=== PATIENT | male | born 1945 | race Caucasian/White ===

== ENCOUNTER 2017-12-24 08:45 | Inpatient (IN) | payer MEDICARE, BC ==
[~2017-12-24 08:45] MED LIST: GLYCOPYRROLATE INJ 0.4 MG/2 ML VIAL ONE; NEOSTIGMINE METHYLSULFATE 10 MG/10 ML VIAL ONE; ROCURONIUM BROMIDE INJ 50 MG/5 ML VIAL IV ONE; SUCCINYLCHOLINE CHLORIDE INJ 200 MG/10 ML VIAL ONE
[2017-12-24] MEDS ORDERED: NORMAL SALINE 1000 ML 1,000 ML IV ONE (09:38)
--- NOTE | 2017-12-24 09:38 | ER Document Report ---
ED Medical Screen (RME) - General Chief Complaint: Abdominal Pain Stated Complaint: STOMACH PAIN Time Seen by Provider: 12/24/17 09:37 Notes: Patient states since yesterday he has had abdominal pain with nausea. He is also felt a "knot" in the center of his abdomen that was very painful. He has had a previous abdominal surgery for bowel perforation. TRAVEL OUTSIDE OF THE [place] IN LAST 30 DAYS: No - Related Data Allergies/Adverse Reactions: Penicillins Allergy (Intermediate, Verified 12/24/17 08:46) Hives Past Medical History - Social History Chew tobacco use (# tins/day): No Frequency of alcohol use: None Drug Abuse: None - Past Medical History Cardiac Medical History: Reports: Hx Coronary Artery Disease, Hx Hypercholesterolemia, Hx Hypertension Endocrine Medical History: Reports: Hx Diabetes Mellitus Type 2 Renal/ Medical History: Denies: Hx Peritoneal Dialysis Past Surgical History: Reports: Hx Cardiac Surgery - 5 vessel - Immunizations Hx Diphtheria, Pertussis, Tetanus Vaccination: Yes Physical Exam - Vital signs Vitals: Temp Pulse Resp BP Pulse Ox 98.1 F 70 20 177/94 H 94 12/24/17 09:02 12/24/17 09:02 12/24/17 09:02 12/24/17 09:02 12/24/17 09:02 Course - Vital Signs Vital signs: Temp Pulse Resp BP Pulse Ox 98.1 F 70 20 156/91 H 94 12/24/17 09:02 12/24/17 09:02 12/24/17 09:02 12/24/17 09:03 12/24/17 09:02
[2017-12-24 10:17] LABS: ABSOLUTE BASOPHILS # (AUTO) 0.1 10^3/uL (0.0-0.2); ABSOLUTE EOSINOPHILS # (AUTO) 0.1 10^3/uL (0.0-0.6); ABSOLUTE LYMPHOCYTES (AUTO) 1.7 10^3/uL (0.5-4.7); ABSOLUTE MONOCYTES (AUTO) 0.6 10^3/uL (0.1-1.4); ABSOLUTE NEUT (AUTO) 8.2 10^3/uL (1.7-8.2); BASOPHILS % (AUTO) 0.7 % (0-2); EOSINOPHILS % (AUTO) 0.7 % (0-6); HEMATOCRIT 44.2 % (37.9-51.0); LYMPHOCYTES % (AUTO) 16.3 % (13-45); MEAN CORPUSCULAR HEMOGLOBIN 29.6 pg (27.0-33.4); MEAN CORPUSCULAR VOLUME 87 fl (80-97); MONOCYTES % (AUTO) 5.9 % (3-13); PLATELET COUNT 211 10^3/uL (150-450); RED BLOOD COUNT 5.08 10^6/uL (4.35-5.55); RED CELL DISTRIBUTION WIDTH 14.8 % (11.5-14.0); SEGMENTED NEUTROPHILS % (AUTO) 76.4 % (42-78); TOTAL CELLS COUNTED % (AUTO) 100 %; WHITE BLOOD COUNT 10.7 10^3/uL (4.0-10.5)
[2017-12-24] MEDS ORDERED: FENTANYL CITRATE INJ/PF 100 MCG/2 ML AMPUL IV ONE (10:20)
--- NOTE | 2017-12-24 10:20 | ER Document Report ---
ED GI/ - General Chief Complaint: Abdominal Pain Stated Complaint: STOMACH PAIN Time Seen by Provider: 12/24/17 09:37 Notes: 72-year-old male. History of coronary artery bypass graft 5, history of major abdominal surgery for stuck chicken bone, to the emergency department today complaining of 1 day history of worsening abdominal pain. Pain seems to be worse down the midline of his abdomen where previous incision was made. Has not felt well. Denies any fever. No difficulty with urination. No vomiting. TRAVEL OUTSIDE OF THE [place] IN LAST 30 DAYS: No - HPI Patient complains to provider of: Abdominal pain Onset: Yesterday - Related Data Allergies/Adverse Reactions: Penicillins Allergy (Intermediate, Verified 12/24/17 08:46) Hives Past Medical History - General Information source: Patient, Relative - Social History Smoking Status: Former Smoker Chew tobacco use (# tins/day): No Frequency of alcohol use: None Drug Abuse: None Lives with: Family Family History: Reviewed & Not Pertinent Patient has suicidal ideation: No Patient has homicidal ideation: No - Past Medical History Cardiac Medical History: Reports: Hx Coronary Artery Disease, Hx Hypercholesterolemia, Hx Hypertension Endocrine Medical History: Reports: Hx Diabetes Mellitus Type 2 Renal/ Medical History: Denies: Hx Peritoneal Dialysis Past Surgical History: Reports: Hx Cardiac Surgery - 5 vessel - Immunizations Hx Diphtheria, Pertussis, Tetanus Vaccination: Yes Review of Systems - Review of Systems Constitutional: Chills. denies: Diaphoresis, Fever, Malaise, Weakness EENT: denies: Blurred vision, Double vision, Ear pain, Vertigo Cardiovascular: denies: Chest pain, Palpitations, Heart racing Respiratory: denies: Cough, Hurts to breathe, Hemoptysis, Short of breath, Wheezing Gastrointestinal: Abdominal pain. denies: Diarrhea, Nausea, Vomiting Genitourinary: denies: Burning, Dysuria, Discharge, Flank pain Male Genitourinary: denies: Testicular pain, Penile discharge Musculoskeletal: denies: Back pain, Joint pain, Joint swelling, Muscle pain Skin: denies: Lesions, Lumps, Rash Hematologic/Lymphatic: denies: Anemia, Blood clots, Easy bleeding, Easy bruising Neurological/Psychological: denies: Confusion, Dementia, Weakness, Speech impairment, Numbness Physical Exam - Vital signs Vitals: Temp Pulse Resp BP Pulse Ox 98.1 F 70 20 177/94 H 94 12/24/17 09:02 12/24/17 09:02 12/24/17 09:02 12/24/17 09:02 12/24/17 09:02 Interpretation: Normal - General General appearance: Appears well, Alert - HEENT Head: Normocephalic, Atraumatic Eyes: Normal Pupils: PERRL - Respiratory Respiratory status: No respiratory distress Chest status: Nontender Breath sounds: Normal Chest palpation: Normal - Cardiovascular Rhythm: Regular Heart sounds: Normal auscultation Murmur: No - Abdominal Inspection: Normal Distension: No distension Bowel sounds: Normal Tenderness: Nontender Organomegaly: No organomegaly - Back Back: Normal, Nontender - Extremities General upper extremity: Normal inspection, Nontender, Normal color, Normal ROM , Normal temperature General lower extremity: Normal inspection, Nontender, Normal color, Normal ROM , Normal temperature, Normal weight bearing. No: Peter's sign - Neurological Neuro grossly intact: Yes Cognition: Normal Orientation: AAOx4 [place] Coma Scale Eye Opening: Spontaneous Monty Coma Scale Verbal: Oriented [place] Coma Scale Motor: Obeys Commands Monty Coma Scale Total: 15 Speech: Normal Motor strength normal: LUE, RUE, LLE, RLE Sensory: Normal - Psychological Associated symptoms: Normal affect, Normal mood - Skin Skin Temperature: Warm Skin Moisture: Dry Skin Color: Normal Course - Re-evaluation Re-evalutation: 12/24/17 10:20 Relatively well-appearing male in no acute distress. Will order basic belly labs, CT and reassess. 12/24/17 12:38 12/24/17 10:03 12/24/17 10:03 MCV 87 fl (80-97) 12/24/17 10:03 MCH 29.6 pg (27.0-33.4) 12/24/17 10:03 MCHC 34.0 g/dL (32.0-36.0) 12/24/17 10:03 RDW 14.8 % (11.5-14.0) H 12/24/17 10:03 Seg Neutrophils % 76.4 % (42-78) 12/24/17 10:03 Lymphocytes % 16.3 % (13-45) 12/24/17 10:03 Monocytes % 5.9 % (3-13) 12/24/17 10:03 Eosinophils % 0.7 % (0-6) 12/24/17 10:03 Basophils % 0.7 % (0-2) 12/24/17 10:03 Absolute Neutrophils 8.2 10^3/uL (1.7-8.2) 12/24/17 10:03 Absolute Lymphocytes 1.7 10^3/uL (0.5-4.7) 12/24/17 10:03 Absolute Monocytes 0.6 10^3/uL (0.1-1.4) 12/24/17 10:03 Absolute Eosinophils 0.1 10^3/uL (0.0-0.6) 12/24/17 10:03 Absolute Basophils 0.1 10^3/uL (0.0-0.2) 12/24/17 10:03 Chloride 99 mmol/L (98-107) 12/24/17 10:03 Carbon Dioxide 29 mmol/L (22-30) 12/24/17 10:03 Anion Gap 13 (5-19) 12/24/17 10:03 Est GFR ( Amer) > 60 (>60) 12/24/17 10:03 Est GFR (Non-Af Amer) 59 (>60) L 12/24/17 10:03 Glucose 156 mg/dL (75-110) H 12/24/17 10:03 Calcium 10.4 mg/dL (8.4-10.2) H 12/24/17 10:03 Total Bilirubin 1.1 mg/dL (0.2-1.3) 12/24/17 10:03 AST 26 U/L (17-59) 12/24/17 10:03 ALT 35 U/L (21-72) 12/24/17 10:03 Alkaline Phosphatase 118 U/L (38-126) 12/24/17 10:03 Total Protein 7.3 g/dL (6.3-8.2) 12/24/17 10:03 Albumin 4.7 g/dL (3.5-5.0) 12/24/17 10:03 Lipase 57.8 U/L (23-300) 12/24/17 10:03 Urine Color YELLOW 12/24/17 09:55 Urine Appearance CLEAR 12/24/17 09:55 Urine pH 5.0 (5.0-9.0) 12/24/17 09:55 Ur Specific [place] 1.017 12/24/17 09:55 Urine Protein 30 mg/dL (NEGATIVE) H 12/24/17 09:55 Urine Glucose (UA) NEGATIVE mg/dL (NEGATIVE) 12/24/17 09:55 Urine Ketones NEGATIVE mg/dL (NEGATIVE) 12/24/17 09:55 Urine Blood NEGATIVE (NEGATIVE) 12/24/17 09:55 Urine Nitrite NEGATIVE (NEGATIVE) 12/24/17 09:55 Ur Leukocyte Esterase NEGATIVE (NEGATIVE) 12/24/17 09:55 Urine WBC (Auto) 0 /HPF 12/24/17 09:55 Abdomen/Pelvis CT 12/24/17 09:37 IMPRESSION: 1. Earlier or partial small bowel obstruction which appears to be secondary to small ventral hernia which contains a loop of small bowel. 2. Diverticulosis without evidence of diverticulitis or abscess. 3. 8 cm renal cyst on the left with small renal cysts on the right 12/24/17 12:39 Patient has partial early small bowel obstruction. Will consult with surgery. Surgery page. No answer. 12/24/17 14:49 Patient now vomiting up his contrast 12/24/17 16:[address] at the [facility]. Time is 1630. I have discussed the case with my colleague Dr. Valdivia. I did consult with the hospitalist as the surgeon states that he would not admit this patient directly to his service even if he needed surgery. Hospitalist does not want to make a decision one way or the other until there are results from the CT scan and we have reconsulted the surgeon. At this time I am leaving the final decision to Dr. Valdivia. Anticipate this patient will need to be admitted to the medicine service with a surgical consult. - Vital Signs Vital signs: Temp Pulse Resp BP Pulse Ox 97.7 F 71 18 145/70 H 94 12/24/17 11:50 12/24/17 11:50 12/24/17 11:50 12/24/17 11:50 12/24/17 11:50 - Laboratory Result Diagrams: 12/24/17 10:03 12/24/17 10:03 Laboratory results interpreted by me: 12/24/17 12/24/17 12/24/17 09:55 10:03 10:03 WBC 10.7 H RDW 14.8 H BUN 21 H Est GFR (Non-Af Amer) 59 L Glucose 156 H Calcium 10.4 H Urine Protein 30 H Urine Urobilinogen 4.0 H Discharge - Discharge Clinical Impression: Intractable vomiting Qualifiers: Vomiting type: unspecified Nausea presence: with nausea Qualified Code(s): R11.2 - Nausea with vomiting, unspecified Partial bowel obstruction Qualifiers: Intestinal obstruction type: other intestinal obstruction Qualified Code(s): K56.690 - Other partial intestinal obstruction Disposition: ADMITTED INPATIENT
[2017-12-24 10:25] LABS: APPEARANCE,URINE CLEAR; BILIRUBIN,URINE NEGATIVE (NEGATIVE); COLOR,URINE YELLOW; GLUCOSE, URINE NEGATIVE (NEGATIVE); KETONES,URINE NEGATIVE (NEGATIVE); LEUKOCYTE ESTERASE,URINE NEGATIVE (NEGATIVE); NITRITE,URINE NEGATIVE (NEGATIVE); PROTEIN,URINE 30 mg/dL (NEGATIVE); URINE SPECIFIC GRAVITY 1.017
[2017-12-24 10:31] LABS: ALANINE AMINOTRANSFERASE 35 U/L (21-72); ALBUMIN 4.7 g/dL (3.5-5.0); ALKALINE PHOSPHATASE 118 U/L (38-126); ANION GAP 13 (5-19); ASPARTATE AMINO TRANSFERASE 26 U/L (17-59); BILIRUBIN,DIRECT 0.3 mg/dL (0.0-0.4); BILIRUBIN,TOTAL 1.1 mg/dL (0.2-1.3); BLOOD UREA NITROGEN 21 mg/dL (7-20); CALCIUM 10.4 mg/dL (8.4-10.2); CARBON DIOXIDE 29 mmol/L (22-30); CHLORIDE 99 mmol/L (98-107); GLUCOSE 156 mg/dL (75-110); LIPASE 57.8 U/L (23-300); POTASSIUM 4.4 mmol/L (3.6-5.0); SODIUM 141.4 mmol/L (137-145); TOTAL PROTEIN 7.3 g/dL (6.3-8.2)
--- NOTE | 2017-12-24 11:37 | RADIOLOGY REPORT (SQ) ---
EXAM DESCRIPTION: CT ABD/PELVIS WITH IV ONLY COMPLETED DATE/TIME: 12/24/2017 11:07 am REASON FOR STUDY: abd pain COMPARISON: None. TECHNIQUE: CT scan of the abdomen and pelvis performed using helical scanning technique with dynamic intravenous contrast injection. No oral contrast. Images reviewed with lung, soft tissue, and bone windows. Reconstructed coronal and sagittal MPR images reviewed. Delayed images for evaluation of the urinary system also acquired. All images stored on PACS. All CT scanners at this facility use dose modulation, iterative reconstruction, and/or weight based d osing when appropriate to reduce radiation dose to as low as reasonably achievable (ALARA). [facility]: Dose Right [facility]: CareDose [facility]: Dose Right [facility]: Teradose 4D [facility]: [employer] CONTRAST TYPE AND DOSE: contrast/concentration: Isovue 370.00 mg/ml; Total Contrast Delivered: 100.0 ml; Total Saline Delivered: 70.0 ml RENAL FUNCTION: Creatinine 1.21 RADIATION DOSE: CT Rad equipment meets quality standard of care and radiation dose reduction techniq ues were employed. CTDIvol: 21.1 - 21.1 mGy. DLP: 2551 mGy-cm.. LIMITATIONS: None. FINDINGS: LOWER CHEST: No significant findings. No nodules or infiltrates. Coronary artery calcific ations status post CABG. LIVER: Normal size. No masses. No dilated ducts. SPLEEN: Normal size. No focal lesions. PANCREAS: No masses. No significant calcifications. No adjacent inflammation or peripancreatic fluid collections. Pancreatic duct not dilated. GALLBLADDER: No identified stones by CT criteria. No inflammatory changes to suggest cholecystitis. ADRENAL GLANDS: No significant masses or asymmetry. RIGHT KIDNEY AND URETER: 2 cysts largest in the upper pole measuring 3 cm. No solid masses. No sig nificant calcifications. No hydronephrosis or hydroureter. LEFT KIDNEY AND URETER: 9 cm upper pole cyst. No solid masses. No significant calcifications. No hydronephrosis or hydroureter. AORTA AND VESSELS: No aneurysm. No dissection. Renal arteries, SMA, celiac without stenosis. RETROPERITONEUM: No retroperitoneal adenopathy, hemorrhage or masses. BOWEL AND PERITONEAL CAVITY: Colonic diverticulosis primarily involving the left colon. No evidence of diverticulitis. Multiple mildly dilated loops of small bowel in the mid abdomen with distal small bowel being decompressed. Findings consistent with early or partial small bowel obstruction. Posto perative changes are noted involving the small bowel in this region but this does not appear to be th e cause of the obstruction. There is a small ventral hernia in the mid abdomen just to the right of the midline which contains a loop of small bowel which appears to be the cause of the obstruction. APPENDIX: Normal. PELVIS: No mass. No free fluid. Normal bladder. ABDOMINAL WALL: Small ventral hernia containing a loop small bowel. BONES: No significant or acute findings. OTHER: No other significant finding. IMPRESSION: 1. Earlier or partial small bowel obstruction which appears to be secondary to small ve ntral hernia which contains a loop of small bowel. 2. Diverticulosis without evidence of diverticulitis or abscess. 3. 8 cm renal cyst on the left with small renal cysts on the right TECHNICAL DOCUMENTATION: JOB ID: [id number] Quality ID # [id number]: Final reports with documentation of one or more dose reduction techniques (e.g., Au tomated exposure control, adjustment of the mA and/or kV according to patient size, use of iterative reconstruction technique) 2010 [employer]- All Rights Reserved
[2017-12-24] MEDS ORDERED: RINGERS SOLUTION,LACTATED 1,000 ML IV ONE ×2 (13:08→16:34)
[2017-12-24] MEDS ORDERED: HYDROMORPHONE HCL INJ/PF 2 MG/ML AMPULE IV ONE (13:55)
[2017-12-24] MEDS ORDERED: ONDANSETRON HCL INJ/PF 4 MG/2 ML SDV IV ONE ×2 (14:12→14:14)
--- NOTE | 2017-12-24 16:42 | RADIOLOGY REPORT (SQ) ---
EXAM DESCRIPTION: CT ABD/PELVIS ORAL ONLY COMPLETED DATE/TIME: 12/24/2017 4:28 pm REASON FOR STUDY: Bowel obstruction surgeon requests oral contrast C COMPARISON: Earlier the same day. TECHNIQUE: CT scan of the abdomen and pelvis performed without intravenous or oral contrast. Images reviewed with lung, soft tissue, and bone windows. Reconstructed coronal and sagittal MPR images revi ewed. All images stored on PACS. All CT scanners at this facility use dose modulation, iterative reconstruction, and/or weight based d osing when appropriate to reduce radiation dose to as low as reasonably achievable (ALARA). [facility]: Dose Right [facility]: CareDose [facility]: Dose Right [facility]: Teradose 4D [facility]: [employer] RADIATION DOSE: CT Rad equipment meets quality standard of care and radiation dose reduction techniq ues were employed. CTDIvol: 21.1 mGy. DLP: 1251 mGy-cm.mGy. LIMITATIONS: Patient vomited oral contrast. FINDINGS: Patient vomited the oral contrast. Mildly dilated loops small bowel with gas fluid levels with transition in the anterior abdominal wall hernia. The colon is decompressed. Appearance is un changed. IMPRESSION: Partial small bowel obstruction associated with anterior abdominal wall hernia. COMMENT: Quality ID # [id number]: Final reports with documentation of one or more dose reduction techniques (e.g., Automated exposure control, adjustment of the mA and/or kV according to patient size, use of iterative reconstruction technique) TECHNICAL DOCUMENTATION: JOB ID: [id number] [employer]- All Rights Reserved
--- NOTE | 2017-12-24 17:50 | PDOC CONSULTATION ---
Consultation Consult Date: 12/24/17 Consult reason:: ventral hernia History of Present Illness History of Present Illness: RASHIDA MOTA is a 72 year old male, morbidly obese, diabtetic, hx of CABG, NIDDM , who underwent a laparotomy for perforated viscus 2 yrs ago. He reports a severe midabdominal pain since yesterday, little flatus, intense nausea. A CT scan A/P with oral contrast demonstrated an incarcerated ventral hernia containing small bowel. Past Medical History Cardiac Medical History: Reports: Coronary Artery Disease, Hyperlipidema, Hypertension Endocrine Medical History: Reports: Diabetes Mellitus Type 2 Past Surgical History Past Surgical History: Reports: Other - laparotomy for perforated viscus 3 yrs ago Social History Lives with: Family Smoking Status: Former Smoker Frequency of Alcohol Use: None Hx Recreational Drug Use: No Hx Prescription Drug Abuse: No Family History Family History: Reviewed & Not Pertinent Parental Family History Reviewed: Yes Children Family History Reviewed: Yes Sibling(s) Family History Reviewed.: Yes Medication/Allergy Home Medications: Aspirin [Aspirin EC] 81 mg PO DAILY 12/24/17 Clopidogrel Bisulfate [Plavix 75 mg Tablet] 75 mg PO DAILY 12/24/17 Furosemide [Lasix 20 mg Tablet] 20 mg PO QAM 12/24/17 Magnesium Oxide [Mag-Ox 400 mg Tablet] 400 mg PO BID 12/24/17 Metoprolol Succinate [Toprol Xl 25 mg Tab.sr] 25 mg PO DAILY 12/24/17 Pantoprazole Sodium [Protonix] 40 mg PO DAILY 12/24/17 Sitagliptin Phosphate [Januvia] 100 mg PO DAILY 12/24/17 Solifenacin Succinate [Vesicare] 10 mg PO QHS 12/24/17 Allergies/Adverse Reactions: Penicillins Allergy (Intermediate, Verified 12/24/17 08:46) Hives Physical Exam Vital Signs: Temp Pulse Resp BP Pulse Ox 97.6 F 81 20 133/76 H 92 12/24/17 16:36 12/24/17 16:36 12/24/17 16:36 12/24/17 16:36 12/24/17 16:36 Intake & Output 12/23/17 12/24/17 12/25/17 06:59 06:59 06:59 Weight 138.1 kg General appearance: PRESENT: mild distress Mouth exam: PRESENT: dry mucosa Neck exam: PRESENT: full ROM Respiratory exam: PRESENT: clear to auscultation tip Cardiovascular exam: PRESENT: RRR GI/Abdominal exam: PRESENT: distended - right lateral abdominal quadrant bulge on Valsalva, soft Results Laboratory Results: 12/24/17 10:03 12/24/17 10:03 12/24/17 12/24/17 12/24/17 09:55 10:03 10:03 WBC 10.7 H RBC 5.08 Hgb 15.0 Hct 44.2 MCV 87 MCH 29.6 MCHC 34.0 RDW 14.8 H Plt Count 211 Seg Neutrophils % 76.4 Lymphocytes % 16.3 Monocytes % 5.9 Eosinophils % 0.7 Basophils % 0.7 Absolute Neutrophils 8.2 Absolute Lymphocytes 1.7 Absolute Monocytes 0.6 Absolute Eosinophils 0.1 Absolute Basophils 0.1 Sodium 141.4 Potassium 4.4 Chloride 99 Carbon Dioxide 29 Anion Gap 13 BUN 21 H Creatinine 1.21 Est GFR ( Amer) > 60 Est GFR (Non-Af Amer) 59 L Glucose 156 H Calcium 10.4 H Total Bilirubin 1.1 AST 26 ALT 35 Alkaline Phosphatase 118 Total Protein 7.3 Albumin 4.7 Lipase 57.8 Urine Color YELLOW Urine Appearance CLEAR Urine pH 5.0 Ur Specific [place] 1.017 Urine Protein 30 H Urine Glucose (UA) NEGATIVE Urine Ketones NEGATIVE Urine Blood NEGATIVE Urine Nitrite NEGATIVE Ur Leukocyte Esterase NEGATIVE Urine WBC (Auto) 0 Impressions: Abdomen/Pelvis CT 12/24/17 13:07 IMPRESSION: Partial small bowel obstruction associated with anterior abdominal wall hernia. Assessment & Plan - Diagnosis (2) Ventral hernia with bowel obstruction Is this a current diagnosis for this admission?: Yes - Plan Summary Plan Summary: A/ Incarcerated ventral hernia with partial bowel obstruction Type DM CAD HTN P/ Urgent ventral herniorraphy with absorbable mesh tonight Aggressive IV hydration EKG preop NGT insertion Cipro/Flagyl preop Procedure, risks, benefits, discussed with the patient, he understands all the above, his questions were answered and he decides to proceed.
[2017-12-24] MEDS ORDERED: METRONIDAZOLE 500 MG/NS RTU 100 ML IV ONE (17:51)
[2017-12-24] MEDS ORDERED: LEVOFLOXACIN 500 MG/D5W RTU 500 MG/100 ML RTUPB IV SCH (18:00)
[2017-12-24] MEDS ORDERED: ACETAMINOPHEN 325 MG TABLET PO PRN (18:14)
[2017-12-24] MEDS ORDERED: ONDANSETRON HCL INJ/PF 4 MG/2 ML SDV IV PRN ×2 (18:14→23:30)
[2017-12-24] MEDS ORDERED: NORMAL SALINE 1000 ML 1,000 ML IV PRN (18:14)
--- NOTE | 2017-12-24 18:24 | EKG REPORT ---
SEVERITY:- ABNORMAL ECG - SINUS RHYTHM PROBABLE LEFT ATRIAL ABNORMALITY LAD, CONSIDER LEFT ANTERIOR FASCICULAR BLOCK : Confirmed by: Mario Clark MD 24-Dec-2017 18:24:11
[2017-12-24] MEDS ORDERED: DEXTROSE 50%-WATER 25 GM/50 ML DISP.SYRIN IV PRN ×2 (18:32)
[2017-12-24] MEDS ORDERED: GLUCAGON,HUMAN RECOMB 1 MG INJ IM PRN (18:32)
[2017-12-24] MEDS ORDERED: DEXTROSE 40% GEL 15 GM TUBE PO PRN ×2 (18:32)
[2017-12-24] MEDS ORDERED: FENTANYL CITRATE INJ/PF 250 MCG/5 ML AMPULE ONE (18:37)
[2017-12-24] MEDS ORDERED: MIDAZOLAM 2 MG/2 ML INJ ONE (18:37)
[2017-12-24] MEDS ORDERED: EPHEDRINE SULFATE INJ 50 MG/1 ML AMPULE ONE (18:37)
[2017-12-24] MEDS ORDERED: PROPOFOL INJ 200 MG/20 ML VIAL IV ONE (18:37)
[2017-12-24] MEDS ORDERED: HYDROMORPHONE HCL INJ/PF 2 MG/ML AMPULE ONE ×2 (18:37→18:38)
--- NOTE | 2017-12-24 18:45 | PDOC H&P ---
History of Present Illness Admission Date/PCP: 12/24/17 17:51 Patient complains of: Add pain History of Present Illness: 72-year-old gentleman that presents to our facility with complaint of nausea. Patient states he was eating an apple that he had cut up and swallowed 1 of the apples hole. Patient states shortly after that during the night he continued to have abdominal pain. Patient also reports eating beef stew. Patient states the reason why he came to the hospital was because he was sick as a dog. No vomiting. Patient denies any chest pain, shortness of breath, or fever. Patient reports that he swallowed a chicken bone and has been seen by surgery before who recommended not doing anything. Patient states that she can bone is still in there and poking holes in his colon. Past Medical History Cardiac Medical History: Reports: Coronary Artery Disease, Hyperlipidema, Hypertension Endocrine Medical History: Reports: Diabetes Mellitus Type 2 Past Surgical History Past Surgical History: Reports: Cardiac Catheterization, Coronary Artery Bypass Graft, Coronary Stent, Other - laparotomy for perforated viscus 3 yrs ago Social History Information Source: Patient Lives with: Family Smoking Status: Former Smoker Frequency of Alcohol Use: None Hx Recreational Drug Use: No Hx Prescription Drug Abuse: No - Advance Directive Resuscitation Status: Full Code Family History Family History: Reviewed & Not Pertinent Parental Family History Reviewed: Yes Children Family History Reviewed: Yes Sibling(s) Family History Reviewed.: Yes Medication/Allergy Home Medications: Aspirin [Aspirin EC] 81 mg PO DAILY 12/24/17 Clopidogrel Bisulfate [Plavix 75 mg Tablet] 75 mg PO DAILY 12/24/17 Furosemide [Lasix 20 mg Tablet] 20 mg PO QAM 12/24/17 Magnesium Oxide [Mag-Ox 400 mg Tablet] 400 mg PO BID 12/24/17 Metoprolol Succinate [Toprol Xl 25 mg Tab.sr] 25 mg PO DAILY 12/24/17 Pantoprazole Sodium [Protonix] 40 mg PO DAILY 12/24/17 Sitagliptin Phosphate [Januvia] 100 mg PO DAILY 12/24/17 Solifenacin Succinate [Vesicare] 10 mg PO QHS 12/24/17 Allergies/Adverse Reactions: Penicillins Allergy (Intermediate, Verified 12/24/17 08:46) Hives Review of Systems Constitutional: ABSENT: chills, fever(s), headache(s), weight gain, weight loss Eyes: ABSENT: visual disturbances Ears: ABSENT: hearing changes Cardiovascular: ABSENT: chest pain, dyspnea on exertion, edema, orthropnea, palpitations Respiratory: ABSENT: cough, hemoptysis Gastrointestinal: PRESENT: abdominal pain, nausea, vomiting Genitourinary: ABSENT: dysuria, hematuria Musculoskeletal: ABSENT: joint swelling Integumentary: ABSENT: rash, wounds Neurological: ABSENT: abnormal gait, abnormal speech, confusion, dizziness, focal weakness, syncope Psychiatric: ABSENT: anxiety, depression, homidical ideation, suicidal ideation Endocrine: ABSENT: cold intolerance, heat intolerance, polydipsia, polyuria Hematologic/Lymphatic: ABSENT: easy bleeding, easy bruising Physical Exam Vital Signs: Temp Pulse Resp BP Pulse Ox 97.6 F 81 20 133/76 H 92 12/24/17 16:36 12/24/17 16:36 12/24/17 16:36 12/24/17 16:36 12/24/17 16:36 Intake & Output 12/23/17 12/24/17 12/25/17 06:59 06:59 06:59 Intake Total 1000 Balance 1000 General appearance: PRESENT: mild distress, well-developed, well-nourished, other - NG tube in place Head exam: PRESENT: atraumatic, normocephalic Eye exam: PRESENT: conjunctiva pink, EOMI. ABSENT: scleral icterus Ear exam: PRESENT: normal external ear exam Mouth exam: PRESENT: moist, tongue midline Neck exam: ABSENT: carotid bruit, JVD, lymphadenopathy, thyromegaly Respiratory exam: PRESENT: clear to auscultation tip. ABSENT: rales, rhonchi, wheezes Cardiovascular exam: PRESENT: RRR. ABSENT: diastolic murmur, rubs, systolic murmur Pulses: PRESENT: normal dorsalis pedis pul Vascular exam: PRESENT: normal capillary refill GI/Abdominal exam: PRESENT: normal bowel sounds, soft. ABSENT: distended, guarding, mass, organolmegaly, rebound, tenderness Rectal exam: PRESENT: deferred Extremities exam: PRESENT: full ROM. ABSENT: calf tenderness, clubbing, pedal edema Musculoskeletal exam: PRESENT: full ROM Neurological exam: PRESENT: alert, awake, oriented to person, oriented to place , oriented to time, oriented to situation, CN II-XII grossly intact. ABSENT: motor sensory deficit Psychiatric exam: PRESENT: appropriate affect, normal mood. ABSENT: homicidal ideation, suicidal ideation Skin exam: PRESENT: dry, intact, warm. ABSENT: cyanosis, rash Results Impressions: Abdomen/Pelvis CT 12/24/17 13:07 IMPRESSION: Partial small bowel obstruction associated with anterior abdominal wall hernia. Assessment & Plan - Diagnosis (1) Ventral hernia with bowel obstruction Is this a current diagnosis for this admission?: Yes Plan: Patient is being evaluated by surgery for possible surgical procedure this evening. Patient had a cardiac cath in 2017 at [place] per his report which resulted in 2 stents placed in his bypass grafts. Will ask cardiology to come evaluate patient. We will also try to obtain outside records. Patient is placed on Levaquin and Flagyl (2) Hx of CABG Is this a current diagnosis for this admission?: No Plan: History of 5 vessel CABG in 2002 with recent stent placement in 2017 in [place]: We will consult cardiology and check 2D echo. (3) Diabetes mellitus type 2 in obese Is this a current diagnosis for this admission?: Yes Plan: Place patient on sliding scale insulin and check hemoglobin A1c. (4) HLD (hyperlipidemia) Is this a current diagnosis for this admission?: Yes Plan: Hold statin (5) Obesity (BMI 35.0-39.9 without comorbidity) Is this a current diagnosis for this admission?: Yes Plan: Will encourage dietary changes. (6) Intractable vomiting Qualifiers: Vomiting type: unspecified Nausea presence: with nausea Qualified Code(s) : R11.2 - Nausea with vomiting, unspecified Is this a current diagnosis for this admission?: Yes Plan: Patient written for [employer]. (7) CAD (coronary artery disease) Is this a current diagnosis for this admission?: No Plan: Stable no acute process currently. (8) HTN (hypertension) Is this a current diagnosis for this admission?: Yes Plan: Patient continued on metoprolol. (9) DVT prophylaxis Is this a current diagnosis for this admission?: Yes Plan: SCDs - Time Time Spent: 30 to 50 Minutes
[2017-12-24] MEDS ORDERED: BUPIVACAINE HCL 0.25 % INJ/PF (2.5 MG/1 ML) 30 ML VIAL ONE (18:56)
[2017-12-24 19:16] LABS: INTERNATIONAL RATION (INR) 0.95; PARTIAL THROMBOPLASTIN TIME 26.2 SEC (23.5-35.8); PROTHROMBIN TIME 13.4 SEC (11.4-15.4)
[2017-12-24 19:40] LABS: CREATINE KINASE MB 3.51 ng/mL (<4.55); TROPONIN I 0.019 ng/mL
[2017-12-24] MEDS ORDERED: MEPERIDINE HCL/PF INJ 25 MG/1 ML DISP.SYRIN IV PRN (20:11)
[2017-12-24] MEDS ORDERED: FENTANYL CITRATE INJ/PF 100 MCG/2 ML AMPUL IV PRN ×3 (20:11)
[2017-12-24] MEDS ORDERED: PROMETHAZINE HCL INJ 25 MG/1 ML VIAL IV PRN (20:11)
[2017-12-24] MEDS ORDERED: DIPHENHYDRAMINE HCL 50 MG/ML VIAL IV PRN (20:11)
--- NOTE | 2017-12-24 20:56 | Operative Report ---
Operative Report DATE OF SURGERY: 12/24/17 PREOPERATIVE DIAGNOSIS: incarcerated ventral hernia with obstruction POSTOPERATIVE DIAGNOSIS: same OPERATION: open incarcerated ventral herniorraphy with Ventralex mesh SURGEON: JOSEPH SAUCEDO 1ST CHIEF STEWARD/STEWARDESS: RYLEE PHILLIPS ANESTHESIA: GA TISSUE REMOVED OR ALTERED: none COMPLICATIONS: none INTRAOPERATIVE FINDINGS: approximately 4 cm ventral hernia midline defect with hernia sac containing small bowel PROCEDURE: see dictation
[2017-12-24] MEDS: PANTOPRAZOLE SODIUM 40 MG VIAL IV SCH (23:07)
[2017-12-24] MEDS: HYDROMORPHONE HCL INJ/PF 2 MG/ML AMPULE IV PRN ×3 (23:08→23:35)
[2017-12-24] MEDS ORDERED: MORPHINE SULFATE 10 MG/ML INJ IV PRN ×2 (23:20→23:30)
[2017-12-24] MEDS ORDERED: CIPROFLOXACIN 400 MG/D5W RTU 400 MG/200 ML RTUPB IV ONE (23:30)
[2017-12-25] MEDS: HYDROMORPHONE HCL INJ/PF 2 MG/ML AMPULE IV PRN ×7 (00:33→05:37)
[2017-12-25] MEDS: HYDROCODONE/ACETAMINOPHEN 5-325 MG TABLET PO PRN ×2 (00:55→13:50)
[2017-12-25] MEDS ORDERED: METRONIDAZOLE 500 MG/NS RTU 100 ML IV SCH ×4 (02:00→06:00)
[2017-12-25] MEDS: METRONIDAZOLE 500 MG/NS RTU 100 ML IV SCH ×3 (05:07→23:11)
[2017-12-25 05:12] LABS: ABSOLUTE BASOPHILS # (AUTO) 0.1 10^3/uL (0.0-0.2); ABSOLUTE EOSINOPHILS # (AUTO) 0.2 10^3/uL (0.0-0.6); ABSOLUTE LYMPHOCYTES (AUTO) 1.6 10^3/uL (0.5-4.7); ABSOLUTE MONOCYTES (AUTO) 0.6 10^3/uL (0.1-1.4); ABSOLUTE NEUT (AUTO) 3.7 10^3/uL (1.7-8.2); BASOPHILS % (AUTO) 0.9 % (0-2); EOSINOPHILS % (AUTO) 3.3 % (0-6); HEMATOCRIT 35.2 % (37.9-51.0); LYMPHOCYTES % (AUTO) 25.9 % (13-45); MEAN CORPUSCULAR HEMOGLOBIN 29.4 pg (27.0-33.4); MEAN CORPUSCULAR HGB CONC 33.9 g/dL (32.0-36.0); MEAN CORPUSCULAR VOLUME 87 fl (80-97); MONOCYTES % (AUTO) 9.7 % (3-13); PLATELET COUNT 151 10^3/uL (150-450); RED BLOOD COUNT 4.05 10^6/uL (4.35-5.55); RED CELL DISTRIBUTION WIDTH 14.5 % (11.5-14.0); SEGMENTED NEUTROPHILS % (AUTO) 60.2 % (42-78); TOTAL CELLS COUNTED % (AUTO) 100 %; WHITE BLOOD COUNT 6.1 10^3/uL (4.0-10.5)
[2017-12-25 05:20] LABS: HEMOGLOBIN 11.9 g/dL (13.5-17.0)
[2017-12-25 05:35] LABS: ALANINE AMINOTRANSFERASE 32 U/L (21-72); ALBUMIN 3.1 g/dL (3.5-5.0); ALKALINE PHOSPHATASE 75 U/L (38-126); ANION GAP 9 (5-19); ASPARTATE AMINO TRANSFERASE 22 U/L (17-59); BILIRUBIN,DIRECT 0.3 mg/dL (0.0-0.4); BILIRUBIN,TOTAL 0.9 mg/dL (0.2-1.3); BLOOD UREA NITROGEN 20 mg/dL (7-20); CALCIUM 8.1 mg/dL (8.4-10.2); CARBON DIOXIDE 29 mmol/L (22-30); CHLORIDE 102 mmol/L (98-107); GLUCOSE 117 mg/dL (75-110); POTASSIUM 3.9 mmol/L (3.6-5.0); SODIUM 140.4 mmol/L (137-145); TOTAL PROTEIN 5.7 g/dL (6.3-8.2)
[2017-12-25] MEDS ORDERED: HYDROMORPHONE HCL INJ/PF 2 MG/ML AMPULE IV ONE (06:00)
[2017-12-25] MEDS ORDERED: ONDANSETRON HCL INJ/PF 4 MG/2 ML SDV IV PRN (07:30)
[2017-12-25] MEDS: PANTOPRAZOLE SODIUM 40 MG VIAL IV SCH ×2 (09:34→23:25)
[2017-12-25] MEDS: METOPROLOL SUCCINATE 25 MG TAB.SR.24H PO SCH (09:34)
[2017-12-25] MEDS: CIPROFLOXACIN 400 MG/D5W RTU 400 MG/200 ML RTUPB IV SCH (09:34)
[2017-12-25] MEDS ORDERED: METOPROLOL SUCCINATE 25 MG TAB.SR.24H PO SCH (10:00)
[2017-12-25] MEDS ORDERED: CIPROFLOXACIN 400 MG/D5W RTU 400 MG/200 ML RTUPB IV SCH (10:00)
--- NOTE | 2017-12-25 10:02 | OPERATIVE REPORT E ---
Operative Report NAME: RASHIDA MOTA : 1945 AGE: 72Y DATE OF SURGERY: 12/24/2017 ROOM: 316 PREOPERATIVE DIAGNOSIS: Incarcerated midline ventral hernia. POSTOPERATIVE DIAGNOSIS: Incarcerated midline ventral hernia. OPERATION: Open repair of incarcerated ventral hernia with Ventralex mesh. SURGEON: JOSEPH SAUCEDO M.D. HARBOR PILOT: RYLEE Thomas, FLOUR MIXER HELPER. COMPLICATIONS: None. ANESTHESIA: General. FLUIDS: 1000 URINE OUTPUT: 150 DRAINS: One 10 flat Michael-López drain. ESTIMATED BLOOD LOSS: Minimal. INDICATION AND FINDINGS: Patient is a morbidly obese 72-year-old male who presented to the Emergency Room with abdominal pain, intense nausea, vomiting, found to have an incarcerated small bowel ventral midline hernia with incarcerated loops of small bowel. The patient was taken to surgery emergently for repair of the hernia. DESCRIPTION OF PROCEDURE: He was taken to the operating room. Even though the palpable hernia bulge was in fact on the mid abdomen just lateral to the midline, an incision was made along the midline, because of CT scan review, down to the linea alba. The dissection was then continued initially with a knife followed by a Bovie until the sac was identified on the right of the midline. This was circumferentially dissected with Bovie until the surrounding healthy fascia was exposed. The hernia defect was found to be only 4 cm in diameter with a large sac. This was reduced within the peritoneal cavity and with Bovie, the sac was circumferentially scored and from the posterior rectus sheath both with blunt and Bovie dissection. The peritoneum with the hernia sac and anterior to sheath were circumferentially. The sac was then reduced within the peritoneal cavity. A bilateral relaxing incision along the anterior rectus sheath fascia was performed on either side of the defect; this was divided with Bovie with exposure of the rectus muscle. This relaxing incision was done for a length of about 10 cm on either side of the defect. An 8 cm Ventralex mesh was then parachuted into the defect and deployed with good repair of the defect. The edges of the defect were then approximated with interrupt [id number] inverted 0 Prolene sutures. The subcutaneous tissue was irrigated with normal saline. The tail of the Ventralex mesh was then divided and tacked to the fascia with an 0 Prolene. A 10 mm flat Michael-López drain was inserted through a separate stab wound into the defect and sutured to the skin with a 2-0 nylon suture. The deep subcutaneous fat was approximated with inverted interrupted 0 Vicryl suture. The skin was closed with a running subcuticular Monocryl suture, followed by Dermabond, sterile dressing, and binder. Patient tolerated the procedure well, extubated and transferred to a regular room in satisfactory condition. DICTATING PHYSICIAN: JOSEPH SAUCEDO M.D. [id number] PHY#: [id number] ID: [id number] JOB#: [id number] ACCT: [id number] cc:JOSEPH SAUCEDO M.D. > MTDD
--- NOTE | 2017-12-25 11:33 | PDOC PROGRESS REPORT ---
Subjective Progress Note for:: 12/25/17 Subjective:: Patient reports that he has been ambulating the hallway. Patient also states that he has tolerated clear liquids. Nursing reports that surgery states if he tolerates regular diet he could be discharged home today. Patient states that he is not having any problems with breathing. Patient does admit that he is having some abdominal discomfort. Reason For Visit: VENTRAL HERNIA WITH BOWEL OBSTRUCTION Physical Exam Vital Signs: Temp Pulse Resp BP Pulse Ox 98.2 F 72 20 132/58 H 97 12/25/17 07:58 12/25/17 07:58 12/25/17 03:25 12/25/17 07:58 12/25/17 07:58 Intake & Output 12/24/17 12/25/17 12/26/17 06:59 06:59 06:59 Intake Total 4954 Output Total 2220 Balance 2734 Weight 138.1 kg General appearance: PRESENT: no acute distress, well-developed, well-nourished Head exam: PRESENT: atraumatic, normocephalic Eye exam: PRESENT: conjunctiva pink, EOMI. ABSENT: scleral icterus Ear exam: PRESENT: normal external ear exam Mouth exam: PRESENT: moist, tongue midline Neck exam: ABSENT: carotid bruit, JVD, lymphadenopathy, thyromegaly Respiratory exam: PRESENT: clear to auscultation tip, other - Diminished at bases secondary to habitus. ABSENT: rales, rhonchi, wheezes Cardiovascular exam: PRESENT: RRR. ABSENT: diastolic murmur, rubs, systolic murmur Pulses: PRESENT: normal dorsalis pedis pul Vascular exam: PRESENT: normal capillary refill GI/Abdominal exam: PRESENT: normal bowel sounds, tenderness, other - Jonathan dressing in place with NELLY drain. ABSENT: distended, guarding, mass, organolmegaly, rebound Rectal exam: PRESENT: deferred Extremities exam: PRESENT: full ROM. ABSENT: calf tenderness, clubbing, pedal edema Neurological exam: PRESENT: alert, awake, oriented to person, oriented to place , oriented to time, oriented to situation, CN II-XII grossly intact. ABSENT: motor sensory deficit Psychiatric exam: PRESENT: appropriate affect, normal mood. ABSENT: homicidal ideation, suicidal ideation Skin exam: PRESENT: dry, intact, warm, other - Abdominal dressing in place. ABSENT: cyanosis, rash Results Laboratory Results: 12/25/17 04:55 12/25/17 04:55 12/24/17 12/25/17 12/25/17 18:52 04:55 04:55 WBC 6.1 RBC 4.05 L Hgb 11.9 L D Hct 35.2 L MCV 87 MCH 29.4 MCHC 33.9 RDW 14.5 H Plt Count 151 Seg Neutrophils % 60.2 Lymphocytes % 25.9 Monocytes % 9.7 Eosinophils % 3.3 Basophils % 0.9 Absolute Neutrophils 3.7 Absolute Lymphocytes 1.6 Absolute Monocytes 0.6 Absolute Eosinophils 0.2 Absolute Basophils 0.1 Sodium 140.4 Potassium 3.9 Chloride 102 Carbon Dioxide 29 Anion Gap 9 BUN 20 Creatinine 1.01 Est GFR ( Amer) > 60 Est GFR (Non-Af Amer) > 60 Glucose 117 H Calcium 8.1 L Magnesium 1.3 L Total Bilirubin 0.9 AST 22 ALT 32 Alkaline Phosphatase 75 Total Protein 5.7 L Albumin 3.1 L Blood Type A POSITIVE Antibody Screen NEGATIVE 12/24/17 12/24/17 18:52 18:52 Creatine Kinase 319 H CK-MB (CK-2) 3.51 Troponin I 0.019 Impressions: Abdomen/Pelvis CT 12/24/17 13:07 IMPRESSION: Partial small bowel obstruction associated with anterior abdominal wall hernia. Assessment & Plan - Diagnosis (1) Ventral hernia with bowel obstruction Is this a current diagnosis for this admission?: Yes Plan: Status post open ventral hernia repair with mesh: Patient has been continued on Cipro and Flagyl. Patient did well with surgical procedure yesterday. Patient is tolerating clear liquid diet and apparent nurse will be advanced to cardiac diabetic diet (2) Hx of CABG Is this a current diagnosis for this admission?: No Plan: History of 5 vessel CABG in 2003 with recent stent placement in 2017 in [place]: 2D echo pending. Cardiology following patient. Patient has denied any complaint of chest pain. (3) Diabetes mellitus type 2 in obese Is this a current diagnosis for this admission?: Yes Plan: We will continue sliding scale insulin. (4) HLD (hyperlipidemia) Is this a current diagnosis for this admission?: Yes Plan: We will restart statin at time of discharge. (5) Obesity (BMI 35.0-39.9 without comorbidity) Is this a current diagnosis for this admission?: Yes Plan: Will encourage dietary changes. (6) Intractable vomiting Qualifiers: Vomiting type: unspecified Nausea presence: with nausea Qualified Code(s) : R11.2 - Nausea with vomiting, unspecified Is this a current diagnosis for this admission?: Yes Plan: Zofran as needed (7) CAD (coronary artery disease) Is this a current diagnosis for this admission?: No Plan: Stable no acute process currently. (8) HTN (hypertension) Is this a current diagnosis for this admission?: Yes Plan: Patient continued on metoprolol. (9) Dehydration Is this a current diagnosis for this admission?: Yes Plan: Resolved. IV fluids have been discontinued. (10) Hypercalcemia Is this a current diagnosis for this admission?: Yes Plan: Continue to dehydration: Resolved with IV fluid administration. (11) Hypomagnesemia Is this a current diagnosis for this admission?: Yes Plan: We will give 3 g of magnesium. Will check magnesium in a.m. (12) DVT prophylaxis Is this a current diagnosis for this admission?: Yes Plan: SCDs - Time Time Spent with patient: 15-24 minutes
[2017-12-25] MEDS: INSULIN LISPRO 100 UNIT/ML 3 ML VIAL SUBCUT PRN ×2 (12:28→16:16)
[2017-12-25] MEDS: MAGNESIUM SULFATE/D5W 1 GM/100 ML RTUPB IV SCH ×3 (12:28→14:49)
--- NOTE | 2017-12-25 13:51 | PDOC PROGRESS REPORT ---
Subjective Progress Note for:: 12/25/17 Subjective:: comfortable, tolerating po well Reason For Visit: VENTRAL HERNIA WITH BOWEL OBSTRUCTION Physical Exam Vital Signs: Temp Pulse Resp BP Pulse Ox 98.1 F 75 19 105/47 L 97 12/25/17 12:40 12/25/17 12:40 12/25/17 12:40 12/25/17 12:40 12/25/17 12:40 Intake & Output 12/24/17 12/25/17 12/26/17 06:59 06:59 06:59 Intake Total 4954 318 Output Total 2220 300 Balance 2734 18 Weight 138.1 kg GI/Abdominal exam: PRESENT: soft - obese, wound covered by dressing c/d/i, NELLY drain in place Results Laboratory Results: 12/25/17 04:55 12/25/17 04:55 12/24/17 12/25/17 12/25/17 18:52 04:55 04:55 WBC 6.1 RBC 4.05 L Hgb 11.9 L D Hct 35.2 L MCV 87 MCH 29.4 MCHC 33.9 RDW 14.5 H Plt Count 151 Seg Neutrophils % 60.2 Lymphocytes % 25.9 Monocytes % 9.7 Eosinophils % 3.3 Basophils % 0.9 Absolute Neutrophils 3.7 Absolute Lymphocytes 1.6 Absolute Monocytes 0.6 Absolute Eosinophils 0.2 Absolute Basophils 0.1 Sodium 140.4 Potassium 3.9 Chloride 102 Carbon Dioxide 29 Anion Gap 9 BUN 20 Creatinine 1.01 Est GFR ( Amer) > 60 Est GFR (Non-Af Amer) > 60 Glucose 117 H Calcium 8.1 L Magnesium 1.3 L Total Bilirubin 0.9 AST 22 ALT 32 Alkaline Phosphatase 75 Total Protein 5.7 L Albumin 3.1 L Blood Type A POSITIVE Antibody Screen NEGATIVE 12/24/17 12/24/17 18:52 18:52 Creatine Kinase 319 H CK-MB (CK-2) 3.51 Troponin I 0.019 Impressions: Abdomen/Pelvis CT 12/24/17 13:07 IMPRESSION: Partial small bowel obstruction associated with anterior abdominal wall hernia. Assessment & Plan - Diagnosis (1) Ventral hernia with bowel obstruction Is this a current diagnosis for this admission?: Yes (2) Ventral hernia with bowel obstruction Is this a current diagnosis for this admission?: Yes - Plan Summary Plan Summary: A/ POD#1 after ventral herniorraphy with mesh VSS, AF Blood work WNL PE: abdomen soft, wound c/d/i NELLY output minimal P/ patient can be discharged to home today or tomorrow by General Surgery viewpoint Augmentin 875 mg po BID x 5 days NELLY care teaching by nurses patient to return to General Surgery clinic next week with NELLY drainage record
--- NOTE | 2017-12-25 18:01 | XCELERA REPORT ---
[address] [address] Transthoracic Echocardiogram Report Name: RASHIDA MOTA Age: 72 yrs Gender: Male : 1945 Patient Status: Inpatient Patient Location: [address] [place], [place] [address] Study Date: 12/25/2017 01:54 PM Height: 70 in Weight: 304 lb BSA: 2.5 m2 Procedure: A complete two-dimensional transthoracic echocardiogram was performed (2D, M-mode, spectral and color flow Doppler). The study was technically difficult with many images being suboptimal in quality. Reason For Study: chf Ordering Physician: YVES FELTON Performed By: Jeanne Shah Interpretation Summary The study was technically difficult with many images being suboptimal in quality. Left ventricular systolic function is borderline reduced. There is borderline concentric left ventricular hypertrophy. The left ventricle is grossly normal size. LV diastolic function could not be adequately assessed. Regional wall motion abnormalities cannot be excluded due to limited visualization. The right ventricle is mildly dilated. The right atrium is mildly dilated. The left atrium is mildly dilated. There is a trace amount of mitral regurgitation There is no mitral valve stenosis. No aortic regurgitation is present. There is no aortic valve stenosis There is no tricuspid stenosis. No tricuspid regurgitation. The aortic root is not well visualized but is probably normal size. The inferior vena cava was not well visualized There is no pericardial effusion. MMode/2D Measurements & Calculations RVDd: 3.8 cm LVIDd: 6.0 cmFS: 20.6 % Ao root diam: 3.9 cm IVSd: 1.0 cm LVIDs: 4.8 cmEDV(Teich): 180.8 ml LVPWd: 1.0 cmESV(Teich): 106.3 mlAo root area: 11.9 cm2 EF(Teich): 41.2 % LVOT diam: 2.6 cm LVOT area: 5.1 cm2 Doppler Measurements & Calculations MV E max contreras: MV dec slope: Ao V2 max: LV V1 max P.8 cm/sec 687.5 cm/sec2 160.7 cm/sec 5.5 mmHg MV A max contreras: MV dec time: Ao max PG: LV V1 max: 103.0 cm/sec 0.19 sec 10.3 mmHg 117.2 cm/sec MV E/A: 1.3 LUKE(V,D): 3.7 cm2 PA V2 max: 111.6 cm/sec PA max P.0 mmHg Left Ventricle The left ventricle is grossly normal size. There is borderline concentric left ventricular hypertrophy. Left ventricular systolic function is borderline reduced. LV diastolic function could not be adequately assessed. Regional wall motion abnormalities cannot be excluded due to limited visualization. Right Ventricle The right ventricle is mildly dilated. Right ventricular function cannot be assessed due to poor image quality. Atria The right atrium is mildly dilated. The left atrium is mildly dilated. Interarterial septum not well visualized and not well dopplered. Cannot comment on ASD/PFO presence. Mitral Valve The mitral valve is not well visualized. There is no mitral valve stenosis. There is a trace amount of mitral regurgitation. Aortic Valve The aortic valve is not well visualized secondary to technical limitations. The aortic valve opens well. There is no aortic valve stenosis. No aortic regurgitation is present. Tricuspid Valve The tricuspid valve is not well visualized secondary to technical limitations. There is no tricuspid stenosis. No tricuspid regurgitation. Pulmonic Valve The pulmonic valve is not well visualized. Great Vessels The aortic root is not well visualized but is probably normal size. The inferior vena cava was not well visualized. Effusions There is no pericardial effusion. : YVES FELTON Shyamal
--- NOTE | 2017-12-25 18:26 | PDOC CONSULTATION ---
Consultation Consult Date: 12/25/17 Attending physician:: YVES FELTON Consult reason:: Coronary artery disease History of Present Illness Admission Date/PCP: 12/24/17 17:51 Patient complains of: Abdominal pain along with nausea. History of Present Illness: RASHIDA MOTA is a 72 year old male, morbidly obese, diabtetic, hx of CABG, NIDDM , who underwent a laparotomy for perforated viscus 2 yrs ago. He reports a severe midabdominal pain since yesterday, little flatus, intense nausea. A CT scan A/P with oral contrast demonstrated an incarcerated ventral hernia containing small bowel. I tried to see patient yesterday evening and preop but patient was already taken to the OR. Patient's chart was reviewed. EKG was nonacute. No evidence of clinical CHF. I talked with Dr. Rojas and said that the patient would be okay to proceed. Patient seen again this morning postop. He seems to be doing better. He has known history of CAD having had coronary artery bypass graft surgery in 2002. About 2 years ago he had a stent placed. Past Medical History Cardiac Medical History: Reports: Coronary Artery Disease, Hyperlipidema, Hypertension Endocrine Medical History: Reports: Diabetes Mellitus Type 2 Past Surgical History Past Surgical History: Reports: Cardiac Catheterization, Coronary Artery Bypass Graft, Coronary Stent, Other - laparotomy for perforated viscus 3 yrs ago Social History Information Source: Patient Lives with: Family Smoking Status: Former Smoker Number of Years Smokin Frequency of Alcohol Use: None Hx Recreational Drug Use: No Hx Prescription Drug Abuse: No - Advance Directive Resuscitation Status: Full Code Surrogate healthcare decision maker:: Patient children at the surrogate decision-maker Family History Family History: Hypertension Parental Family History Reviewed: Yes Children Family History Reviewed: Yes Sibling(s) Family History Reviewed.: Yes Medication/Allergy Home Medications: Aspirin [Aspirin EC] 81 mg PO DAILY 12/24/17 Clopidogrel Bisulfate [Plavix 75 mg Tablet] 75 mg PO DAILY 12/24/17 Furosemide [Lasix 20 mg Tablet] 20 mg PO QAM 12/24/17 Magnesium Oxide [Mag-Ox 400 mg Tablet] 400 mg PO BID 12/24/17 Metoprolol Succinate [Toprol Xl 25 mg Tab.sr] 25 mg PO DAILY 12/24/17 Pantoprazole Sodium [Protonix] 40 mg PO DAILY 12/24/17 Sitagliptin Phosphate [Januvia] 100 mg PO DAILY 12/24/17 Solifenacin Succinate [Vesicare] 10 mg PO QHS 12/24/17 Allergies/Adverse Reactions: Penicillins Allergy (Intermediate, Verified 12/24/17 08:46) Hives Physical Exam Vital Signs: Temp Pulse Resp BP Pulse Ox 98.1 F 75 19 105/47 L 97 12/25/17 12:40 12/25/17 12:40 12/25/17 12:40 12/25/17 12:40 12/25/17 12:40 Intake & Output 12/24/17 12/25/17 12/26/17 06:59 06:59 06:59 Intake Total 4954 318 Output Total 2220 300 Balance 2734 18 Weight 138.1 kg Exam: GENERAL: well-nourished and in no acute distress. Alert and oriented x3 HEAD: Atraumatic, normocephalic. EYES: Pupils equal round and reactive to light, extraocular movements intact, sclera anicteric, conjunctiva are normal. ENT: TMs normal, nares patent, oropharynx clear without exudates. Moist mucous membranes. No oral ulcerations or bleeding gums noted NECK: supple without lymphadenopathy. Trachea is central. No cervical or axillary lymphadenopathy noted. Carotids are 2+, JVD WNL LUNGS: Respiration seems nonlabored, no significant accessory muscle action noted. Breath sounds clear to auscultation bilaterally and equal noted. No wheezes rales or rhonchi noted. No significant dullness noted on percussion. CHEST: Palpation of the chest wall shows no significant chest wall tenderness. No other significant abnormalities noted. HEART: [place] DIRECTOR ENERGY, No PSH, 1/6 KINJAL aortic area, 1/6 [place] systolic murmur mitral area, no rubs, no gallops. ABDOMEN: Soft, postsurgical changes noted in the abdominal wall with slight tenderness appreciated, normoactive bowel sounds. No guarding, no rebound. No rigidity noted . No masses appreciated. Patient does have some central rectus abdominis muscle weakness. EXTREMITIES: Pedal pulses are 1-2+, no calf tenderness noted. No clubbing or cyanosis.trace to 1+ pedal edema noted NEUROLOGICAL: Focused neurological exam showed no significant neurologic deficit. Normal speech, no focal weakness appreciated. PSYCH: Normal mood, normal affect. Judgment and insight within normal limits. SKIN: No significant ecchymosis, rash, ulcerations or signs of pruritus noted. MUSCULOSKELETAL EXAM: No significant joint swelling noted. Results Laboratory Results: 12/25/17 04:55 12/25/17 04:55 12/24/17 12/25/17 12/25/17 18:52 04:55 04:55 WBC 6.1 RBC 4.05 L Hgb 11.9 L D Hct 35.2 L MCV 87 MCH 29.4 MCHC 33.9 RDW 14.5 H Plt Count 151 Seg Neutrophils % 60.2 Lymphocytes % 25.9 Monocytes % 9.7 Eosinophils % 3.3 Basophils % 0.9 Absolute Neutrophils 3.7 Absolute Lymphocytes 1.6 Absolute Monocytes 0.6 Absolute Eosinophils 0.2 Absolute Basophils 0.1 Sodium 140.4 Potassium 3.9 Chloride 102 Carbon Dioxide 29 Anion Gap 9 BUN 20 Creatinine 1.01 Est GFR ( Amer) > 60 Est GFR (Non-Af Amer) > 60 Glucose 117 H Calcium 8.1 L Magnesium 1.3 L Total Bilirubin 0.9 AST 22 ALT 32 Alkaline Phosphatase 75 Total Protein 5.7 L Albumin 3.1 L Blood Type A POSITIVE Antibody Screen NEGATIVE 12/24/17 12/24/17 18:52 18:52 Creatine Kinase 319 H CK-MB (CK-2) 3.51 Troponin I 0.019 EKG Comments: Twelve-lead EKG shows sinus rhythm. No acute ST-T wave changes noted. Impressions: Abdomen/Pelvis CT 12/24/17 13:07 IMPRESSION: Partial small bowel obstruction associated with anterior abdominal wall hernia. Assessment & Plan - Diagnosis (1) CAD (coronary artery disease) Qualifiers: Coronary Disease-Associated Artery/Lesion type: unspecified vessel or lesion type [place] vs. transplanted heart: [place] heart Associated angina: angina presence unspecified Is this a current diagnosis for this admission?: Yes (2) Hx of CABG Is this a current diagnosis for this admission?: Yes (3) Ventral hernia with bowel obstruction Is this a current diagnosis for this admission?: Yes (4) Diabetes mellitus type 2 in obese Is this a current diagnosis for this admission?: Yes (5) HLD (hyperlipidemia) Qualifiers: Hyperlipidemia type: unspecified Qualified Code(s): E78.5 - Hyperlipidemia , unspecified Is this a current diagnosis for this admission?: Yes (6) Obesity (BMI 35.0-39.9 without comorbidity) Is this a current diagnosis for this admission?: Yes (7) HTN (hypertension) Qualifiers: Hypertension type: essential hypertension Qualified Code(s): I10 - Essential (primary) hypertension Is this a current diagnosis for this admission?: Yes - Notes Notes: Coronary artery disease: Patient noted to be symptomatically stable. Patient is status post coronary artery bypass graft surgery and also status post stent placement. Recommend reinstitution of his home antianginal regimen and CAD treatment regimen. Ventral hernia with obstruction: Patient status post surgery. He is doing well. He has been allowed p.o. Diabetes: Recommend good control of diabetes but avoid any hyper or hypoglycemia. Hyperlipidemia: Recommend high potency statin therapy. Obesity: Patient has been recommended in weight loss. Hypertension: Currently stable. Blood pressure goal is 140/90 in this elderly gentleman. Patient encouraged to ambulate. - Time Time Spent: 30 to 50 Minutes - CODE STATUS was discussed, patient remains full code. Surrogate decision-maker patient's children. Multiple medical problems were addressed. More than 50% of the time spent coordinating care, discussing management plans with involved caregivers. Management plans discussed with involved personnels. Medical decision making was of moderate to high complexity , patient's has multiple comorbidities. Medications reviewed and adjusted accordingly: Yes
[2017-12-26] MEDS: CIPROFLOXACIN 400 MG/D5W RTU 400 MG/200 ML RTUPB IV SCH ×2 (00:33→08:56)
[2017-12-26 04:33] LABS: HEMATOCRIT 34.3 % (37.9-51.0); HEMOGLOBIN 11.5 g/dL (13.5-17.0); MEAN CORPUSCULAR HEMOGLOBIN 29.2 pg (27.0-33.4); MEAN CORPUSCULAR HGB CONC 33.5 g/dL (32.0-36.0); MEAN CORPUSCULAR VOLUME 87 fl (80-97); PLATELET COUNT 146 10^3/uL (150-450); RED BLOOD COUNT 3.93 10^6/uL (4.35-5.55); RED CELL DISTRIBUTION WIDTH 14.5 % (11.5-14.0); WHITE BLOOD COUNT 6.3 10^3/uL (4.0-10.5)
[2017-12-26 04:57] LABS: ALANINE AMINOTRANSFERASE 28 U/L (21-72); ALBUMIN 2.9 g/dL (3.5-5.0); ALKALINE PHOSPHATASE 74 U/L (38-126); ANION GAP 7 (5-19); ASPARTATE AMINO TRANSFERASE 20 U/L (17-59); BILIRUBIN,DIRECT 0.3 mg/dL (0.0-0.4); BILIRUBIN,TOTAL 0.8 mg/dL (0.2-1.3); BLOOD UREA NITROGEN 15 mg/dL (7-20); CALCIUM 8.4 mg/dL (8.4-10.2); CARBON DIOXIDE 28 mmol/L (22-30); CHLORIDE 102 mmol/L (98-107); GLUCOSE 138 mg/dL (75-110); POTASSIUM 3.6 mmol/L (3.6-5.0); SODIUM 137.2 mmol/L (137-145); TOTAL PROTEIN 5.4 g/dL (6.3-8.2)
[2017-12-26] MEDS: METRONIDAZOLE 500 MG/NS RTU 100 ML IV SCH (05:42)
[2017-12-26] MEDS: MAGNESIUM SULFATE/D5W 1 GM/100 ML RTUPB IV SCH ×2 (08:25→09:44)
[2017-12-26] MEDS: METOPROLOL SUCCINATE 25 MG TAB.SR.24H PO SCH (09:05)
[2017-12-26] MEDS ORDERED: BISACODYL 10 MG SUPP.RECT PR ONE (09:30)
[2017-12-26] MEDS: PANTOPRAZOLE SODIUM 40 MG VIAL IV SCH (09:45)
--- NOTE | 2017-12-26 10:31 | PDOC DISCHARGE SUMMARY ---
General - Admit/Disc Date/PCP Admission Date/Primary Care Provider: 12/24/17 17:51 Discharge Date: 12/26/17 - Discharge Diagnosis (1) Ventral hernia with bowel obstruction Is this a current diagnosis for this admission?: Yes Summary: Status post open ventral hernia repair with mesh: Surgery took patient to the OR that night due to findings on CT. Patient has done well after surgery and will be continued on Cipro and Flagyl for 5 additional days. Patient was not placed on Augmentin due to penicillin allergy (2) Hx of CABG Is this a current diagnosis for this admission?: Yes Summary: No issues during hospitalization (3) Diabetes mellitus type 2 in obese Is this a current diagnosis for this admission?: Yes Summary: Pt will resume home medications. (4) HLD (hyperlipidemia) Is this a current diagnosis for this admission?: Yes Summary: Statin (5) Obesity (BMI 35.0-39.9 without comorbidity) Is this a current diagnosis for this admission?: Yes Summary: Encourage dietary changes (6) Intractable vomiting Is this a current diagnosis for this admission?: Yes Summary: Resolved secondary to partial bowel obstruction (7) CAD (coronary artery disease) Is this a current diagnosis for this admission?: Yes Summary: Stable no issues during hospitalization (8) HTN (hypertension) Is this a current diagnosis for this admission?: Yes Summary: Patient will resume home medications. (9) Dehydration Is this a current diagnosis for this admission?: Yes Summary: Resolved with IV fluid administration (10) Hypercalcemia Is this a current diagnosis for this admission?: Yes Summary: In setting of dehydration: Resolved with IV fluid administration (11) Hypomagnesemia Is this a current diagnosis for this admission?: Yes Summary: Patient given additional magnesium replacement and will resume home regimen. - Additional Information Resuscitation Status: Full Code Discharge Diet: Cardiac, Diabetic Discharge Activity: No Lifting/Push/Pulling Prescriptions: Ciprofloxacin HCl [Cipro 500 mg Tablet] 500 mg PO BID #10 tablet Metronidazole [Flagyl 500 mg Tablet] 500 mg PO TID #15 tablet Home Medications: Aspirin [Aspirin EC] 81 mg PO DAILY 12/24/17 Clopidogrel Bisulfate [Plavix 75 mg Tablet] 75 mg PO DAILY 12/24/17 Furosemide [Lasix 20 mg Tablet] 20 mg PO QAM 12/24/17 Magnesium Oxide [Mag-Ox 400 mg Tablet] 400 mg PO BID 12/24/17 Metoprolol Succinate [Toprol Xl 25 mg Tab.sr] 25 mg PO DAILY 12/24/17 Pantoprazole Sodium [Protonix] 40 mg PO DAILY 12/24/17 Sitagliptin Phosphate [Januvia] 100 mg PO DAILY 12/24/17 Solifenacin Succinate [Vesicare] 10 mg PO QHS 12/24/17 Ciprofloxacin HCl [Cipro 500 mg Tablet] 500 mg PO BID #10 tablet 12/26/17 Metronidazole [Flagyl 500 mg Tablet] 500 mg PO TID #15 tablet 12/26/17 History of Present Illness Patient complains of: Abdominal pain and nausea History of Present Illness: 72-year-old gentleman that presents to our facility with complaint of nausea. Patient states he was eating an apple that he had cut up and swallowed 1 of the apples hole. Patient states shortly after that during the night he continued to have abdominal pain. Patient also reports eating beef stew. Patient states the reason why he came to the hospital was because he was sick as a dog. No vomiting. Patient denies any chest pain, shortness of breath, or fever. Patient reports that he swallowed a chicken bone and has been seen by surgery before who recommended not doing anything. Patient states that she can bone is still in there and poking holes in his colon. Hospital Course Hospital Course: 72-year-old gentleman that was admitted to the hospital due to abdominal pain and nausea. Patient had a CT of abdomen that demonstrated possible incarceration of small bowel. Surgery took patient to the OR and ventral hernia defect was corrected with mesh. Patient has done well after surgery without any issues. Cardiology was asked to see patient due to patient's extensive cardiac history. No cardiac issues were encountered on this hospitalization. Patient did have issues with low magnesium during stay but patient received magnesium replacement. Patient has done well with no further issues. Patient will be discharged home with home health Physical Exam Vital Signs: Temp Pulse Resp BP Pulse Ox 97.9 F 76 18 130/59 H 90 L 12/26/17 07:18 12/26/17 07:18 12/26/17 07:18 12/26/17 07:18 12/26/17 07:18 Intake & Output 12/25/17 12/26/17 12/27/17 06:59 06:59 06:59 Intake Total 4954 913 Output Total 2220 1835 Balance 2734 -922 Weight 141.8 kg General appearance: PRESENT: no acute distress, morbidly obese, well-developed, well-nourished Head exam: PRESENT: atraumatic, normocephalic Eye exam: PRESENT: conjunctiva pink, EOMI. ABSENT: scleral icterus Ear exam: PRESENT: normal external ear exam Mouth exam: PRESENT: moist, tongue midline Neck exam: ABSENT: carotid bruit, JVD, lymphadenopathy, thyromegaly Respiratory exam: PRESENT: clear to auscultation tip. ABSENT: rales, rhonchi, wheezes Cardiovascular exam: PRESENT: RRR. ABSENT: diastolic murmur, rubs, systolic murmur Pulses: PRESENT: normal dorsalis pedis pul Vascular exam: PRESENT: normal capillary refill GI/Abdominal exam: PRESENT: other - NELLY drain in place with dressing in tact Rectal exam: PRESENT: deferred Extremities exam: PRESENT: full ROM. ABSENT: calf tenderness, clubbing, pedal edema Neurological exam: PRESENT: alert, awake, oriented to person, oriented to place , oriented to time, oriented to situation, CN II-XII grossly intact. ABSENT: motor sensory deficit Psychiatric exam: PRESENT: appropriate affect, normal mood. ABSENT: homicidal ideation, suicidal ideation Skin exam: PRESENT: dry, intact, warm. ABSENT: cyanosis, rash Results Laboratory Results: 12/26/17 04:12 12/26/17 04:12 12/26/17 12/26/17 04:12 04:12 WBC 6.3 RBC 3.93 L Hgb 11.5 L Hct 34.3 L MCV 87 MCH 29.2 MCHC 33.5 RDW 14.5 H Plt Count 146 L Sodium 137.2 Potassium 3.6 Chloride 102 Carbon Dioxide 28 Anion Gap 7 BUN 15 Creatinine 1.03 Est GFR ( Amer) > 60 Est GFR (Non-Af Amer) > 60 Glucose 138 H Calcium 8.4 Magnesium 1.7 Total Bilirubin 0.8 AST 20 ALT 28 Alkaline Phosphatase 74 Total Protein 5.4 L Albumin 2.9 L 12/24/17 12/24/17 18:52 18:52 Creatine Kinase 319 H CK-MB (CK-2) 3.51 Troponin I 0.019 Impressions: Abdomen/Pelvis CT 12/24/17 13:07 IMPRESSION: Partial small bowel obstruction associated with anterior abdominal wall hernia. Qualifiers - * [place] BEING DISCHARGED WITH ANY OF THE FOLLOWING DIAGNOSIS?: No Plan Time Spent: Greater than 30 Minutes
[2017-12-26 11:11] VITALS: BP 156/91
--- NOTE | 2017-12-26 13:05 | PDOC PROGRESS REPORT ---
Subjective Progress Note for:: 12/26/17 Subjective:: Postop day 2. Patient is resting comfortably in bed. Pt is denying any chest arm or neck discomfort. Patient denying any PND, orthopnea. Patient denied any sustained palpitations, dizziness, syncope, near syncope. Patient denying any fever chills. Patient denying any other significant discomfort. Patient is maintaining sinus rhythm. Review of systems: Rest review of systems negative. Medications: Medications have been reviewed. Reason For Visit: VENTRAL HERNIA WITH BOWEL OBSTRUCTION Physical Exam Vital Signs: Temp Pulse Resp BP Pulse Ox 97.9 F 76 18 156/91 H 90 L 12/26/17 11:08 12/26/17 11:08 12/26/17 11:08 12/26/17 11:08 12/26/17 11:08 Intake & Output 12/25/17 12/26/17 12/27/17 06:59 06:59 06:59 Intake Total 4954 913 Output Total 2220 1835 225 Balance 2734 -922 -225 Weight 141.8 kg Exam: GENERAL: well-nourished and in no acute distress. Alert and oriented x3 HEAD: Atraumatic, normocephalic. EYES: Pupils equal round and reactive to light, extraocular movements intact, sclera anicteric, conjunctiva are normal. ENT: TMs normal, nares patent, oropharynx clear without exudates. Moist mucous membranes. No oral ulcerations or bleeding gums noted NECK: supple without lymphadenopathy. Trachea is central. No cervical or axillary lymphadenopathy noted. Carotids are 2+, JVD WNL LUNGS: Respiration seems nonlabored, no significant accessory muscle action noted. Breath sounds clear to auscultation bilaterally and equal noted. No wheezes rales or rhonchi noted. No significant dullness noted on percussion. CHEST: Palpation of the chest wall shows no significant chest wall tenderness. No other significant abnormalities noted. HEART: [place] VOLUMETRIC WEIGHER, No PSH, 1/6 KINJAL aortic area, 1/6 [place] systolic murmur mitral area, no rubs, no gallops. ABDOMEN: Soft, postsurgical changes noted in the abdominal area. No tenderness appreciated, normoactive bowel sounds. No guarding, no rebound. No rigidity noted . No masses appreciated. EXTREMITIES: Pedal pulses are 1-2+, no calf tenderness noted. No clubbing or cyanosis.trace to 1+ pedal edema noted NEUROLOGICAL: Focused neurological exam showed no significant neurologic deficit. Normal speech, no focal weakness appreciated. PSYCH: Normal mood, normal affect. Judgment and insight within normal limits. SKIN: No significant ecchymosis, rash, ulcerations or signs of pruritus noted. MUSCULOSKELETAL EXAM: No significant joint swelling noted. Results Laboratory Results: 12/26/17 04:12 12/26/17 04:12 12/26/17 12/26/17 04:12 04:12 WBC 6.3 RBC 3.93 L Hgb 11.5 L Hct 34.3 L MCV 87 MCH 29.2 MCHC 33.5 RDW 14.5 H Plt Count 146 L Sodium 137.2 Potassium 3.6 Chloride 102 Carbon Dioxide 28 Anion Gap 7 BUN 15 Creatinine 1.03 Est GFR ( Amer) > 60 Est GFR (Non-Af Amer) > 60 Glucose 138 H Calcium 8.4 Magnesium 1.7 Total Bilirubin 0.8 AST 20 ALT 28 Alkaline Phosphatase 74 Total Protein 5.4 L Albumin 2.9 L 12/24/17 12/24/17 18:52 18:52 Creatine Kinase 319 H CK-MB (CK-2) 3.51 Troponin I 0.019 EKG Comments: Telemetry strips shows sinus rhythm without any sustained tacky or bradycardia arrhythmias. Impressions: Abdomen/Pelvis CT 12/24/17 13:07 IMPRESSION: Partial small bowel obstruction associated with anterior abdominal wall hernia. Assessment & Plan - Diagnosis (1) CAD (coronary artery disease) Qualifiers: Coronary Disease-Associated Artery/Lesion type: unspecified vessel or lesion type [place] vs. transplanted heart: [place] heart Associated angina: angina presence unspecified Qualified Code(s): I25.10 - Atherosclerotic heart disease of [place] coronary artery without angina pectoris Is this a current diagnosis for this admission?: Yes (2) Hx of CABG Is this a current diagnosis for this admission?: Yes (3) Ventral hernia with bowel obstruction Is this a current diagnosis for this admission?: Yes (4) Diabetes mellitus type 2 in obese Is this a current diagnosis for this admission?: Yes (5) HLD (hyperlipidemia) Qualifiers: Hyperlipidemia type: unspecified Qualified Code(s): E78.5 - Hyperlipidemia , unspecified Is this a current diagnosis for this admission?: Yes (6) Obesity (BMI 35.0-39.9 without comorbidity) Is this a current diagnosis for this admission?: Yes (7) HTN (hypertension) Qualifiers: Hypertension type: essential hypertension Qualified Code(s): I10 - Essential (primary) hypertension Is this a current diagnosis for this admission?: Yes - Notes Notes: Coronary artery disease: Patient noted to be symptomatically stable. Patient is status post coronary artery bypass graft surgery and also status post stent placement. Patient should follow-up with his primary care cake icer and packer. Patient if he chooses can follow-up with me. Ventral hernia with obstruction: Patient status post surgery. He is doing well. He has been allowed p.o. since yesterday which he tolerated well. Diabetes: Recommend good control of diabetes but avoid any hyper or hypoglycemia. Hyperlipidemia: Recommend high potency statin therapy. Obesity: Patient has been recommended in weight loss. Hypertension: Currently stable. Blood pressure goal is 140/90 in this elderly gentleman. Patient encouraged to ambulate and lose weight. Will sign off please reconsult if needed.. - Time Time with patient: 15-25 minutes - CODE STATUS was discussed, patient remains full code. Surrogate decision-maker unchanged. Multiple medical problems were addressed. More than 50% of the time spent coordinating care, discussing management plans with involved caregivers. Management plans discussed with involved personnels. Medical decision making was of moderate to high complexity , patient's has multiple comorbidities. Medications reviewed and adjusted accordingly: Yes
--- NOTE | 2017-12-26 18:33 | PROGRESS NOTE E ---
Progress Note NAME: RASHIDA MOTA : 1945 AGE: 72Y DATE: 12/21/2017 ROOM: 316 SUBJECTIVE: The patient is doing well, has no complaint, sitting up in chair, had lunch. OBJECTIVE: VITAL SIGNS: The patient's vital signs are stable. ABDOMEN: Exam of the abdomen shows operative drain in place and honeycomb dressing in place. Skin erythema resolving. ASSESSMENT: POSTOPERATIVE DAY 2 STATUS POST VENTRAL REPAIR OF LOCALIZED ABDOMINAL WALL HERNIA WITHOUT COMPLICATIONS. RECOMMENDATIONS: The patient is ready to be discharged home. Discharge instructions provided including management recommendations regarding drain care. The patient will follow up with [facility] in approximately 1 week. The patient will record output and contact our office if any medical problems arise. DICTATING PHYSICIAN: AMINAH ZAMORA M.D. [id number] SHANTHIY#: [id number] ID: [id number] JOB#: [id number] ACCT: [id number] cc: >
== END 2017-12-26 12:01 | disposition home health service (06) | DRG 354 ==
LOC: ER 08:45 → EH 17:51 → 3W 21:53
PROVIDERS: ADMIT Emergency Medicine; ATTEND Emergency Medicine
PROC: 0WUF0JZ Supplement Abdominal Wall with Synthetic Substitute, Open Approach (ICD-10-PCS; principal; 2017-12-24 18:30)
DX: K43.6 Other and unspecified ventral hernia with obstruction, without gangrene (principal); Z68.41 Body mass index [BMI] 40.0-44.9, adult; E83.52 Hypercalcemia; E83.42 Hypomagnesemia; E86.0 Dehydration; E78.00 Pure hypercholesterolemia, unspecified; I10 Essential (primary) hypertension; E11.9 Type 2 diabetes mellitus without complications; I25.10 Atherosclerotic heart disease of native coronary artery without angina pectoris; E66.01 Morbid (severe) obesity due to excess calories; Z87.891 Personal history of nicotine dependence; Z79.01 Long term (current) use of anticoagulants; Z79.84 Long term (current) use of oral hypoglycemic drugs; Z79.82 Long term (current) use of aspirin; Z79.899 Other long term (current) drug therapy; Z95.1 Presence of aortocoronary bypass graft
CPT/HCPCS: 36415; 74176; 74177; 80053; 81001; 82550; 82553; 82962; 832; 83690; 83735; 84484; 85025; 85027; 85610; 85730; 86850; 86900; 86901; 87040; 93005; 93010; 93306; 96361; 96374; 96375; 99285; J0330; J0744; J1170; J1815; J2250; J2405; J2704; J3010; J3475; J3490; J7030; J7120; S0164

== ENCOUNTER 2018-02-06 09:58 | Inpatient (IN) | payer MEDICARE, BC ==
[2018-02-06] MEDS ORDERED: ONDANSETRON HCL INJ/PF 4 MG/2 ML SDV IV ONE (11:09)
[2018-02-06] MEDS ORDERED: NORMAL SALINE 1000 ML 1,000 ML IV ONE ×2 (11:09→15:36)
[2018-02-06] MEDS ORDERED: HYDROCODONE/ACETAMINOPHEN 5-325 MG TABLET PO ONE ×2 (11:10→14:53)
--- NOTE | 2018-02-06 11:16 | ER Document Report ---
ED General - General Chief Complaint: Nausea/Vomiting/Diarrhea Stated Complaint: DIARRHEA AND NAUSEA Time Seen by Provider: 02/06/18 10:58 Notes: 72-year-old male who presents with nausea vomiting and diarrhea. The patient's symptoms began on Friday. He stated he has had greater than 10 yellow BMs every day loose yellow. He is also been nauseous but only threw up once this morning. Patient complains of some mild left lower quadrant discomfort in his abdomen. Saw his doctor yesterday who ordered x-rays and blood work. The patient stated he did not feel good and did not go get the x-rays or lab work done. Describes pain as aching and burning in the left lower quadrant of his abdomen. He did have hernia repair surgery 2 months ago was on a week's worth of antibiotics afterwards but did not have any specific diarrhea after that. He states the hernia repair has been healing well. The left lower quadrant discomfort is different from the discomfort he had with that he denies any chest pain denies shortness of breath. Denies fever or chills. Denies any rashes. TRAVEL OUTSIDE OF THE [place] IN LAST 30 DAYS: No - Related Data Allergies/Adverse Reactions: Penicillins Allergy (Intermediate, Verified 02/06/18 10:10) Hives Past Medical History - Social History Smoking Status: Former Smoker Family History: Hypertension - Past Medical History Cardiac Medical History: Reports: Hx Coronary Artery Disease, Hx Hypercholesterolemia, Hx Hypertension Endocrine Medical History: Reports: Hx Diabetes Mellitus Type 2 Renal/ Medical History: Denies: Hx Peritoneal Dialysis Past Surgical History: Reports: Hx Abdominal Surgery, Hx Cardiac Catheterization , Hx Cardiac Surgery - 5 vessel, Hx Coronary Artery Bypass Graft, Hx Coronary Stent, Other - laparotomy for perforated viscus 3 yrs ago - Immunizations Hx Diphtheria, Pertussis, Tetanus Vaccination: Yes Hx Pneumococcal Vaccination: 11/03/17 Review of Systems - Review of Systems EENT: denies: Throat pain Cardiovascular: denies: Chest pain Respiratory: denies: Cough, Short of breath Gastrointestinal: Abdominal pain, Diarrhea, Nausea, Vomiting. denies: Constipation, Black stools, Rectal bleeding Genitourinary: denies: Dysuria, Flank pain, Hematuria Skin: denies: Rash Neurological/Psychological: denies: Loss of power, Speech impairment -: Yes All other systems reviewed and negative Physical Exam - Vital signs Vitals: Temp Pulse Resp BP Pulse Ox 97.7 F 114 H 20 166/95 H 93 02/06/18 10:18 02/06/18 10:18 02/06/18 10:18 02/06/18 10:18 02/06/18 10:18 - Notes Notes: GENERAL_APPEARANCE: well_nourished, alert, cooperative, no_acute_distress, no_ obvious_discomfort. VITALS: reviewed, see vital signs table. HEAD: no_swelling\tenderness on the head. EYES: PERRL, EOMI, conjunctiva_clear. NOSE: no_nasal_discharge. MOUTH: (-)decreased moisture. THROAT: no_airway_obstruction. no_lymphadenopathy NECK: supple, no_neck_tenderness, (-)thyromegaly. BACK: no_back_tenderness. CHEST_WALL: no_chest_tenderness. LUNGS: no_wheezing, no_rales, no_rhonchi, (-)accessory muscle use, good air exchange bilateral. HEART: normal_rate, normal_rhythm, normal_S1, normal_S2, (-)S3, (-)S4, no_ murmur, no_rub. ABDOMEN: normal_BS, soft, lower quadrant_abd_tenderness, (-)guarding, (-) rebound, no_organomegaly, no_abd_masses. Healing midline incision for ventral hernia clean dry and intact EXTREMITIES: good pulses in all_extremities, no_swelling\tenderness in the extremities, no_edema. SKIN: warm, dry, good_color, no_rash. MENTAL_STATUS: speech_clear, oriented_X_3, normal_affect, responds_ appropriately to questions. NEURO: Neg Motor or Sensory Deficits on exam, CN 2-12 intact, DTR 2+ symmetric x 4, No cerbellar signs Course - Re-evaluation Re-evalutation: 02/06/18 11:15 Patient arrives with nausea vomiting diarrhea. He has had multiple bowel movements. Greater than 10 a day. Yellow. He did have antibiotics about 2 months ago but had no diarrhea afterwards the likelihood of C. difficile is low we will get stool cultures and C. difficile toxin. We will give a liter of IV fluids. Nubia. had asked for a KUB x-ray and the showed me the order request sheet I will just get a full CT since he is having left lower quadrant pain. - Vital Signs Vital signs: Temp Pulse Resp BP Pulse Ox 97.7 F 114 H 14 141/91 H 91 L 02/06/18 10:18 02/06/18 10:18 02/06/18 13:01 02/06/18 13:01 02/06/18 13:01 - Laboratory Result Diagrams: 02/06/18 11:05 02/06/18 11:05 Laboratory results interpreted by me: 02/06/18 02/06/18 02/06/18 11:05 11:05 14:17 RDW 15.0 H Potassium 3.4 L BUN 28 H Glucose 155 H Direct Bilirubin 0.7 H Urine Protein >=500 H Urine Ketones TRACE H Urine Bilirubin SMALL H Urine Urobilinogen 2.0 H Discharge - Discharge Clinical Impression: Diarrhea Qualifiers: Diarrhea type: presumed infectious Qualified Code(s): R19.7 - Diarrhea, unspecified Partial bowel obstruction Qualifiers: Intestinal obstruction type: other intestinal obstruction Qualified Code(s): K56.690 - Other partial intestinal obstruction Condition: Fair Disposition: ADMITTED INPATIENT Admitting Provider: Surgicalist Unit Admitted: Surgical Floor
[2018-02-06 11:59] LABS: ABSOLUTE LYMPHOCYTES (AUTO) 1.4 10^3/uL (0.5-4.7); ABSOLUTE MONOCYTES (AUTO) 0.9 10^3/uL (0.1-1.4); ABSOLUTE NEUT (AUTO) 4.9 10^3/uL (1.7-8.2); BASOPHILS % (AUTO) 0.7 % (0-2); EOSINOPHILS % (AUTO) 0.6 % (0-6); HEMATOCRIT 47.2 % (37.9-51.0); HEMOGLOBIN 15.9 g/dL (13.5-17.0); LYMPHOCYTES % (AUTO) 19.3 % (13-45); MEAN CORPUSCULAR HEMOGLOBIN 29.6 pg (27.0-33.4); MEAN CORPUSCULAR HGB CONC 33.8 g/dL (32.0-36.0); MEAN CORPUSCULAR VOLUME 88 fl (80-97); PLATELET COUNT 276 10^3/uL (150-450); RED BLOOD COUNT 5.39 10^6/uL (4.35-5.55); SEGMENTED NEUTROPHILS % (AUTO) 67.4 % (42-78); TOTAL CELLS COUNTED % (AUTO) 100 %; WHITE BLOOD COUNT 7.3 10^3/uL (4.0-10.5)
[2018-02-06 12:08] LABS: ALANINE AMINOTRANSFERASE 30 U/L (21-72); ALBUMIN 4.5 g/dL (3.5-5.0); ALKALINE PHOSPHATASE 120 U/L (38-126); ANION GAP 17 (5-19); ASPARTATE AMINO TRANSFERASE 22 U/L (17-59); BILIRUBIN,DIRECT 0.7 mg/dL (0.0-0.4); BILIRUBIN,TOTAL 1.2 mg/dL (0.2-1.3); BLOOD UREA NITROGEN 28 mg/dL (7-20); CALCIUM 9.7 mg/dL (8.4-10.2); CARBON DIOXIDE 25 mmol/L (22-30); CHLORIDE 100 mmol/L (98-107); GLUCOSE 155 mg/dL (75-110); LIPASE 58.6 U/L (23-300); POTASSIUM 3.4 mmol/L (3.6-5.0); SODIUM 142.1 mmol/L (137-145); TOTAL PROTEIN 7.9 g/dL (6.3-8.2)
--- NOTE | 2018-02-06 12:31 | RADIOLOGY REPORT (SQ) ---
EXAM DESCRIPTION: CT ABD/PELVIS NO ORAL OR IV COMPLETED DATE/TIME: 02/06/2018 12:00 pm REASON FOR STUDY: ABD PAIN COMPARISON: 12/24/2017 TECHNIQUE: CT scan of the abdomen and pelvis performed without intravenous or oral contrast. Images reviewed with lung, soft tissue, and bone windows. Reconstructed coronal and sagittal MPR images revi ewed. All images stored on PACS. All CT scanners at this facility use dose modulation, iterative reconstruction, and/or weight based d osing when appropriate to reduce radiation dose to as low as reasonably achievable (ALARA). [facility]: Dose Right [facility]: CareDose [facility]: Dose Right [facility]: Teradose 4D [facility]: Smart [employer] RADIATION DOSE: CT Rad equipment meets quality standard of care and radiation dose reduction techniq ues were employed. CTDIvol: 20.9 mGy. DLP: 1293 mGy-cm.mGy. LIMITATIONS: None. FINDINGS: LOWER CHEST: No significant findings. No nodules or infiltrates. NON-CONTRASTED LIVER, SPLEEN, ADRENALS: Evaluation limited by lack of IV contrast. No identified sign ificant masses. PANCREAS: No masses. No peripancreatic inflammatory changes. GALLBLADDER: No identified stones by CT criteria. No inflammatory changes to suggest cholecystitis. RIGHT KIDNEY AND URETER: No suspicious masses. Assessment limited by lack of IV contrast. No signif icant calcifications. No hydronephrosis or hydroureter. LEFT KIDNEY AND URETER: No suspicious masses. Assessment limited by lack of IV contrast. Large renal cyst appears stable. No significant calcifications. No hydronephrosis or hydroureter. AORTA AND RETROPERITONEUM: No aneurysm. No retroperitoneal masses or adenopathy. BOWEL AND PERITONEAL CAVITY: On the current study there is distention of the colon with multiple flui d filled colonic bowel loops being identified with prominent air-fluid levels extending from the leve l of the cecum to the level of the distal descending colon. There appears to be a transition point a t the approximate junction of descending colon and sigmoid colon. Less prominent fluid and air fille d colon is identified distal to this level. There are multiple prominent air and fluid filled small bowel loops. The previously described anterior abdominal wall hernia containing a fluid-filled bowel loop is again identified. APPENDIX: The appendix is not distended. A small radiopaque density is identified which may represen t and appendiculolith. PELVIS, BLADDER, AND ABDOMINAL WALL:No abnormal masses. No free fluid. Bladder normal. BONES: No significant findings. OTHER: No other significant finding. IMPRESSION: On the current study there is distention of the colon with multiple fluid field colonic bowel loops being identified with prominent air-fluid levels extending from the level of the cecum to the level of the distal descending colon. There appears to be a transition point at the approximate junction of descending colon and sigmoid colon as noted above. The previously described anterior ab dominal wall hernia containing a fluid-filled bowel loop is again identified. There are multiple pro minent air and fluid field small bowel loops and the possibility of a partial obstruction cannot be e xcluded. Other findings as noted above. COMMENT: Quality ID # [id number]: Final reports with documentation of one or more dose reduction techniques (e.g., Automated exposure control, adjustment of the mA and/or kV according to patient size, use of iterative reconstruction technique) TECHNICAL DOCUMENTATION: JOB ID: [id number] [employer]- All Rights Reserved Reading location - IP/workstation name: [email or web address]
[2018-02-06 14:51] LABS: APPEARANCE,URINE SLIGHTLY-CLOUDY; BILIRUBIN,URINE SMALL (NEGATIVE); COLOR,URINE YELLOW; GLUCOSE, URINE NEGATIVE (NEGATIVE); KETONES,URINE TRACE mg/dL (NEGATIVE); LEUKOCYTE ESTERASE,URINE NEGATIVE (NEGATIVE); NITRITE,URINE NEGATIVE (NEGATIVE); PROTEIN,URINE >=500 mg/dL (NEGATIVE); URINE SPECIFIC GRAVITY 1.029
[2018-02-06] MEDS: NORMAL SALINE 1000 ML 1,000 ML IV PRN (19:40)
[2018-02-06] MEDS ORDERED: INSULIN LISPRO 100 UNIT/ML 3 ML VIAL SUBCUT PRN (21:54)
[2018-02-06] MEDS ORDERED: DEXTROSE 50%-WATER SYRINGE 12.5 GM/25 ML DOSE IV PRN (21:54)
[2018-02-06] MEDS ORDERED: GLUCAGON,HUMAN RECOMB 1 MG INJ IM PRN (21:54)
[2018-02-06] MEDS ORDERED: DEXTROSE 50%-WATER SYRINGE 25 GM/50 ML DOSE IV PRN (21:54)
[2018-02-06] MEDS ORDERED: DEXTROSE 40% GEL 15 GM TUBE PO PRN (21:54)
[2018-02-06] MEDS ORDERED: DEXTROSE 40% GEL 15 GM TUBE X 2 PO PRN (21:54)
[2018-02-06] MEDS: MORPHINE SULFATE 10 MG/ML INJ IV PRN (22:28)
[2018-02-06] MEDS ORDERED: MAGNESIUM OXIDE 400 MG TABLET PO ONE (22:45)
[2018-02-06] MEDS ORDERED: CHOLECALCIFEROL (D3) 1,000 UNIT TABLET PO ONE (22:45)
[2018-02-06] MEDS: ATORVASTATIN CALCIUM 40 MG TABLET PO SCH (22:53)
[2018-02-06] MEDS: INSULIN GLARGINE,HUM.REC.ANLOG 1,000 UNIT/10 ML UNIT SUBCUT SCH (22:54)
[2018-02-06] MEDS ORDERED: ASPIRIN 81 MG TABLET, ENT COATED PO ONE (23:00)
--- NOTE | 2018-02-06 23:55 | PDOC CONSULTATION ---
Consultation Consult Date: 02/06/18 Attending physician:: Consult reason:: Medical management History of Present Illness Admission Date/PCP: 02/06/18 16:44 JAVIER BEE MD History of Present Illness: RASHIDA MOTA is a 72 year old male patient with multiple comorbidities presented with 5 day history of nausea, vomiting and diarrhea. He CT scan of the abdomen shows partial bowel obstruction for which seen and admitted by Dr. Peralta. The hospitalist service consulted for medical management. Past Medical History Cardiac Medical History: Reports: Coronary Artery Disease, Hyperlipidema, Hypertension Endocrine Medical History: Reports: Diabetes Mellitus Type 2 Past Surgical History Past Surgical History: Reports: Cardiac Catheterization, Coronary Artery Bypass Graft, Coronary Stent, Other - laparotomy for perforated viscus 3 yrs ago Social History Smoking Status: Former Smoker Frequency of Alcohol Use: None Hx Recreational Drug Use: No Hx Prescription Drug Abuse: No - Advance Directive Resuscitation Status: Full Code Family History Family History: Hypertension Parental Family History Reviewed: Yes Children Family History Reviewed: Yes Sibling(s) Family History Reviewed.: Yes Medication/Allergy Home Medications: Aspirin [Aspirin EC] 81 mg PO QHS 02/06/18 Atorvastatin Calcium [Lipitor 40 mg Tablet] 40 mg PO QHS 02/06/18 Cholecalciferol (Vitamin D3) [Vitamin D3 1000 Unit Tablet] 1,000 unit PO QHS 04/20 Clopidogrel Bisulfate [Plavix 75 mg Tablet] 75 mg PO DAILY 02/06/18 Furosemide [Lasix 20 mg Tablet] 20 mg PO DAILY 02/06/18 Insulin Glargine,Hum.rec.anlog [Lantus Insulin 100 Unit/1 ml 10 ml] 25 units SQ Q12 02/06/18 Magnesium Oxide [Mag-Ox 400 mg Tablet] 400 mg PO Q12 02/06/18 Metoprolol Succinate [Toprol Xl 25 mg Tab.sr] 25 mg PO DAILY 02/06/18 Pantoprazole Sodium [Protonix] 40 mg PO NOON 02/06/18 Sitagliptin Phosphate [Januvia] 100 mg PO NOON 02/06/18 Solifenacin Succinate [Vesicare] 10 mg PO DAILY 02/06/18 Allergies/Adverse Reactions: Penicillins Allergy (Intermediate, Verified 02/06/18 10:10) Hives Review of Systems Constitutional: ABSENT: as per HPI, anorexia, chills, fatigue, fever(s), headache(s), night sweats, weakness, weight gain, weight loss, other Cardiovascular: ABSENT: chest pain, dyspnea on exertion, edema, orthropnea, palpitations Respiratory: ABSENT: cough, hemoptysis Gastrointestinal: PRESENT: diarrhea, nausea, vomiting Physical Exam Vital Signs: Temp Pulse Resp BP Pulse Ox 98.2 F 85 16 137/66 H 97 02/06/18 18:58 02/06/18 18:58 02/06/18 18:58 02/06/18 18:58 02/06/18 18:58 Results Impressions: Abdomen/Pelvis CT 02/06/18 11:12 IMPRESSION: On the current study there is distention of the colon with multiple fluid field colonic bowel loops being identified with prominent air- fluid levels extending from the level of the cecum to the level of the distal descending colon. There appears to be a transition point at the approximate junction of descending colon and sigmoid colon as noted above. The previously described anterior abdominal wall hernia containing a fluid-filled bowel loop is again identified. There are multiple prominent air and fluid field small bowel loops and the possibility of a partial obstruction cannot be excluded. Other findings as noted above. Assessment & Plan - Diagnosis (1) Partial bowel obstruction Qualifiers: Intestinal obstruction type: unspecified Qualified Code(s): K56.600 - Partial intestinal obstruction, unspecified as to cause Is this a current diagnosis for this admission?: Yes Plan: Per attending surgeon (2) Hypertension Qualifiers: Hypertension type: essential hypertension Qualified Code(s): I10 - Essential (primary) hypertension Is this a current diagnosis for this admission?: Yes Plan: Continue his home medication (3) Diabetes 1.5, managed as type 2 Is this a current diagnosis for this admission?: Yes Plan: I will continue his on his home medication Lantus and start him on sliding scale. I will hold his p.o. oral hypoglycemic agents. (4) Coronary artery disease Qualifiers: Coronary Disease-Associated Artery/Lesion type: [place] artery Is this a current diagnosis for this admission?: Yes Plan: Currently patient does not have any chest pain. I would continue his home medications. - Time Time Spent: 30 to 50 Minutes Within: Other - Per admitting surgeon - Inpatient Certification Medical Necessity: Other - Admitting surgeon
[2018-02-07] MEDS: MORPHINE SULFATE 10 MG/ML INJ IV PRN ×3 (05:30→22:58)
[2018-02-07 05:43] LABS: ALANINE AMINOTRANSFERASE 24 U/L (21-72); ALBUMIN 3.5 g/dL (3.5-5.0); ALKALINE PHOSPHATASE 83 U/L (38-126); ANION GAP 10 (5-19); ASPARTATE AMINO TRANSFERASE 21 U/L (17-59); BILIRUBIN,DIRECT 0.5 mg/dL (0.0-0.4); BLOOD UREA NITROGEN 27 mg/dL (7-20); CALCIUM 8.5 mg/dL (8.4-10.2); CARBON DIOXIDE 24 mmol/L (22-30); CHLORIDE 109 mmol/L (98-107); GLUCOSE 113 mg/dL (75-110); LIPASE 48.6 U/L (23-300); POTASSIUM 3.8 mmol/L (3.6-5.0); SODIUM 142.7 mmol/L (137-145); TOTAL PROTEIN 6.5 g/dL (6.3-8.2)
[2018-02-07 07:11] LABS: ABSOLUTE EOSINOPHILS # (AUTO) 0.2 10^3/uL (0.0-0.6); ABSOLUTE LYMPHOCYTES (AUTO) 1.2 10^3/uL (0.5-4.7); ABSOLUTE MONOCYTES (AUTO) 0.8 10^3/uL (0.1-1.4); ABSOLUTE NEUT (AUTO) 2.4 10^3/uL (1.7-8.2); EOSINOPHILS % (AUTO) 3.9 % (0-6); HEMATOCRIT 39.4 % (37.9-51.0); LYMPHOCYTES % (AUTO) 25.7 % (13-45); MEAN CORPUSCULAR HEMOGLOBIN 29.1 pg (27.0-33.4); MEAN CORPUSCULAR HGB CONC 33.2 g/dL (32.0-36.0); MEAN CORPUSCULAR VOLUME 88 fl (80-97); MONOCYTES % (AUTO) 16.9 % (3-13); PLATELET COUNT 210 10^3/uL (150-450); RED BLOOD COUNT 4.49 10^6/uL (4.35-5.55); RED CELL DISTRIBUTION WIDTH 14.9 % (11.5-14.0); SEGMENTED NEUTROPHILS % (AUTO) 52.5 % (42-78); TOTAL CELLS COUNTED % (AUTO) 100 %; WHITE BLOOD COUNT 4.5 10^3/uL (4.0-10.5)
[2018-02-07 07:13] LABS: HEMOGLOBIN 13.1 g/dL (13.5-17.0)
[2018-02-07] MEDS: INSULIN GLARGINE,HUM.REC.ANLOG 1,000 UNIT/10 ML UNIT SUBCUT SCH (09:44)
[2018-02-07] MEDS: CLOPIDOGREL BISULFATE 75 MG TABLET PO SCH (09:56)
[2018-02-07] MEDS: FUROSEMIDE 20 MG TABLET PO SCH (09:57)
[2018-02-07] MEDS: MAGNESIUM OXIDE 400 MG TABLET PO SCH ×2 (09:57→21:56)
[2018-02-07] MEDS: METOPROLOL SUCCINATE 25 MG TAB.SR.24H PO SCH (09:57)
[2018-02-07] MEDS: TOLTERODINE TARTRATE 1 MG TABLET PO SCH ×2 (09:57→21:56)
[2018-02-07] MEDS ORDERED: HYDRALAZINE HCL INJ/PF 20 MG/1 ML SDV IV PRN (11:03)
[2018-02-07] MEDS: LANSOPRAZOLE 30 MG TAB.RAP.DR PO SCH (12:09)
--- NOTE | 2018-02-07 13:26 | RADIOLOGY REPORT (SQ) ---
EXAM DESCRIPTION: KUB/ABDOMEN (SINGLE VIEW) COMPLETED DATE/TIME: 02/07/2018 12:56 pm REASON FOR STUDY: UPPER GI/SMALL BOWEL ELECTRIC TRAIN DRIVER FILM COMPARISON: None. NUMBER OF VIEWS: One view. TECHNIQUE: Supine radiographic image of the abdomen acquired. LIMITATIONS: None. FINDINGS: BOWEL GAS PATTERN: Normal bowel gas pattern. No dilated loops. CALCIFICATIONS: No suspicious calcifications. SOFT TISSUES: No gross mass or suggestion of organomegaly. HARDWARE: None. BONES: No bone lesions or fracture. OTHER: No other significant finding. IMPRESSION: NO RADIOGRAPHIC EVIDENCE FOR ACUTE ABDOMINAL DISEASE. Reading location - IP/workstation name: [email or web address]
[2018-02-07] MEDS ORDERED: LISINOPRIL 10 MG TABLET PO ONE (16:15)
--- NOTE | 2018-02-07 16:47 | RADIOLOGY REPORT (SQ) ---
EXAM DESCRIPTION: UPPER GI/SM BOWEL COMPLETED DATE/TIME: 02/07/2018 3:14 pm REASON FOR STUDY: BOWEL OBSTRUCTION COMPARISON: None. TECHNIQUE: Under fluoroscopic guidance, patient ingested water soluble contrast. Fluoroscopic spot images and routine radiographic images acquired and stored on PACS. Following evaluation of esophagus and stomach, additional barium administered with serial delayed abd ominal radiographs until colonic identification. Fluoroscopic images recorded of the terminal ileum. 12 MM BARIUM TABLET GIVEN: No. FLUOROSCOPY TIME: 2 minutes 48 seconds 16 images saved to PACS. LIMITATIONS: Body habitus, patient vomited 3 times immediately after finishing 4 th bottle of contra st. Patient then developed diarrhea. Became lightheaded and reported not feeling well, study was th en stopped. FINDINGS: NEUROMUSCULAR COORDINATION OF SWALLOW: Normal. No aspiration. ESOPHAGEAL MOTILITY: Tertiary contractions. No esophageal spasm. 12 MM TABLET TRANSIT TIME: Not given. ESOPHAGEAL MUCOSA: Normal mucosa without masses or ulceration. GASTRO-ESOPHAGEAL JUNCTION: No hiatal hernia, moderate to severe reflux. STOMACH: Normal without masses or ulcerations. GASTRIC OUTLET: No delay in emptying. Normal pylorus. DUODENAL BULB: Normal distention. No spasm or ulceration. DUODENUM: Mucosa normal. No extrinsic masses or malrotation. PROXIMAL SMALL BOWEL: Dilated small bowel. JEJUNUM: Small-bowel dilation throughout. ILEUM: Dilated small bowel. TERMINAL ILEUM AND ILEO-CECAL VALVE: Not visualized due to suboptimal study and bowel dilation. PROXIMAL COLON: Not visualized due to suboptimal study. NON-GI TRACT STRUCTURES: No significant finding. OTHER: No other significant finding. IMPRESSION: Suboptimal study as the terminal ileum was not visualized due to small bowel dilation an d patient vomiting contrast. Moderate reflux. Tertiary contractions. COMMENT: Quality ID 145: Final reports for procedures using fluoroscopy that document radiation exp osure indices, or exposure time and number of fluorographic images (if radiation exposure indices are not available) TECHNICAL DOCUMENTATION: JOB ID: [id number] [employer]- All Rights Reserved Reading location - IP/workstation name: [email or web address]
[2018-02-07] MEDS: NORMAL SALINE 1000 ML 1,000 ML IV PRN (17:01)
--- NOTE | 2018-02-07 17:14 | PDOC H&P ---
History of Present Illness Admission Date/PCP: 02/06/18 16:44 JAVIER BEE MD Patient complains of: Diarrhea with N/V History of Present Illness: 72 yo male who had a ventral hernia repaired with a Ventralex mesh about 2 months ago. Started c/o diarrhea ,N/V and LLQ pains. He had a CT scan of abd/ pelvis without po or IV contrast which showed SBO and possible obstruction at the left colon area.` Past Medical History Cardiac Medical History: Reports: Coronary Artery Disease, Hyperlipidema, Hypertension Endocrine Medical History: Reports: Diabetes Mellitus Type 2 Past Surgical History Past Surgical History: Reports: Cardiac Catheterization, Coronary Artery Bypass Graft, Coronary Stent, Other - laparotomy for perforated viscus 3 yrs ago due to chicken bone. Social History Smoking Status: Former Smoker Frequency of Alcohol Use: None Hx Recreational Drug Use: No Hx Prescription Drug Abuse: No - Advance Directive Resuscitation Status: Full Code Family History Family History: Hypertension Parental Family History Reviewed: Yes Children Family History Reviewed: No Sibling(s) Family History Reviewed.: No Medication/Allergy Home Medications: Aspirin [Aspirin EC] 81 mg PO QHS 02/06/18 Atorvastatin Calcium [Lipitor 40 mg Tablet] 40 mg PO QHS 02/06/18 Cholecalciferol (Vitamin D3) [Vitamin D3 1000 Unit Tablet] 1,000 unit PO QHS 04/20 Clopidogrel Bisulfate [Plavix 75 mg Tablet] 75 mg PO DAILY 02/06/18 Furosemide [Lasix 20 mg Tablet] 20 mg PO DAILY 02/06/18 Insulin Glargine,Hum.rec.anlog [Lantus Insulin 100 Unit/1 ml 10 ml] 25 units SQ Q12 02/06/18 Magnesium Oxide [Mag-Ox 400 mg Tablet] 400 mg PO Q12 02/06/18 Metoprolol Succinate [Toprol Xl 25 mg Tab.sr] 25 mg PO DAILY 02/06/18 Pantoprazole Sodium [Protonix] 40 mg PO NOON 02/06/18 Sitagliptin Phosphate [Januvia] 100 mg PO NOON 02/06/18 Solifenacin Succinate [Vesicare] 10 mg PO DAILY 02/06/18 Allergies/Adverse Reactions: Penicillins Allergy (Intermediate, Verified 02/06/18 10:10) Hives Review of Systems Constitutional: PRESENT: other - no fever/chills Eyes: PRESENT: other - no visual/hearing problems Cardiovascular: PRESENT: other - no chest pain or cough Gastrointestinal: PRESENT: abdominal pain, diarrhea, nausea, vomiting Genitourinary: PRESENT: other - no dysuria Neurological: PRESENT: other - no dizziness Endocrine: PRESENT: other - no polyuria Hematologic/Lymphatic: PRESENT: other - no easy bruising Physical Exam Vital Signs: Temp Pulse Resp BP Pulse Ox 97.8 F 99 18 150/88 H 93 02/07/18 16:32 02/07/18 16:32 02/07/18 16:32 02/07/18 16:32 02/07/18 16:32 Intake & Output 02/06/18 02/07/18 02/08/18 06:59 06:59 06:59 Intake Total 0 Balance 0 Weight 132.9 kg General appearance: PRESENT: no acute distress Head exam: PRESENT: atraumatic, normocephalic Eye exam: PRESENT: conjunctiva pink Mouth exam: PRESENT: dry mucosa Neck exam: PRESENT: full ROM Respiratory exam: PRESENT: clear to auscultation tip Cardiovascular exam: PRESENT: RRR Pulses: PRESENT: normal radial pulses Vascular exam: PRESENT: normal capillary refill GI/Abdominal exam: PRESENT: soft, tenderness - mild tenderness at the LLQ Rectal exam: PRESENT: deferred Extremities exam: PRESENT: full ROM Musculoskeletal exam: PRESENT: ambulatory Neurological exam: PRESENT: alert, oriented to person, oriented to place, oriented to time, oriented to situation Psychiatric exam: PRESENT: appropriate affect Skin exam: PRESENT: normal color, warm Results Laboratory Results: 02/07/18 06:33 02/07/18 04:39 02/07/18 02/07/18 02/07/18 04:39 04:39 06:33 WBC Cancelled 4.5 RBC Cancelled 4.49 Hgb Cancelled 13.1 L D Hct Cancelled 39.4 MCV Cancelled 88 MCH Cancelled 29.1 MCHC Cancelled 33.2 RDW Cancelled 14.9 H Plt Count Cancelled 210 Seg Neutrophils % Cancelled 52.5 Lymphocytes % Cancelled 25.7 Monocytes % Cancelled 16.9 H Eosinophils % Cancelled 3.9 Basophils % Cancelled 1.0 Absolute Neutrophils Cancelled 2.4 Absolute Lymphocytes Cancelled 1.2 Absolute Monocytes Cancelled 0.8 Absolute Eosinophils Cancelled 0.2 Absolute Basophils Cancelled 0.0 Sodium 142.7 Potassium 3.8 Chloride 109 H Carbon Dioxide 24 Anion Gap 10 BUN 27 H Creatinine 1.07 Est GFR ( Amer) > 60 Est GFR (Non-Af Amer) > 60 Glucose 113 H Calcium 8.5 Total Bilirubin 1.0 AST 21 ALT 24 Alkaline Phosphatase 83 Total Protein 6.5 Albumin 3.5 Lipase 48.6 Impressions: Abdomen/Pelvis CT 02/06/18 11:12 IMPRESSION: On the current study there is distention of the colon with multiple fluid field colonic bowel loops being identified with prominent air- fluid levels extending from the level of the cecum to the level of the distal descending colon. There appears to be a transition point at the approximate junction of descending colon and sigmoid colon as noted above. The previously described anterior abdominal wall hernia containing a fluid-filled bowel loop is again identified. There are multiple prominent air and fluid field small bowel loops and the possibility of a partial obstruction cannot be excluded. Other findings as noted above. KUB X-Ray 02/07/18 00:00 IMPRESSION: NO RADIOGRAPHIC EVIDENCE FOR ACUTE ABDOMINAL DISEASE. Upper GI and Small Bowel X-Ray 02/07/18 00:00 IMPRESSION: Suboptimal study as the terminal ileum was not visualized due to small bowel dilation and patient vomiting contrast. Moderate reflux. Tertiary contractions. Assessment & Plan - Diagnosis (1) Coronary artery disease Qualifiers: Coronary Disease-Associated Artery/Lesion type: [place] artery Is this a current diagnosis for this admission?: Yes (2) Partial bowel obstruction Qualifiers: Intestinal obstruction type: other intestinal obstruction Qualified Code(s) : K56.690 - Other partial intestinal obstruction Is this a current diagnosis for this admission?: Yes (3) Diabetes mellitus type 2 in obese Is this a current diagnosis for this admission?: Yes (4) HLD (hyperlipidemia) Qualifiers: Hyperlipidemia type: unspecified Qualified Code(s): E78.5 - Hyperlipidemia , unspecified Is this a current diagnosis for this admission?: Yes (5) Hx of CABG Is this a current diagnosis for this admission?: Yes (6) Intractable vomiting Qualifiers: Vomiting type: unspecified Nausea presence: with nausea Qualified Code(s) : R11.2 - Nausea with vomiting, unspecified Is this a current diagnosis for this admission?: Yes (7) HTN (hypertension) Qualifiers: Hypertension type: essential hypertension Qualified Code(s): I10 - Essential (primary) hypertension Is this a current diagnosis for this admission?: Yes - Time Time Spent: 30 to 50 Minutes - Inpatient Certification Medical Necessity: Significant Comorbidiites Make Outpatient Treatment Too Risky , Need For IV Fluids, Risk of Diagnosis Which Will Require Inpatient Eval/Care/ Monitoring - Plan Summary Plan Summary: Keep NPO Hydrate SBFT Possible Ba Enema if SBFT unremarkable Check stool for C Diff
--- NOTE | 2018-02-07 20:04 | PDOC PROGRESS REPORT ---
Subjective Progress Note for:: 02/07/18 Subjective:: no LLQ pains so far. Feels good after SBFT which showed dilated small bowel. Patient had BM after study Reason For Visit: DIARRHEA PARTIAL INTESTINAL OBSTRUCTION Physical Exam Vital Signs: Temp Pulse Resp BP Pulse Ox 97.8 F 99 18 150/88 H 93 02/07/18 16:32 02/07/18 16:32 02/07/18 16:32 02/07/18 16:32 02/07/18 16:32 Intake & Output 02/06/18 02/07/18 02/08/18 06:59 06:59 06:59 Intake Total 0 3771 Balance 0 3771 Weight 132.9 kg Exam: Abd soft and non tender Results Laboratory Results: 02/07/18 06:33 02/07/18 04:39 02/07/18 02/07/18 02/07/18 04:39 04:39 06:33 WBC Cancelled 4.5 RBC Cancelled 4.49 Hgb Cancelled 13.1 L D Hct Cancelled 39.4 MCV Cancelled 88 MCH Cancelled 29.1 MCHC Cancelled 33.2 RDW Cancelled 14.9 H Plt Count Cancelled 210 Seg Neutrophils % Cancelled 52.5 Lymphocytes % Cancelled 25.7 Monocytes % Cancelled 16.9 H Eosinophils % Cancelled 3.9 Basophils % Cancelled 1.0 Absolute Neutrophils Cancelled 2.4 Absolute Lymphocytes Cancelled 1.2 Absolute Monocytes Cancelled 0.8 Absolute Eosinophils Cancelled 0.2 Absolute Basophils Cancelled 0.0 Sodium 142.7 Potassium 3.8 Chloride 109 H Carbon Dioxide 24 Anion Gap 10 BUN 27 H Creatinine 1.07 Est GFR ( Amer) > 60 Est GFR (Non-Af Amer) > 60 Glucose 113 H Calcium 8.5 Total Bilirubin 1.0 AST 21 ALT 24 Alkaline Phosphatase 83 Total Protein 6.5 Albumin 3.5 Lipase 48.6 Impressions: Abdomen/Pelvis CT 02/06/18 11:12 IMPRESSION: On the current study there is distention of the colon with multiple fluid field colonic bowel loops being identified with prominent air- fluid levels extending from the level of the cecum to the level of the distal descending colon. There appears to be a transition point at the approximate junction of descending colon and sigmoid colon as noted above. The previously described anterior abdominal wall hernia containing a fluid-filled bowel loop is again identified. There are multiple prominent air and fluid field small bowel loops and the possibility of a partial obstruction cannot be excluded. Other findings as noted above. KUB X-Ray 02/07/18 00:00 IMPRESSION: NO RADIOGRAPHIC EVIDENCE FOR ACUTE ABDOMINAL DISEASE. Upper GI and Small Bowel X-Ray 02/07/18 00:00 IMPRESSION: Suboptimal study as the terminal ileum was not visualized due to small bowel dilation and patient vomiting contrast. Moderate reflux. Tertiary contractions. Assessment & Plan - Diagnosis (1) Coronary artery disease Qualifiers: Coronary Disease-Associated Artery/Lesion type: [place] artery Is this a current diagnosis for this admission?: Yes (2) Partial bowel obstruction Qualifiers: Intestinal obstruction type: other intestinal obstruction Qualified Code(s) : K56.690 - Other partial intestinal obstruction Is this a current diagnosis for this admission?: Yes (3) Diabetes mellitus type 2 in obese Is this a current diagnosis for this admission?: Yes (4) HLD (hyperlipidemia) Qualifiers: Hyperlipidemia type: unspecified Qualified Code(s): E78.5 - Hyperlipidemia , unspecified Is this a current diagnosis for this admission?: Yes (5) Hx of CABG Is this a current diagnosis for this admission?: Yes (6) Intractable vomiting Qualifiers: Vomiting type: unspecified Nausea presence: with nausea Qualified Code(s) : R11.2 - Nausea with vomiting, unspecified Is this a current diagnosis for this admission?: Yes (7) HTN (hypertension) Qualifiers: Hypertension type: essential hypertension Qualified Code(s): I10 - Essential (primary) hypertension Is this a current diagnosis for this admission?: Yes - Time Time Spent with patient: 15-24 minutes - Plan Summary Plan Summary: Gastrograffin showed dilated small bowel but patient had BM after study indicating no definite obstruction. He is very thirsty. Will try sips of clear liquids and see if tolerates. Recheck for C DIff. Continue IV fluids
[2018-02-07] MEDS: ATORVASTATIN CALCIUM 40 MG TABLET PO SCH (21:56)
[2018-02-07] MEDS: CHOLECALCIFEROL (D3) 1,000 UNIT TABLET PO SCH (21:56)
[2018-02-07] MEDS: INSULIN GLARGINE,HUM.REC.ANLOG 300 UNIT/3 ML INSULN.PEN SUBCUT SCH (21:57)
[2018-02-07] MEDS ORDERED: ASPIRIN 81 MG TABLET, ENT COATED PO SCH (22:00)
[2018-02-08 05:48] LABS: ANION GAP 12 (5-19); BLOOD UREA NITROGEN 28 mg/dL (7-20); CALCIUM 8.5 mg/dL (8.4-10.2); CARBON DIOXIDE 26 mmol/L (22-30); CHLORIDE 109 mmol/L (98-107); GLUCOSE 121 mg/dL (75-110); POTASSIUM 3.3 mmol/L (3.6-5.0); SODIUM 146.9 mmol/L (137-145)
[2018-02-08 05:52] LABS: ABSOLUTE EOSINOPHILS # (AUTO) 0.3 10^3/uL (0.0-0.6); ABSOLUTE LYMPHOCYTES (AUTO) 1.4 10^3/uL (0.5-4.7); ABSOLUTE NEUT (AUTO) 2.9 10^3/uL (1.7-8.2); BASOPHILS % (AUTO) 0.7 % (0-2); EOSINOPHILS % (AUTO) 4.6 % (0-6); HEMATOCRIT 40.7 % (37.9-51.0); HEMOGLOBIN 13.7 g/dL (13.5-17.0); LYMPHOCYTES % (AUTO) 24.9 % (13-45); MEAN CORPUSCULAR HEMOGLOBIN 29.4 pg (27.0-33.4); MEAN CORPUSCULAR HGB CONC 33.8 g/dL (32.0-36.0); MEAN CORPUSCULAR VOLUME 87 fl (80-97); MONOCYTES % (AUTO) 17.2 % (3-13); PLATELET COUNT 213 10^3/uL (150-450); RED BLOOD COUNT 4.67 10^6/uL (4.35-5.55); RED CELL DISTRIBUTION WIDTH 14.8 % (11.5-14.0); SEGMENTED NEUTROPHILS % (AUTO) 52.6 % (42-78); TOTAL CELLS COUNTED % (AUTO) 100 %; WHITE BLOOD COUNT 5.6 10^3/uL (4.0-10.5)
[2018-02-08] MEDS: MORPHINE SULFATE 10 MG/ML INJ IV PRN ×2 (07:00→14:16)
--- NOTE | 2018-02-08 08:02 | PDOC CONSULTATION ---
Consultation Consult Date: 02/07/18 Consult reason:: Hypertension management History of Present Illness Admission Date/PCP: 02/06/18 16:44 JAVIER BEE MD History of Present Illness: 72 yo male who had a ventral hernia repaired with a Ventralex mesh about 2 months ago. Started c/o diarrhea ,N/V and LLQ pains. He had a CT scan of abd/ pelvis without po or IV contrast which showed SBO and possible obstruction at the left colon area.` Past Medical History Cardiac Medical History: Reports: Coronary Artery Disease, Hyperlipidema, Hypertension Endocrine Medical History: Reports: Diabetes Mellitus Type 2 Past Surgical History Past Surgical History: Reports: Cardiac Catheterization, Coronary Artery Bypass Graft, Coronary Stent, Other - laparotomy for perforated viscus 3 yrs ago due to chicken bone. Social History Smoking Status: Former Smoker Frequency of Alcohol Use: None Hx Recreational Drug Use: No Hx Prescription Drug Abuse: No - Advance Directive Resuscitation Status: Full Code Family History Family History: Hypertension Parental Family History Reviewed: No Children Family History Reviewed: No Sibling(s) Family History Reviewed.: No Medication/Allergy Home Medications: Aspirin [Aspirin EC] 81 mg PO QHS 02/06/18 Atorvastatin Calcium [Lipitor 40 mg Tablet] 40 mg PO QHS 02/06/18 Cholecalciferol (Vitamin D3) [Vitamin D3 1000 Unit Tablet] 1,000 unit PO QHS 04/20 Clopidogrel Bisulfate [Plavix 75 mg Tablet] 75 mg PO DAILY 02/06/18 Furosemide [Lasix 20 mg Tablet] 20 mg PO DAILY 02/06/18 Insulin Glargine,Hum.rec.anlog [Lantus Insulin 100 Unit/1 ml 10 ml] 25 units SQ Q12 02/06/18 Magnesium Oxide [Mag-Ox 400 mg Tablet] 400 mg PO Q12 02/06/18 Metoprolol Succinate [Toprol Xl 25 mg Tab.sr] 25 mg PO DAILY 02/06/18 Pantoprazole Sodium [Protonix] 40 mg PO NOON 02/06/18 Sitagliptin Phosphate [Januvia] 100 mg PO NOON 02/06/18 Solifenacin Succinate [Vesicare] 10 mg PO DAILY 02/06/18 Allergies/Adverse Reactions: Penicillins Allergy (Intermediate, Verified 02/06/18 10:10) Hives Review of Systems Gastrointestinal: PRESENT: abdominal pain Physical Exam Vital Signs: Temp Pulse Resp BP Pulse Ox 98.5 F 88 18 147/73 H 95 02/08/18 00:00 02/08/18 00:00 02/08/18 00:00 02/08/18 00:00 02/08/18 00:00 Intake & Output 02/07/18 02/08/18 02/09/18 06:59 06:59 06:59 Intake Total 0 5621 Balance 0 5621 Weight 132.9 kg General appearance: PRESENT: no acute distress, morbidly obese Eye exam: PRESENT: conjunctiva pink, PERRLA Mouth exam: PRESENT: moist Respiratory exam: PRESENT: clear to auscultation tip, symmetrical, unlabored Pulses: PRESENT: normal radial pulses, normal dorsalis pedis pul GI/Abdominal exam: PRESENT: ascites, distended, soft, tenderness Rectal exam: PRESENT: deferred Extremities exam: PRESENT: full ROM Musculoskeletal exam: PRESENT: ambulatory, full ROM Neurological exam: PRESENT: alert, altered, oriented to person, oriented to place, oriented to time, oriented to situation Psychiatric exam: PRESENT: appropriate affect Results Laboratory Results: 02/08/18 04:50 02/08/18 04:50 02/08/18 02/08/18 04:50 04:50 WBC 5.6 RBC 4.67 Hgb 13.7 Hct 40.7 MCV 87 MCH 29.4 MCHC 33.8 RDW 14.8 H Plt Count 213 Seg Neutrophils % 52.6 Lymphocytes % 24.9 Monocytes % 17.2 H Eosinophils % 4.6 Basophils % 0.7 Absolute Neutrophils 2.9 Absolute Lymphocytes 1.4 Absolute Monocytes 1.0 Absolute Eosinophils 0.3 Absolute Basophils 0.0 Sodium 146.9 H Potassium 3.3 L Chloride 109 H Carbon Dioxide 26 Anion Gap 12 BUN 28 H Creatinine 1.07 Est GFR ( Amer) > 60 Est GFR (Non-Af Amer) > 60 Glucose 121 H Calcium 8.5 Impressions: Abdomen/Pelvis CT 02/06/18 11:12 IMPRESSION: On the current study there is distention of the colon with multiple fluid field colonic bowel loops being identified with prominent air- fluid levels extending from the level of the cecum to the level of the distal descending colon. There appears to be a transition point at the approximate junction of descending colon and sigmoid colon as noted above. The previously described anterior abdominal wall hernia containing a fluid-filled bowel loop is again identified. There are multiple prominent air and fluid field small bowel loops and the possibility of a partial obstruction cannot be excluded. Other findings as noted above. KUB X-Ray 02/07/18 00:00 IMPRESSION: NO RADIOGRAPHIC EVIDENCE FOR ACUTE ABDOMINAL DISEASE. Upper GI and Small Bowel X-Ray 02/07/18 00:00 IMPRESSION: Suboptimal study as the terminal ileum was not visualized due to small bowel dilation and patient vomiting contrast. Moderate reflux. Tertiary contractions. Status: Imported from PACS Assessment & Plan - Diagnosis (1) Hypertension Qualifiers: Hypertension type: essential hypertension Qualified Code(s): I10 - Essential (primary) hypertension Is this a current diagnosis for this admission?: Yes Plan: The patient endorses a past medical history of hypertension. While at [facility] his blood pressure has been poorly controlled, he remains hypertensive Continue home dose Toprol, hydralazine IV as needed. Initiate lisinopril 10 mg daily. - Time Time Spent: 30 to 50 Minutes Medications reviewed and adjusted accordingly: Yes Anticipated discharge: Home - Inpatient Certification Based on my medical assessment, after consideration of the patient's comorbidities, presenting symptoms, or acuity I expect that the services needed warrant INPATIENT care.: Yes I certify that my determination is in accordance with my understanding of Medicare's requirements for reasonable and necessary INPATIENT services [42 CFR 412.3e].: Yes Medical Necessity: Risk of Complication if Not Cared For in Hospital - Plan Summary Plan Summary: We will continue to manage patient's blood pressure. Primary plan per surgery
--- NOTE | 2018-02-08 09:48 | RADIOLOGY REPORT (SQ) ---
EXAM DESCRIPTION: ABDOMEN 2 VIEWS COMPLETED DATE/TIME: 02/08/2018 9:12 am REASON FOR STUDY: SBO I15.8 OTHER SECONDARY HYPERTENSION COMPARISON: Previous day. NUMBER OF VIEWS: Two views. TECHNIQUE: Supine and erect/decubitus radiographic images of the abdomen acquired. LIMITATIONS: Body habitus. FINDINGS: There are gas fluid levels within nondilated loops of primarily large bowel. There is con trast opacification of the majority of the colon. No free air. IMPRESSION: Ileus versus [place]'s syndrome. No evidence of mechanical obstruction. TECHNICAL DOCUMENTATION: JOB ID: [id number] [email or web address]- All Rights Reserved Reading location - IP/workstation name: [email or web address]
[2018-02-08] MEDS ORDERED: LISINOPRIL 10 MG TABLET PO SCH ×2 (10:00)
[2018-02-08] MEDS ORDERED: POTASSIUM CHLORIDE 20 MEQ/50 ML RTU IV ONE (10:00)
[2018-02-08] MEDS: FUROSEMIDE 20 MG TABLET PO SCH (10:26)
[2018-02-08] MEDS: CLOPIDOGREL BISULFATE 75 MG TABLET PO SCH (10:26)
[2018-02-08] MEDS: METOPROLOL SUCCINATE 25 MG TAB.SR.24H PO SCH (10:26)
[2018-02-08] MEDS: MAGNESIUM OXIDE 400 MG TABLET PO SCH (10:26)
[2018-02-08] MEDS: INSULIN GLARGINE,HUM.REC.ANLOG 300 UNIT/3 ML INSULN.PEN SUBCUT SCH ×2 (10:27→22:31)
[2018-02-08] MEDS: LANSOPRAZOLE 30 MG TAB.RAP.DR PO SCH (11:37)
[2018-02-08] MEDS: TOLTERODINE TARTRATE 1 MG TABLET PO SCH (11:37)
--- NOTE | 2018-02-08 14:15 | PDOC PROGRESS REPORT ---
Subjective Progress Note for:: 02/08/18 Subjective:: LLQ pains returned but much less in intensity Reason For Visit: PARTIAL BOWEL OBSTRUCTION Physical Exam Vital Signs: Temp Pulse Resp BP Pulse Ox 98.0 F 103 H 19 159/74 H 94 02/08/18 10:56 02/08/18 10:56 02/08/18 10:56 02/08/18 10:56 02/08/18 10:56 Intake & Output 02/07/18 02/08/18 02/09/18 06:59 06:59 06:59 Intake Total 0 5621 Balance 0 5621 Weight 132.9 kg Exam: Abd somewhat distended but pt no complaint No BM this am yet Tolerated small amounts of clear fluid Results Laboratory Results: 02/08/18 04:50 02/08/18 04:50 02/08/18 02/08/18 04:50 04:50 WBC 5.6 RBC 4.67 Hgb 13.7 Hct 40.7 MCV 87 MCH 29.4 MCHC 33.8 RDW 14.8 H Plt Count 213 Seg Neutrophils % 52.6 Lymphocytes % 24.9 Monocytes % 17.2 H Eosinophils % 4.6 Basophils % 0.7 Absolute Neutrophils 2.9 Absolute Lymphocytes 1.4 Absolute Monocytes 1.0 Absolute Eosinophils 0.3 Absolute Basophils 0.0 Sodium 146.9 H Potassium 3.3 L Chloride 109 H Carbon Dioxide 26 Anion Gap 12 BUN 28 H Creatinine 1.07 Est GFR ( Amer) > 60 Est GFR (Non-Af Amer) > 60 Glucose 121 H Calcium 8.5 Impressions: Abdomen/Pelvis CT 02/06/18 11:12 IMPRESSION: On the current study there is distention of the colon with multiple fluid field colonic bowel loops being identified with prominent air- fluid levels extending from the level of the cecum to the level of the distal descending colon. There appears to be a transition point at the approximate junction of descending colon and sigmoid colon as noted above. The previously described anterior abdominal wall hernia containing a fluid-filled bowel loop is again identified. There are multiple prominent air and fluid field small bowel loops and the possibility of a partial obstruction cannot be excluded. Other findings as noted above. KUB X-Ray 02/07/18 00:00 IMPRESSION: NO RADIOGRAPHIC EVIDENCE FOR ACUTE ABDOMINAL DISEASE. Upper GI and Small Bowel X-Ray 02/07/18 00:00 IMPRESSION: Suboptimal study as the terminal ileum was not visualized due to small bowel dilation and patient vomiting contrast. Moderate reflux. Tertiary contractions. Abdomen X-Ray 02/08/18 00:00 IMPRESSION: Ileus versus [place]'s syndrome. No evidence of mechanical obstruction. Assessment & Plan - Diagnosis (1) Coronary artery disease Qualifiers: Coronary Disease-Associated Artery/Lesion type: [place] artery Is this a current diagnosis for this admission?: Yes (2) Partial bowel obstruction Qualifiers: Intestinal obstruction type: other intestinal obstruction Qualified Code(s) : K56.690 - Other partial intestinal obstruction Is this a current diagnosis for this admission?: Yes (3) Diabetes mellitus type 2 in obese Is this a current diagnosis for this admission?: Yes (4) HLD (hyperlipidemia) Qualifiers: Hyperlipidemia type: unspecified Qualified Code(s): E78.5 - Hyperlipidemia , unspecified Is this a current diagnosis for this admission?: Yes (5) Hx of CABG Is this a current diagnosis for this admission?: Yes (6) Intractable vomiting Qualifiers: Vomiting type: unspecified Nausea presence: with nausea Qualified Code(s) : R11.2 - Nausea with vomiting, unspecified Is this a current diagnosis for this admission?: Yes (7) HTN (hypertension) Qualifiers: Hypertension type: essential hypertension Qualified Code(s): I10 - Essential (primary) hypertension Is this a current diagnosis for this admission?: Yes - Time Time Spent with patient: 15-24 minutes - Inpatient Certification Medical Necessity: Significant Comorbidiites Make Outpatient Treatment Too Risky , Need For IV Fluids, Risk of Complication if Not Cared For in Hospital, Risk of Diagnosis Which Will Require Inpatient Eval/Care/Monitoring - Plan Summary Plan Summary: Go slow with po intake. Abdominal xrays showed ileus vs [place]'s syndrome. Continue IV Fluids Monitor lytes,Mg,Ca Thyroid function
[2018-02-08] MEDS ORDERED: ONDANSETRON HCL INJ/PF 4 MG/2 ML SDV IV PRN (17:41)
[2018-02-08] MEDS ORDERED: PHARMACY COMMUNICATION ORDER MC NR (18:00)
[2018-02-08] MEDS ORDERED: TOLTERODINE TARTRATE 1 MG TABLET NG SCH (18:30)
--- NOTE | 2018-02-08 18:43 | RADIOLOGY REPORT (SQ) ---
EXAM DESCRIPTION: KUB/ABDOMEN (SINGLE VIEW) COMPLETED DATE/TIME: 02/08/2018 6:24 pm REASON FOR STUDY: Check Placement of NG Tube I15.8 OTHER SECONDARY HYPERTENSION COMPARISON: 02/08/2018. NUMBER OF VIEWS: One view. TECHNIQUE: Supine radiographic image of the abdomen acquired. LIMITATIONS: None. FINDINGS: BOWEL GAS PATTERN: Limited visualization. Prominent:. CALCIFICATIONS: No suspicious calcifications. SOFT TISSUES: No gross mass or suggestion of organomegaly. HARDWARE: Nasogastric tube with the tip in the stomach. BONES: No acute fracture. No worrisome bone lesions. OTHER: No other significant finding. IMPRESSION: NASOGASTRIC TUBE WITH THE TIP IN THE STOMACH. TECHNICAL DOCUMENTATION: JOB ID: [id number] [email or web address]- All Rights Reserved Reading location - IP/workstation name: [email or web address]
[2018-02-08] MEDS: CHOLECALCIFEROL (D3) 1,000 UNIT TABLET PO SCH (22:26)
[2018-02-08] MEDS: ATORVASTATIN CALCIUM 40 MG TABLET NG SCH (22:26)
[2018-02-08] MEDS: ASPIRIN 81 MG TABLET, CHEWABLE NG SCH (22:26)
[2018-02-08] MEDS: MAGNESIUM OXIDE 400 MG TABLET NG SCH (22:26)
[2018-02-09] MEDS: MORPHINE SULFATE 10 MG/ML INJ IV PRN ×2 (02:45→18:19)
[2018-02-09 06:52] LABS: HEMATOCRIT 36.3 % (37.9-51.0); MEAN CORPUSCULAR HGB CONC 33.2 g/dL (32.0-36.0); MEAN CORPUSCULAR VOLUME 87 fl (80-97); PLATELET COUNT 221 10^3/uL (150-450); RED BLOOD COUNT 4.15 10^6/uL (4.35-5.55); WHITE BLOOD COUNT 5.9 10^3/uL (4.0-10.5)
[2018-02-09 07:18] LABS: ALBUMIN 2.9 g/dL (3.5-5.0); ANION GAP 11 (5-19); BLOOD UREA NITROGEN 27 mg/dL (7-20); CALCIUM 8.1 mg/dL (8.4-10.2); CARBON DIOXIDE 23 mmol/L (22-30); CHLORIDE 110 mmol/L (98-107); GLUCOSE 117 mg/dL (75-110); POTASSIUM 3.6 mmol/L (3.6-5.0); SODIUM 143.9 mmol/L (137-145)
[2018-02-09 07:42] LABS: ABSOLUTE LYMPHOCYTES# (MANUAL) 1.2 10^3/uL (0.5-4.7); ABSOLUTE MONOCYTES # (MANUAL) 0.8 10^3/uL (0.1-1.4); ABSOLUTE NEUTROPHILS# (MANUAL) 3.5 10^3/uL (1.7-8.2); ANISOCYTOSIS 1+; BAND NEUTROPHILS % (MANUAL) 32 % (3-5); BASOPHILS % (MANUAL) 0 % (0-2); BURR CELLS 2+; EOSINOPHILS % (MANUAL) 6 % (0-6); LYMPHOCYTES % (MANUAL) 18 % (13-45); MONOCYTES % (MANUAL) 13 % (3-13); OVALOCYTES 1+; PLATELET COMMENT ADEQUATE; POIKILOCYTOSIS 2+; SEGMENTED NEUTROPHILS % (MAN) 28 % (42-78); TOTAL CELLS COUNTED 100; TOXIC VACUOLATION PRESENT
--- NOTE | 2018-02-09 09:41 | PDOC PROGRESS REPORT ---
Subjective Progress Note for:: 02/09/18 Reason For Visit: PARTIAL BOWEL OBSTRUCTION I am making rounds, patient's nasogastric tube getting pulled out by patient. He simultaneously drinking apple juice. States he had a bowel movement, loose, last p.m. Physical Exam Vital Signs: Temp Pulse Resp BP Pulse Ox 99.5 F 103 H 16 108/54 L 98 02/09/18 08:09 02/09/18 08:09 02/09/18 08:09 02/09/18 08:09 02/09/18 08:09 Intake & Output 02/08/18 02/09/18 02/10/18 06:59 06:59 06:59 Intake Total 5621 4464 Output Total 1600 800 Balance 5621 2864 -800 Weight 132.9 kg 141.1 kg General appearance: PRESENT: no acute distress GI/Abdominal exam: PRESENT: other - Patient's abdomen is very distended, likely chronic; midline incision well-healed; difficult to palpate; I do not feel a hernia; some tenderness but no peritoneal signs Results Laboratory Results: 02/09/18 05:55 02/09/18 05:55 02/09/18 02/09/18 02/09/18 05:55 05:55 05:55 WBC 5.9 RBC 4.15 L Hgb 12.0 L Hct 36.3 L MCV 87 MCH 29.0 MCHC 33.2 RDW 15.0 H Plt Count 221 Seg Neutrophils % Not Reportable Lymphocytes % Not Reportable Monocytes % Not Reportable Eosinophils % Not Reportable Basophils % Not Reportable Absolute Neutrophils Not Reportable Absolute Lymphocytes Not Reportable Absolute Monocytes Not Reportable Absolute Eosinophils Not Reportable Absolute Basophils Not Reportable Sodium 143.9 Potassium 3.6 Chloride 110 H Carbon Dioxide 23 Anion Gap 11 BUN 27 H Creatinine 0.99 Est GFR ( Amer) > 60 Est GFR (Non-Af Amer) > 60 Glucose 117 H Calcium 8.1 L Magnesium 1.5 L Albumin 2.9 L Free T3 pg/mL 1.96 L Impressions: Abdomen/Pelvis CT 02/06/18 11:12 IMPRESSION: On the current study there is distention of the colon with multiple fluid field colonic bowel loops being identified with prominent air- fluid levels extending from the level of the cecum to the level of the distal descending colon. There appears to be a transition point at the approximate junction of descending colon and sigmoid colon as noted above. The previously described anterior abdominal wall hernia containing a fluid-filled bowel loop is again identified. There are multiple prominent air and fluid field small bowel loops and the possibility of a partial obstruction cannot be excluded. Other findings as noted above. Upper GI and Small Bowel X-Ray 02/07/18 00:00 IMPRESSION: Suboptimal study as the terminal ileum was not visualized due to small bowel dilation and patient vomiting contrast. Moderate reflux. Tertiary contractions. Abdomen X-Ray 02/08/18 00:00 IMPRESSION: Ileus versus Brigid's syndrome. No evidence of mechanical obstruction. KUB X-Ray 02/08/18 17:51 IMPRESSION: NASOGASTRIC TUBE WITH THE TIP IN THE STOMACH. Assessment & Plan - Diagnosis (1) Partial bowel obstruction Qualifiers: Intestinal obstruction type: other intestinal obstruction Qualified Code(s) : K56.690 - Other partial intestinal obstruction Is this a current diagnosis for this admission?: Yes Plan: Patient appears to be clinically improved but not resolved; NG tube out so we will leave it such. His abdominal film yesterday showed persisting with levels primarily in the colon. He reports having bowel function now. Recommendations: 1. Leave NG tube out 2. Keep on clear liquids for now 3. Get patient up and ambulating in halls; discussed with nursing staff - Time Time Spent with patient: 15-24 minutes Smoking Cessation Education: 3 to 10 minutes
[2018-02-09] MEDS: INSULIN GLARGINE,HUM.REC.ANLOG 300 UNIT/3 ML INSULN.PEN SUBCUT SCH ×2 (10:14→21:58)
[2018-02-09] MEDS: CLOPIDOGREL BISULFATE 75 MG TABLET NG SCH (10:21)
[2018-02-09] MEDS: FUROSEMIDE 20 MG TABLET NG SCH (10:21)
[2018-02-09] MEDS: NORMAL SALINE 1000 ML 1,000 ML IV PRN ×2 (10:22→18:16)
[2018-02-09] MEDS: LISINOPRIL 10 MG TABLET NG SCH (10:22)
[2018-02-09] MEDS: MAGNESIUM OXIDE 400 MG TABLET NG SCH ×2 (10:22→21:58)
[2018-02-09] MEDS: METOPROLOL SUCCINATE 25 MG TAB.SR.24H PO SCH (10:22)
[2018-02-09] MEDS: TOLTERODINE TARTRATE 1 MG TABLET NG SCH ×2 (10:22→21:58)
--- NOTE | 2018-02-09 13:57 | PDOC CONSULTATION ---
Consultation Consult Date: 02/08/18 Attending physician:: TERRIE WARD Consult reason:: blood pressure History of Present Illness Admission Date/PCP: 02/06/18 16:44 JAVIER BEE MD History of Present Illness: 72 yo male who had a ventral hernia repaired with a Ventralex mesh about 2 months ago. Started c/o diarrhea ,N/V and LLQ pains. He had a CT scan of abd/ pelvis without po or IV contrast which showed SBO and possible obstruction at the left colon area.` Past Medical History Cardiac Medical History: Reports: Coronary Artery Disease, Hyperlipidema, Hypertension Endocrine Medical History: Reports: Diabetes Mellitus Type 2 Past Surgical History Past Surgical History: Reports: Cardiac Catheterization, Coronary Artery Bypass Graft, Coronary Stent, Other - laparotomy for perforated viscus 3 yrs ago due to chicken bone. Social History Smoking Status: Former Smoker Frequency of Alcohol Use: None Hx Recreational Drug Use: No Hx Prescription Drug Abuse: No - Advance Directive Resuscitation Status: Full Code Family History Family History: Hypertension Parental Family History Reviewed: Yes Children Family History Reviewed: Yes Sibling(s) Family History Reviewed.: Yes Medication/Allergy Home Medications: Aspirin [Aspirin EC] 81 mg PO QHS 02/06/18 Atorvastatin Calcium [Lipitor 40 mg Tablet] 40 mg PO QHS 02/06/18 Cholecalciferol (Vitamin D3) [Vitamin D3 1000 Unit Tablet] 1,000 unit PO QHS 04/20 Clopidogrel Bisulfate [Plavix 75 mg Tablet] 75 mg PO DAILY 02/06/18 Furosemide [Lasix 20 mg Tablet] 20 mg PO DAILY 02/06/18 Insulin Glargine,Hum.rec.anlog [Lantus Insulin 100 Unit/1 ml 10 ml] 25 units SQ Q12 02/06/18 Magnesium Oxide [Mag-Ox 400 mg Tablet] 400 mg PO Q12 02/06/18 Metoprolol Succinate [Toprol Xl 25 mg Tab.sr] 25 mg PO DAILY 02/06/18 Pantoprazole Sodium [Protonix] 40 mg PO NOON 02/06/18 Sitagliptin Phosphate [Januvia] 100 mg PO NOON 02/06/18 Solifenacin Succinate [Vesicare] 10 mg PO DAILY 02/06/18 Allergies/Adverse Reactions: Penicillins Allergy (Intermediate, Verified 02/06/18 10:10) Hives Physical Exam Vital Signs: Temp Pulse Resp BP Pulse Ox 97.4 F 97 20 128/62 H 92 02/09/18 11:42 02/09/18 11:42 02/09/18 11:42 02/09/18 11:42 02/09/18 11:42 Intake & Output 02/08/18 02/09/18 02/10/18 06:59 06:59 06:59 Intake Total 5621 4464 Output Total 1600 800 Balance 5621 2864 -800 Weight 132.9 kg 141.1 kg Results Laboratory Results: 02/09/18 05:55 02/09/18 05:55 02/09/18 02/09/18 02/09/18 05:55 05:55 05:55 WBC 5.9 RBC 4.15 L Hgb 12.0 L Hct 36.3 L MCV 87 MCH 29.0 MCHC 33.2 RDW 15.0 H Plt Count 221 Seg Neutrophils % Not Reportable Lymphocytes % Not Reportable Monocytes % Not Reportable Eosinophils % Not Reportable Basophils % Not Reportable Absolute Neutrophils Not Reportable Absolute Lymphocytes Not Reportable Absolute Monocytes Not Reportable Absolute Eosinophils Not Reportable Absolute Basophils Not Reportable Sodium 143.9 Potassium 3.6 Chloride 110 H Carbon Dioxide 23 Anion Gap 11 BUN 27 H Creatinine 0.99 Est GFR ( Amer) > 60 Est GFR (Non-Af Amer) > 60 Glucose 117 H Calcium 8.1 L Magnesium 1.5 L Albumin 2.9 L Free T3 pg/mL 1.96 L Impressions: Abdomen/Pelvis CT 02/06/18 11:12 IMPRESSION: On the current study there is distention of the colon with multiple fluid field colonic bowel loops being identified with prominent air- fluid levels extending from the level of the cecum to the level of the distal descending colon. There appears to be a transition point at the approximate junction of descending colon and sigmoid colon as noted above. The previously described anterior abdominal wall hernia containing a fluid-filled bowel loop is again identified. There are multiple prominent air and fluid field small bowel loops and the possibility of a partial obstruction cannot be excluded. Other findings as noted above. Upper GI and Small Bowel X-Ray 02/07/18 00:00 IMPRESSION: Suboptimal study as the terminal ileum was not visualized due to small bowel dilation and patient vomiting contrast. Moderate reflux. Tertiary contractions. Abdomen X-Ray 02/08/18 00:00 IMPRESSION: Ileus versus Brigid's syndrome. No evidence of mechanical obstruction. KUB X-Ray 02/08/18 17:51 IMPRESSION: NASOGASTRIC TUBE WITH THE TIP IN THE STOMACH. Assessment & Plan - Diagnosis (1) Hypertension Qualifiers: Hypertension type: essential hypertension Qualified Code(s): I10 - Essential (primary) hypertension Is this a current diagnosis for this admission?: Yes Plan: The patient endorses a past medical history of hypertension. While at [facility] his blood pressure has been poorly controlled. Since adjusting his medications yesterday, his bp has been controlled Continue home dose Toprol, hydralazine IV as needed. Continue lisinopril 10 mg daily.
[2018-02-09] MEDS: LANSOPRAZOLE 30 MG TAB.RAP.DR NG SCH (14:28)
[2018-02-09] MEDS: CHOLECALCIFEROL (D3) 1,000 UNIT TABLET PO SCH (21:58)
[2018-02-09] MEDS: ATORVASTATIN CALCIUM 40 MG TABLET NG SCH (21:58)
[2018-02-09] MEDS: ASPIRIN 81 MG TABLET, CHEWABLE NG SCH (21:58)
--- NOTE | 2018-02-10 07:19 | PDOC CONSULTATION ---
History of Present Illness Admission Date/PCP: 02/06/18 16:44 JAVIER BEE MD History of Present Illness: 72 yo male who had a ventral hernia repaired with a Ventralex mesh about 2 months ago. Started c/o diarrhea ,N/V and LLQ pains. He had a CT scan of abd/ pelvis without po or IV contrast which showed SBO and possible obstruction at the left colon area.` Past Medical History Cardiac Medical History: Reports: Coronary Artery Disease, Hyperlipidema, Hypertension Endocrine Medical History: Reports: Diabetes Mellitus Type 2 Past Surgical History Past Surgical History: Reports: Cardiac Catheterization, Coronary Artery Bypass Graft, Coronary Stent, Other - laparotomy for perforated viscus 3 yrs ago due to chicken bone. Social History Smoking Status: Former Smoker Frequency of Alcohol Use: None Hx Recreational Drug Use: No Hx Prescription Drug Abuse: No - Advance Directive Resuscitation Status: Full Code Family History Family History: Hypertension Parental Family History Reviewed: No Children Family History Reviewed: No Sibling(s) Family History Reviewed.: No Medication/Allergy Home Medications: Aspirin [Aspirin EC] 81 mg PO QHS 02/06/18 Atorvastatin Calcium [Lipitor 40 mg Tablet] 40 mg PO QHS 02/06/18 Cholecalciferol (Vitamin D3) [Vitamin D3 1000 Unit Tablet] 1,000 unit PO QHS 04/20 Clopidogrel Bisulfate [Plavix 75 mg Tablet] 75 mg PO DAILY 02/06/18 Furosemide [Lasix 20 mg Tablet] 20 mg PO DAILY 02/06/18 Insulin Glargine,Hum.rec.anlog [Lantus Insulin 100 Unit/1 ml 10 ml] 25 units SQ Q12 02/06/18 Magnesium Oxide [Mag-Ox 400 mg Tablet] 400 mg PO Q12 02/06/18 Metoprolol Succinate [Toprol Xl 25 mg Tab.sr] 25 mg PO DAILY 02/06/18 Pantoprazole Sodium [Protonix] 40 mg PO NOON 02/06/18 Sitagliptin Phosphate [Januvia] 100 mg PO NOON 02/06/18 Solifenacin Succinate [Vesicare] 10 mg PO DAILY 02/06/18 Allergies/Adverse Reactions: Penicillins Allergy (Intermediate, Verified 02/06/18 10:10) Hives Physical Exam Vital Signs: Temp Pulse Resp BP Pulse Ox 97.4 F 97 20 128/62 H 92 02/09/18 11:42 02/09/18 11:42 02/09/18 11:42 02/09/18 11:42 02/09/18 11:42 Intake & Output 02/08/18 02/09/18 02/10/18 06:59 06:59 06:59 Intake Total 5621 4464 Output Total 1600 800 Balance 5621 2864 -800 Weight 132.9 kg 141.1 kg Results Laboratory Results: 02/09/18 05:55 02/09/18 05:55 02/09/18 02/09/18 02/09/18 05:55 05:55 05:55 WBC 5.9 RBC 4.15 L Hgb 12.0 L Hct 36.3 L MCV 87 MCH 29.0 MCHC 33.2 RDW 15.0 H Plt Count 221 Seg Neutrophils % Not Reportable Lymphocytes % Not Reportable Monocytes % Not Reportable Eosinophils % Not Reportable Basophils % Not Reportable Absolute Neutrophils Not Reportable Absolute Lymphocytes Not Reportable Absolute Monocytes Not Reportable Absolute Eosinophils Not Reportable Absolute Basophils Not Reportable Sodium 143.9 Potassium 3.6 Chloride 110 H Carbon Dioxide 23 Anion Gap 11 BUN 27 H Creatinine 0.99 Est GFR ( Amer) > 60 Est GFR (Non-Af Amer) > 60 Glucose 117 H Calcium 8.1 L Magnesium 1.5 L Albumin 2.9 L Free T3 pg/mL 1.96 L Impressions: Abdomen/Pelvis CT 02/06/18 11:12 IMPRESSION: On the current study there is distention of the colon with multiple fluid field colonic bowel loops being identified with prominent air- fluid levels extending from the level of the cecum to the level of the distal descending colon. There appears to be a transition point at the approximate junction of descending colon and sigmoid colon as noted above. The previously described anterior abdominal wall hernia containing a fluid-filled bowel loop is again identified. There are multiple prominent air and fluid field small bowel loops and the possibility of a partial obstruction cannot be excluded. Other findings as noted above. Upper GI and Small Bowel X-Ray 02/07/18 00:00 IMPRESSION: Suboptimal study as the terminal ileum was not visualized due to small bowel dilation and patient vomiting contrast. Moderate reflux. Tertiary contractions. Abdomen X-Ray 02/08/18 00:00 IMPRESSION: Ileus versus [place]'s syndrome. No evidence of mechanical obstruction. KUB X-Ray 02/08/18 17:51 IMPRESSION: NASOGASTRIC TUBE WITH THE TIP IN THE STOMACH. Assessment & Plan - Diagnosis (1) Hypertension Qualifiers: Hypertension type: essential hypertension Qualified Code(s): I10 - Essential (primary) hypertension Is this a current diagnosis for this admission?: Yes Plan: The patient endorses a past medical history of hypertension. While at [facility] his blood pressure has been poorly controlled. Since adjusting his medications yesterday, his bp has been controlled Continue home dose Toprol, hydralazine IV as needed. Continue lisinopril 10 mg daily. 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 NO IMMODIUM. Encourage PO intake (water/juice), avoid beverages with caffeine that will exacerbate diarrhea If the patient should develop bacteremia, would consider IV antibiotics. - Time Anticipated discharge: Home - Inpatient Certification Based on my medical assessment, after consideration of the patient's comorbidities, presenting symptoms, or acuity I expect that the services needed warrant INPATIENT care.: Yes I certify that my determination is in accordance with my understanding of Medicare's requirements for reasonable and necessary INPATIENT services [42 CFR 412.3e].: Yes Medical Necessity: Risk of Complication if Not Cared For in Hospital - Plan Summary Plan Summary: Plan per surgery. Will continue to provide consult services for BP management
[2018-02-10] MEDS: INSULIN GLARGINE,HUM.REC.ANLOG 300 UNIT/3 ML INSULN.PEN SUBCUT SCH ×2 (10:04→22:38)
[2018-02-10] MEDS: MAGNESIUM OXIDE 400 MG TABLET NG SCH ×2 (10:13→21:26)
[2018-02-10] MEDS: CLOPIDOGREL BISULFATE 75 MG TABLET NG SCH (10:13)
[2018-02-10] MEDS: LISINOPRIL 10 MG TABLET NG SCH (10:13)
[2018-02-10] MEDS: FUROSEMIDE 20 MG TABLET NG SCH (10:13)
[2018-02-10] MEDS: METOPROLOL SUCCINATE 25 MG TAB.SR.24H PO SCH (10:13)
[2018-02-10] MEDS: TOLTERODINE TARTRATE 1 MG TABLET NG SCH ×2 (10:14→21:26)
[2018-02-10] MEDS: LANSOPRAZOLE 30 MG TAB.RAP.DR NG SCH (14:25)
--- NOTE | 2018-02-10 17:11 | PDOC PROGRESS REPORT ---
Subjective Progress Note for:: 02/10/18 Subjective:: The patient is a 72-year-old male with past medical history of CAD, hyperlipidemia, hypertension, type II day abuse mellitus who was admitted on 02/06 for a bowel obstruction. Hospitalist service has been consulted by surgery for blood pressure management. The patient is seen on morning rounds. He is found resting in bed comfortably on room air. He is continuing to have loose bowel movements, however, denies abdominal pain. It appears that he is tolerating a clear liquid diet without difficulty at this time. He has no new questions or concerns. Reason For Visit: PARTIAL BOWEL OBSTRUCTION Physical Exam Vital Signs: Temp Pulse Resp BP Pulse Ox 97.4 F 99 20 128/64 H 92 02/10/18 16:10 02/10/18 16:10 02/10/18 16:10 02/10/18 16:10 02/10/18 16:10 Intake & Output 02/09/18 02/10/18 02/11/18 06:59 06:59 06:59 Intake Total 2590 Output Total 1000 Balance 1590 General appearance: PRESENT: no acute distress, morbidly obese, well-developed, well-nourished Head exam: PRESENT: atraumatic, normocephalic Eye exam: PRESENT: conjunctiva pink, EOMI, PERRLA. ABSENT: scleral icterus Ear exam: PRESENT: normal external ear exam Mouth exam: PRESENT: moist, tongue midline Neck exam: ABSENT: carotid bruit, JVD, lymphadenopathy, thyromegaly Respiratory exam: PRESENT: clear to auscultation tip, decreased breath sounds - Bibasilar; secondary to body habitus and poor inspiratory effort, symmetrical, unlabored. ABSENT: rales, rhonchi, wheezes Cardiovascular exam: PRESENT: RRR, +S1, +S2. ABSENT: diastolic murmur, rubs, systolic murmur Pulses: PRESENT: normal dorsalis pedis pul Vascular exam: PRESENT: normal capillary refill GI/Abdominal exam: PRESENT: distended, normal bowel sounds, soft. ABSENT: guarding, mass, organolmegaly, rebound, tenderness Rectal exam: PRESENT: deferred Extremities exam: PRESENT: full ROM. ABSENT: calf tenderness, clubbing, pedal edema Neurological exam: PRESENT: alert, awake, oriented to person, oriented to place , oriented to time, oriented to situation, CN II-XII grossly intact. ABSENT: motor sensory deficit Psychiatric exam: PRESENT: appropriate affect, normal mood. ABSENT: homicidal ideation, suicidal ideation Skin exam: PRESENT: dry, intact, warm. ABSENT: cyanosis, rash Results Impressions: Abdomen/Pelvis CT 02/06/18 11:12 IMPRESSION: On the current study there is distention of the colon with multiple fluid field colonic bowel loops being identified with prominent air- fluid levels extending from the level of the cecum to the level of the distal descending colon. There appears to be a transition point at the approximate junction of descending colon and sigmoid colon as noted above. The previously described anterior abdominal wall hernia containing a fluid-filled bowel loop is again identified. There are multiple prominent air and fluid field small bowel loops and the possibility of a partial obstruction cannot be excluded. Other findings as noted above. Upper GI and Small Bowel X-Ray 02/07/18 00:00 IMPRESSION: Suboptimal study as the terminal ileum was not visualized due to small bowel dilation and patient vomiting contrast. Moderate reflux. Tertiary contractions. Abdomen X-Ray 02/08/18 00:00 IMPRESSION: Ileus versus Wilcox's syndrome. No evidence of mechanical obstruction. KUB X-Ray 02/08/18 17:51 IMPRESSION: NASOGASTRIC TUBE WITH THE TIP IN THE STOMACH. Assessment & Plan - Diagnosis (1) Hypertension Qualifiers: Hypertension type: essential hypertension Qualified Code(s): I10 - Essential (primary) hypertension Is this a current diagnosis for this admission?: Yes Plan: Blood pressures are much improved after resuming his home dosed metoprolol and lisinopril. IV hydralazine is available as needed. Recommend advancing to a cardiac diet at surgery's discretion. (2) Diabetes 1.5, managed as type 2 Is this a current diagnosis for this admission?: Yes Plan: The patient is currently on a full liquid diet. Accu-Cheks before meals and at bedtime with Humalog for sliding scale coverage. We will ask the registered dietitian and visual educator to meet with the patient. (3) SBO (small bowel obstruction) Is this a current diagnosis for this admission?: Yes Plan: Plan per Surgery. 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 No true plan to treat with antibiotics at this time, only supportive care. No Imodium. Encourage p.o. intake of water/juice, avoid beverages with caffeine that will exacerbate diarrhea. Consider IV antibiotics should the patient developed bacteremia. At this time the patient is afebrile with normal WBCs. (5) Obesity (BMI 35.0-39.9 without comorbidity) Is this a current diagnosis for this admission?: Yes Plan: Obesity will complicate the patient recovery. Complicated by diabetes mellitus. We will ask the visual educator and registered dietitian to meet with patient. - Time Time Spent with patient: 25-34 minutes Anticipated discharge: Home
[2018-02-10] MEDS: ASPIRIN 81 MG TABLET, CHEWABLE NG SCH (21:26)
[2018-02-10] MEDS: CHOLECALCIFEROL (D3) 1,000 UNIT TABLET PO SCH (21:26)
[2018-02-10] MEDS: ATORVASTATIN CALCIUM 40 MG TABLET NG SCH (21:27)
[2018-02-10] MEDS: MORPHINE SULFATE 10 MG/ML INJ IV PRN (21:28)
--- NOTE | 2018-02-10 21:38 | PDOC PROGRESS REPORT ---
Subjective Progress Note for:: 02/10/18 Subjective:: Right lower quadrant pains Had loose stools Reason For Visit: PARTIAL BOWEL OBSTRUCTION Physical Exam Vital Signs: Temp Pulse Resp BP Pulse Ox 98.9 F 96 16 129/52 H 94 02/10/18 20:09 02/10/18 20:09 02/10/18 20:09 02/10/18 20:09 02/10/18 20:09 Intake & Output 02/09/18 02/10/18 02/11/18 06:59 06:59 06:59 Intake Total 2590 2450 Output Total 1000 Balance 1590 2450 GI/Abdominal exam: PRESENT: distended, soft, tenderness - RLQ Results Impressions: Abdomen/Pelvis CT 02/06/18 11:12 IMPRESSION: On the current study there is distention of the colon with multiple fluid field colonic bowel loops being identified with prominent air- fluid levels extending from the level of the cecum to the level of the distal descending colon. There appears to be a transition point at the approximate junction of descending colon and sigmoid colon as noted above. The previously described anterior abdominal wall hernia containing a fluid-filled bowel loop is again identified. There are multiple prominent air and fluid field small bowel loops and the possibility of a partial obstruction cannot be excluded. Other findings as noted above. Upper GI and Small Bowel X-Ray 02/07/18 00:00 IMPRESSION: Suboptimal study as the terminal ileum was not visualized due to small bowel dilation and patient vomiting contrast. Moderate reflux. Tertiary contractions. Abdomen X-Ray 02/08/18 00:00 IMPRESSION: Ileus versus Calcium's syndrome. No evidence of mechanical obstruction. KUB X-Ray 02/08/18 17:51 IMPRESSION: NASOGASTRIC TUBE WITH THE TIP IN THE STOMACH. Assessment & Plan - Diagnosis (1) Coronary artery disease Qualifiers: Coronary Disease-Associated Artery/Lesion type: viejas artery Is this a current diagnosis for this admission?: Yes (2) Partial bowel obstruction Qualifiers: Intestinal obstruction type: other intestinal obstruction Qualified Code(s) : K56.690 - Other partial intestinal obstruction Is this a current diagnosis for this admission?: Yes (3) Diabetes mellitus type 2 in obese Is this a current diagnosis for this admission?: Yes (4) HLD (hyperlipidemia) Qualifiers: Hyperlipidemia type: unspecified Qualified Code(s): E78.5 - Hyperlipidemia , unspecified Is this a current diagnosis for this admission?: Yes (5) Hx of CABG Is this a current diagnosis for this admission?: Yes (6) Intractable vomiting Qualifiers: Vomiting type: unspecified Nausea presence: with nausea Qualified Code(s) : R11.2 - Nausea with vomiting, unspecified Is this a current diagnosis for this admission?: Yes (7) HTN (hypertension) Qualifiers: Hypertension type: essential hypertension Qualified Code(s): I10 - Essential (primary) hypertension Is this a current diagnosis for this admission?: Yes - Time Time Spent with patient: 15-24 minutes - Plan Summary Plan Summary: Continue clears With RLQ pains this time, may be having dilated Cecum Will order abdominal xrays in am
[2018-02-11 05:58] LABS: FREE T3 2.06 pg/mL (2.77-5.27); FREE T4 (FREE THYROXINE) 1.01 ng/dL (0.78-2.19)
[2018-02-11 06:12] LABS: THYROID STIMULATING HORMONE 1.02 uIU/mL (0.47-4.68)
[2018-02-11] MEDS: MORPHINE SULFATE 10 MG/ML INJ IV PRN ×3 (06:30→20:44)
--- NOTE | 2018-02-11 08:19 | RADIOLOGY REPORT (SQ) ---
EXAM DESCRIPTION: ACUTE ABDOMEN SERIES COMPLETED DATE/TIME: 02/11/2018 7:46 am REASON FOR STUDY: Abdominal pains with destention,R/O Brigid's synd I15.8 OTHER SECONDARY HYPERTEN EMELINA COMPARISON: CT abdomen pelvis 10/10/2014, 10/13/2014, 12/24/2017, 02/06/2018 Abdominal films 10/18/2014, 02/07/2018, 02/08/2018 NUMBER OF VIEWS: Three views. TECHNIQUE: Frontal chest, supine abdomen and upright abdomen radiographic images acquired. LIMITATIONS: Large patient FINDINGS: CHEST: No acute infiltrates. No pleural effusion or pneumothorax. Old sternotomy and CAB G. FREE AIR: None BOWEL GAS PATTERN: Diffuse gaseous distention of colon, with air-fluid levels in distended small oleg l in the mid abdomen. Findings are worrisome for either ileus or distal colon obstruction. Findings discussed with Dr. Peralta CALCIFICATIONS: No suspicious calcifications. HARDWARE: None in the abdomen. SOFT TISSUES: No gross mass or suggestion of organomegaly. BONES: No acute fracture. No worrisome bone lesions. OTHER: No other significant finding. IMPRESSION: No acute infiltrates. Distended colon and small bowel worrisome for either ileus or distal colon obstruction. TECHNICAL DOCUMENTATION: JOB ID: [id number]- All Rights Reserved Reading location - IP/workstation name: [email or web address]
[2018-02-11] MEDS ORDERED: NORMAL SALINE 1000 ML 1,000 ML IV PRN (10:24)
[2018-02-11 10:59] LABS: ALANINE AMINOTRANSFERASE 28 U/L (21-72); ALBUMIN 2.5 g/dL (3.5-5.0); ALKALINE PHOSPHATASE 61 U/L (38-126); ANION GAP 11 (5-19); ASPARTATE AMINO TRANSFERASE 15 U/L (17-59); BILIRUBIN,DIRECT 0.4 mg/dL (0.0-0.4); BILIRUBIN,TOTAL 1.3 mg/dL (0.2-1.3); BLOOD UREA NITROGEN 25 mg/dL (7-20); CALCIUM 8.3 mg/dL (8.4-10.2); CARBON DIOXIDE 29 mmol/L (22-30); CHLORIDE 101 mmol/L (98-107); GLUCOSE 114 mg/dL (75-110); POTASSIUM 3.3 mmol/L (3.6-5.0); SODIUM 141.2 mmol/L (137-145); TOTAL PROTEIN 4.8 g/dL (6.3-8.2)
[2018-02-11] MEDS: TOLTERODINE TARTRATE 1 MG TABLET NG SCH ×2 (11:26→21:18)
[2018-02-11] MEDS: LANSOPRAZOLE 30 MG TAB.RAP.DR NG SCH (11:26)
[2018-02-11] MEDS: FUROSEMIDE 20 MG TABLET NG SCH (11:27)
[2018-02-11] MEDS: METOPROLOL SUCCINATE 25 MG TAB.SR.24H PO SCH (11:27)
[2018-02-11] MEDS: MAGNESIUM OXIDE 400 MG TABLET NG SCH ×2 (11:27→21:18)
[2018-02-11] MEDS: LISINOPRIL 10 MG TABLET NG SCH (11:28)
[2018-02-11] MEDS: CLOPIDOGREL BISULFATE 75 MG TABLET NG SCH (11:28)
[2018-02-11] MEDS: INSULIN GLARGINE,HUM.REC.ANLOG 300 UNIT/3 ML INSULN.PEN SUBCUT SCH ×2 (11:31→21:19)
--- NOTE | 2018-02-11 11:33 | RADIOLOGY REPORT (SQ) ---
EXAM DESCRIPTION: BARIUM ENEMA COMPLETED DATE/TIME: 02/11/2018 10:57 am REASON FOR STUDY: R/O COLONIC ABNORMALITY I15.8 OTHER SECONDARY HYPERTENSION COMPARISON: CT abdomen pelvis 02/06/2018 FLUOROSCOPY TIME: 3.5 minutes 47 digital images saved to PACS. TECHNIQUE: Following retrograde filling of the colon with Gastrografin, fluoroscopic spot and overhe ad imaging of the colon was obtained and saved to PACS. LIMITATIONS: None. FINDINGS: Gentle gravity drip infusion of Gastrografin per rectum was performed. Rectum and sigmoid colon are unremarkable. At the distal descending colon, at about the level of the left anterior inferior iliac spine, a 7-8 c m long segment of high-grade luminal narrowing is present with luminal irregularity. This is worriso me for either colon cancer or segmental stricture related to chronic or remote prior diverticulitis. This finding was discussed with Dr. Peralta. There was reflux proximally into the descending colon and splenic flexure without other lesions iden tified. We were unable to reflux contrast into the transverse or ascending colon. These loops are distended with air. On today's fluoro and overhead films there is gaseous distension of small bowel loops in the mid abdo men. IMPRESSION: 7 to 8 cm long segment of distal descending colon stricture. This could either be due t o malignancy or chronic inflammation. Findings discussed with Dr. Peralta. Gaseous distension of more proximal colon and small bowel loops. COMMENT: Quality ID [id number]: Final reports for procedures using fluoroscopy that document radiation exp osure indices, or exposure time and number of fluorographic images (if radiation exposure indices are not available) TECHNICAL DOCUMENTATION: JOB ID: [id number] [employer]- All Rights Reserved Reading location - IP/workstation name: [facility]
[2018-02-11] MEDS ORDERED: FUROSEMIDE 20 MG TABLET PO ONE (12:30)
[2018-02-11] MEDS: POTASSIUM CHLORIDE 10 MEQ TABLET.SA PO SCH ×2 (13:30→21:18)
--- NOTE | 2018-02-11 16:46 | PDOC PROGRESS REPORT ---
Subjective Progress Note for:: 02/11/18 Subjective:: The patient is a 72-year-old male with past medical history of CAD, hyperlipidemia, hypertension, type II day abuse mellitus who was admitted on 02/06 for a bowel obstruction. Hospitalist service has been consulted by surgery for blood pressure management. The patient is seen on morning rounds. He is found sitting up to the edge of the bed after returning from his barium enema. He is continuing to have loose bowel movements, however, denies abdominal pain, but does endorse increased abdominal distention. He denies nausea or vomiting and did continue to tolerate clear liquid diet overnight. He is also reporting bilateral lower leg edema. He denies dyspnea, but does endorse orthopnea that he believes is related to body habitus and abdominal distention. Reason For Visit: PARTIAL BOWEL OBSTRUCTION Physical Exam Vital Signs: Temp Pulse Resp BP Pulse Ox 97.7 F 94 16 130/72 H 95 02/11/18 12:00 02/11/18 12:00 02/11/18 12:00 02/11/18 12:00 02/11/18 12:00 Intake & Output 02/10/18 02/11/18 02/12/18 06:59 06:59 06:59 Intake Total 2590 4750 Output Total 1000 Balance 1590 4750 Weight 140.8 kg General appearance: PRESENT: no acute distress, cooperative, morbidly obese, well-developed, well-nourished Head exam: PRESENT: atraumatic, normocephalic Eye exam: PRESENT: conjunctiva pink, EOMI, PERRLA. ABSENT: scleral icterus Ear exam: PRESENT: normal external ear exam Mouth exam: PRESENT: moist, tongue midline Neck exam: ABSENT: carotid bruit, JVD, lymphadenopathy, thyromegaly Respiratory exam: PRESENT: clear to auscultation tip, decreased breath sounds - Bibasilar, symmetrical, unlabored. ABSENT: rales, rhonchi, wheezes Cardiovascular exam: PRESENT: RRR, +S1, +S2. ABSENT: diastolic murmur, rubs, systolic murmur Pulses: PRESENT: normal dorsalis pedis pul Vascular exam: PRESENT: normal capillary refill GI/Abdominal exam: PRESENT: distended, firm, hyperactive bowel sounds, soft. ABSENT: guarding, mass, organolmegaly, rebound, tenderness Rectal exam: PRESENT: deferred Extremities exam: PRESENT: full ROM, +2 edema - Bilateral lower extremities; nonpitting. ABSENT: calf tenderness, clubbing, pedal edema Neurological exam: PRESENT: alert, awake, oriented to person, oriented to place , oriented to time, oriented to situation, CN II-XII grossly intact. ABSENT: motor sensory deficit Psychiatric exam: PRESENT: appropriate affect, normal mood. ABSENT: homicidal ideation, suicidal ideation Skin exam: PRESENT: dry, intact, warm. ABSENT: cyanosis, rash Results Laboratory Results: 02/11/18 04:45 02/11/18 02/11/18 02/11/18 04:45 04:45 04:45 Sodium 141.2 Potassium 3.3 L Chloride 101 Carbon Dioxide 29 Anion Gap 11 BUN 25 H Creatinine 0.95 Est GFR ( Amer) > 60 Est GFR (Non-Af Amer) > 60 Glucose 114 H Calcium 8.3 L Magnesium 1.6 Total Bilirubin 1.3 AST 15 L ALT 28 Alkaline Phosphatase 61 Total Protein 4.8 L Albumin 2.5 L TSH 1.02 Free T4 1.01 Free T3 pg/mL 2.06 L 02/11/18 04:45 NT-Pro-B Natriuret Pep 532 Impressions: Abdomen/Pelvis CT 02/06/18 11:12 IMPRESSION: On the current study there is distention of the colon with multiple fluid field colonic bowel loops being identified with prominent air- fluid levels extending from the level of the cecum to the level of the distal descending colon. There appears to be a transition point at the approximate junction of descending colon and sigmoid colon as noted above. The previously described anterior abdominal wall hernia containing a fluid-filled bowel loop is again identified. There are multiple prominent air and fluid field small bowel loops and the possibility of a partial obstruction cannot be excluded. Other findings as noted above. Upper GI and Small Bowel X-Ray 02/07/18 00:00 IMPRESSION: Suboptimal study as the terminal ileum was not visualized due to small bowel dilation and patient vomiting contrast. Moderate reflux. Tertiary contractions. Abdomen X-Ray 02/08/18 00:00 IMPRESSION: Ileus versus Brigid's syndrome. No evidence of mechanical obstruction. KUB X-Ray 02/08/18 17:51 IMPRESSION: NASOGASTRIC TUBE WITH THE TIP IN THE STOMACH. Acute Abdomen Series 02/11/18 00:00 IMPRESSION: No acute infiltrates. Distended colon and small bowel worrisome for either ileus or distal colon obstruction. Barium Enema 02/11/18 00:00 IMPRESSION: 7 to 8 cm long segment of distal descending colon stricture. This could either be due to malignancy or chronic inflammation. Findings discussed with Dr. Peralta. Gaseous distension of more proximal colon and small bowel loops. Assessment & Plan - Diagnosis (1) Hypertension Qualifiers: Hypertension type: essential hypertension Qualified Code(s): I10 - Essential (primary) hypertension Is this a current diagnosis for this admission?: Yes Plan: Blood pressures are somewhat low today; 98/50. I decreased his lisinopril to lisinopril 5 mg daily and metoprolol XL 12.5 mg daily. We will monitor closely for rebound hypertension or elevated heart rate given the reduction of his beta-maria luisa. IV hydralazine is available as needed. Recommend advancing to a cardiac diet (when ready) at surgery's discretion. (2) Diabetes 1.5, managed as type 2 Is this a current diagnosis for this admission?: Yes Plan: The patient is currently on a full liquid diet. Accu-Cheks before meals and at bedtime with Humalog for sliding scale coverage. We will ask the registered dietitian and model builder to meet with the patient. (3) SBO (small bowel obstruction) Is this a current diagnosis for this admission?: Yes Plan: Plan per Surgery. 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 No true plan to treat with antibiotics at this time, only supportive care. No Imodium. Encourage p.o. intake of water/juice, avoid beverages with caffeine that will exacerbate diarrhea. Consider IV antibiotics should the patient developed bacteremia. At this time the patient is afebrile with normal WBCs. (5) Obesity (BMI 35.0-39.9 without comorbidity) Is this a current diagnosis for this admission?: Yes Plan: Obesity will complicate the patient recovery. Complicated by diabetes mellitus. We will ask the model builder and registered dietitian to meet with patient. (6) Bilateral leg edema Is this a current diagnosis for this admission?: Yes Plan: The patient is noted to have bilateral leg edema; +3 nonpitting. He has been receiving aggressive IV fluid therapy given his n.p.o. status and frequency of loose stools. ProBNP is 532; however this must be considered carefully given his morbid obesity. The patient did have an echocardiogram done December 2017; however, this study was technically difficult given his body habitus. The LVEF was unable to be obtained, left ventricular systolic and his diastolic function was unable to be fully assessed, however there is LVH. His IV fluids are decreased to 50ml/hr. He is currently receiving his home dose of Lasix 20 mg daily. He is provided a one-time dose of 20 mg today as well. We will continue to monitor for worsening fluid volume overload and diuresis more aggressively as necessary. (7) Orthopnea Is this a current diagnosis for this admission?: Yes Plan: CHF versus body habitus and significant abdominal distention in the setting of bowel obstruction. ProBNP is 532; though may be officially low given the patient's morbid obesity. Lung sounds are clear; chest x-ray obtained yesterday is clear. Encouraged turn cough deep breathe and increased mobility as tolerated. Incentive spirometer to bedside. Remaining plan as above. - Time Time Spent with patient: 25-34 minutes Medications reviewed and adjusted accordingly: Yes
--- NOTE | 2018-02-11 20:21 | PDOC PROGRESS REPORT ---
Subjective Progress Note for:: 02/11/18 Subjective:: Had BM after Ba Enema. Less pains RLQ Reason For Visit: PARTIAL BOWEL OBSTRUCTION Physical Exam Vital Signs: Temp Pulse Resp BP Pulse Ox 98.5 F 108 H 16 133/70 H 93 02/11/18 16:06 02/11/18 16:06 02/11/18 16:06 02/11/18 16:06 02/11/18 16:06 Intake & Output 02/10/18 02/11/18 02/12/18 06:59 06:59 06:59 Intake Total 2590 4750 1820 Output Total 1000 Balance 1590 4750 1820 Weight 140.8 kg Exam: Abdomen slightly less distended. non tender. Results Laboratory Results: 02/11/18 04:45 02/11/18 02/11/18 02/11/18 04:45 04:45 04:45 Sodium 141.2 Potassium 3.3 L Chloride 101 Carbon Dioxide 29 Anion Gap 11 BUN 25 H Creatinine 0.95 Est GFR ( Amer) > 60 Est GFR (Non-Af Amer) > 60 Glucose 114 H Calcium 8.3 L Magnesium 1.6 Total Bilirubin 1.3 AST 15 L ALT 28 Alkaline Phosphatase 61 Total Protein 4.8 L Albumin 2.5 L TSH 1.02 Free T4 1.01 Free T3 pg/mL 2.06 L 02/11/18 04:45 NT-Pro-B Natriuret Pep 532 Impressions: Abdomen/Pelvis CT 02/06/18 11:12 IMPRESSION: On the current study there is distention of the colon with multiple fluid field colonic bowel loops being identified with prominent air- fluid levels extending from the level of the cecum to the level of the distal descending colon. There appears to be a transition point at the approximate junction of descending colon and sigmoid colon as noted above. The previously described anterior abdominal wall hernia containing a fluid-filled bowel loop is again identified. There are multiple prominent air and fluid field small bowel loops and the possibility of a partial obstruction cannot be excluded. Other findings as noted above. Upper GI and Small Bowel X-Ray 02/07/18 00:00 IMPRESSION: Suboptimal study as the terminal ileum was not visualized due to small bowel dilation and patient vomiting contrast. Moderate reflux. Tertiary contractions. Abdomen X-Ray 02/08/18 00:00 IMPRESSION: Ileus versus Colmesneil's syndrome. No evidence of mechanical obstruction. KUB X-Ray 02/08/18 17:51 IMPRESSION: NASOGASTRIC TUBE WITH THE TIP IN THE STOMACH. Acute Abdomen Series 02/11/18 00:00 IMPRESSION: No acute infiltrates. Distended colon and small bowel worrisome for either ileus or distal colon obstruction. Barium Enema 02/11/18 00:00 IMPRESSION: 7 to 8 cm long segment of distal descending colon stricture. This could either be due to malignancy or chronic inflammation. Findings discussed with Dr. Peralta. Gaseous distension of more proximal colon and small bowel loops. Assessment & Plan - Diagnosis (1) Coronary artery disease Qualifiers: Coronary Disease-Associated Artery/Lesion type: [place] artery Is this a current diagnosis for this admission?: Yes (2) Partial bowel obstruction Qualifiers: Intestinal obstruction type: other intestinal obstruction Qualified Code(s) : K56.690 - Other partial intestinal obstruction Is this a current diagnosis for this admission?: Yes (3) Diabetes mellitus type 2 in obese Is this a current diagnosis for this admission?: Yes (4) HLD (hyperlipidemia) Qualifiers: Hyperlipidemia type: unspecified Qualified Code(s): E78.5 - Hyperlipidemia , unspecified Is this a current diagnosis for this admission?: Yes (5) Hx of CABG Is this a current diagnosis for this admission?: Yes (6) Intractable vomiting Qualifiers: Vomiting type: unspecified Nausea presence: with nausea Qualified Code(s) : R11.2 - Nausea with vomiting, unspecified Is this a current diagnosis for this admission?: Yes (7) HTN (hypertension) Qualifiers: Hypertension type: essential hypertension Qualified Code(s): I10 - Essential (primary) hypertension Is this a current diagnosis for this admission?: Yes - Time Time Spent with patient: 15-24 minutes - Plan Summary Plan Summary: Has stricture at desc colon about 7-8 cm. Inflammatory vs. malignancy. Will need colonoscopy and biopsy Dr Mendez will do colonoscopy tomorrow or Friday. Will continue clear liquids with Ensure as discussed with patient's nurse. Continue IVF at 50 ccs/hr.
[2018-02-11] MEDS: ATORVASTATIN CALCIUM 40 MG TABLET NG SCH (21:18)
[2018-02-11] MEDS: CHOLECALCIFEROL (D3) 1,000 UNIT TABLET PO SCH (21:18)
[2018-02-11] MEDS: ASPIRIN 81 MG TABLET, CHEWABLE NG SCH (21:18)
[2018-02-12] MEDS ORDERED: NORMAL SALINE 1000 ML 1,000 ML IV PRN
[2018-02-12 04:33] LABS: HEMATOCRIT 36.3 % (37.9-51.0); HEMOGLOBIN 12.2 g/dL (13.5-17.0); MEAN CORPUSCULAR HEMOGLOBIN 28.9 pg (27.0-33.4); MEAN CORPUSCULAR HGB CONC 33.5 g/dL (32.0-36.0); MEAN CORPUSCULAR VOLUME 86 fl (80-97); PLATELET COUNT 214 10^3/uL (150-450); RED BLOOD COUNT 4.21 10^6/uL (4.35-5.55); RED CELL DISTRIBUTION WIDTH 15.4 % (11.5-14.0); WHITE BLOOD COUNT 7.4 10^3/uL (4.0-10.5)
[2018-02-12 05:08] LABS: ANION GAP 9 (5-19); BLOOD UREA NITROGEN 24 mg/dL (7-20); CALCIUM 8.1 mg/dL (8.4-10.2); CARBON DIOXIDE 32 mmol/L (22-30); CHLORIDE 100 mmol/L (98-107); GLUCOSE 131 mg/dL (75-110); POTASSIUM 3.4 mmol/L (3.6-5.0); SODIUM 140.5 mmol/L (137-145)
[2018-02-12] MEDS: POTASSIUM CHLORIDE 10 MEQ TABLET.SA PO SCH (05:10)
[2018-02-12] MEDS ORDERED: PEG 3350/NA SULF,BICARB,CL/KCL 4000 ML PO ONE (08:30)
[2018-02-12] MEDS ORDERED: ONDANSETRON HCL INJ/PF 4 MG/2 ML SDV ONE (09:17)
[2018-02-12] MEDS ORDERED: NALOXONE HCL INJ/PF 0.4 MG/1 ML SDV ONE (09:17)
[2018-02-12] MEDS ORDERED: FENTANYL CITRATE INJ/PF 100 MCG/2 ML AMPUL ONE ×2 (09:18)
[2018-02-12] MEDS ORDERED: MIDAZOLAM 2 MG/2 ML INJ ONE (09:18)
[2018-02-12] MEDS ORDERED: GLUCAGON,HUMAN RECOMB 1 MG INJ ONE (09:19)
[2018-02-12] MEDS ORDERED: EPINEPHRINE INJ 1 MG/10 ML DISP.SYRIN ONE (09:19)
[2018-02-12] MEDS ORDERED: FLUMAZENIL INJ 0.5 MG/5 ML VIAL ONE (09:19)
[2018-02-12] MEDS: MIDAZOLAM 2 MG/2 ML INJ ONE ×4 (10:41→11:14)
[2018-02-12] MEDS ORDERED: POTASSI CL 20 MEQ/50 ML RIDER 20 MEQ/50 ML RTUPB IV SCH (11:30)
--- NOTE | 2018-02-12 12:53 | OPERATIVE REPORT E ---
Operative Report NAME: RASHIDA MOTA : 1945 AGE: 72Y DATE OF SURGERY: 02/12/2018 ROOM: 415 PREOPERATIVE DIAGNOSES: 1. INCOMPLETE BOWEL OBSTRUCTION. 2. PROLONGED DISTAL DESCENDING COLON STRICTURE ON BARIUM ENEMA. POSTOPERATIVE DIAGNOSES: 1. INCOMPLETE BOWEL OBSTRUCTION. 2. PROLONGED DISTAL DESCENDING COLON STRICTURE 3. EXTENSIVE DIVERTICULOSIS AND RIGHT-SIDED COLITIS. OPERATION: 1. Incomplete colonoscopy to ascending colon. 2. Ascending colon mucosal biopsy. 3. Biopsy of distal end of descending colon stricture. SURGEON: AMINAH MENDEZ M.D. ANESTHESIA: Conscious sedation. COMPLICATIONS: None. ESTIMATED BLOOD LOSS: Scan. DRAINS: None. TISSUE REMOVED: Mucosal biopsy. PROCEDURE: The patient was taken from the 4th floor to the 5th floor where he was hooked to monitoring devices and placed in the left lateral decubitus position. Of note, the patient did not have a bowel prep but had been on clear liquids. He had previously undergone a Gastrografin enema which showed a distal descending colon stricture at the junction with the sigmoid colon. After appropriate level of sedation achieved, surgical timeout and surgical plan discussed. Dr. Mendez performed a rectal exam. There were external hemorrhoids collapsed and 1 very large edematous hemorrhoid in the patient's left lateral position. It was not thrombosed. Sphincter tone was adequate. The flexible pediatric colonoscope was now advanced to the anorectal canal all the way to the ascending colon. This was an extremely difficult procedure because of the unprepped bowel. There were copious amounts of liquid and semisolid stool requiring aspiration and suction. Therefore, again, this was not a complete, comprehensive evaluation. The findings are significant for the inability to cannulate the cecum. The ascending colon was visualized and appeared to be mildly inflamed and a biopsy of the mucosa was obtained with the cold forceps device. Bleeding was minimal. The scope was brought back through transverse colon and descending colon. At the junction between the descending colon and the sigmoid colon at approximately 55 cm from the anal verge was the prolonged stricture. It was difficult to ascertain exactly the length of the stricture due to the copious amount of stool coming from proximal to distal and vice versa. There did not appear to be tumor as the mucosa appeared reasonably smooth. There were extensive diverticulosis distal to the stricture in the sigmoid colon. We were able to obtain a single mucosal biopsy of the distal end of the stricture. It was sent to Pathology as descending colon stricture. Again, this was a limited study in the sense that there was no bowel prep. The patient may have had polyps that were missed in the procedure. He will require complete bowel prep for a more thorough evaluation. Regarding the stricture, it did admit the scope without undue difficulty but did require some finagling of the scope to insinuate it through the stricture. The scope was withdrawn from the patient's anus. He tolerated the procedure well. The findings were discussed with the patient and his sister. My recommendation is that the patient will require a segmental resection of this portion of the colon. DICTATING PHYSICIAN: AMINAH MENDEZ M.D. [id number] PHY#: [id number] ID: [id number] JOB#: [id number] ACCT: [id number] cc:AMINAH MENDEZ M.D. > MTDD
[2018-02-12] MEDS: TOLTERODINE TARTRATE 1 MG TABLET NG SCH (13:08)
[2018-02-12] MEDS: METOPROLOL SUCCINATE 25 MG TAB.SR.24H PO SCH (13:09)
[2018-02-12] MEDS: MAGNESIUM OXIDE 400 MG TABLET NG SCH (13:10)
[2018-02-12] MEDS: LISINOPRIL 10 MG TABLET NG SCH (13:10)
[2018-02-12] MEDS: CLOPIDOGREL BISULFATE 75 MG TABLET NG SCH (13:11)
[2018-02-12] MEDS: LANSOPRAZOLE 30 MG TAB.RAP.DR NG SCH (13:11)
[2018-02-12] MEDS: FUROSEMIDE 20 MG TABLET NG SCH (13:11)
[2018-02-12] MEDS: INSULIN GLARGINE,HUM.REC.ANLOG 300 UNIT/3 ML INSULN.PEN SUBCUT SCH (13:11)
--- NOTE | 2018-02-12 15:44 | PDOC TRANSFER SUMMARY ---
General Admission Date/PCP: 02/09/18 10:53 JAVIER BEE MD Resuscitation Status: Full Code - Transfer Diagnosis (1) Coronary artery disease Is this a current diagnosis for this admission?: Yes (2) Partial bowel obstruction Is this a current diagnosis for this admission?: Yes (3) Diabetes mellitus type 2 in obese Is this a current diagnosis for this admission?: Yes (4) HLD (hyperlipidemia) Is this a current diagnosis for this admission?: Yes (5) Hx of CABG Is this a current diagnosis for this admission?: Yes (6) Intractable vomiting Is this a current diagnosis for this admission?: Yes (7) HTN (hypertension) Is this a current diagnosis for this admission?: Yes (8) Stricture of sigmoid colon Is this a current diagnosis for this admission?: Yes (9) History of ventral hernia repair Is this a current diagnosis for this admission?: Yes - Transfer Medications Home Medications: Aspirin [Aspirin EC] 81 mg PO QHS 02/06/18 Atorvastatin Calcium [Lipitor 40 mg Tablet] 40 mg PO QHS 02/06/18 Cholecalciferol (Vitamin D3) [Vitamin D3 1000 Unit Tablet] 1,000 unit PO QHS 04/20 Clopidogrel Bisulfate [Plavix 75 mg Tablet] 75 mg PO DAILY 02/06/18 Furosemide [Lasix 20 mg Tablet] 20 mg PO DAILY 02/06/18 Insulin Glargine,Hum.rec.anlog [Lantus Insulin 100 Unit/1 ml 10 ml] 25 units SQ Q12 02/06/18 Magnesium Oxide [Mag-Ox 400 mg Tablet] 400 mg PO Q12 02/06/18 Metoprolol Succinate [Toprol Xl 25 mg Tab.sr] 25 mg PO DAILY 02/06/18 Pantoprazole Sodium [Protonix] 40 mg PO NOON 02/06/18 Sitagliptin Phosphate [Januvia] 100 mg PO NOON 02/06/18 Solifenacin Succinate [Vesicare] 10 mg PO DAILY 02/06/18 Transfer Medications: Current Medications Aspirin (Aspirin 81 Mg Chewable Tablet) 81 mg NG QHS [facility]ANS Stop: 03/10/18 21:59 Last Admin: 02/11/18 21:18 Dose: 81 mg Atorvastatin Calcium (Lipitor 40 Mg Tablet) 40 mg NG QHS HANS Stop: 03/08/18 21:59 Last Admin: 02/11/18 21:18 Dose: 40 mg Cholecalciferol (Vitamin D3 1000 Unit Tablet) 1,000 unit PO QHS [facility]ANS Stop: 03/09/18 21:59 Last Admin: 02/11/18 21:18 Dose: 1,000 unit Clopidogrel Bisulfate (Plavix 75 Mg Tablet) 75 mg NG DAILY [facility] Stop: 03/09/18 09:59 Last Admin: 02/12/18 13:11 Dose: Not Given Dextrose (Dextrose Inj 50% Syringe (25 Gm/50 Ml)) 12.5 gm IV PRN PRN; Protocol PRN Reason: FOR BG 50-69 IN ALERT PATIENT Stop: 03/08/18 21:53 Dextrose (Dextrose Inj 50% Syringe (25 Gm/50 Ml)) 25 gm IV PRN PRN PRN Reason: Protocol Stop: 03/08/18 21:53 Furosemide (Lasix 20 Mg Tablet) 20 mg NG DAILY [facility] Stop: 03/09/18 09:59 Last Admin: 02/12/18 13:11 Dose: Not Given Glucagon (Glucagen Inj 1 Mg Vial) 1 mg IM PRN PRN; Protocol PRN Reason: EVALUATE FOR BG < 70 Stop: 03/08/18 21:53 Glucose (Glutose 40% Gel 15 Gm Tube) 15 gm PO PRN PRN; Protocol PRN Reason: FOR BG 50-69 IN ALERT PATIENT Stop: 03/08/18 21:53 Glucose (Glutose 40% Gel 15 Gm Tube) 30 gm PO PRN PRN; Protocol PRN Reason: FOR BG < 50 IN ALERT PATIENT Stop: 03/08/18 21:53 Hydralazine HCl (Apresoline Inj/Pf 20 Mg/1 Ml Sdv) 10 mg IV Q4HP PRN PRN Reason: Give For Sbp > 170 Stop: 03/09/18 11:02 Sodium Chloride (Nacl 0.9% 1000 Ml Iv Soln) 1,000 mls @ 100 mls/hr IV CONTINUOUS PRN PRN Reason: THIS MED IS NOT "PRN" Stop: 03/14/18 00:00 Potassium Chloride/Water (Potassium Chloride Alexi 20 Meq/50 Ml) 20 meq in 50 mls @ 25 mls/hr IV Q2H [facility] Stop: 02/12/18 15:29 Last Admin: 02/12/18 14:17 Dose: 50 ml Insulin Glargine (Lantus Insulin Inj 300 Unit/3 Ml Pen) 25 unit SUBCUT Q12 [facility] Stop: 03/09/18 21:59 Last Admin: 02/12/18 13:11 Dose: Not Given Insulin Human Lispro (Humalog Insulin 100 Unit/1 Ml 3 Ml Vial) 0 - 12 unit SUBCUT ACHSP PRN PRN Reason: Protocol Stop: 03/08/18 21:53 Lansoprazole (Prevacid 30 Mg Odt Tablet) 30 mg NG NOON [facility] Stop: 03/09/18 11:59 Last Admin: 02/12/18 13:11 Dose: 30 mg Lisinopril (Prinivil 10 Mg Tablet) 5 mg NG DAILY@1100 [facility] Stop: 03/13/18 10:59 Last Admin: 02/12/18 13:10 Dose: 5 mg Magnesium Oxide (Mag-Ox 400 Mg Tablet) 400 mg NG Q12 [facility] Stop: 03/09/18 09:59 Last Admin: 02/12/18 13:10 Dose: 400 mg Metoprolol Succinate (Toprol Xl 25 Mg Tab.Sr) 12.5 mg PO DAILY@1100 [facility] Stop: 03/13/18 10:59 Last Admin: 02/12/18 13:09 Dose: 12.5 mg Morphine Sulfate (Morphine 10 Mg/Ml Inj) 2 mg IV Q6HP PRN PRN Reason: PAIN Stop: 02/13/18 18:55 Last Admin: 02/11/18 20:44 Dose: 2 mg Ondansetron HCl (Zofran Inj/Pf 4 Mg/2 Ml Sdv) 4 mg IV Q6HP PRN PRN Reason: NAUSEA Stop: 03/10/18 17:40 Last Admin: 02/08/18 17:58 Dose: 4 mg Pharmacy Profile Note (Medication Communication Order) 1 each .NOTICE NR Stop: 03/10/18 17:59 Tolterodine Tartrate (Detrol 1 Mg Tablet) 2 mg NG Q12 [facility] Stop: 03/11/18 09:59 Last Admin: 02/12/18 13:08 Dose: 2 mg - Allergies Allergies/Adverse Reactions: Penicillins Allergy (Intermediate, Verified 02/06/18 10:10) Hives - Diet/Activity Discharge Diet: Clear Liquids Discharge Activity: Walk Frequently Hospital Course Hospital Course: Patient admitted 02/06/18 for LLQ pains with Nausea. CT scan of abdomen showed dilated loops of small bowel with possible obstruction at the Descending colon / sigmoid colon area. Patient given po liquid diet but vomited trhe next day. Had gastrograffin UGIS with Small bowel follow through which showed dilated small bowel but dye dissipated and unable to look at the distal bowel. Patient claims he was having loose stools and NGT D/C and resume clear s. Sammy had an Abdominal XRAYS which showed dilated small bowel and large intestine. He then had a Ba Enema which showed stricture at the descending colon. Had colonoscopy today which showed stricture at the Descending colon/ sigmoid colon area. He will need a bowel prep then possible colon resction. There was inflammation at the colonic stricture area but no definite cancer, Biopsies taken by Dr Mendez. Because of the patients morbid obesity,comorbidities and possible Colonic bowel prep technics eg stenting which we don't have, it will be to the best interest of the patient to be transfered to a tertiary facility. Physical Exam Vital Signs: Temp Pulse Resp BP Pulse Ox 98.9 F 92 20 114/78 97 02/12/18 12:01 02/12/18 12:01 02/12/18 12:01 02/12/18 12:01 02/12/18 12:01 Intake & Output 02/11/18 02/12/18 02/13/18 06:59 06:59 06:59 Intake Total 4750 3512 300 Balance 4750 3512 300 Weight 140.8 kg 141 kg General appearance: PRESENT: no acute distress Head exam: PRESENT: atraumatic Eye exam: PRESENT: conjunctiva pink Mouth exam: PRESENT: neck supple Neck exam: PRESENT: full ROM Respiratory exam: PRESENT: clear to auscultation tip Cardiovascular exam: PRESENT: RRR Pulses: PRESENT: normal radial pulses Vascular exam: PRESENT: normal capillary refill GI/Abdominal exam: PRESENT: distended, soft, tenderness - mild tenderness at the RLQ Extremities exam: PRESENT: +1 edema Musculoskeletal exam: PRESENT: ambulatory Neurological exam: PRESENT: alert, oriented to person, oriented to place, oriented to time, oriented to situation Psychiatric exam: PRESENT: appropriate affect Skin exam: PRESENT: normal color, warm Results Laboratory Results: 02/12/18 04:19 02/12/18 04:19 02/12/18 02/12/18 04:19 04:19 WBC 7.4 RBC 4.21 L Hgb 12.2 L Hct 36.3 L MCV 86 MCH 28.9 MCHC 33.5 RDW 15.4 H Plt Count 214 Sodium 140.5 Potassium 3.4 L Chloride 100 Carbon Dioxide 32 H Anion Gap 9 BUN 24 H Creatinine 1.01 Est GFR ( Amer) > 60 Est GFR (Non-Af Amer) > 60 Glucose 131 H Calcium 8.1 L 02/11/18 04:45 NT-Pro-B Natriuret Pep 532 Impressions: Abdomen/Pelvis CT 02/06/18 11:12 IMPRESSION: On the current study there is distention of the colon with multiple fluid field colonic bowel loops being identified with prominent air- fluid levels extending from the level of the cecum to the level of the distal descending colon. There appears to be a transition point at the approximate junction of descending colon and sigmoid colon as noted above. The previously described anterior abdominal wall hernia containing a fluid-filled bowel loop is again identified. There are multiple prominent air and fluid field small bowel loops and the possibility of a partial obstruction cannot be excluded. Other findings as noted above. Upper GI and Small Bowel X-Ray 02/07/18 00:00 IMPRESSION: Suboptimal study as the terminal ileum was not visualized due to small bowel dilation and patient vomiting contrast. Moderate reflux. Tertiary contractions. Abdomen X-Ray 02/08/18 00:00 IMPRESSION: Ileus versus Rockledge's syndrome. No evidence of mechanical obstruction. KUB X-Ray 02/08/18 17:51 IMPRESSION: NASOGASTRIC TUBE WITH THE TIP IN THE STOMACH. Acute Abdomen Series 02/11/18 00:00 IMPRESSION: No acute infiltrates. Distended colon and small bowel worrisome for either ileus or distal colon obstruction. Barium Enema 02/11/18 00:00 IMPRESSION: 7 to 8 cm long segment of distal descending colon stricture. This could either be due to malignancy or chronic inflammation. Findings discussed with Dr. Peralta. Gaseous distension of more proximal colon and small bowel loops. Plan Discharge Plan: Accepted in transfer to [facility] after talking to Dr Palacios (surgeon) Dr Mckee informed of patient's history. Time Spent: Less than 30 Minutes
[2018-02-12 15:53] VITALS: BP 129/60
== END 2018-02-12 16:43 | disposition short-term general hospital (02) | DRG 389 ==
LOC: ER 09:58 → EH 16:44 → INTOOBSV 16:44 → 4N 18:43 → OBSVTOIN 02-09 10:53
PROVIDERS: ADMIT Surgery; ATTEND Surgery
PROC: 0DBM8ZX Excision of Descending Colon, Via Natural or Artificial Opening Endoscopic, Diagnostic (ICD-10-PCS; principal; 2018-02-12 10:15)
DX: K56.690 Other partial intestinal obstruction (principal); Z68.41 Body mass index [BMI] 40.0-44.9, adult; A04.8 Other specified bacterial intestinal infections; E78.5 Hyperlipidemia, unspecified; I10 Essential (primary) hypertension; K52.89 Other specified noninfective gastroenteritis and colitis; E11.9 Type 2 diabetes mellitus without complications; E66.9 Obesity, unspecified; K57.30 Diverticulosis of large intestine without perforation or abscess without bleeding; K64.4 Residual hemorrhoidal skin tags; Z95.5 Presence of coronary angioplasty implant and graft; Z87.891 Personal history of nicotine dependence; Z82.49 Family history of ischemic heart disease and other diseases of the circulatory system; Z79.82 Long term (current) use of aspirin; Z88.0 Allergy status to penicillin; Z98.890 Other specified postprocedural states
CPT/HCPCS: 36415; 45380; 74018; 74019; 74022; 74176; 74249; 74270; 80048; 80053; 81001; 82040; 82962; 83690; 83735; 83880; 84439; 84443; 84481; 85025; 85027; 87045; 87077; 87177; 87186; 87205; 87493; 88305; 94799; 96361; 96374; 99285; J0171; J1610; J1815; J2250; J2270; J2310; J2405; J3010; J3480; J3490; J7030

== ENCOUNTER 2018-11-13 18:55 | Inpatient (IN) | payer MEDICARE, BC ==
[2018-11-13] MEDS ORDERED: RINGERS SOLUTION,LACTATED 500 ML IV ONE (19:32)
--- NOTE | 2018-11-13 19:34 | ER Document Report ---
ED General - General Chief Complaint: Other Stated Complaint: CHOLOSTOMY BAG LEAKING Time Seen by Provider: 11/13/18 19:10 Notes: Patient is a 73-year-old male with diabetes, prior complex bowel obstructions with ostomy in place, recently discharged from nursing facility 4 days ago who presents with 2 days of relatively rapid, progressive decline. Family reports that the patient was initially doing relatively well at home but over the last 48 hours has not really been eating or drinking, has gone from being able to get up and walk with walker to now requiring a two-person assist to even stand. They also report that he has had rapidly progressive increase in output from his ostomy that is almost completely water and is now leaking out of the ostomy bag. They report that his ostomy is always watery but not typically this watery. T his is their initial concern resulted in presentation to the emergency department today. Nothing improves or worsens his symptoms. He has not doctor although family reports that they wanted to take him today for unable to do so as he was too weak to get into the car. He denies any fever, vomiting, chest pain, headache, neck pain or shortness of breath. TRAVEL OUTSIDE OF THE [place] IN LAST 30 DAYS: No - Related Data Allergies/Adverse Reactions: Penicillins Allergy (Intermediate, Verified 11/13/18 19:20) Hives Past Medical History - General Information source: Patient, Relative - Social History Smoking Status: Former Smoker Frequency of alcohol use: None Drug Abuse: None Lives with: Family Family History: Hypertension Patient has suicidal ideation: No Patient has homicidal ideation: No - Past Medical History Cardiac Medical History: Reports: Hx Coronary Artery Disease, Hx Hypercholesterolemia, Hx Hypertension Neurological Medical History: Reports: Hx Seizures Endocrine Medical History: Reports: Hx Diabetes Mellitus Type 2 Renal/ Medical History: Denies: Hx Peritoneal Dialysis Past Surgical History: Reports: Hx Abdominal Surgery, Hx Cardiac Catheterization, Hx Cardiac Surgery - 5 vessel, Hx Coronary Artery Bypass Graft, Hx Coronary Stent, Other - laparotomy for perforated viscus 3 yrs ago due to chicken bone. - Immunizations Hx Diphtheria, Pertussis, Tetanus Vaccination: Yes Hx Pneumococcal Vaccination: 11/03/17 Review of Systems - Review of Systems Notes: Constitutional: Negative for fever. HENT: Negative for sore throat. Eyes: Negative for visual changes. Cardiovascular: Negative for chest pain. Respiratory: Negative for shortness of breath. Gastrointestinal: Positive for left lower abdominal pain, increased ostomy output Genitourinary: Negative for dysuria. Musculoskeletal: Negative for back pain. Skin: Negative for rash. Neurological: Negative for headaches, weakness or numbness. 10 point ROS negative except as marked above and in HPI. Physical Exam - Vital signs Vitals: Temp Resp BP Pulse Ox 98.4 F 13 104/76 98 11/13/18 19:07 11/13/18 19:07 11/13/18 19:07 11/13/18 19:07 Interpretation: Normal Notes: PHYSICAL EXAMINATION: GENERAL: Somewhat frail, moderately chronically ill in appearance HEAD: Atraumatic, normocephalic. EYES: Pupils equal round and reactive to light, extraocular movements intact, sclera anicteric, conjunctiva are normal. ENT: nares patent, oropharynx clear without exudates. Dry mucous membranes. NECK: Normal range of motion, supple without lymphadenopathy LUNGS: Breath sounds clear to auscultation bilaterally and equal. No wheezes rales or rhonchi. HEART: Regular rate and rhythm without murmurs ABDOMEN: Soft, mild tenderness to the left lower quadrant on palpation, normoactive bowel sounds. No guarding, no rebound. No masses appreciated. EXTREMITIES: Normal range of motion, no pitting or edema. No cyanosis. NEUROLOGICAL: No focal neurological deficits. Moves all extremities spontaneously and on command. PSYCH: Normal mood, normal affect. SKIN: Warm, Dry, normal turgor, irritated, excoriated skin on the left lower abdomen that appears to be related to exposure to stool Course - Re-evaluation Re-evalutation: 11/13/18 19:33 Patient presents with an initial chief complaint of his left lower quadrant ostomy bag leaking which does appear to have a very watery discharge and has actively excoriated most of his left lower abdominal wall. However my primary concern is the patient was discharged from a nursing facility 2 days ago, at that time apparently was able to get up and ambulate independently and was tolerating p.o. intake well. The patient and family however report that since that time he has had a relatively rapid decline now no longer eating hardly anything, no longer to get on his own, no longer walking. Here in the emergency department patient is somewhat chronically ill in appearance, noted to be mildly hypotensive, heart rate 90. I does appear grossly dehydrated. He also has focal pain to the left lower quadrant on palpation. We will undergo labs, CT the abdomen pelvis with IV contrast, and reassess. 11/13/18 23:05 The patient does have acute kidney injury on laboratories likely secondary to prerenal azotemia. CT of the pelvis without any acute surgical pathology. I discussed with the hospitalist who has accepted the patient for admission. - Vital Signs Vital signs: Temp Pulse Resp BP Pulse Ox 98.4 F 12 107/66 97 11/13/18 19:07 11/14/18 02:01 11/14/18 02:01 11/14/18 02:01 - Laboratory Result Diagrams: 11/13/18 20:50 11/13/18 20:50 Laboratory results interpreted by me: 11/13/18 11/13/18 20:50 20:50 WBC 17.9 H RDW 14.2 H Seg Neutrophils % 87.2 H Lymphocytes % 8.3 L Absolute Neutrophils 15.6 H Potassium 5.1 H Chloride 109 H Carbon Dioxide 15 L BUN 70 H Creatinine 2.72 H Est GFR ( Amer) 28 L Est GFR (Non-Af Amer) 23 L Glucose 135 H - Diagnostic Test Radiology reviewed: Reports reviewed Discharge - Discharge Clinical Impression: Acute kidney injury, History of ventral hernia repair, Dehydration Condition: Fair Disposition: ADMITTED INPATIENT Admitting Provider: Hospitalist Unit Admitted: Medical Floor
--- NOTE | 2018-11-13 20:29 | RADIOLOGY REPORT (SQ) ---
EXAM DESCRIPTION: CHEST SINGLE VIEW COMPLETED DATE/TIME: 11/13/2018 8:22 pm REASON FOR STUDY: cough COMPARISON: 10/20/2014 EXAM PARAMETERS: NUMBER OF VIEWS: One view. TECHNIQUE: Single frontal radiographic view of the chest acquired. RADIATION DOSE: NA LIMITATIONS: None. FINDINGS: LUNGS AND PLEURA: No opacities, masses or pneumothorax. No pleural effusion. MEDIASTINUM AND HILAR STRUCTURES: No masses. Contour normal. HEART AND VASCULAR STRUCTURES: Heart normal in size. Normal vasculature. BONES: No acute findings. HARDWARE: Sternal wires. OTHER: No other significant finding. IMPRESSION: NO ACUTE RADIOGRAPHIC FINDING IN THE CHEST. TECHNICAL DOCUMENTATION: JOB ID: [id number] [employer]- All Rights Reserved Reading location - IP/workstation name: [email or web address]
[2018-11-13 20:57] LABS: ABSOLUTE BASOPHILS # (AUTO) 0.1 10^3/uL (0.0-0.2); ABSOLUTE LYMPHOCYTES (AUTO) 1.5 10^3/uL (0.5-4.7); ABSOLUTE MONOCYTES (AUTO) 0.7 10^3/uL (0.1-1.4); ABSOLUTE NEUT (AUTO) 15.6 10^3/uL (1.7-8.2); BASOPHILS % (AUTO) 0.7 % (0-2); EOSINOPHILS % (AUTO) 0.1 % (0-6); HEMATOCRIT 44.9 % (37.9-51.0); HEMOGLOBIN 14.7 g/dL (13.5-17.0); LYMPHOCYTES % (AUTO) 8.3 % (13-45); MEAN CORPUSCULAR HEMOGLOBIN 31.1 pg (27.0-33.4); MEAN CORPUSCULAR HGB CONC 32.8 g/dL (32.0-36.0); MEAN CORPUSCULAR VOLUME 95 fl (80-97); MONOCYTES % (AUTO) 3.7 % (3-13); PLATELET COUNT 318 10^3/uL (150-450); RED BLOOD COUNT 4.73 10^6/uL (4.35-5.55); RED CELL DISTRIBUTION WIDTH 14.2 % (11.5-14.0); SEGMENTED NEUTROPHILS % (AUTO) 87.2 % (42-78); TOTAL CELLS COUNTED % (AUTO) 100 %; WHITE BLOOD COUNT 17.9 10^3/uL (4.0-10.5)
[2018-11-13 21:18] LABS: ALANINE AMINOTRANSFERASE 33 U/L (21-72); ALBUMIN 4.6 g/dL (3.5-5.0); ALKALINE PHOSPHATASE 85 U/L (38-126); ANION GAP 16 (5-19); ASPARTATE AMINO TRANSFERASE 29 U/L (17-59); BILIRUBIN,DIRECT 0.3 mg/dL (0.0-0.4); BILIRUBIN,TOTAL 0.9 mg/dL (0.2-1.3); BLOOD UREA NITROGEN 70 mg/dL (7-20); CALCIUM 9.6 mg/dL (8.4-10.2); CARBON DIOXIDE 15 mmol/L (22-30); CHLORIDE 109 mmol/L (98-107); GLUCOSE 135 mg/dL (75-110); LIPASE 157.2 U/L (23-300); POTASSIUM 5.1 mmol/L (3.6-5.0); SODIUM 140.3 mmol/L (137-145); TOTAL PROTEIN 7.8 g/dL (6.3-8.2)
[2018-11-13] MEDS ORDERED: NORMAL SALINE 1000 ML 500 ML IV ONE (22:15)
--- NOTE | 2018-11-13 22:19 | RADIOLOGY REPORT (SQ) ---
EXAM DESCRIPTION: CT ABDOMEN WITHOUT IV CONTRAST COMPLETED DATE/TME: 11/13/2018 19:31 CLINICAL HISTORY: 73 years, Male, llq pain, ostomy COMPARISON: 02/06/2018 CT TECHNIQUE: 348 Images stored on PACS. All CT scanners at this facility use dose modulation, iterative reconstruction, and/or weight based dosing when appropriate to reduce radiation dose to as low as reasonably achievable (ALARA). [facility]: Dose Right [facility]: CareDose [facility]: Dose Right [facility]: Teradose 4D [facility]: [employer] LIMITATIONS: None. FINDINGS: Limited evaluation of the lung bases is unremarkable. Osseous structures are grossly intact. The visualized liver, spleen, adrenal glands, pancreas are unremarkable. Multiple bilateral renal cysts, as before. No discrete urinary tract calculus. No hydronephrosis. Moderate atheromatous changes. Right lower quadrant ostomy. No gross evidence for bowel obstruction. Residual contrast within the rectum. No free air or free fluid. Subcutaneous inflammatory changes with a small amount of subcutaneous gas near the midline of the anterior abdominal wall with what appears to be an anterior abdominal wall skin defect near the umbilicus. Correlate with surgical history. IMPRESSION: Subcutaneous inflammatory change near the midline of the lower anterior abdomen, with a small amount of subcutaneous gas and superficial skin defect. Findings may be postoperative in nature. There was a well-defined fluid collection at this site on the prior exam which is no longer present. Right lower quadrant ostomy. No gross evidence for bowel obstruction. Stable bilateral renal cysts. TECHNICAL DOCUMENTATION: Quality ID # [id number]: Final reports with documentation of one or more dose reduction techniques (e.g., Automated exposure control, adjustment of the mA and/or kV according to patient size, use of iterative reconstruction technique) copyright 2010 [employer]- All Rights Reserved
[2018-11-13] MEDS ORDERED: MAG HYDROX/AL HYDROX/SIMETH SUSP 30 ML UDCUP PO PRN (23:11)
[2018-11-13] MEDS ORDERED: ONDANSETRON HCL INJ/PF 4 MG/2 ML SDV IV PRN (23:11)
[2018-11-13] MEDS ORDERED: ONDANSETRON 4 MG TAB.RAPDIS PO PRN (23:11)
[2018-11-13] MEDS ORDERED: ACETAMINOPHEN 650 MG SUPP.RECT PR PRN (23:26)
[2018-11-13] MEDS ORDERED: ACETAMINOPHEN 325 MG TABLET PO PRN (23:26)
[2018-11-13] MEDS ORDERED: NALBUPHINE HCL INJ 10 MG/1 ML AMPULE IV PRN (23:26)
[2018-11-13] MEDS ORDERED: VANCOMYCIN HCL INJ 1000 MG VIAL IV SCH (23:45)
[2018-11-13] MEDS ORDERED: DEXTROSE 40% GEL 15 GM TUBE PO PRN ×2 (23:52)
[2018-11-13] MEDS ORDERED: GLUCAGON,HUMAN RECOMB 1 MG INJ IM PRN (23:52)
[2018-11-13] MEDS ORDERED: INSULIN REG, HUMAN 100 UNIT/ML 3 ML VIAL (PYX) SUBCUT PRN (23:52)
[2018-11-13] MEDS ORDERED: DEXTROSE 50%-WATER 25 GM/50 ML DISP.SYRIN IV PRN ×2 (23:52)
[2018-11-14 00:09] LABS: APPEARANCE,URINE SLIGHTLY-CLOUDY; BILIRUBIN,URINE NEGATIVE (NEGATIVE); COLOR,URINE YELLOW; GLUCOSE, URINE NEGATIVE (NEGATIVE); KETONES,URINE NEGATIVE (NEGATIVE); LEUKOCYTE ESTERASE,URINE NEGATIVE (NEGATIVE); NITRITE,URINE NEGATIVE (NEGATIVE); PROTEIN,URINE NEGATIVE (NEGATIVE); URINE SPECIFIC GRAVITY 1.017; UROBILINOGEN,URINE NEGATIVE mg/dL (<2.0)
[2018-11-14] MEDS ORDERED: VANCOMYCIN HCL INJ 1000 MG VIAL IV PRN (00:09)
[2018-11-14] MEDS ORDERED: ASPIRIN 81 MG TABLET, ENT COATED PO ONE (00:20)
[2018-11-14] MEDS ORDERED: INSULIN GLARGINE,HUM.REC.ANLOG 1,000 UNIT/10 ML UNIT SUBCUT ONE (00:20)
[2018-11-14] MEDS ORDERED: HEPARIN SOD (PORCINE) 5,000 UNIT/ML 1 ML SYRINGE SUBCUT ONE (00:20)
[2018-11-14] MEDS ORDERED: CHOLECALCIFEROL (D3) 1,000 UNIT TABLET PO ONE (00:20)
[2018-11-14] MEDS ORDERED: ATORVASTATIN CALCIUM 40 MG TABLET PO ONE (00:20)
[2018-11-14] MEDS ORDERED: VANCOMYCIN HCL 1,000 MG in DEXTROSE 5%-WATER 250 ML IV ONE (01:00)
[2018-11-14] MEDS ORDERED: MEROPENEM 1 GM VIAL IV ONE (01:00)
--- NOTE | 2018-11-14 02:04 | PDOC H&P ---
History of Present Illness Admission Date/PCP: Aliyah FLORES Patient complains of: Decline in ambulatory status History of Present Illness: RASHIDA WESTON is a 73 year old male who presented to the emergency room with his family from home complaining of a 2-day history of progressive decline in the patient's overall status including debility in ambulation (weakness) as well as decrease in oral intake of fluids and food associated with a painful and inf lamed right lower abdominal pericolostomy area and unusually watery stool present in his colostomy bag. The patient and family members agree that his decline is been rapid and at the present time he is severely debilitated and hence ability to walk, stand or sit up on his own. He has not had any other associated symptoms such as fever, chills, nausea, vomiting, sore throat or rash. He denies similar prior episodes and has not identified any aggravating or ameliorating factors for his current progressive weakness and decline in function. In the emergency room he was found to be significantly dehydrated and also noted to have acute kidney injury as well as a leukocytosis. With these findings patient was admitted for further evaluation and treatment. Past Medical History Cardiac Medical History: Reports: Coronary Artery Disease, Hyperlipidema, Hy pertension Pulmonary Medical History: Denies: Asthma, Chronic Obstructive Pulmonary Disease (COPD) EENT Medical History: Reports: None Neurological Medical History: Denies: Hemorrhagic CVA, Ischemic CVA, Migraine, Multiple Sclerosis Endocrine Medical History: Reports: Diabetes Mellitus Type 2, Obesity Denies: Diabetes Mellitus Type 1, Hyperthyroidism, Hypothyroidism Renal/ Medical History: Denies: Chronic Kidney Disease, Nephrolithiasis Malignancy Medical History: Reports: None GI Medical History: Reports: Gastroesophageal Reflux Disease, Other - Multiple abdominal surgeries Denies: Cirrhosis, Hepatitis Musculoskeltal Medical History: Denies: Arthritis, Gout Skin Medical History: Denies: Eczema, Psoriasis Psychiatric Medical History: Reports: Tobacco Dependency Denies: Alcohol Dependency, Substance Abuse Traumatic Medical History: Reports: None Hematology: Denies: Anemia, Bleeding Tendencies Infectious Medical History: Reports: None Past Surgical History Past Surgical History: Reports: Cardiac Catheterization, Coronary Artery Bypass Graft, Coronary Stent, Herniorrhaphy - Ventral hernia repair, Other - laparotomy for perforated viscus 3 yrs ago due to chicken bone. Social History Information Source: Patient, Relative Smoking Status: Former Smoker Frequency of Alcohol Use: None Hx Recreational Drug Use: No Drugs: None Hx Prescription Drug Abuse: No - Advance Directive Resuscitation Status: Full Code Surrogate healthcare decision maker:: Ana Weston Family History Family History: Hypertension Parental Family History Reviewed: Yes Children Family History Reviewed: No Sibling(s) Family History Reviewed.: Yes Medication/Allergy Home Medications: Aspirin [Aspirin EC] 81 mg PO QHS 02/06/18 Atorvastatin Calcium [Lipitor 40 mg Tablet] 40 mg PO QHS 02/06/18 Cholecalciferol (Vitamin D3) [Vitamin D3 1000 Unit Tablet] 1,000 unit PO QHS 02/06/18 Clopidogrel Bisulfate [Plavix 75 mg Tablet] 75 mg PO DAILY 02/06/18 Furosemide [Lasix 20 mg Tablet] 20 mg PO DAILY 02/06/18 Insulin Glargine,Hum.rec.anlog [Lantus Insulin 100 Unit/1 ml 10 ml] 25 units SQ Q12 02/06/18 Magnesium Oxide [Mag-Ox 400 mg Tablet] 400 mg PO Q12 02/06/18 Metoprolol Succinate [Toprol Xl 25 mg Tab.sr] 25 mg PO DAILY 02/06/18 Pantoprazole Sodium [Protonix] 40 mg PO NOON 02/06/18 Sitagliptin Phosphate [Januvia] 100 mg PO NOON 02/06/18 Solifenacin Succinate [Vesicare] 10 mg PO DAILY 02/06/18 Allergies/Adverse Reactions: Penicillins Allergy (Intermediate, Verified 11/13/18 19:20) Hives Review of Systems Constitutional: PRESENT: as per HPI, anorexia, weakness, other - Decrease fluid intake Eyes: ABSENT: visual disturbances, other - Ocular pain Ears: ABSENT: hearing changes, other - Ear pain Nose, Mouth, and Throat: ABSENT: mouth pain, sore throat Cardiovascular: ABSENT: chest pain, dyspnea on exertion, edema, orthropnea, palpitations Respiratory: ABSENT: cough, dyspnea Gastrointestinal: PRESENT: as per HPI, abdominal pain - Right lower quadrant area around colostomy, diarrhea - Stool more watery than usual in colostomy bag. ABSENT: constipation, nausea, vomiting Genitourinary: PRESENT: other - Decreased urine output. ABSENT: dysuria, hematuria Musculoskeletal: ABSENT: deformity, joint swelling Integumentary: PRESENT: pruritus - In area around colostomy, rash - In area around colostomy Neurological: ABSENT: confusion, convulsions, memory loss Psychiatric: ABSENT: anxiety, depression Endocrine: ABSENT: cold intolerance, heat intolerance Hematologic/Lymphatic: ABSENT: easy bleeding, easy bruising Physical Exam Vital Signs: Temp Pulse Resp BP Pulse Ox 98.4 F 12 110/74 97 11/13/18 19:07 11/13/18 21:45 11/13/18 21:45 11/13/18 21:45 Intake & Output 11/11/18 11/12/18 11/13/18 23:59 23:59 23:59 Weight 93 kg General appearance: PRESENT: no acute distress, cooperative, other - Appears chronically ill Head exam: PRESENT: atraumatic, normocephalic Eye exam: PRESENT: conjunctiva pink, EOMI. ABSENT: scleral icterus Ear exam: PRESENT: normal external ear exam. ABSENT: bleeding, drainage Mouth exam: PRESENT: dry mucosa, neck supple Neck exam: ABSENT: JVD, thyromegaly, tracheal deviation Respiratory exam: PRESENT: clear to auscultation tip, symmetrical, unlabored Cardiovascular exam: PRESENT: RRR. ABSENT: clicks, gallop, rubs Pulses: PRESENT: normal radial pulses, normal dorsalis pedis pul Vascular exam: PRESENT: pallor - Mild pallor to gross observation. ABSENT: normal capillary refill - Capillary refill is sluggish at 3-4 seconds GI/Abdominal exam: PRESENT: normal bowel sounds, soft, tenderness - Tender in area around right lower quadrant colostomy site with local erythema and edema noted., other - Colostomy present in right lower quadrant Rectal exam: PRESENT: deferred Extremities exam: ABSENT: joint swelling, pedal edema Musculoskeletal exam: ABSENT: deformity, dislocation Neurological exam: PRESENT: alert, oriented to person, oriented to place, oriented to time, oriented to situation, CN II-XII grossly intact. ABSENT: motor sensory deficit Psychiatric exam: PRESENT: appropriate affect, normal mood Skin exam: PRESENT: dry, intact, rash - Erythema and edema in pericolostomy site as previously noted., warm. ABSENT: jaundice, urticaria Results Laboratory Results: 11/13/18 20:50 11/13/18 20:50 11/13/18 11/13/18 11/13/18 20:50 20:50 20:50 WBC 17.9 H RBC 4.73 Hgb 14.7 Hct 44.9 MCV 95 MCH 31.1 MCHC 32.8 RDW 14.2 H Plt Count 318 Seg Neutrophils % 87.2 H Lymphocytes % 8.3 L Monocytes % 3.7 Eosinophils % 0.1 Basophils % 0.7 Absolute Neutrophils 15.6 H Absolute Lymphocytes 1.5 Absolute Monocytes 0.7 Absolute Eosinophils 0.0 Absolute Basophils 0.1 Sodium 140.3 Potassium 5.1 H Chloride 109 H Carbon Dioxide 15 L Anion Gap 16 BUN 70 H Creatinine 2.72 H Est GFR ( Amer) 28 L Est GFR (Non-Af Amer) 23 L Glucose 135 H Lactic Acid 1.1 Calcium 9.6 Total Bilirubin 0.9 AST 29 ALT 33 Alkaline Phosphatase 85 Total Protein 7.8 Albumin 4.6 Lipase 157.2 Impressions: Abdomen CT 11/13/18 19:31 IMPRESSION: Subcutaneous inflammatory change near the midline of the lower anterior abdomen, with a small amount of subcutaneous gas and superficial skin defect. Findings may be postoperative in nature. There was a well-defined fluid collection at this site on the prior exam which is no longer present. Right lower quadrant ostomy. No gross evidence for bowel obstruction. Stable bilateral renal cysts. TECHNICAL DOCUMENTATION: Quality ID # 436: Final reports with documentation of one or more dose reduction techniques (e.g., Automated exposure control, adjustment of the mA and/or kV according to patient size, use of iterative reconstruction technique) copyright 2011 [employer]- All Rights Reserved Chest X-Ray 11/13/18 19:32 IMPRESSION: NO ACUTE RADIOGRAPHIC FINDING IN THE CHEST. Assessment & Plan - Diagnosis (1) Acute kidney injury Is this a current diagnosis for this admission?: Yes Plan: Patient received IV fluids for correction of his dehydration status and resolution of his acute kidney injury. His metabolic profile will be monitored on a daily basis or more frequently as required. (2) Dehydration Is this a current diagnosis for this admission?: Yes Plan: Patient received IV fluids for correction of his dehydration status and resolution of his acute kidney injury. His metabolic profile will be monitored on a daily basis or more frequently as required. (3) Cellulitis of right abdominal wall Is this a current diagnosis for this admission?: Yes Plan: Patient will be treated with vancomycin and meropenem for IV antibiotic therapy with pharmacy to adjust dosages. Patient's pain will be addressed with Nubain 10 mg IV every 3 hours as needed for pain. And topical treatment will be applied with Bactroban and Lotrisone to the inflamed pericolostomy area. (4) Diabetes mellitus type 2 in nonobese Is this a current diagnosis for this admission?: Yes Plan: The patient will be continued on his usual dose of Lantus and will have before meals and at bedtime Accu-Cheks with regular insulin sliding scale coverage. His other diabetic therapies will be withheld at this time due to his acute renal injury. Hemoglobin A1c will be obtained to assess prehospital therapy efficacy. (5) HLD (hyperlipidemia) Qualifiers: Hyperlipidemia type: unspecified Qualified Code(s): E78.5 - Hyperlipidemia, unspecified Is this a current diagnosis for this admission?: Yes Plan: Patient will be continued on his current hyperlipidemia therapy. A lipid profile will be obtained to assess efficacy of therapy. (6) Hypertension Qualifiers: Hypertension type: essential hypertension Qualified Code(s): I10 - Essential (primary) hypertension Is this a current diagnosis for this admission?: Yes Plan: Patient's antihypertensive regiment will be altered due to his acute renal injury and that his diuretic agents will be withheld until his renal functions have returned to baseline. (7) Coronary artery disease Qualifiers: Coronary Disease-Associated Artery/Lesion type: unspecified vessel or lesion type [place] vs. transplanted heart: [place] heart Associated angina: angina presence unspecified Qualified Code(s): I25.10 - Atherosclerotic heart disease of [place] coronary artery without angina pectoris Is this a current diagnosis for this admission?: Yes Plan: Patient will be continued on his usual beta blockers and antiplatelet agents as required for treatment of his coronary artery disease. - Time Time Spent: 30 to 50 Minutes Critical Time spent with patient: Less than 15 minutes Medications reviewed and adjusted accordingly: Yes Anticipated discharge: SNF - Inpatient Certification Based on my medical assessment, after consideration of the patient's comorbidities, presenting symptoms, or acuity I expect that the services needed warrant INPATIENT care.: Yes I certify that my determination is in accordance with my understanding of Medicare's requirements for reasonable and necessary INPATIENT services [42 CFR 412.3e].: Yes Medical Necessity: Significant Comorbidiites Make Outpatient Treatment Too Risky, Need Close Monitoring Due to Risk of Patient Decompensation, Need For IV Fluids, Risk of Complication if Not Cared For in Hospital
[2018-11-14] MEDS: HEPARIN SOD (PORCINE) 5,000 UNIT/ML 1 ML SYRINGE SUBCUT SCH ×3 (06:05→23:14)
[2018-11-14 06:24] LABS: ABSOLUTE BASOPHILS # (AUTO) 0.2 10^3/uL (0.0-0.2); ABSOLUTE EOSINOPHILS # (AUTO) 0.2 10^3/uL (0.0-0.6); ABSOLUTE LYMPHOCYTES (AUTO) 2.8 10^3/uL (0.5-4.7); ABSOLUTE MONOCYTES (AUTO) 0.9 10^3/uL (0.1-1.4); ABSOLUTE NEUT (AUTO) 8.5 10^3/uL (1.7-8.2); BASOPHILS % (AUTO) 1.5 % (0-2); EOSINOPHILS % (AUTO) 1.8 % (0-6); HEMATOCRIT 36.6 % (37.9-51.0); LYMPHOCYTES % (AUTO) 22.6 % (13-45); MEAN CORPUSCULAR HEMOGLOBIN 31.4 pg (27.0-33.4); MEAN CORPUSCULAR VOLUME 95 fl (80-97); PLATELET COUNT 252 10^3/uL (150-450); RED BLOOD COUNT 3.84 10^6/uL (4.35-5.55); RED CELL DISTRIBUTION WIDTH 13.9 % (11.5-14.0); SEGMENTED NEUTROPHILS % (AUTO) 67.1 % (42-78); TOTAL CELLS COUNTED % (AUTO) 100 %; WHITE BLOOD COUNT 12.6 10^3/uL (4.0-10.5)
[2018-11-14 06:25] LABS: HEMOGLOBIN 12.1 g/dL (13.5-17.0)
[2018-11-14 07:03] LABS: FREE T3 2.91 pg/mL (2.77-5.27); FREE T4 (FREE THYROXINE) 1.07 ng/dL (0.78-2.19)
[2018-11-14 07:17] LABS: THYROID STIMULATING HORMONE 0.94 uIU/mL (0.47-4.68)
[2018-11-14 07:24] LABS: ANION GAP 13 (5-19); BLOOD UREA NITROGEN 69 mg/dL (7-20); CALCIUM 8.7 mg/dL (8.4-10.2); CARBON DIOXIDE 11 mmol/L (22-30); CHLORIDE 113 mmol/L (98-107); CHOLESTEROL 62.14 mg/dL (0-200); GLUCOSE 99 mg/dL (75-110); POTASSIUM 4.5 mmol/L (3.6-5.0); SODIUM 137.1 mmol/L (137-145); TRIGLYCERIDES 102 mg/dL (<150); VLDL CHOLESTEROL 20.4 mg/dL (10-31)
[2018-11-14 07:36] LABS: DIRECT LDL 35 mg/dL (<100)
--- NOTE | 2018-11-14 09:19 | EKG REPORT ---
SEVERITY:- ABNORMAL ECG - SINUS RHYTHM VENTRICULAR PREMATURE COMPLEX LEFT ANTERIOR FASCICULAR BLOCK BORDERLINE R WAVE PROGRESSION, ANTERIOR LEADS : Confirmed by: Mario Clark MD 14-Nov-2018 09:18:47
[2018-11-14] MEDS: MAGNESIUM SULFATE/D5W 1 GM/100 ML RTUPB IV SCH ×3 (09:33→23:14)
[2018-11-14] MEDS ORDERED: INSULIN GLARGINE,HUM.REC.ANLOG 1,000 UNIT/10 ML UNIT SUBCUT SCH (10:00)
[2018-11-14] MEDS ORDERED: FAMOTIDINE 20 MG TABLET PO SCH (10:00)
[2018-11-14] MEDS: RINGERS SOLUTION,LACTATED 1,000 ML IV PRN ×2 (10:12→15:35)
[2018-11-14] MEDS: MEROPENEM 500 MG in NORMAL SALINE 50 ML IV SCH (10:15)
[2018-11-14] MEDS: DOCUSATE SODIUM 100 MG CAPSULE PO SCH ×2 (11:16→23:05)
[2018-11-14] MEDS: CLOPIDOGREL BISULFATE 75 MG TABLET PO SCH (11:17)
[2018-11-14] MEDS: METOPROLOL SUCCINATE 25 MG TAB.SR.24H PO SCH (11:17)
[2018-11-14] MEDS: CLOTRIMAZOLE/BETAMETHASONE DIP CREAM 15 GM TOP SCH (11:58)
[2018-11-14] MEDS: MUPIROCIN 2% OINTMENT 22 GM TP SCH (11:59)
[2018-11-14] MEDS ORDERED: MEROPENEM 500 MG VIAL IV SCH (12:00)
[2018-11-14] MEDS: PANTOPRAZOLE SODIUM 40 MG VIAL IV SCH (12:45)
[2018-11-14] MEDS: ASPIRIN 81 MG TABLET, ENT COATED PO SCH (23:14)
[2018-11-14] MEDS: CHOLECALCIFEROL (D3) 1,000 UNIT TABLET PO SCH (23:15)
[2018-11-14] MEDS: ATORVASTATIN CALCIUM 40 MG TABLET PO SCH (23:15)
[2018-11-15] MEDS: INSULIN GLARGINE,HUM.REC.ANLOG 300 UNIT/3 ML INSULN.PEN SUBCUT SCH ×3 (00:05→22:15)
[2018-11-15] MEDS: MEROPENEM 500 MG in NORMAL SALINE 50 ML IV SCH ×3 (00:13→22:08)
[2018-11-15] MEDS: RINGERS SOLUTION,LACTATED 1,000 ML IV PRN ×2 (00:51→19:32)
[2018-11-15] MEDS: MAGNESIUM SULFATE/D5W 1 GM/100 ML RTUPB IV SCH (02:18)
[2018-11-15] MEDS: CLOTRIMAZOLE/BETAMETHASONE DIP CREAM 15 GM TOP SCH ×3 (02:20→23:14)
[2018-11-15] MEDS: MUPIROCIN 2% OINTMENT 22 GM TP SCH ×3 (02:20→18:00)
--- NOTE | 2018-11-15 03:32 | PROGRESS NOTE E ---
Progress Note NAME: RASHIDA MOTA : 1945 AGE: 73Y DATE: 11/14/2018 ROOM: 533 SUBJECTIVE: The patient is a pleasant 73-year-old male who has a past medical history of coronary artery disease, hyperlipidemia, hypertension, asthma. He had a colectomy and a colostomy bag, admitted with leaking from the bag, nausea, and dehydration. He was started on IV fluids. He is, today, feeling better, resuscitated with IV fluids. His magnesium is 0.4, replaced. OBJECTIVE: GENERAL: The patient lying in bed comfortable, not in distress. VITAL SIGNS: Blood pressure is 116/95, afebrile, respiratory rate 14, saturation 99. HEENT: Head: Normocephalic, atraumatic. Pupils round, reactive to light and accommodation bilaterally. Extraocular movements intact. Ears: Tympanic membranes are intact bilaterally. No discharge from the ears. No discharge from the nose. NECK: Supple. No increased JVD. No thyromegaly. No lymphadenopathy. CARDIOVASCULAR: Normal S1, S2. Regular rate and rhythm. No murmur. No gallop. RESPIRATORY: Lungs clear. ABDOMEN: Soft, nontender. MUSCULOSKELETAL: No edema. NEUROLOGIC: Awake, alert. LABORATORY: White blood count is 12.6. Hemoglobin is 12.1. Sodium 137, potassium is 4.5, creatinine is 2.4, magnesium 0.4. ASSESSMENT: 1. ACUTE KIDNEY INJURY SECONDARY TO DEHYDRATION. Resuscitated with IV fluids. His creatinine is better today. 2. DEHYDRATION. Continue IV fluids. 3. CELLULITIS OF THE RIGHT ABDOMINAL WALL AROUND COLOSTOMY SITE. The patient is started on antibiotics, meropenem and vancomycin. 4. DIABETES TYPE 2. 5. HYPERLIPIDEMIA. 6. HYPERTENSION, controlled. 7. CORONARY ARTERY DISEASE, stable. 8. HYPOMAGNESEMIA. PLAN: 1. Continue IV fluids. 2. Replace magnesium. 3. Continue antibiotics with IV meropenem. MEDICAL NECESSITY: The patient needs IV fluids as well as IV antibiotics. DICTATING PHYSICIAN: GLORIA MULLINS M.D. [id number] PHY#: [id number] ID: [id number] JOB#: [id number] ACCT: [id number] cc: >
[2018-11-15] MEDS: HEPARIN SOD (PORCINE) 5,000 UNIT/ML 1 ML SYRINGE SUBCUT SCH ×3 (06:26→22:08)
[2018-11-15] MEDS: VANCOMYCIN HCL 1,000 MG in DEXTROSE 5%-WATER 250 ML IV SCH (06:26)
[2018-11-15 06:39] LABS: ABSOLUTE BASOPHILS # (AUTO) 0.1 10^3/uL (0.0-0.2); ABSOLUTE EOSINOPHILS # (AUTO) 0.2 10^3/uL (0.0-0.6); ABSOLUTE LYMPHOCYTES (AUTO) 1.3 10^3/uL (0.5-4.7); ABSOLUTE MONOCYTES (AUTO) 0.5 10^3/uL (0.1-1.4); ABSOLUTE NEUT (AUTO) 7.8 10^3/uL (1.7-8.2); BASOPHILS % (AUTO) 0.9 % (0-2); EOSINOPHILS % (AUTO) 2.5 % (0-6); HEMATOCRIT 35.1 % (37.9-51.0); HEMOGLOBIN 12.1 g/dL (13.5-17.0); LYMPHOCYTES % (AUTO) 13.1 % (13-45); MEAN CORPUSCULAR HGB CONC 34.3 g/dL (32.0-36.0); MEAN CORPUSCULAR VOLUME 93 fl (80-97); MONOCYTES % (AUTO) 4.9 % (3-13); PLATELET COUNT 224 10^3/uL (150-450); RED BLOOD COUNT 3.76 10^6/uL (4.35-5.55); RED CELL DISTRIBUTION WIDTH 14.1 % (11.5-14.0); SEGMENTED NEUTROPHILS % (AUTO) 78.6 % (42-78); TOTAL CELLS COUNTED % (AUTO) 100 %; WHITE BLOOD COUNT 9.9 10^3/uL (4.0-10.5)
[2018-11-15 07:00] LABS: ANION GAP 9 (5-19); BLOOD UREA NITROGEN 62 mg/dL (7-20); CALCIUM 9.1 mg/dL (8.4-10.2); CARBON DIOXIDE 15 mmol/L (22-30); CHLORIDE 112 mmol/L (98-107); CHOLESTEROL 67.19 mg/dL (0-200); GLUCOSE 104 mg/dL (75-110); POTASSIUM 4.6 mmol/L (3.6-5.0); SODIUM 135.6 mmol/L (137-145); TRIGLYCERIDES 154 mg/dL (<150)
[2018-11-15 07:11] LABS: DIRECT LDL 34 mg/dL (<100)
[2018-11-15 07:25] LABS: VLDL CHOLESTEROL 30.8 mg/dL (10-31)
[2018-11-15] MEDS: METOPROLOL SUCCINATE 25 MG TAB.SR.24H PO SCH (10:12)
[2018-11-15] MEDS: CLOPIDOGREL BISULFATE 75 MG TABLET PO SCH (10:12)
[2018-11-15] MEDS: PANTOPRAZOLE SODIUM 40 MG VIAL IV SCH (10:12)
[2018-11-15] MEDS: DOCUSATE SODIUM 100 MG CAPSULE PO SCH ×3 (10:13→18:14)
--- NOTE | 2018-11-15 16:52 | PROGRESS NOTE E ---
Progress Note NAME: RASHIDA MOTA : 1945 AGE: 73Y DATE: 11/15/2018 ROOM: 533 SUBJECTIVE: The patient is a pleasant 73-year-old male who had a past medical history of coronary artery disease, hyperlipidemia, hypertension, asthma. The patient had colectomy and he had a bag, admitted with leaking from the bag, nausea, vomiting, dehydration. The patient was started on IV fluids as well as antibiotics. He was having magnesium *------* replaced. OBJECTIVE: GENERAL: Patient lying in bed comfortable, not in distress. VITAL SIGNS: Blood pressure is 98/42, temperature 97.5, heart rate 45, saturation 100% on room air. HEENT: Head normocephalic, atraumatic. Pupils round, reactive to light and accommodation bilaterally. Extraocular movements intact. Ears: Tympanic membranes intact bilaterally. No discharge from the ears. No discharge from the nose. NECK: Supple. No increased JVD. No thyromegaly. No lymphadenopathy. CARDIOVASCULAR: S1, S2. Regular rate and rhythm. No murmur. No gallop. RESPIRATORY: Lungs clear. ABDOMEN: Soft, nontender. MUSCULOSKELETAL: No edema. NEUROLOGICAL: Awake, alert. SKIN: No rash. LABORATORY: White blood count 9.9, hemoglobin 12. Sodium 135, potassium 4.6. ASSESSMENT: 1. ACUTE KIDNEY INJURY SECONDARY TO DEHYDRATION. Continue IV fluids. 2. DEHYDRATION. Continue IV fluids. 3. CELLULITIS OF THE RIGHT ABDOMINAL WALL AROUND COLOSTOMY SITE. Continue meropenem. 4. DIABETES TYPE 2. 5. HYPERLIPIDEMIA. 6. HYPERTENSION, CONTROLLED. 7. CORONARY ARTERY DISEASE. 8. HYPOMAGNESEMIA, REPLACED. PLAN: Continue antibiotics. The patient is on meropenem. The patient is on vancomycin. Continue those. Continue IV fluids. DISPOSITION: Probably to home tomorrow. DICTATING PHYSICIAN: GLORIA MULLINS M.D. [id number] PHY#: [id number] ID: [id number] JOB#: [id number] ACCT: [id number] cc: >
[2018-11-15] MEDS: CHOLECALCIFEROL (D3) 1,000 UNIT TABLET PO SCH (22:08)
[2018-11-15] MEDS: ASPIRIN 81 MG TABLET, ENT COATED PO SCH (22:09)
[2018-11-15] MEDS: ATORVASTATIN CALCIUM 40 MG TABLET PO SCH (22:09)
[2018-11-16] MEDS: VANCOMYCIN HCL 1,000 MG in DEXTROSE 5%-WATER 250 ML IV SCH (06:03)
[2018-11-16] MEDS: HEPARIN SOD (PORCINE) 5,000 UNIT/ML 1 ML SYRINGE SUBCUT SCH ×3 (06:03→21:18)
[2018-11-16] MEDS: MUPIROCIN 2% OINTMENT 22 GM TP SCH ×2 (06:04→17:39)
[2018-11-16] MEDS: RINGERS SOLUTION,LACTATED 1,000 ML IV PRN ×3 (06:59→17:38)
[2018-11-16 07:09] LABS: ABSOLUTE BASOPHILS # (AUTO) 0.1 10^3/uL (0.0-0.2); ABSOLUTE EOSINOPHILS # (AUTO) 0.2 10^3/uL (0.0-0.6); ABSOLUTE LYMPHOCYTES (AUTO) 1.4 10^3/uL (0.5-4.7); ABSOLUTE MONOCYTES (AUTO) 0.6 10^3/uL (0.1-1.4); ABSOLUTE NEUT (AUTO) 7.2 10^3/uL (1.7-8.2); BASOPHILS % (AUTO) 0.6 % (0-2); EOSINOPHILS % (AUTO) 2.3 % (0-6); HEMATOCRIT 38.4 % (37.9-51.0); HEMOGLOBIN 13.1 g/dL (13.5-17.0); LYMPHOCYTES % (AUTO) 14.7 % (13-45); MEAN CORPUSCULAR HEMOGLOBIN 31.8 pg (27.0-33.4); MEAN CORPUSCULAR HGB CONC 34.1 g/dL (32.0-36.0); MEAN CORPUSCULAR VOLUME 93 fl (80-97); MONOCYTES % (AUTO) 6.3 % (3-13); PLATELET COUNT 223 10^3/uL (150-450); RED BLOOD COUNT 4.12 10^6/uL (4.35-5.55); RED CELL DISTRIBUTION WIDTH 14.3 % (11.5-14.0); SEGMENTED NEUTROPHILS % (AUTO) 76.1 % (42-78); TOTAL CELLS COUNTED % (AUTO) 100 %; WHITE BLOOD COUNT 9.5 10^3/uL (4.0-10.5)
[2018-11-16 07:40] LABS: ANION GAP 10 (5-19); BLOOD UREA NITROGEN 56 mg/dL (7-20); CALCIUM 10.1 mg/dL (8.4-10.2); CARBON DIOXIDE 14 mmol/L (22-30); CHLORIDE 114 mmol/L (98-107); GLUCOSE 127 mg/dL (75-110); POTASSIUM 4.5 mmol/L (3.6-5.0); SODIUM 138.3 mmol/L (137-145)
[2018-11-16] MEDS: CLOPIDOGREL BISULFATE 75 MG TABLET PO SCH (10:03)
[2018-11-16] MEDS: PANTOPRAZOLE SODIUM 40 MG VIAL IV SCH (10:03)
[2018-11-16] MEDS: DOCUSATE SODIUM 100 MG CAPSULE PO SCH ×2 (10:03→17:39)
[2018-11-16] MEDS: MEROPENEM 500 MG in NORMAL SALINE 50 ML IV SCH ×2 (10:03→21:18)
[2018-11-16] MEDS: INSULIN GLARGINE,HUM.REC.ANLOG 300 UNIT/3 ML INSULN.PEN SUBCUT SCH ×2 (10:03→21:34)
[2018-11-16] MEDS: METOPROLOL SUCCINATE 25 MG TAB.SR.24H PO SCH (10:04)
[2018-11-16] MEDS ORDERED: ONDANSETRON 4 MG TAB.RAPDIS PO PRN (10:30)
[2018-11-16] MEDS ORDERED: ONDANSETRON HCL INJ/PF 4 MG/2 ML SDV IV PRN (10:30)
[2018-11-16] MEDS: CLOTRIMAZOLE/BETAMETHASONE DIP CREAM 15 GM TOP SCH (11:15)
--- NOTE | 2018-11-16 19:21 | PDOC PROGRESS REPORT ---
Subjective Progress Note for:: 11/16/18 Subjective:: Patient admitted with leaking from his colostomy bag, nausea vomiting as well as dehydration. Patient states that he feels much better today. He still has some discomfort and pain around the colostomy site. Reason For Visit: TOYA, DEHYDRATION Physical Exam Vital Signs: Temp Pulse Resp BP Pulse Ox 97.7 F 69 18 105/58 L 99 11/16/18 15:57 11/16/18 15:57 11/16/18 15:57 11/16/18 15:57 11/16/18 15:57 Intake & Output 11/15/18 11/16/18 11/17/18 06:59 06:59 06:59 Intake Total 4025 2610 3274 Output Total 1725 2800 1200 Balance 2300 -190 2074 Weight 101.2 kg 94.6 kg General appearance: PRESENT: no acute distress Head exam: PRESENT: atraumatic Ear exam: PRESENT: normal external ear exam Neck exam: ABSENT: carotid bruit, JVD, lymphadenopathy, thyromegaly GI/Abdominal exam: PRESENT: other - colostomy surrounding erythema and tenderness around colostomy Rectal exam: PRESENT: deferred Musculoskeletal exam: PRESENT: ambulatory - with walker Neurological exam: PRESENT: alert, awake Psychiatric exam: PRESENT: appropriate affect, normal mood. ABSENT: homicidal ideation, suicidal ideation Skin exam: PRESENT: rash - abdominal wall Results Laboratory Results: 11/16/18 06:50 11/16/18 06:50 11/16/18 11/16/18 06:50 06:50 WBC 9.5 RBC 4.12 L Hgb 13.1 L Hct 38.4 MCV 93 MCH 31.8 MCHC 34.1 RDW 14.3 H Plt Count 223 Seg Neutrophils % 76.1 Lymphocytes % 14.7 Monocytes % 6.3 Eosinophils % 2.3 Basophils % 0.6 Absolute Neutrophils 7.2 Absolute Lymphocytes 1.4 Absolute Monocytes 0.6 Absolute Eosinophils 0.2 Absolute Basophils 0.1 Sodium 138.3 Potassium 4.5 Chloride 114 H Carbon Dioxide 14 L Anion Gap 10 BUN 56 H Creatinine 1.49 H Est GFR ( Amer) 56 L Est GFR (Non-Af Amer) 46 L Glucose 127 H Calcium 10.1 Magnesium 1.3 L 11/14/18 06:10 NT-Pro-B Natriuret Pep 388 Impressions: Abdomen CT 11/13/18 19:31 IMPRESSION: Subcutaneous inflammatory change near the midline of the lower anterior abdomen, with a small amount of subcutaneous gas and superficial skin defect. Findings may be postoperative in nature. There was a well-defined fluid collection at this site on the prior exam which is no longer present. Right lower quadrant ostomy. No gross evidence for bowel obstruction. Stable bilateral renal cysts. TECHNICAL DOCUMENTATION: Quality ID # 436: Final reports with documentation of one or more dose reduction techniques (e.g., Automated exposure control, adjustment of the mA and/or kV according to patient size, use of iterative reconstruction technique) copyright 2011 [employer]- All Rights Reserved Chest X-Ray 11/13/18 19:32 IMPRESSION: NO ACUTE RADIOGRAPHIC FINDING IN THE CHEST. Assessment & Plan - Time Time Spent with patient: 15-24 minutes Medications reviewed and adjusted accordingly: Yes Anticipated discharge: SNF Within: within 48 hours - Inpatient Certification Based on my medical assessment, after consideration of the patient's comorbidities, presenting symptoms, or acuity I expect that the services needed warrant INPATIENT care.: Yes Medical Necessity: Need for IV Antibiotics - Plan Summary Plan Summary: Acute kidney injury secondary to dehydration. Kidney function is improving. Next 2. Dehydration improved 3. Cellulitis of the right abdominal wall surrounding the colostomy site continue meropenem and de-escalate antibiotics as appropriate 4. Type 2 diabetes mellitus controlled 5. Hypertension controlled 6. Hyperlipidemia 7. Coronary artery disease 8. Hypomagnesemia
--- NOTE | 2018-11-16 20:05 | Progress Note ---
Provider Note Provider Note: ID Consult Note Asked to review patient's chart by Pharmacy. Pt not seen or examined. Reviwed VS, provider notes, labs, imaging reports. Mr Weston is a 73 year old overweight man with PMH including DM and bowel obstructions s/p colostomy who presented to the ED on 11/13/18 with progressive increase in output from his ostomy with increased watery stool. On exam pt was noted to have erythema and tenderness of the skin surrounding the colostomy site. Pt was found to have prerenal azotemia, leukocytosis, hyperkalemia on presentation. CXR was negative. CT of the abdomen was read as showing inflammatory change of the anterior abdominal wall. Empirically vancomycin and meropenem were started for cellulitis of R abdominal wall. C diff PCR was negative. Stool cx was also sent and is pending. Blood cultures are negative x 48h. Impression/Recommendations Pt has been diagnosed as having cellulitis of R abdominal wall, not noted to be purulent. - Recommend discontinuing IV vancomycin. Pt has no known history of MRSA infection or colonization based on prior culture results in [facility], and anti-MRSA antibiotics are generally not needed unless there is purulent cellulitis. - Recommend discontinuing IV meropenem. The spectrum activity of meropenem is broader than necessary. Most cellulitis, apart from specific exposures, is related to beta-haemolytic Streptococcus species and to a lesser extent MSSA. IV Ancef (or PO Keflex) should be sufficient. Pt has penicillin allergy described as hives, but this should not preclude administration of a cephalosporin in a monitored setting. 90% of patients who report penicillin allergy do not have evidence of IgE mediated allergy on testing, and the rate of cross-reactivity between cephalosporins and penicillins is small. - Suggest continuing for a total duration of therapy 5 days (or 3 more days) if he has good clinical response. Yang snyder MD [facility] Infectious Diseases pager [phone]
[2018-11-16] MEDS ORDERED: MAGNESIUM SULFATE 4 GM/100 ML RTUPB IV ONE (20:15)
[2018-11-16] MEDS ORDERED: SODIUM BICARBONATE 4.2% INJ 5 MEQ/10 ML DISP.SYRIN IV ONE (20:30)
[2018-11-16] MEDS ORDERED: SODIUM BICARBONATE 8.4% INJ 50 MEQ/50 ML DISP.SYRIN IV ONE (21:00)
[2018-11-16] MEDS: ASPIRIN 81 MG TABLET, ENT COATED PO SCH (21:19)
[2018-11-16] MEDS: ATORVASTATIN CALCIUM 40 MG TABLET PO SCH (21:19)
[2018-11-16] MEDS: CHOLECALCIFEROL (D3) 1,000 UNIT TABLET PO SCH (21:19)
[2018-11-17] MEDS: CLOTRIMAZOLE/BETAMETHASONE DIP CREAM 15 GM TOP SCH ×2 (00:10→13:13)
[2018-11-17] MEDS: RINGERS SOLUTION,LACTATED 1,000 ML IV PRN ×4 (00:39→10:30)
[2018-11-17 05:56] LABS: ABSOLUTE EOSINOPHILS # (AUTO) 0.3 10^3/uL (0.0-0.6); ABSOLUTE LYMPHOCYTES (AUTO) 1.6 10^3/uL (0.5-4.7); ABSOLUTE MONOCYTES (AUTO) 0.7 10^3/uL (0.1-1.4); ABSOLUTE NEUT (AUTO) 6.7 10^3/uL (1.7-8.2); BASOPHILS % (AUTO) 0.5 % (0-2); EOSINOPHILS % (AUTO) 3.5 % (0-6); HEMATOCRIT 37.4 % (37.9-51.0); HEMOGLOBIN 12.7 g/dL (13.5-17.0); LYMPHOCYTES % (AUTO) 16.6 % (13-45); MEAN CORPUSCULAR HEMOGLOBIN 31.6 pg (27.0-33.4); MEAN CORPUSCULAR HGB CONC 33.9 g/dL (32.0-36.0); MEAN CORPUSCULAR VOLUME 93 fl (80-97); MONOCYTES % (AUTO) 7.4 % (3-13); PLATELET COUNT 210 10^3/uL (150-450); RED BLOOD COUNT 4.01 10^6/uL (4.35-5.55); RED CELL DISTRIBUTION WIDTH 13.9 % (11.5-14.0); TOTAL CELLS COUNTED % (AUTO) 100 %; WHITE BLOOD COUNT 9.4 10^3/uL (4.0-10.5)
[2018-11-17] MEDS: VANCOMYCIN HCL 1,000 MG in DEXTROSE 5%-WATER 250 ML IV SCH (06:15)
[2018-11-17] MEDS: HEPARIN SOD (PORCINE) 5,000 UNIT/ML 1 ML SYRINGE SUBCUT SCH ×3 (06:15→21:56)
[2018-11-17 06:21] LABS: ANION GAP 10 (5-19); BLOOD UREA NITROGEN 50 mg/dL (7-20); CALCIUM 9.9 mg/dL (8.4-10.2); CARBON DIOXIDE 15 mmol/L (22-30); CHLORIDE 113 mmol/L (98-107); GLUCOSE 110 mg/dL (75-110); POTASSIUM 4.4 mmol/L (3.6-5.0); SODIUM 138.3 mmol/L (137-145)
[2018-11-17] MEDS: LANSOPRAZOLE 30 MG TAB.RAP.DR PO SCH (06:23)
[2018-11-17] MEDS: MUPIROCIN 2% OINTMENT 22 GM TP SCH ×2 (06:24→18:25)
[2018-11-17] MEDS: METOPROLOL SUCCINATE 25 MG TAB.SR.24H PO SCH (10:24)
[2018-11-17] MEDS: DOCUSATE SODIUM 100 MG CAPSULE PO SCH ×2 (10:25→17:57)
[2018-11-17] MEDS: CEFTRIAXONE 1 GM/D5W RTU 1 GM/50 ML RTUPB IV SCH (10:31)
[2018-11-17] MEDS: INSULIN GLARGINE,HUM.REC.ANLOG 300 UNIT/3 ML INSULN.PEN SUBCUT SCH ×2 (10:31→21:55)
[2018-11-17] MEDS: CLOPIDOGREL BISULFATE 75 MG TABLET PO SCH (10:32)
[2018-11-17] MEDS ORDERED: SODIUM BICARBONATE 8.4% INJ 50 MEQ/50 ML DISP.SYRIN IV ONE ×2 (15:44→18:45)
--- NOTE | 2018-11-17 16:00 | PDOC PROGRESS REPORT ---
Subjective Progress Note for:: 11/17/18 Subjective:: Patient admitted with leaking from his colostomy bag, nausea vomiting as well as dehydration. Patient states that he feels much better today. He still has some discomfort and pain around the colostomy site although improved. Still has a lot of output from colostomy Reason For Visit: TOYA, DEHYDRATION Physical Exam Vital Signs: Temp Pulse Resp BP Pulse Ox 98.5 F 60 16 108/87 H 100 11/17/18 12:00 11/17/18 12:00 11/17/18 12:00 11/17/18 12:00 11/17/18 12:00 Intake & Output 11/16/18 11/17/18 11/18/18 06:59 06:59 06:59 Intake Total 2610 5748 1300 Output Total 2800 3000 Balance -190 2748 1300 Weight 94.6 kg 95.8 kg General appearance: PRESENT: no acute distress Head exam: PRESENT: atraumatic Eye exam: PRESENT: conjunctiva pink, EOMI, PERRLA. ABSENT: scleral icterus Mouth exam: PRESENT: moist, tongue midline Respiratory exam: PRESENT: clear to auscultation tip. ABSENT: rales, rhonchi, wheezes Cardiovascular exam: PRESENT: RRR. ABSENT: diastolic murmur, rubs, systolic murmur GI/Abdominal exam: PRESENT: normal bowel sounds, other - colostomy with brown soft stool Rectal exam: PRESENT: deferred Musculoskeletal exam: PRESENT: ambulatory Neurological exam: PRESENT: alert, awake, oriented to person, oriented to place, oriented to time, oriented to situation, CN II-XII grossly intact. ABSENT: motor sensory deficit Skin exam: PRESENT: erythema - abdominal wall, rash Results Laboratory Results: 11/17/18 05:48 11/17/18 05:48 11/17/18 11/17/18 05:48 05:48 WBC 9.4 RBC 4.01 L Hgb 12.7 L Hct 37.4 L MCV 93 MCH 31.6 MCHC 33.9 RDW 13.9 Plt Count 210 Seg Neutrophils % 72.0 Lymphocytes % 16.6 Monocytes % 7.4 Eosinophils % 3.5 Basophils % 0.5 Absolute Neutrophils 6.7 Absolute Lymphocytes 1.6 Absolute Monocytes 0.7 Absolute Eosinophils 0.3 Absolute Basophils 0.0 Sodium 138.3 Potassium 4.4 Chloride 113 H Carbon Dioxide 15 L Anion Gap 10 BUN 50 H Creatinine 1.18 Est GFR ( Amer) > 60 Est GFR (Non-Af Amer) > 60 Glucose 110 Calcium 9.9 Magnesium 2.1 11/13/18 23:40 Stool - Stool - Final 11/13/18 23:40 Stool - Stool Stool Culture - Final NO SALMONELLA, SHIGELLA, CAMPYLOBACTER, OR E.COLI 0157 RECOVERED. NEGATIVE FOR SHIGA TOXINS 1&2. 11/14/18 06:10 NT-Pro-B Natriuret Pep 388 Impressions: Abdomen CT 11/13/18 19:31 IMPRESSION: Subcutaneous inflammatory change near the midline of the lower anterior abdomen, with a small amount of subcutaneous gas and superficial skin defect. Findings may be postoperative in nature. There was a well-defined fluid collection at this site on the prior exam which is no longer present. Right lower quadrant ostomy. No gross evidence for bowel obstruction. Stable bilateral renal cysts. TECHNICAL DOCUMENTATION: Quality ID # 436: Final reports with documentation of one or more dose reduction techniques (e.g., Automated exposure control, adjustment of the mA and/or kV according to patient size, use of iterative reconstruction technique) copyright 2011 [employer]- All Rights Reserved Chest X-Ray 11/13/18 19:32 IMPRESSION: NO ACUTE RADIOGRAPHIC FINDING IN THE CHEST. Assessment & Plan - Diagnosis (1) Cellulitis of right abdominal wall Is this a current diagnosis for this admission?: Yes (2) Metabolic alkalosis Is this a current diagnosis for this admission?: Yes Plan: Continue Ceftriaxone for another 3 days and will review after (3) Acute kidney injury Is this a current diagnosis for this admission?: Yes Plan: Due to dehydration, high output from ostomy (4) Dehydration Is this a current diagnosis for this admission?: Yes (5) Diabetes 1.5, managed as type 2 Is this a current diagnosis for this admission?: Yes Plan: Due to high output ostomy. Will give judicious IV HCO - Time Time Spent with patient: 15-24 minutes Medications reviewed and adjusted accordingly: Yes Anticipated discharge: Home Within: within 48 hours - Inpatient Certification Based on my medical assessment, after consideration of the patient's comorbidities, presenting symptoms, or acuity I expect that the services needed warrant INPATIENT care.: Yes Medical Necessity: Need For IV Fluids, Need for IV Antibiotics, Risk of Complication if Not Cared For in Hospital
[2018-11-17] MEDS: NORMAL SALINE 1000 ML 1,000 ML IV PRN (18:25)
[2018-11-17] MEDS: ATORVASTATIN CALCIUM 40 MG TABLET PO SCH (21:56)
[2018-11-17] MEDS: CHOLECALCIFEROL (D3) 1,000 UNIT TABLET PO SCH (21:56)
[2018-11-17] MEDS: ASPIRIN 81 MG TABLET, ENT COATED PO SCH (21:56)
[2018-11-18] MEDS: CLOTRIMAZOLE/BETAMETHASONE DIP CREAM 15 GM TOP SCH ×2 (00:47→13:15)
[2018-11-18] MEDS: NORMAL SALINE 1000 ML 1,000 ML IV PRN ×2 (04:30→22:05)
[2018-11-18] MEDS: MUPIROCIN 2% OINTMENT 22 GM TP SCH ×2 (05:51→17:19)
[2018-11-18] MEDS: LANSOPRAZOLE 30 MG TAB.RAP.DR PO SCH (05:52)
[2018-11-18] MEDS: HEPARIN SOD (PORCINE) 5,000 UNIT/ML 1 ML SYRINGE SUBCUT SCH ×3 (05:52→22:00)
[2018-11-18 07:07] LABS: ANION GAP 6 (5-19); BLOOD UREA NITROGEN 39 mg/dL (7-20); CALCIUM 9.3 mg/dL (8.4-10.2); CARBON DIOXIDE 17 mmol/L (22-30); CHLORIDE 112 mmol/L (98-107); GLUCOSE 84 mg/dL (75-110); POTASSIUM 4.3 mmol/L (3.6-5.0); SODIUM 135.4 mmol/L (137-145)
[2018-11-18] MEDS: DOCUSATE SODIUM 100 MG CAPSULE PO SCH ×2 (09:10→17:19)
[2018-11-18] MEDS: METOPROLOL SUCCINATE 25 MG TAB.SR.24H PO SCH (09:11)
[2018-11-18] MEDS: CEFTRIAXONE 1 GM/D5W RTU 1 GM/50 ML RTUPB IV SCH (09:16)
[2018-11-18] MEDS: INSULIN GLARGINE,HUM.REC.ANLOG 300 UNIT/3 ML INSULN.PEN SUBCUT SCH ×2 (09:16→22:00)
[2018-11-18] MEDS: CLOPIDOGREL BISULFATE 75 MG TABLET PO SCH (09:16)
--- NOTE | 2018-11-18 12:32 | PDOC PROGRESS REPORT ---
Subjective Progress Note for:: 11/18/18 Subjective:: Patient admitted with leaking from his colostomy bag, nausea vomiting as well as dehydration. Patient c/o feeling better, less abdominal pain C/o ear congestion Reason For Visit: TOYA, DEHYDRATION Physical Exam Vital Signs: Temp Pulse Resp BP Pulse Ox 98.0 F 75 17 116/59 L 97 11/17/18 23:56 11/17/18 23:56 11/17/18 23:56 11/17/18 23:56 11/17/18 23:56 Intake & Output 11/17/18 11/18/18 11/19/18 06:59 06:59 06:59 Intake Total 5748 4963 50 Output Total 3000 2850 Balance 2748 2113 50 Weight 95.8 kg 96.7 kg General appearance: PRESENT: no acute distress, well-developed, well-nourished Head exam: PRESENT: atraumatic, normocephalic Eye exam: PRESENT: conjunctiva pink, EOMI, PERRLA. ABSENT: scleral icterus Ear exam: PRESENT: normal external ear exam Mouth exam: PRESENT: moist, tongue midline Neck exam: ABSENT: carotid bruit, JVD, lymphadenopathy, thyromegaly Respiratory exam: PRESENT: clear to auscultation itp. ABSENT: rales, rhonchi, wheezes Cardiovascular exam: PRESENT: RRR. ABSENT: diastolic murmur, rubs, systolic m urmur Pulses: PRESENT: normal dorsalis pedis pul Vascular exam: PRESENT: normal capillary refill GI/Abdominal exam: PRESENT: normal bowel sounds, soft, other - Colostomy bag with brown stool, resolving erythema around abdominal wall. ABSENT: distended, guarding, mass, organolmegaly, rebound, tenderness Rectal exam: PRESENT: deferred Extremities exam: PRESENT: full ROM. ABSENT: calf tenderness, clubbing, pedal edema Neurological exam: PRESENT: alert, awake, oriented to person, oriented to place, oriented to time, oriented to situation, CN II-XII grossly intact. ABSENT: motor sensory deficit Psychiatric exam: PRESENT: appropriate affect, normal mood. ABSENT: homicidal ideation, suicidal ideation Skin exam: PRESENT: dry, intact, warm. ABSENT: cyanosis, rash Results Laboratory Results: 11/17/18 05:48 11/18/18 06:02 11/18/18 06:02 Sodium 135.4 L Potassium 4.3 Chloride 112 H Carbon Dioxide 17 L Anion Gap 6 BUN 39 H Creatinine 1.06 Est GFR ( Amer) > 60 Est GFR (Non-Af Amer) > 60 Glucose 84 Calcium 9.3 11/13/18 23:40 Stool - Stool - Final 11/13/18 23:40 Stool - Stool Stool Culture - Final NO SALMONELLA, SHIGELLA, CAMPYLOBACTER, OR E.COLI 0157 RECOVERED. NEGATIVE FOR SHIGA TOXINS 1&2. 11/14/18 06:10 NT-Pro-B Natriuret Pep 388 Impressions: Abdomen CT 11/13/18 19:31 IMPRESSION: Subcutaneous inflammatory change near the midline of the lower anterior abdomen, with a small amount of subcutaneous gas and superficial skin defect. Findings may be postoperative in nature. There was a well-defined fluid collection at this site on the prior exam which is no longer present. Right lower quadrant ostomy. No gross evidence for bowel obstruction. Stable bilateral renal cysts. TECHNICAL DOCUMENTATION: Quality ID # 436: Final reports with documentation of one or more dose reduction techniques (e.g., Automated exposure control, adjustment of the mA and/or kV according to patient size, use of iterative reconstruction technique) copyright 2011 [employer]- All Rights Reserved Chest X-Ray 11/13/18 19:32 IMPRESSION: NO ACUTE RADIOGRAPHIC FINDING IN THE CHEST. Assessment & Plan - Diagnosis (1) Cellulitis of right abdominal wall Is this a current diagnosis for this admission?: Yes Plan: Continue ceftriaxone (2) Metabolic alkalosis Is this a current diagnosis for this admission?: Yes Plan: Secondary to high output ostomy. Will place on oral HCO3 for now (3) Acute kidney injury Is this a current diagnosis for this admission?: Yes Plan: kidney function continues to improve (4) Dehydration Is this a current diagnosis for this admission?: Yes (5) Diabetes 1.5, managed as type 2 Is this a current diagnosis for this admission?: Yes - Time Time Spent with patient: 15-24 minutes Medications reviewed and adjusted accordingly: Yes Anticipated discharge: Home Within: within 24 hours, within 48 hours - Inpatient Certification Based on my medical assessment, after consideration of the patient's comorbidit ies, presenting symptoms, or acuity I expect that the services needed warrant INPATIENT care.: Yes Medical Necessity: Need for IV Antibiotics
[2018-11-18] MEDS: SODIUM BICARBONATE 650 MG TABLET PO SCH (16:25)
[2018-11-18] MEDS: CHOLECALCIFEROL (D3) 1,000 UNIT TABLET PO SCH (22:00)
[2018-11-18] MEDS: ASPIRIN 81 MG TABLET, ENT COATED PO SCH (22:01)
[2018-11-18] MEDS: ATORVASTATIN CALCIUM 40 MG TABLET PO SCH (22:01)
[2018-11-19] MEDS: CLOTRIMAZOLE/BETAMETHASONE DIP CREAM 15 GM TOP SCH ×2 (01:26→11:02)
[2018-11-19] MEDS: LANSOPRAZOLE 30 MG TAB.RAP.DR PO SCH (05:17)
[2018-11-19] MEDS: HEPARIN SOD (PORCINE) 5,000 UNIT/ML 1 ML SYRINGE SUBCUT SCH ×3 (05:18→23:53)
[2018-11-19] MEDS: MUPIROCIN 2% OINTMENT 22 GM TP SCH ×2 (05:19→18:00)
[2018-11-19] MEDS: NORMAL SALINE 1000 ML 1,000 ML IV PRN ×2 (05:31→16:19)
[2018-11-19] MEDS: SODIUM BICARBONATE 650 MG TABLET PO SCH ×3 (08:00→16:18)
[2018-11-19 09:35] LABS: ABSOLUTE EOSINOPHILS # (AUTO) 0.3 10^3/uL (0.0-0.6); ABSOLUTE LYMPHOCYTES (AUTO) 1.6 10^3/uL (0.5-4.7); ABSOLUTE MONOCYTES (AUTO) 0.5 10^3/uL (0.1-1.4); ABSOLUTE NEUT (AUTO) 5.1 10^3/uL (1.7-8.2); BASOPHILS % (AUTO) 0.6 % (0-2); EOSINOPHILS % (AUTO) 3.6 % (0-6); LYMPHOCYTES % (AUTO) 21.1 % (13-45); MEAN CORPUSCULAR HGB CONC 34.5 g/dL (32.0-36.0); MEAN CORPUSCULAR VOLUME 93 fl (80-97); MONOCYTES % (AUTO) 6.2 % (3-13); PLATELET COUNT 178 10^3/uL (150-450); RED BLOOD COUNT 3.24 10^6/uL (4.35-5.55); RED CELL DISTRIBUTION WIDTH 14.2 % (11.5-14.0); SEGMENTED NEUTROPHILS % (AUTO) 68.5 % (42-78); TOTAL CELLS COUNTED % (AUTO) 100 %; WHITE BLOOD COUNT 7.4 10^3/uL (4.0-10.5)
[2018-11-19 09:43] LABS: HEMOGLOBIN 10.4 g/dL (13.5-17.0)
[2018-11-19 10:02] LABS: ANION GAP 6 (5-19); BLOOD UREA NITROGEN 30 mg/dL (7-20); CARBON DIOXIDE 18 mmol/L (22-30); CHLORIDE 113 mmol/L (98-107); GLUCOSE 131 mg/dL (75-110); POTASSIUM 4.3 mmol/L (3.6-5.0)
[2018-11-19] MEDS: DOCUSATE SODIUM 100 MG CAPSULE PO SCH ×2 (10:50→19:49)
[2018-11-19] MEDS: METOPROLOL SUCCINATE 25 MG TAB.SR.24H PO SCH (10:51)
[2018-11-19] MEDS: CEFTRIAXONE 1 GM/D5W RTU 1 GM/50 ML RTUPB IV SCH (10:56)
[2018-11-19] MEDS: CLOPIDOGREL BISULFATE 75 MG TABLET PO SCH (10:57)
[2018-11-19] MEDS: INSULIN GLARGINE,HUM.REC.ANLOG 300 UNIT/3 ML INSULN.PEN SUBCUT SCH ×2 (11:01→23:52)
--- NOTE | 2018-11-19 17:39 | PDOC PROGRESS REPORT ---
Subjective Progress Note for:: 11/19/18 Subjective:: Patient admitted with leaking from his colostomy bag, nausea vomiting as well as dehydration. Reason For Visit: TOYA, DEHYDRATION Physical Exam Vital Signs: Temp Pulse Resp BP Pulse Ox 97.5 F 74 18 92/50 L 98 11/19/18 15:58 11/19/18 15:58 11/19/18 15:58 11/19/18 15:58 11/19/18 15:58 Intake & Output 11/18/18 11/19/18 11/20/18 06:59 06:59 06:59 Intake Total 4963 2836 1050 Output Total 2850 2215 Balance 2113 621 1050 Weight 96.7 kg 96.7 kg General appearance: PRESENT: no acute distress, well-developed, well-nourished Head exam: PRESENT: atraumatic, normocephalic Eye exam: PRESENT: conjunctiva pink, EOMI, PERRLA. ABSENT: scleral icterus Ear exam: PRESENT: normal external ear exam Mouth exam: PRESENT: moist, tongue midline Neck exam: ABSENT: carotid bruit, JVD, lymphadenopathy, thyromegaly Respiratory exam: PRESENT: clear to auscultation tip. ABSENT: rales, rhonchi, wheezes Cardiovascular exam: PRESENT: RRR. ABSENT: diastolic murmur, rubs, systolic murmur Pulses: PRESENT: normal dorsalis pedis pul Vascular exam: PRESENT: normal capillary refill GI/Abdominal exam: PRESENT: normal bowel sounds, soft, tenderness, other - colostomy bag, area of open wound with gauze drain in situ adjacent to colostomy site. ABSENT: distended, guarding, mass, organolmegaly, rebound Rectal exam: PRESENT: deferred Extremities exam: PRESENT: full ROM. ABSENT: calf tenderness, clubbing, pedal edema Neurological exam: PRESENT: alert, awake, oriented to person, oriented to place, oriented to time, oriented to situation, CN II-XII grossly intact. ABSENT: motor sensory deficit Psychiatric exam: PRESENT: appropriate affect, normal mood. ABSENT: homicidal ideation, suicidal ideation Skin exam: PRESENT: dry, intact, warm. ABSENT: cyanosis, rash Results Laboratory Results: 11/19/18 08:59 11/19/18 08:59 11/19/18 11/19/18 08:59 08:59 WBC 7.4 RBC 3.24 L Hgb 10.4 L D Hct 30.0 L MCV 93 MCH 32.0 MCHC 34.5 RDW 14.2 H Plt Count 178 Seg Neutrophils % 68.5 Lymphocytes % 21.1 Monocytes % 6.2 Eosinophils % 3.6 Basophils % 0.6 Absolute Neutrophils 5.1 Absolute Lymphocytes 1.6 Absolute Monocytes 0.5 Absolute Eosinophils 0.3 Absolute Basophils 0.0 Sodium 137.0 Potassium 4.3 Chloride 113 H Carbon Dioxide 18 L Anion Gap 6 BUN 30 H Creatinine 0.92 Est GFR ( Amer) > 60 Est GFR (Non-Af Amer) > 60 Glucose 131 H Calcium 9.0 11/14/18 09:50 Blood Blood Culture - Final NO GROWTH IN 5 DAYS 11/14/18 09:05 Blood Blood Culture - Final NO GROWTH IN 5 DAYS 11/14/18 06:10 NT-Pro-B Natriuret Pep 388 Impressions: Abdomen CT 11/13/18 19:31 IMPRESSION: Subcutaneous inflammatory change near the midline of the lower anterior abdomen, with a small amount of subcutaneous gas and superficial skin defect. Findings may be postoperative in nature. There was a well-defined fluid collection at this site on the prior exam which is no longer present. Right lower quadrant ostomy. No gross evidence for bowel obstruction. Stable bilateral renal cysts. TECHNICAL DOCUMENTATION: Quality ID # 436: Final reports with documentation of one or more dose reduction techniques (e.g., Automated exposure control, adjustment of the mA and/or kV according to patient size, use of iterative reconstruction technique) copyright 2011 [employer]- All Rights Reserved Chest X-Ray 11/13/18 19:32 IMPRESSION: NO ACUTE RADIOGRAPHIC FINDING IN THE CHEST. Assessment & Plan - Diagnosis (1) Cellulitis of right abdominal wall Is this a current diagnosis for this admission?: Yes Plan: Continue ceftriaxone. Can dc at discharge (2) Acute kidney injury Is this a current diagnosis for this admission?: Yes Plan: kidney function continues to improve (3) Dehydration Is this a current diagnosis for this admission?: Yes (4) Diabetes 1.5, managed as type 2 Is this a current diagnosis for this admission?: Yes (5) Metabolic acidosis Is this a current diagnosis for this admission?: Yes Plan: Continue oral bicarb - Time Time Spent with patient: 15-24 minutes Medications reviewed and adjusted accordingly: Yes Anticipated discharge: SNF Within: when bed available - Inpatient Certification Based on my medical assessment, after consideration of the patient's comorbidities, presenting symptoms, or acuity I expect that the services needed warrant INPATIENT care.: Yes Medical Necessity: Need Close Monitoring Due to Risk of Patient Decompensation, Need for IV Antibiotics
[2018-11-19] MEDS: CHOLECALCIFEROL (D3) 1,000 UNIT TABLET PO SCH (23:52)
[2018-11-19] MEDS: ATORVASTATIN CALCIUM 40 MG TABLET PO SCH (23:52)
[2018-11-19] MEDS: ASPIRIN 81 MG TABLET, ENT COATED PO SCH (23:53)
[2018-11-20] MEDS: CLOTRIMAZOLE/BETAMETHASONE DIP CREAM 15 GM TOP SCH ×3 (00:05→23:08)
[2018-11-20] MEDS: LANSOPRAZOLE 30 MG TAB.RAP.DR PO SCH (05:42)
[2018-11-20] MEDS: HEPARIN SOD (PORCINE) 5,000 UNIT/ML 1 ML SYRINGE SUBCUT SCH ×3 (05:42→21:23)
[2018-11-20] MEDS: MUPIROCIN 2% OINTMENT 22 GM TP SCH ×2 (05:42→17:40)
[2018-11-20] MEDS: DOCUSATE SODIUM 100 MG CAPSULE PO SCH ×2 (09:10→17:38)
[2018-11-20] MEDS: CLOPIDOGREL BISULFATE 75 MG TABLET PO SCH (09:14)
[2018-11-20] MEDS: METOPROLOL SUCCINATE 25 MG TAB.SR.24H PO SCH (09:14)
[2018-11-20] MEDS: SODIUM BICARBONATE 650 MG TABLET PO SCH ×3 (09:14→15:52)
[2018-11-20] MEDS: INSULIN GLARGINE,HUM.REC.ANLOG 300 UNIT/3 ML INSULN.PEN SUBCUT SCH ×2 (12:03→21:31)
[2018-11-20] MEDS: CEFTRIAXONE 1 GM/D5W RTU 1 GM/50 ML RTUPB IV SCH (12:03)
--- NOTE | 2018-11-20 17:54 | PDOC PROGRESS REPORT ---
Subjective Progress Note for:: 11/20/18 Subjective:: Patient admitted with leaking from his colostomy bag, nausea vomiting as well as dehydration. Reason For Visit: TOYA, DEHYDRATION Physical Exam Vital Signs: Temp Pulse Resp BP Pulse Ox 97.8 F 72 18 97/53 L 98 11/20/18 16:00 11/20/18 16:00 11/20/18 16:00 11/20/18 16:00 11/20/18 16:00 Intake & Output 11/19/18 11/20/18 11/21/18 06:59 06:59 06:59 Intake Total 2836 4120 50 Output Total 2215 3125 Balance 621 995 50 Weight 96.7 kg 97.9 kg General appearance: PRESENT: no acute distress, well-developed, well-nourished Head exam: PRESENT: atraumatic, normocephalic Eye exam: PRESENT: conjunctiva pink, EOMI, PERRLA. ABSENT: scleral icterus Ear exam: PRESENT: normal external ear exam Mouth exam: PRESENT: moist, tongue midline Neck exam: ABSENT: carotid bruit, JVD, lymphadenopathy, thyromegaly Respiratory exam: PRESENT: clear to auscultation tip. ABSENT: rales, rhonchi, wheezes Cardiovascular exam: PRESENT: RRR. ABSENT: diastolic murmur, rubs, systolic murmur Pulses: PRESENT: normal dorsalis pedis pul Vascular exam: PRESENT: normal capillary refill GI/Abdominal exam: PRESENT: normal bowel sounds, soft, tenderness, other - colostomy with brown stool abdominal wall wound covered with dressing, mild discharges. ABSENT: distended, guarding, mass, organolmegaly, rebound Rectal exam: PRESENT: deferred Extremities exam: PRESENT: full ROM. ABSENT: calf tenderness, clubbing, pedal edema Neurological exam: PRESENT: alert, awake, oriented to person, oriented to place, oriented to time, oriented to situation, CN II-XII grossly intact. ABSENT: motor sensory deficit Psychiatric exam: PRESENT: appropriate affect, normal mood. ABSENT: homicidal i deation, suicidal ideation Skin exam: PRESENT: dry, intact, warm. ABSENT: cyanosis, rash Results Laboratory Results: 11/19/18 08:59 11/19/18 08:59 11/14/18 06:10 NT-Pro-B Natriuret Pep 388 Impressions: Abdomen CT 11/13/18 19:31 IMPRESSION: Subcutaneous inflammatory change near the midline of the lower anterior abdomen, with a small amount of subcutaneous gas and superficial skin defect. Findings may be postoperative in nature. There was a well-defined fluid collection at this site on the prior exam which is no longer present. Right lower quadrant ostomy. No gross evidence for bowel obstruction. Stable bilateral renal cysts. TECHNICAL DOCUMENTATION: Quality ID # 436: Final reports with documentation of one or more dose reduction techniques (e.g., Automated exposure control, adjustment of the mA and/or kV according to patient size, use of iterative reconstruction technique) copyright 2011 [employer]- All Rights Reserved Chest X-Ray 11/13/18 19:32 IMPRESSION: NO ACUTE RADIOGRAPHIC FINDING IN THE CHEST. Assessment & Plan - Diagnosis (1) Cellulitis of right abdominal wall Is this a current diagnosis for this admission?: Yes (2) Acute kidney injury Is this a current diagnosis for this admission?: Yes (3) Dehydration Is this a current diagnosis for this admission?: Yes (4) Diabetes 1.5, managed as type 2 Is this a current diagnosis for this admission?: Yes (5) Metabolic acidosis Is this a current diagnosis for this admission?: Yes - Time Time Spent with patient: 15-24 minutes Medications reviewed and adjusted accordingly: Yes Anticipated discharge: SNF Within: when bed available - Inpatient Certification Based on my medical assessment, after consideration of the patient's comorbidities, presenting symptoms, or acuity I expect that the services needed warrant INPATIENT care.: Yes Medical Necessity: Need for IV Antibiotics - Plan Summary Plan Summary: Continue same treatment
[2018-11-20] MEDS: ASPIRIN 81 MG TABLET, ENT COATED PO SCH (21:23)
[2018-11-20] MEDS: CHOLECALCIFEROL (D3) 1,000 UNIT TABLET PO SCH (21:24)
[2018-11-20] MEDS: ATORVASTATIN CALCIUM 40 MG TABLET PO SCH (21:24)
[2018-11-20] MEDS: NORMAL SALINE 1000 ML 1,000 ML IV PRN (21:24)
[2018-11-21] MEDS: LANSOPRAZOLE 30 MG TAB.RAP.DR PO SCH (05:28)
[2018-11-21] MEDS: HEPARIN SOD (PORCINE) 5,000 UNIT/ML 1 ML SYRINGE SUBCUT SCH ×3 (05:28→21:26)
[2018-11-21] MEDS: MUPIROCIN 2% OINTMENT 22 GM TP SCH ×2 (05:28→17:19)
[2018-11-21 06:08] LABS: ABSOLUTE BASOPHILS # (AUTO) 0.1 10^3/uL (0.0-0.2); ABSOLUTE EOSINOPHILS # (AUTO) 0.2 10^3/uL (0.0-0.6); ABSOLUTE LYMPHOCYTES (AUTO) 1.8 10^3/uL (0.5-4.7); ABSOLUTE MONOCYTES (AUTO) 0.6 10^3/uL (0.1-1.4); ABSOLUTE NEUT (AUTO) 4.4 10^3/uL (1.7-8.2); BASOPHILS % (AUTO) 0.8 % (0-2); EOSINOPHILS % (AUTO) 3.1 % (0-6); HEMOGLOBIN 10.2 g/dL (13.5-17.0); MEAN CORPUSCULAR HEMOGLOBIN 32.4 pg (27.0-33.4); MEAN CORPUSCULAR HGB CONC 35.2 g/dL (32.0-36.0); MEAN CORPUSCULAR VOLUME 92 fl (80-97); MONOCYTES % (AUTO) 7.8 % (3-13); PLATELET COUNT 173 10^3/uL (150-450); RED BLOOD COUNT 3.15 10^6/uL (4.35-5.55); SEGMENTED NEUTROPHILS % (AUTO) 62.3 % (42-78); TOTAL CELLS COUNTED % (AUTO) 100 %; WHITE BLOOD COUNT 7.1 10^3/uL (4.0-10.5)
[2018-11-21 06:28] LABS: ANION GAP 5 (5-19); BLOOD UREA NITROGEN 21 mg/dL (7-20); CARBON DIOXIDE 22 mmol/L (22-30); CHLORIDE 111 mmol/L (98-107); GLUCOSE 78 mg/dL (75-110); POTASSIUM 4.4 mmol/L (3.6-5.0); SODIUM 138.1 mmol/L (137-145)
[2018-11-21] MEDS: SODIUM BICARBONATE 650 MG TABLET PO SCH ×3 (07:53→21:26)
[2018-11-21] MEDS: METOPROLOL SUCCINATE 25 MG TAB.SR.24H PO SCH (11:33)
[2018-11-21] MEDS: CLOPIDOGREL BISULFATE 75 MG TABLET PO SCH (11:34)
[2018-11-21] MEDS: CEFTRIAXONE 1 GM/D5W RTU 1 GM/50 ML RTUPB IV SCH (11:34)
[2018-11-21] MEDS: DOCUSATE SODIUM 100 MG CAPSULE PO SCH ×2 (11:34→17:18)
[2018-11-21] MEDS: CLOTRIMAZOLE/BETAMETHASONE DIP CREAM 15 GM TOP SCH ×2 (11:35→23:07)
[2018-11-21] MEDS: INSULIN GLARGINE,HUM.REC.ANLOG 300 UNIT/3 ML INSULN.PEN SUBCUT SCH ×2 (11:35→21:26)
--- NOTE | 2018-11-21 11:45 | PDOC PROGRESS REPORT ---
Subjective Progress Note for:: 11/21/18 Subjective:: Patient admitted with leaking from his colostomy bag, nausea vomiting as well as dehydration. He continues to feel better Concern about patient taking care of his wound when gc home. He has an open abd wound that is being dressed daily Reason For Visit: TOYA, DEHYDRATION Physical Exam Vital Signs: Temp Pulse Resp BP Pulse Ox 97.9 F 80 12 104/61 98 11/21/18 11:38 11/21/18 11:38 11/21/18 11:38 11/21/18 11:38 11/21/18 11:38 Intake & Output 11/20/18 11/21/18 11/22/18 06:59 06:59 06:59 Intake Total 4120 1610 Output Total 3125 3700 Balance 995 -2090 Weight 97.9 kg 96.8 kg General appearance: PRESENT: no acute distress, well-developed, well-nourished Head exam: PRESENT: atraumatic, normocephalic Eye exam: PRESENT: conjunctiva pink, EOMI, PERRLA. ABSENT: scleral icterus Ear exam: PRESENT: normal external ear exam Mouth exam: PRESENT: moist, tongue midline Neck exam: ABSENT: carotid bruit, JVD, lymphadenopathy, thyromegaly Respiratory exam: PRESENT: clear to auscultation tip. ABSENT: rales, rhonchi, wheezes Cardiovascular exam: PRESENT: RRR. ABSENT: diastolic murmur, rubs, systolic murmur Pulses: PRESENT: normal dorsalis pedis pul Vascular exam: PRESENT: normal capillary refill GI/Abdominal exam: PRESENT: normal bowel sounds, soft, other - colostomy with brown stool open wound medial to colostomy bag with mild drainage. ABSENT: dis tended, guarding, mass, organolmegaly, rebound, tenderness Rectal exam: PRESENT: deferred Extremities exam: PRESENT: full ROM. ABSENT: calf tenderness, clubbing, pedal edema Neurological exam: PRESENT: alert, awake, oriented to person, oriented to place, oriented to time, oriented to situation, CN II-XII grossly intact. ABSENT: motor sensory deficit Psychiatric exam: PRESENT: appropriate affect, normal mood. ABSENT: homicidal ideation, suicidal ideation Skin exam: PRESENT: dry, intact, warm. ABSENT: cyanosis, rash Results Laboratory Results: 11/21/18 05:20 11/21/18 05:20 11/21/18 11/21/18 05:20 05:20 WBC 7.1 RBC 3.15 L Hgb 10.2 L Hct 29.0 L MCV 92 MCH 32.4 MCHC 35.2 RDW 14.0 Plt Count 173 Seg Neutrophils % 62.3 Lymphocytes % 26.0 Monocytes % 7.8 Eosinophils % 3.1 Basophils % 0.8 Absolute Neutrophils 4.4 Absolute Lymphocytes 1.8 Absolute Monocytes 0.6 Absolute Eosinophils 0.2 Absolute Basophils 0.1 Sodium 138.1 Potassium 4.4 Chloride 111 H Carbon Dioxide 22 Anion Gap 5 BUN 21 H Creatinine 0.77 Est GFR ( Amer) > 60 Est GFR (Non-Af Amer) > 60 Glucose 78 Calcium 9.0 11/14/18 06:10 NT-Pro-B Natriuret Pep 388 Impressions: Abdomen CT 11/13/18 19:31 IMPRESSION: Subcutaneous inflammatory change near the midline of the lower anterior abdomen, with a small amount of subcutaneous gas and superficial skin defect. Findings may be postoperative in nature. There was a well-defined fluid collection at this site on the prior exam which is no longer present. Right lower quadrant ostomy. No gross evidence for bowel obstruction. Stable bilateral renal cysts. TECHNICAL DOCUMENTATION: Quality ID # 436: Final reports with documentation of one or more dose reduction techniques (e.g., Automated exposure control, adjustment of the mA and/or kV according to patient size, use of iterative reconstruction technique) copyright 2011 [employer]- All Rights Reserved Chest X-Ray 11/13/18 19:32 IMPRESSION: NO ACUTE RADIOGRAPHIC FINDING IN THE CHEST. Assessment & Plan - Diagnosis (1) Cellulitis of right abdominal wall Is this a current diagnosis for this admission?: Yes Plan: Day 5 on Ceftriaxone. Will plan for 7 days treatment (2) Acute kidney injury Is this a current diagnosis for this admission?: Yes Plan: Kidney function continues to improve with BUN down to 21. Will reduce IVF (3) Dehydration Is this a current diagnosis for this admission?: Yes (4) Diabetes 1.5, managed as type 2 Is this a current diagnosis for this admission?: Yes (5) Metabolic acidosis Is this a current diagnosis for this admission?: Yes Plan: Patient treated with IV and now oral HCO3. CO2 is improving. Will decrease bicarb - Time Time Spent with patient: 15-24 minutes Medications reviewed and adjusted accordingly: Yes Anticipated discharge: SNF Within: within 72 hours - Inpatient Certification Based on my medical assessment, after consideration of the patient's comorbidities, presenting symptoms, or acuity I expect that the services needed warrant INPATIENT care.: Yes Medical Necessity: Need for IV Antibiotics, Risk of Complication if Not Cared For in Hospital - Plan Summary Plan Summary: Reconsult social service for disposition
[2018-11-21] MEDS: NORMAL SALINE 1000 ML 1,000 ML IV PRN (19:25)
[2018-11-21] MEDS: ATORVASTATIN CALCIUM 40 MG TABLET PO SCH (21:26)
[2018-11-21] MEDS: ASPIRIN 81 MG TABLET, ENT COATED PO SCH (21:26)
[2018-11-21] MEDS: CHOLECALCIFEROL (D3) 1,000 UNIT TABLET PO SCH (21:26)
[2018-11-22] MEDS: MUPIROCIN 2% OINTMENT 22 GM TP SCH ×2 (05:19→18:57)
[2018-11-22] MEDS: HEPARIN SOD (PORCINE) 5,000 UNIT/ML 1 ML SYRINGE SUBCUT SCH ×3 (05:20→21:42)
[2018-11-22] MEDS: LANSOPRAZOLE 30 MG TAB.RAP.DR PO SCH (05:20)
[2018-11-22] MEDS: DOCUSATE SODIUM 100 MG CAPSULE PO SCH ×2 (09:14→18:58)
[2018-11-22] MEDS: NORMAL SALINE 1000 ML 1,000 ML IV PRN ×2 (09:15→23:29)
[2018-11-22] MEDS: INSULIN GLARGINE,HUM.REC.ANLOG 300 UNIT/3 ML INSULN.PEN SUBCUT SCH ×2 (09:17→21:42)
[2018-11-22] MEDS: METOPROLOL SUCCINATE 25 MG TAB.SR.24H PO SCH (09:18)
[2018-11-22] MEDS: CLOPIDOGREL BISULFATE 75 MG TABLET PO SCH (09:19)
[2018-11-22] MEDS: SODIUM BICARBONATE 650 MG TABLET PO SCH ×2 (09:19→21:43)
[2018-11-22] MEDS: CEFTRIAXONE 1 GM/D5W RTU 1 GM/50 ML RTUPB IV SCH (09:20)
[2018-11-22] MEDS: CLOTRIMAZOLE/BETAMETHASONE DIP CREAM 15 GM TOP SCH ×2 (14:38→23:29)
--- NOTE | 2018-11-22 15:58 | PDOC PROGRESS REPORT ---
Subjective Progress Note for:: 11/22/18 Subjective:: Patient admitted with leaking from his colostomy bag, nausea vomiting as well as dehydration. He continues to feel better Concern about patient taking care of his wound when he goes home hence awaiting DC plan for possible Rehab He has an open abd wound that is being dressed daily Reason For Visit: TOYA, DEHYDRATION Physical Exam Vital Signs: Temp Pulse Resp BP Pulse Ox 98.2 F 85 18 108/59 L 97 11/22/18 12:00 11/22/18 12:00 11/22/18 12:00 11/22/18 12:00 11/22/18 12:00 Intake & Output 11/21/18 11/22/18 11/23/18 06:59 06:59 06:59 Intake Total 1610 1390 1000 Output Total 3700 2615 Balance -2090 -1225 1000 Weight 96.8 kg 97.5 kg General appearance: PRESENT: no acute distress, well-developed, well-nourished Head exam: PRESENT: atraumatic, normocephalic Eye exam: PRESENT: conjunctiva pink, EOMI, PERRLA. ABSENT: scleral icterus Ear exam: PRESENT: normal external ear exam Mouth exam: PRESENT: moist, tongue midline Neck exam: ABSENT: carotid bruit, JVD, lymphadenopathy, thyromegaly Respiratory exam: PRESENT: clear to auscultation tip. ABSENT: rales, rhonchi, wheezes Cardiovascular exam: PRESENT: RRR. ABSENT: diastolic murmur, rubs, systolic murmur Pulses: PRESENT: normal dorsalis pedis pul Vascular exam: PRESENT: normal capillary refill GI/Abdominal exam: PRESENT: normal bowel sounds, soft, other - colostomy bag with brown stool open wound medial to colostomy bag with mild drainage, chronic, POA. ABSENT: distended, guarding, mass, organolmegaly, rebound, tenderness Rectal exam: PRESENT: deferred Extremities exam: PRESENT: full ROM. ABSENT: calf tenderness, clubbing, pedal edema Neurological exam: PRESENT: alert, awake, oriented to person, oriented to place, oriented to time, oriented to situation, CN II-XII grossly intact. ABSENT: motor sensory deficit Psychiatric exam: PRESENT: appropriate affect, normal mood. ABSENT: homicidal ideation, suicidal ideation Skin exam: PRESENT: dry, intact, warm. ABSENT: cyanosis, rash Results Laboratory Results: 11/21/18 05:20 11/21/18 05:20 11/14/18 06:10 NT-Pro-B Natriuret Pep 388 Impressions: Abdomen CT 11/13/18 19:31 IMPRESSION: Subcutaneous inflammatory change near the midline of the lower anterior abdomen, with a small amount of subcutaneous gas and superficial skin defect. Findings may be postoperative in nature. There was a well-defined fluid collection at this site on the prior exam which is no longer present. Right lower quadrant ostomy. No gross evidence for bowel obstruction. Stable bilateral renal cysts. TECHNICAL DOCUMENTATION: Quality ID # 436: Final reports with documentation of one or more dose reduction techniques (e.g., Automated exposure control, adjustment of the mA and/or kV according to patient size, use of iterative reconstruction technique) copyright 2011 [employer]- All Rights Reserved Chest X-Ray 11/13/18 19:32 IMPRESSION: NO ACUTE RADIOGRAPHIC FINDING IN THE CHEST. Assessment & Plan - Diagnosis (1) Cellulitis of right abdominal wall Is this a current diagnosis for this admission?: Yes Plan: Day 6 on Ceftriaxone. Will plan for 7 days treatment Can DC if clinically appropriate Further consult as needed (2) Acute kidney injury Is this a current diagnosis for this admission?: Yes Plan: Kidney function continues to improve. Patient is on IV fluid due to his azotemia. We will recheck BMP in a.m. and adjust accordingly (3) Dehydration Is this a current diagnosis for this admission?: Yes Plan: IV fluid as above (4) Diabetes 1.5, managed as type 2 Is this a current diagnosis for this admission?: Yes (5) Metabolic acidosis Is this a current diagnosis for this admission?: Yes Plan: Patient treated with IV and now oral HCO3. CO2 is improving. Follow-up labs in the a.m. and adjust bicarb as needed - Time Time Spent with patient: 15-24 minutes Medications reviewed and adjusted accordingly: Yes Anticipated discharge: SNF Within: within 48 hours
[2018-11-22] MEDS: ASPIRIN 81 MG TABLET, ENT COATED PO SCH (21:42)
[2018-11-22] MEDS: ATORVASTATIN CALCIUM 40 MG TABLET PO SCH (21:42)
[2018-11-22] MEDS: CHOLECALCIFEROL (D3) 1,000 UNIT TABLET PO SCH (21:43)
[2018-11-23] MEDS: HEPARIN SOD (PORCINE) 5,000 UNIT/ML 1 ML SYRINGE SUBCUT SCH ×3 (05:58→21:36)
[2018-11-23] MEDS: LANSOPRAZOLE 30 MG TAB.RAP.DR PO SCH (05:58)
[2018-11-23] MEDS: MUPIROCIN 2% OINTMENT 22 GM TP SCH ×2 (05:58→18:33)
[2018-11-23 07:26] LABS: ABSOLUTE BASOPHILS # (AUTO) 0.1 10^3/uL (0.0-0.2); ABSOLUTE EOSINOPHILS # (AUTO) 0.3 10^3/uL (0.0-0.6); ABSOLUTE LYMPHOCYTES (AUTO) 1.8 10^3/uL (0.5-4.7); ABSOLUTE MONOCYTES (AUTO) 0.6 10^3/uL (0.1-1.4); ABSOLUTE NEUT (AUTO) 5.8 10^3/uL (1.7-8.2); BASOPHILS % (AUTO) 1.1 % (0-2); EOSINOPHILS % (AUTO) 3.3 % (0-6); HEMATOCRIT 31.9 % (37.9-51.0); HEMOGLOBIN 10.6 g/dL (13.5-17.0); LYMPHOCYTES % (AUTO) 21.1 % (13-45); MEAN CORPUSCULAR HEMOGLOBIN 31.3 pg (27.0-33.4); MEAN CORPUSCULAR HGB CONC 33.1 g/dL (32.0-36.0); MEAN CORPUSCULAR VOLUME 94 fl (80-97); MONOCYTES % (AUTO) 6.8 % (3-13); PLATELET COUNT 200 10^3/uL (150-450); RED BLOOD COUNT 3.38 10^6/uL (4.35-5.55); SEGMENTED NEUTROPHILS % (AUTO) 67.7 % (42-78); TOTAL CELLS COUNTED % (AUTO) 100 %; WHITE BLOOD COUNT 8.5 10^3/uL (4.0-10.5)
[2018-11-23 07:46] LABS: ANION GAP 8 (5-19); BLOOD UREA NITROGEN 17 mg/dL (7-20); CARBON DIOXIDE 26 mmol/L (22-30); CHLORIDE 108 mmol/L (98-107); GLUCOSE 70 mg/dL (75-110)
[2018-11-23 07:55] LABS: POTASSIUM 4.1 mmol/L (3.6-5.0)
[2018-11-23] MEDS: METOPROLOL SUCCINATE 25 MG TAB.SR.24H PO SCH (11:02)
[2018-11-23] MEDS: DOCUSATE SODIUM 100 MG CAPSULE PO SCH ×2 (11:02→18:10)
[2018-11-23] MEDS: SODIUM BICARBONATE 650 MG TABLET PO SCH (11:02)
[2018-11-23] MEDS: CEFTRIAXONE 1 GM/D5W RTU 1 GM/50 ML RTUPB IV SCH (11:05)
[2018-11-23] MEDS: CLOPIDOGREL BISULFATE 75 MG TABLET PO SCH (11:05)
[2018-11-23] MEDS: INSULIN GLARGINE,HUM.REC.ANLOG 300 UNIT/3 ML INSULN.PEN SUBCUT SCH (11:20)
[2018-11-23] MEDS: CLOTRIMAZOLE/BETAMETHASONE DIP CREAM 15 GM TOP SCH (13:16)
[2018-11-23] MEDS: NORMAL SALINE 1000 ML 1,000 ML IV PRN (13:27)
--- NOTE | 2018-11-23 15:40 | PDOC PROGRESS REPORT ---
Subjective Progress Note for:: 11/23/18 Subjective:: 11/23/2018-no acute events in the last 24 hours. Patient is afebrile. Complaints from the patient's. Nurse is telling me patient has a surgical wound last debridement was done echo as per the patient in February this is a tunneling a slight drainage from the wound so we went ahead and request for surgical consult. Reason For Visit: TOYA, DEHYDRATION Physical Exam Vital Signs: Temp Pulse Resp BP Pulse Ox 98.2 F 85 16 115/65 97 11/23/18 11:08 11/23/18 11:08 11/23/18 11:08 11/23/18 11:08 11/23/18 11:08 Intake & Output 11/22/18 11/23/18 11/24/18 06:59 06:59 06:59 Intake Total 2390 3380 1050 Output Total 2615 3965 Balance -225 -585 1050 Weight 97.5 kg 97.9 kg General appearance: PRESENT: no acute distress Head exam: PRESENT: atraumatic Eye exam: PRESENT: PERRLA Mouth exam: PRESENT: moist Neck exam: ABSENT: carotid bruit, JVD, lymphadenopathy, thyromegaly Respiratory exam: PRESENT: clear to auscultation tip. ABSENT: rales, rhonchi, wheezes Cardiovascular exam: PRESENT: RRR. ABSENT: diastolic murmur, rubs, systolic murmur GI/Abdominal exam: PRESENT: normal bowel sounds, soft. ABSENT: distended, guarding, mass, organolmegaly, rebound, tenderness Extremities exam: PRESENT: full ROM. ABSENT: calf tenderness, clubbing, pedal edema Neurological exam: PRESENT: alert, awake, oriented to person, oriented to place, oriented to time, oriented to situation, CN II-XII grossly intact. ABSENT: motor sensory deficit Psychiatric exam: PRESENT: appropriate affect, normal mood. ABSENT: homicidal ideation, suicidal ideation Results Laboratory Results: 11/23/18 07:06 11/23/18 07:06 11/23/18 11/23/18 07:06 07:06 WBC 8.5 RBC 3.38 L Hgb 10.6 L Hct 31.9 L MCV 94 MCH 31.3 MCHC 33.1 RDW 14.0 Plt Count 200 Seg Neutrophils % 67.7 Lymphocytes % 21.1 Monocytes % 6.8 Eosinophils % 3.3 Basophils % 1.1 Absolute Neutrophils 5.8 Absolute Lymphocytes 1.8 Absolute Monocytes 0.6 Absolute Eosinophils 0.3 Absolute Basophils 0.1 Sodium 142.0 Potassium 4.1 Chloride 108 H Carbon Dioxide 26 Anion Gap 8 BUN 17 Creatinine 0.85 Est GFR ( Amer) > 60 Est GFR (Non-Af Amer) > 60 Glucose 70 L Calcium 9.0 11/14/18 06:10 NT-Pro-B Natriuret Pep 388 Impressions: Abdomen CT 11/13/18 19:31 IMPRESSION: Subcutaneous inflammatory change near the midline of the lower anterior abdomen, with a small amount of subcutaneous gas and superficial skin defect. Findings may be postoperative in nature. There was a well-defined fluid collection at this site on the prior exam which is no longer present. Right lower quadrant ostomy. No gross evidence for bowel obstruction. Stable bilateral renal cysts. TECHNICAL DOCUMENTATION: Quality ID # 436: Final reports with documentation of one or more dose reduction techniques (e.g., Automated exposure control, adjustment of the mA and/or kV according to patient size, use of iterative reconstruction technique) copyright 2011 [employer]- All Rights Reserved Chest X-Ray 11/13/18 19:32 IMPRESSION: NO ACUTE RADIOGRAPHIC FINDING IN THE CHEST. Assessment & Plan - Diagnosis (1) Acute kidney injury Is this a current diagnosis for this admission?: Yes Plan: 11/23/2018-patient came in with creatinine of 2.72 improved to 0.85 today acute kidney injury most likely prerenal resolved. (2) Dehydration Is this a current diagnosis for this admission?: Yes Plan: 11/23/2018-patient came in with dehydration, and acute kidney injury with IV fluids acute kidney injury dehydration was resolved. (3) Diabetes 1.5, managed as type 2 Is this a current diagnosis for this admission?: Yes Plan: 11/23/2018-patient hemoglobin A1c is 5.2. His blood sugars are low this morning. I discontinued Lantus and kept him on insulin sliding scale only. Plan is to closely monitor the blood sugars. (4) Metabolic acidosis Is this a current diagnosis for this admission?: Yes Plan: 11/23/2018 patient was admitted with metabolic acidosis probably secondary to acute kidney injury and he was on IV bicarb followed by oral bicarb bicarb today is 26, so oral Bicarb was discontinued. (5) Cellulitis of right abdominal wall Is this a current diagnosis for this admission?: Yes Plan: Day 6 on Ceftriaxone. Will plan for 7 days treatment Can DC if clinically appropriate Further consult as needed Patient has a chronic abdominal wound possible cellulitis of the abdominal wall is on ceftriaxone. On examination today wound looks clean but there is underlying tunneling was seen and is slightly serous drainage coming from the tunnel surgical consult was requested. - Time Time Spent with patient: 15-24 minutes Medications reviewed and adjusted accordingly: Yes Anticipated discharge: Home
[2018-11-23] MEDS: HYDROXYZINE PAMOATE 25 MG CAPSULE PO SCH (18:33)
[2018-11-23] MEDS: CHOLECALCIFEROL (D3) 1,000 UNIT TABLET PO SCH (21:36)
[2018-11-23] MEDS: ATORVASTATIN CALCIUM 40 MG TABLET PO SCH (21:36)
[2018-11-23] MEDS: ASPIRIN 81 MG TABLET, ENT COATED PO SCH (21:36)
[2018-11-23] MEDS: OXYBUTYNIN CHLORIDE 5 MG TABLET PO SCH (21:36)
--- NOTE | 2018-11-23 21:53 | PDOC CONSULTATION ---
Consultation Consult reason:: Chronic abdominal wound History of Present Illness Admission Date/PCP: 11/13/18 23:15 Aliyah FLORES History of Present Illness: RASHIDA MOTA is a 73 year old male seen at the request of the hospitalist service. This is a morbidly obese patient that underwent exploratory laparotomy in February 2018 for an ingested foreign body and small bowel perforation. The patient has had a chronic abdominal wound since then. Patient denies drainage from the wound. He denies fevers and chills. The patient denies chest pain, shortness of breath, dizziness, orthostasis, abdominal pain, malaise. He does report weakness. Past Medical History Cardiac Medical History: Reports: Coronary Artery Disease, Hyperlipidema, Hypertension Pulmonary Medical History: Denies: Asthma, Chronic Obstructive Pulmonary Disease (COPD) EENT Medical History: Reports: None Neurological Medical History: Reports: Seizures Denies: Hemorrhagic CVA, Ischemic CVA, Migraine, Multiple Sclerosis Endocrine Medical History: Reports: Diabetes Mellitus Type 2, Obesity Denies: Diabetes Mellitus Type 1, Hyperthyroidism, Hypothyroidism Renal/ Medical History: Denies: Chronic Kidney Disease, Nephrolithiasis Malignancy Medical History: Reports: None GI Medical History: Reports: Gastroesophageal Reflux Disease, Other - Multiple abdominal surgeries Denies: Cirrhosis, Hepatitis Musculoskeltal Medical History: Denies: Arthritis, Gout Skin Medical History: Denies: Eczema, Psoriasis Psychiatric Medical History: Reports: Tobacco Dependency Denies: Alcohol Dependency, Depression, Substance Abuse Traumatic Medical History: Reports: None Hematology: Denies: Anemia, Bleeding Tendencies Infectious Medical History: Reports: None Past Surgical History Past Surgical History: Reports: Cardiac Catheterization, Coronary Artery Bypass Graft, Coronary Stent, Herniorrhaphy - Ventral hernia repair, Other - laparotomy for perforated viscus 3 yrs ago due to chicken bone. Social History Lives with: Family Smoking Status: Former Smoker Frequency of Alcohol Use: None Hx Recreational Drug Use: No Drugs: None Hx Prescription Drug Abuse: No - Advance Directive Resuscitation Status: Full Code Family History Family History: Hypertension Parental Family History Reviewed: Yes Children Family History Reviewed: Yes Sibling(s) Family History Reviewed.: Yes Medication/Allergy Home Medications: Metoprolol Succinate [Toprol Xl 25 mg Tab.sr] 25 mg PO DAILY 02/06/18 Sitagliptin Phosphate [Januvia] 100 mg PO DAILY 02/06/18 Solifenacin Succinate [Vesicare] 10 mg PO DAILY 02/06/18 Atorvastatin Calcium [Lipitor 40 mg Tablet] 40 mg PO QHS 11/14/18 Hydroxyzine Pamoate [Vistaril 25 mg Capsule] 25 mg PO Q6 11/14/18 Insulin Detemir [Levemir Insulin 100 units/mL] 25 unit SQ BID 11/14/18 Omeprazole 20 mg PO DAILY 11/14/18 Oxybutynin Chloride [Ditropan Xl] 10 mg PO DAILY 11/14/18 Allergies/Adverse Reactions: Penicillins Allergy (Intermediate, Verified 11/18/18 16:02) Hives Review of Systems Constitutional: ABSENT: chills, fever(s) Eyes: ABSENT: visual disturbances Ears: ABSENT: hearing changes Nose, Mouth, and Throat: ABSENT: sore throat Cardiovascular: ABSENT: chest pain, palpitations Respiratory: ABSENT: cough, dyspnea Gastrointestinal: ABSENT: abdominal pain, constipation, melena, nausea, vomiting Genitourinary: ABSENT: hematuria Integumentary: PRESENT: wounds - Chronic abdominal wound. ABSENT: pruritus Neurological: PRESENT: weakness. ABSENT: confusion, convulsions Psychiatric: ABSENT: anxiety, depression Endocrine: ABSENT: cold intolerance Hematologic/Lymphatic: ABSENT: easy bleeding, easy bruising Physical Exam Vital Signs: Temp Pulse Resp BP Pulse Ox 97.8 F 61 17 106/39 L 88 L 11/23/18 15:44 11/23/18 15:44 11/23/18 15:44 11/23/18 15:44 11/23/18 15:44 Intake & Output 11/22/18 11/23/18 11/24/18 06:59 06:59 06:59 Intake Total 2390 3380 1050 Output Total 2615 3965 Balance -225 -585 1050 Weight 97.5 kg 97.9 kg General appearance: PRESENT: no acute distress, morbidly obese Head exam: PRESENT: atraumatic, normocephalic Eye exam: PRESENT: EOMI, PERRLA. ABSENT: scleral icterus Mouth exam: PRESENT: neck supple Neck exam: ABSENT: meningismus, tenderness, thyromegaly, tracheal deviation Respiratory exam: PRESENT: unlabored. ABSENT: chest wall tenderness, tachypnea, wheezes Cardiovascular exam: PRESENT: RRR Pulses: PRESENT: normal radial pulses Vascular exam: PRESENT: normal capillary refill. ABSENT: pallor GI/Abdominal exam: PRESENT: soft, other - Right lower quadrant stoma present. ABSENT: tenderness Rectal exam: PRESENT: deferred Neurological exam: PRESENT: alert, awake, oriented to person, oriented to place, oriented to time, oriented to situation Psychiatric exam: ABSENT: agitated, anxious Focused psych exam: ABSENT: delusional Skin exam: PRESENT: other - Midline abdominal wound, chronic appearing. Granulation tissue is present. Normal scar tissue is present around the per iphery. There is no drainage or purulence.. ABSENT: cyanosis, jaundice Results Laboratory Results: 11/23/18 07:06 11/23/18 07:06 11/23/18 11/23/18 07:06 07:06 WBC 8.5 RBC 3.38 L Hgb 10.6 L Hct 31.9 L MCV 94 MCH 31.3 MCHC 33.1 RDW 14.0 Plt Count 200 Seg Neutrophils % 67.7 Lymphocytes % 21.1 Monocytes % 6.8 Eosinophils % 3.3 Basophils % 1.1 Absolute Neutrophils 5.8 Absolute Lymphocytes 1.8 Absolute Monocytes 0.6 Absolute Eosinophils 0.3 Absolute Basophils 0.1 Sodium 142.0 Potassium 4.1 Chloride 108 H Carbon Dioxide 26 Anion Gap 8 BUN 17 Creatinine 0.85 Est GFR ( Amer) > 60 Est GFR (Non-Af Amer) > 60 Glucose 70 L Calcium 9.0 11/14/18 06:10 NT-Pro-B Natriuret Pep 388 Impressions: Abdomen CT 11/13/18 19:31 IMPRESSION: Subcutaneous inflammatory change near the midline of the lower anterior abdomen, with a small amount of subcutaneous gas and superficial skin defect. Findings may be postoperative in nature. There was a well-defined fluid collection at this site on the prior exam which is no longer present. Right lower quadrant ostomy. No gross evidence for bowel obstruction. Stable bilateral renal cysts. TECHNICAL DOCUMENTATION: Quality ID # 436: Final reports with documentation of one or more dose reduction techniques (e.g., Automated exposure control, adjustment of the mA and/or kV according to patient size, use of iterative reconstruction technique) copyright 2010 [employer]- All Rights Reserved Chest X-Ray 11/13/18 19:32 IMPRESSION: NO ACUTE RADIOGRAPHIC FINDING IN THE CHEST. Assessment & Plan - Diagnosis (1) Open abdominal wall wound Qualifiers: Encounter type: initial encounter Qualified Code(s): S31.109A - Unspecified open wound of abdominal wall, unspecified quadrant without penetration into peritoneal cavity, initial encounter Is this a current diagnosis for this admission?: Yes - Plan Summary Plan Summary: This is a 73-year-old male with a chronic appearing abdominal wound. There is granulation tissue present, with scarring at the periphery. At this time the wound appears stable. There is no purulence or necrosis. I cannot see any indication for surgical intervention. Continue dressing changes (damp to dry twice daily). Recommend outpatient wound care clinic follow-up. I will see the patient again on an as-needed basis. Please renotify with any questions or conc erns.
[2018-11-23] MEDS ORDERED: ATORVASTATIN CALCIUM 40 MG TABLET PO SCH (22:00)
[2018-11-24] MEDS: HYDROXYZINE PAMOATE 25 MG CAPSULE PO SCH ×4 (00:53→18:17)
[2018-11-24] MEDS: CLOTRIMAZOLE/BETAMETHASONE DIP CREAM 15 GM TOP SCH ×2 (00:53→13:23)
[2018-11-24] MEDS: MUPIROCIN 2% OINTMENT 22 GM TP SCH ×2 (05:24→18:22)
[2018-11-24] MEDS: LANSOPRAZOLE 30 MG TAB.RAP.DR PO SCH (05:25)
[2018-11-24] MEDS: HEPARIN SOD (PORCINE) 5,000 UNIT/ML 1 ML SYRINGE SUBCUT SCH ×3 (05:25→22:01)
[2018-11-24 07:30] LABS: ABSOLUTE BASOPHILS # (AUTO) 0.1 10^3/uL (0.0-0.2); ABSOLUTE EOSINOPHILS # (AUTO) 0.4 10^3/uL (0.0-0.6); ABSOLUTE LYMPHOCYTES (AUTO) 2.2 10^3/uL (0.5-4.7); ABSOLUTE MONOCYTES (AUTO) 0.6 10^3/uL (0.1-1.4); ABSOLUTE NEUT (AUTO) 4.4 10^3/uL (1.7-8.2); BASOPHILS % (AUTO) 0.8 % (0-2); HEMATOCRIT 27.8 % (37.9-51.0); HEMOGLOBIN 9.5 g/dL (13.5-17.0); LYMPHOCYTES % (AUTO) 28.5 % (13-45); MEAN CORPUSCULAR HEMOGLOBIN 32.2 pg (27.0-33.4); MEAN CORPUSCULAR HGB CONC 34.1 g/dL (32.0-36.0); MEAN CORPUSCULAR VOLUME 95 fl (80-97); MONOCYTES % (AUTO) 7.6 % (3-13); PLATELET COUNT 168 10^3/uL (150-450); RED BLOOD COUNT 2.94 10^6/uL (4.35-5.55); RED CELL DISTRIBUTION WIDTH 14.1 % (11.5-14.0); SEGMENTED NEUTROPHILS % (AUTO) 58.1 % (42-78); TOTAL CELLS COUNTED % (AUTO) 100 %; WHITE BLOOD COUNT 7.7 10^3/uL (4.0-10.5)
[2018-11-24 07:48] LABS: ALANINE AMINOTRANSFERASE 33 U/L (21-72); ALBUMIN 2.4 g/dL (3.5-5.0); ALKALINE PHOSPHATASE 56 U/L (38-126); ASPARTATE AMINO TRANSFERASE 18 U/L (17-59); BILIRUBIN,DIRECT 0.2 mg/dL (0.0-0.4); BILIRUBIN,TOTAL 0.4 mg/dL (0.2-1.3); BLOOD UREA NITROGEN 16 mg/dL (7-20); CALCIUM 8.7 mg/dL (8.4-10.2); GLUCOSE 84 mg/dL (75-110); POTASSIUM 4.2 mmol/L (3.6-5.0); TOTAL PROTEIN 4.7 g/dL (6.3-8.2)
[2018-11-24 07:54] LABS: ANION GAP 5 (5-19); CARBON DIOXIDE 29 mmol/L (22-30); CHLORIDE 107 mmol/L (98-107); SODIUM 140.7 mmol/L (137-145)
[2018-11-24] MEDS ORDERED: MAGNESIUM SULFATE 4 GM/100 ML RTUPB IV ONE (09:15)
[2018-11-24] MEDS: DOCUSATE SODIUM 100 MG CAPSULE PO SCH ×2 (10:14→18:22)
[2018-11-24] MEDS: CLOPIDOGREL BISULFATE 75 MG TABLET PO SCH (10:15)
[2018-11-24] MEDS: OXYBUTYNIN CHLORIDE 5 MG TABLET PO SCH ×2 (10:15→22:01)
[2018-11-24] MEDS: METOPROLOL SUCCINATE 25 MG TAB.SR.24H PO SCH (10:18)
--- NOTE | 2018-11-24 15:27 | PDOC PROGRESS REPORT ---
Subjective Progress Note for:: 11/24/18 Subjective:: 11/23/2018-no acute events in the last 24 hours. Patient is afebrile. Complaints from the patient's. Nurse is telling me patient has a surgical wound last debridement was done echo as per the patient in February this is a tunneling a slight drainage from the wound so we went ahead and request for surgical consult. 11/24/2018-no acute events in the last 24 hours. Patient is afebrile. Surgical consult was done yesterday for the abdominal wall wound. Patient has exploratory laparotomy after foreign body ingestion and colon perforation several months ago. He is following up with wound care center outside. As per the surgical team dry dressing will be fine. Reason For Visit: TOYA, DEHYDRATION Physical Exam Vital Signs: Temp Pulse Resp BP Pulse Ox 97.6 F 79 16 121/50 L 98 11/24/18 10:40 11/24/18 10:40 11/24/18 10:40 11/24/18 10:40 11/24/18 10:40 Intake & Output 11/23/18 11/24/18 11/25/18 06:59 06:59 06:59 Intake Total 3380 3026 Output Total 3965 2200 250 Balance -585 826 -250 Weight 97.9 kg 96.2 kg General appearance: PRESENT: no acute distress Head exam: PRESENT: atraumatic Eye exam: PRESENT: PERRLA Mouth exam: PRESENT: moist Neck exam: ABSENT: carotid bruit, JVD, lymphadenopathy, thyromegaly Respiratory exam: PRESENT: clear to auscultation tip. ABSENT: rales, rhonchi, wheezes Cardiovascular exam: PRESENT: tachycardia Pulses: PRESENT: normal dorsalis pedis pul GI/Abdominal exam: PRESENT: normal bowel sounds, soft. ABSENT: distended, guarding, mass, organolmegaly, rebound, tenderness Extremities exam: PRESENT: full ROM. ABSENT: calf tenderness, clubbing, pedal edema Neurological exam: PRESENT: alert, awake, oriented to person, oriented to place, oriented to time, oriented to situation, CN II-XII grossly intact. ABSENT: mot or sensory deficit Psychiatric exam: PRESENT: appropriate affect, normal mood. ABSENT: homicidal ideation, suicidal ideation Results Laboratory Results: 11/24/18 06:45 11/24/18 06:45 11/24/18 11/24/18 06:45 06:45 WBC 7.7 RBC 2.94 L Hgb 9.5 L Hct 27.8 L MCV 95 MCH 32.2 MCHC 34.1 RDW 14.1 H Plt Count 168 Seg Neutrophils % 58.1 Lymphocytes % 28.5 Monocytes % 7.6 Eosinophils % 5.0 Basophils % 0.8 Absolute Neutrophils 4.4 Absolute Lymphocytes 2.2 Absolute Monocytes 0.6 Absolute Eosinophils 0.4 Absolute Basophils 0.1 Sodium 140.7 Potassium 4.2 Chloride 107 Carbon Dioxide 29 Anion Gap 5 BUN 16 Creatinine 0.85 Est GFR ( Amer) > 60 Est GFR (Non-Af Amer) > 60 Glucose 84 Calcium 8.7 Magnesium 0.7 L* Total Bilirubin 0.4 AST 18 ALT 33 Alkaline Phosphatase 56 Total Protein 4.7 L Albumin 2.4 L 11/14/18 06:10 NT-Pro-B Natriuret Pep 388 Impressions: Abdomen CT 11/13/18 19:31 IMPRESSION: Subcutaneous inflammatory change near the midline of the lower anterior abdomen, with a small amount of subcutaneous gas and superficial skin defect. Findings may be postoperative in nature. There was a well-defined fluid collection at this site on the prior exam which is no longer present. Right lower quadrant ostomy. No gross evidence for bowel obstruction. Stable bilateral renal cysts. TECHNICAL DOCUMENTATION: Quality ID # 436: Final reports with documentation of one or more dose reduction techniques (e.g., Automated exposure control, adjustment of the mA and/or kV according to patient size, use of iterative reconstruction technique) copyright 2011 [employer]- All Rights Reserved Chest X-Ray 11/13/18 19:32 IMPRESSION: NO ACUTE RADIOGRAPHIC FINDING IN THE CHEST. Assessment & Plan - Diagnosis (1) Acute kidney injury Is this a current diagnosis for this admission?: Yes Plan: 11/23/2018-patient came in with creatinine of 2.72 improved to 0.85 today acute kidney injury most likely prerenal resolved. 11/24/2018-patient was admitted with creatinine of 2.72 today's creatinine was 0.85 acute kidney injury is resolved acute kidney injury probably prerenal. (2) Dehydration Is this a current diagnosis for this admission?: Yes Plan: 11/23/2018-patient came in with dehydration, and acute kidney injury with IV fluids acute kidney injury dehydration was resolved. 11/24/2018-treated with the dehydration and acute kidney injury prerenal. After IV fluids and oral hydration acute kidney injury is resolved. (3) Diabetes 1.5, managed as type 2 Is this a current diagnosis for this admission?: Yes Plan: 11/23/2018-patient hemoglobin A1c is 5.2. His blood sugars are low this morning. I discontinued Lantus and kept him on insulin sliding scale only. Plan is to closely monitor the blood sugars. 11/24/2018-patient blood sugars are well controlled. Hemoglobin A1c was 5.2 diabetic medications discontinued. patient is only on insulin sliding scale. (4) Metabolic acidosis Is this a current diagnosis for this admission?: Yes Plan: 11/23/2018 patient was admitted with metabolic acidosis probably secondary to acute kidney injury and he was on IV bicarb followed by oral bicarb bicarb today is 26, so oral Bicarb was discontinued. 11/24/2018-patient was admitted with metabolic acidosis secondary to uncontrolled diabetes mellitus. Bicarb supplementation was discontinued patient bicarb today is 29. Metabolic acidosis is resolved. (5) Cellulitis of right abdominal wall Is this a current diagnosis for this admission?: Yes Plan: Day 6 on Ceftriaxone. Will plan for 7 days treatment Can DC if clinically appropriate Further consult as needed Patient has a chronic abdominal wound possible cellulitis of the abdominal wall is on ceftriaxone. On examination today wound looks clean but there is underlying tunneling was seen and is slightly serous drainage coming from the tunnel surgical consult was requested. 11/24/2018-patient has a chronic abdominal wall wound. Surgical evaluation was done. Dr. Lemus's input is very much appreciated. We follow his recommen dations. (6) Hypomagnesemia Is this a current diagnosis for this admission?: Yes Plan: 11/24/2018-magnesium level this morning is 0.7. He was given 4 g of IV magnesium. We are going to check his magnesium levels tomorrow. - Time Time Spent with patient: 15-24 minutes Medications reviewed and adjusted accordingly: Yes Anticipated discharge: Home
[2018-11-24] MEDS: MAGNESIUM OXIDE 400 MG TABLET PO SCH (18:21)
[2018-11-24] MEDS: CHOLECALCIFEROL (D3) 1,000 UNIT TABLET PO SCH (22:00)
[2018-11-24] MEDS: ASPIRIN 81 MG TABLET, ENT COATED PO SCH (22:01)
[2018-11-24] MEDS: ATORVASTATIN CALCIUM 40 MG TABLET PO SCH (22:01)
[2018-11-25] MEDS: CLOTRIMAZOLE/BETAMETHASONE DIP CREAM 15 GM TOP SCH ×2 (00:41→13:04)
[2018-11-25] MEDS: HYDROXYZINE PAMOATE 25 MG CAPSULE PO SCH ×3 (00:41→13:05)
[2018-11-25] MEDS: LANSOPRAZOLE 30 MG TAB.RAP.DR PO SCH (05:40)
[2018-11-25] MEDS: HEPARIN SOD (PORCINE) 5,000 UNIT/ML 1 ML SYRINGE SUBCUT SCH ×2 (05:40→14:10)
[2018-11-25] MEDS: MUPIROCIN 2% OINTMENT 22 GM TP SCH (05:42)
[2018-11-25 07:04] LABS: ABSOLUTE EOSINOPHILS # (AUTO) 0.4 10^3/uL (0.0-0.6); ABSOLUTE MONOCYTES (AUTO) 0.5 10^3/uL (0.1-1.4); BASOPHILS % (AUTO) 0.4 % (0-2); EOSINOPHILS % (AUTO) 4.6 % (0-6); HEMATOCRIT 29.9 % (37.9-51.0); HEMOGLOBIN 10.1 g/dL (13.5-17.0); LYMPHOCYTES % (AUTO) 22.2 % (13-45); MEAN CORPUSCULAR HEMOGLOBIN 31.7 pg (27.0-33.4); MEAN CORPUSCULAR HGB CONC 33.9 g/dL (32.0-36.0); MEAN CORPUSCULAR VOLUME 94 fl (80-97); MONOCYTES % (AUTO) 5.4 % (3-13); PLATELET COUNT 191 10^3/uL (150-450); RED BLOOD COUNT 3.19 10^6/uL (4.35-5.55); RED CELL DISTRIBUTION WIDTH 14.1 % (11.5-14.0); SEGMENTED NEUTROPHILS % (AUTO) 67.4 % (42-78); TOTAL CELLS COUNTED % (AUTO) 100 %; WHITE BLOOD COUNT 8.8 10^3/uL (4.0-10.5)
[2018-11-25 07:14] LABS: ALANINE AMINOTRANSFERASE 33 U/L (21-72); ALBUMIN 2.9 g/dL (3.5-5.0); ALKALINE PHOSPHATASE 61 U/L (38-126); ANION GAP 5 (5-19); ASPARTATE AMINO TRANSFERASE 26 U/L (17-59); BILIRUBIN,DIRECT 0.2 mg/dL (0.0-0.4); BILIRUBIN,TOTAL 0.6 mg/dL (0.2-1.3); BLOOD UREA NITROGEN 16 mg/dL (7-20); CALCIUM 8.7 mg/dL (8.4-10.2); CARBON DIOXIDE 30 mmol/L (22-30); CHLORIDE 106 mmol/L (98-107); GLUCOSE 84 mg/dL (75-110); POTASSIUM 4.4 mmol/L (3.6-5.0); SODIUM 140.6 mmol/L (137-145); TOTAL PROTEIN 5.4 g/dL (6.3-8.2)
[2018-11-25] MEDS ORDERED: MAGNESIUM SULFATE/D5W 1 GM/100 ML RTUPB IV SCH ×2 (08:45→13:00)
[2018-11-25] MEDS: METOPROLOL SUCCINATE 25 MG TAB.SR.24H PO SCH (09:38)
[2018-11-25] MEDS: DOCUSATE SODIUM 100 MG CAPSULE PO SCH (09:38)
[2018-11-25] MEDS: MAGNESIUM OXIDE 400 MG TABLET PO SCH (09:43)
[2018-11-25] MEDS: OXYBUTYNIN CHLORIDE 5 MG TABLET PO SCH (09:44)
[2018-11-25] MEDS: CLOPIDOGREL BISULFATE 75 MG TABLET PO SCH (09:44)
--- NOTE | 2018-11-25 16:23 | PDOC DISCHARGE SUMMARY ---
General - Admit/Disc Date/PCP Admission Date/Primary Care Provider: 11/13/18 23:15 Aliyah FLORES Discharge Date: 11/25/17 - Discharge Diagnosis (1) Acute kidney injury Is this a current diagnosis for this admission?: Yes Summary: 11/23/2018-patient came in with creatinine of 2.72 improved to 0.85 today acute kidney injury most likely prerenal resolved. 11/24/2018-patient was admitted with creatinine of 2.72 today's creatinine was 0.85 acute kidney injury is resolved acute kidney injury probably prerenal. 11/25/2018 patient was admitted with acute kidney injury probably prerenal admission creatinine is 2.72 antibodies improved to 0.83 today. Acute kidney injury is resolved. (2) Dehydration Is this a current diagnosis for this admission?: Yes Summary: 11/23/2018-patient came in with dehydration, and acute kidney injury with IV fluids acute kidney injury dehydration was resolved. 11/24/2018-treated with the dehydration and acute kidney injury prerenal. After IV fluids and oral hydration acute kidney injury is resolved. 11/25/2018-patient came in with dehydration secondary to poor oral intake dehydration and acute kidney injury is resolved. (3) Diabetes 1.5, managed as type 2 Is this a current diagnosis for this admission?: Yes Summary: 11/23/2018-patient hemoglobin A1c is 5.2. His blood sugars are low this morning. I discontinued Lantus and kept him on insulin sliding scale only. Plan is to closely monitor the blood sugars. 11/24/2018-patient blood sugars are well controlled. Hemoglobin A1c was 5.2 diabetic medications discontinued. patient is only on insulin sliding scale. 11/25/2018-patient's hemoglobin A1c is 5.2. He is only on insulin sliding scale. At home is a Lantus 25 units twice daily and Aye advised him to hold his these medications until he follows up with his primary care physician. (4) Metabolic acidosis Is this a current diagnosis for this admission?: Yes Summary: 11/23/2018 patient was admitted with metabolic acidosis probably secondary to acute kidney injury and he was on IV bicarb followed by oral bicarb bicarb today is 26, so oral Bicarb was discontinued. 11/24/2018-patient was admitted with metabolic acidosis secondary to uncontrolled diabetes mellitus. Bicarb supplementation was discontinued patient bicarb today is 29. Metabolic acidosis is resolved. 11/25/2018-patient has history of diabetes mellitus came in with uncontrolled blood sugars initially by Low with Bicarb Supplementation Metabolic Acidosis Was Resolved and His PCO2 in the Chemistry today 30. (5) Cellulitis of right abdominal wall Is this a current diagnosis for this admission?: Yes Summary: Day 6 on Ceftriaxone. Will plan for 7 days treatment Can DC if clinically appropriate Further consult as needed Patient has a chronic abdominal wound possible cellulitis of the abdominal wall is on ceftriaxone. On examination today wound looks clean but there is und erlying tunneling was seen and is slightly serous drainage coming from the tunnel surgical consult was requested. 11/24/2018-patient has a chronic abdominal wall wound. Surgical evaluation was done. Dr. Lemus's input is very much appreciated. We follow his recommendations. 11/25/2018-patient has chronic abdominal wall wound. Surgical evaluation was done and appreciated their input. The recommendation from Dr. Lemus- is a dry dressings. Patient is going home today we going to resume the home health. (6) Hypomagnesemia Is this a current diagnosis for this admission?: Yes Summary: 11/25 2018-magnesium level is 0.7 yesterday patient received 4 g of IV magnesium repeat magnesium level today is 1.4 is going to receive another 2 g of IV magnesium today. Started him on p.o. magnesium oxide 400 mg p.o. twice daily. - Additional Information Resuscitation Status: Full Code Discharge Diet: Diabetic Discharge Activity: Activity As Tolerated Home Medications: Metoprolol Succinate [Toprol Xl 25 mg Tab.sr] 25 mg PO DAILY 02/06/18 Atorvastatin Calcium [Lipitor 40 mg Tablet] 40 mg PO QHS 11/14/18 Hydroxyzine Pamoate [Vistaril 25 mg Capsule] 25 mg PO Q6 11/14/18 Omeprazole 20 mg PO DAILY 11/14/18 Oxybutynin Chloride [Ditropan Xl] 10 mg PO DAILY 11/14/18 Aspirin [Ecotrin 81 mg EC Tablet] 81 mg PO QHS tabec 11/25/18 Atorvastatin Calcium [Lipitor 40 mg Tablet] 40 mg PO QHS tablet 11/25/18 Cholecalciferol (Vitamin D3) [Vitamin D3 1000 Unit Tablet] 1,000 unit PO QHS tablet 11/25/18 Clopidogrel Bisulfate [Plavix 75 mg Tablet] 75 mg PO DAILY tablet 11/25/18 History of Present Illness History of Present Illness: RASHIDA MOTA is a 73 year old male who presented to the emergency room with his family from home complaining of a 2-day history of progressive decline in the patient's overall status including debility in ambulation (weakness) as well as decrease in oral intake of fluids and food associated with a painful and inflamed right lower abdominal pericolostomy area and unusually watery stool present in his colostomy bag. The patient and family members agree that his decline is been rapid and at the present time he is severely debilitated and hence ability to walk, stand or sit up on his own. He has not had any other associated symptoms such as fever, chills, nausea, vomiting, sore throat or rash. He denies similar prior episodes and has not identified any aggravating or ameliorating factors for his current progressive weakness and decline in function. In the emergency room he was found to be significantly dehydrated and also noted to have acute kidney injury as well as a leukocytosis. With these findings patient was admitted for further evaluation and treatment. Physical Exam Vital Signs: Temp Pulse Resp BP Pulse Ox 97.9 F 72 18 106/53 L 93 11/25/18 11:48 11/25/18 11:48 11/25/18 11:48 11/25/18 11:48 11/25/18 11:48 Intake & Output 11/24/18 11/25/18 11/26/18 06:59 06:59 06:59 Intake Total 3026 1000 650 Output Total 2200 2275 Balance 826 -1275 650 Weight 96.2 kg 101.1 kg General appearance: PRESENT: no acute distress Head exam: PRESENT: atraumatic Eye exam: PRESENT: PERRLA Mouth exam: PRESENT: moist, tongue midline Neck exam: ABSENT: carotid bruit, JVD, lymphadenopathy, thyromegaly Respiratory exam: PRESENT: decreased breath sounds GI/Abdominal exam: PRESENT: normal bowel sounds, soft. ABSENT: distended, guarding, mass, organolmegaly, rebound, tenderness Neurological exam: PRESENT: alert, awake, oriented to person, oriented to place, oriented to time, oriented to situation, CN II-XII grossly intact. ABSENT: motor sensory deficit Psychiatric exam: PRESENT: appropriate affect, normal mood. ABSENT: homicidal ideation, suicidal ideation Results Laboratory Results: 11/25/18 06:45 11/25/18 06:45 11/25/18 11/25/18 06:45 06:45 WBC 8.8 RBC 3.19 L Hgb 10.1 L Hct 29.9 L MCV 94 MCH 31.7 MCHC 33.9 RDW 14.1 H Plt Count 191 Seg Neutrophils % 67.4 Lymphocytes % 22.2 Monocytes % 5.4 Eosinophils % 4.6 Basophils % 0.4 Absolute Neutrophils 6.0 Absolute Lymphocytes 2.0 Absolute Monocytes 0.5 Absolute Eosinophils 0.4 Absolute Basophils 0.0 Sodium 140.6 Potassium 4.4 Chloride 106 Carbon Dioxide 30 Anion Gap 5 BUN 16 Creatinine 0.83 Est GFR ( Amer) > 60 Est GFR (Non-Af Amer) > 60 Glucose 84 Calcium 8.7 Magnesium 1.4 L Total Bilirubin 0.6 AST 26 ALT 33 Alkaline Phosphatase 61 Total Protein 5.4 L Albumin 2.9 L 11/14/18 06:10 NT-Pro-B Natriuret Pep 388 Impressions: Abdomen CT 11/13/18 19:31 IMPRESSION: Subcutaneous inflammatory change near the midline of the lower anterior abdomen, with a small amount of subcutaneous gas and superficial skin defect. Findings may be postoperative in nature. There was a well-defined fluid collection at this site on the prior exam which is no longer present. Right lower quadrant ostomy. No gross evidence for bowel obstruction. Stable bilateral renal cysts. TECHNICAL DOCUMENTATION: Quality ID # [id number]: Final reports with documentation of one or more dose reduction techniques (e.g., Automated exposure control, adjustment of the mA and/or kV according to patient size, use of iterative reconstruction technique) copyright 2011 [employer]- All Rights Reserved Chest X-Ray 11/13/18 19:32 IMPRESSION: NO ACUTE RADIOGRAPHIC FINDING IN THE CHEST. Qualifiers - * PATIENT BEING DISCHARGED WITH ANY OF THE FOLLOWING DIAGNOSIS: No Stroke Pt being discharged on Anti-thrombolytic therapy?: Yes
[2018-11-25 17:20] VITALS: BP 105/51
== END 2018-11-25 17:45 | disposition home or self-care (01) | DRG 683 ==
LOC: ER 18:55 → EH 23:15 → 5 11-14 16:22 → 2S 11-24 10:42
PROVIDERS: ADMIT Emergency Medicine; ATTEND Emergency Medicine
DX: N17.9 Acute kidney failure, unspecified (principal); K94.03 Colostomy malfunction; L03.311 Cellulitis of abdominal wall; E87.3 Alkalosis; Y84.8 Other medical procedures as the cause of abnormal reaction of the patient, or of later complication, without mention of misadventure at the time of the procedure; E86.0 Dehydration; E13.65 Other specified diabetes mellitus with hyperglycemia; I25.10 Atherosclerotic heart disease of native coronary artery without angina pectoris; I10 Essential (primary) hypertension; E83.42 Hypomagnesemia; K21.9 Gastro-esophageal reflux disease without esophagitis; J45.909 Unspecified asthma, uncomplicated; E78.5 Hyperlipidemia, unspecified; Z95.1 Presence of aortocoronary bypass graft; Z88.0 Allergy status to penicillin; Z87.891 Personal history of nicotine dependence; Z82.49 Family history of ischemic heart disease and other diseases of the circulatory system; Z79.4 Long term (current) use of insulin; Z90.49 Acquired absence of other specified parts of digestive tract; E66.01 Morbid (severe) obesity due to excess calories; D72.829 Elevated white blood cell count, unspecified
CPT/HCPCS: 36415; 71045; 74150; 80048; 80053; 80061; 80202; 81001; 82962; 83036; 83605; 83690; 83735; 83880; 84439; 84443; 84481; 85025; 87040; 87045; 87205; 87493; 89055; 93005; 93010; 96360; 99285; J0696; J1644; J1815; J2185; J3370; J3475; J3490; J7030; J7060; J7120; S0119; S0164

== ENCOUNTER 2018-11-29 09:04 | Inpatient (IN) | payer MEDICARE, BC ==
[2018-11-29 10:39] LABS: ABSOLUTE BASOPHILS # (AUTO) 0.1 10^3/uL (0.0-0.2); ABSOLUTE EOSINOPHILS # (AUTO) 0.4 10^3/uL (0.0-0.6); ABSOLUTE MONOCYTES (AUTO) 0.8 10^3/uL (0.1-1.4); ABSOLUTE NEUT (AUTO) 10.7 10^3/uL (1.7-8.2); BASOPHILS % (AUTO) 0.7 % (0-2); EOSINOPHILS % (AUTO) 2.8 % (0-6); HEMOGLOBIN 11.5 g/dL (13.5-17.0); LYMPHOCYTES % (AUTO) 7.4 % (13-45); MEAN CORPUSCULAR HEMOGLOBIN 31.7 pg (27.0-33.4); MEAN CORPUSCULAR HGB CONC 32.9 g/dL (32.0-36.0); MEAN CORPUSCULAR VOLUME 96 fl (80-97); MONOCYTES % (AUTO) 6.6 % (3-13); PLATELET COUNT 266 10^3/uL (150-450); RED BLOOD COUNT 3.64 10^6/uL (4.35-5.55); SEGMENTED NEUTROPHILS % (AUTO) 82.5 % (42-78); TOTAL CELLS COUNTED % (AUTO) 100 %; WHITE BLOOD COUNT 12.9 10^3/uL (4.0-10.5)
[2018-11-29 11:12] LABS: ANION GAP 8 (5-19); BLOOD UREA NITROGEN 42 mg/dL (7-20); CALCIUM 10.6 mg/dL (8.4-10.2); CARBON DIOXIDE 22 mmol/L (22-30); CHLORIDE 110 mmol/L (98-107); GLUCOSE 107 mg/dL (75-110); POTASSIUM 5.8 mmol/L (3.6-5.0)
[2018-11-29] MEDS ORDERED: NORMAL SALINE 1000 ML 1,000 ML IV ONE ×2 (12:07→14:49)
--- NOTE | 2018-11-29 12:10 | ER Document Report ---
ED General - General Chief Complaint: Abdominal Pain Stated Complaint: ABDOMINAL PAIN Time Seen by Provider: 11/29/18 09:42 TRAVEL OUTSIDE OF THE [place] IN LAST 30 DAYS: No - HPI Patient complains to provider of: Abdominal pain colonoscopy bag issue Notes: Patient coming in for evaluation of abdominal pain colostomy bag issue. Patient was recently admitted to the hospital approximately 1 week ago for dehydration acute kidney injury patient has a history of colostomy from abdominal surgery in the past per viscus. Patient states that during his last hospitalization he was offered to be placed in a assisted living facility nursing care facility however refusedto have home health however states home health never showed up. Patient continues to have issues with his ostomy bag last admission there was leaking causing a irritation of the abdominal wall that was treated as a cellulitis with antibiotics at the wound care appropriate placement of an appropriate ostomy bag in the wound is clear however patient states that the back continues to leak therefore the irritation of the abdominal wall has returned. Patient states that he is unable to take care of himself at this time family at bedside also states that the family member that lives next to the patient who normally cares for him is currently in the hospital and will be indisposed for quite a few days patient is requesting to be readmitted to the hospital for further evaluation of his needs. - Related Data Allergies/Adverse Reactions: Penicillins Allergy (Intermediate, Verified 11/29/18 09:05) Hives Past Medical History - Social History Smoking Status: Former Smoker Frequency of alcohol use: None Family History: Hypertension Patient has suicidal ideation: No Patient has homicidal ideation: No - Past Medical History Cardiac Medical History: Reports: Hx Coronary Artery Disease, Hx Hypercholesterolemia, Hx Hypertension Pulmonary Medical History: Denies: Hx Asthma, Hx COPD Neurological Medical History: Reports: Hx Seizures. Denies: Hx Migraine Endocrine Medical History: Reports: Hx Diabetes Mellitus Type 2. Denies: Hx Diabetes Mellitus Type 1, Hx Hyperthyroidism, Hx Hypothyroidism Renal/ Medical History: Denies: Hx Peritoneal Dialysis GI Medical History: Reports: Hx Gastroesophageal Reflux Disease. Denies: Hx Cirrhosis, Hx Hepatitis Musculoskeletal Medical History: Denies Hx Arthritis, Denies Hx Gout Skin Medical History: Denies Hx Eczema, Denies Hx Psoriasis Psychiatric Medical History: Denies: Hx Depression Infectious Medical History: Denies: Hx Hepatitis Past Surgical History: Reports: Hx Abdominal Surgery, Hx Cardiac Catheterization, Hx Cardiac Surgery - 5 vessel, Hx Coronary Artery Bypass Graft, Hx Coronary Stent, Hx Herniorrhaphy - Ventral hernia repair, Other - laparotomy for perforated viscus 3 yrs ago due to chicken bone. - Immunizations Hx Diphtheria, Pertussis, Tetanus Vaccination: Yes Hx Pneumococcal Vaccination: 11/03/17 Review of Systems - Review of Systems Constitutional: No symptoms reported EENT: No symptoms reported Cardiovascular: No symptoms reported Respiratory: No symptoms reported Gastrointestinal: Other - Colostomy bag issue abdominal wall irritation Genitourinary: No symptoms reported Male Genitourinary: No symptoms reported Musculoskeletal: No symptoms reported Skin: No symptoms reported Hematologic/Lymphatic: No symptoms reported Neurological/Psychological: No symptoms reported -: Yes All other systems reviewed and negative Physical Exam - Vital signs Vitals: Temp Pulse Resp BP Pulse Ox 97.7 F 124 H 18 117/69 97 11/29/18 09:18 11/29/18 09:18 11/29/18 09:18 11/29/18 09:18 11/29/18 09:18 Interpretation: Normal - General General appearance: Appears well, Alert - HEENT Head: Normocephalic, Atraumatic Eyes: Normal Pupils: PERRL - Respiratory Respiratory status: No respiratory distress Chest status: Nontender Breath sounds: Normal Chest palpation: Normal - Cardiovascular Rhythm: Regular Heart sounds: Normal auscultation Murmur: No - Abdominal Inspection: Normal, Other - Patient with a leaking colostomy bag in the right lower quadrant of the abdominal wall causing irritation redness to the lateral right abdominal wall there is no warmth more consistent with a contact irritation than a cellulitis at this time Distension: No distension Bowel sounds: Normal Tenderness: Nontender Organomegaly: No organomegaly - Back Back: Normal, Nontender - Extremities General upper extremity: Normal inspection, Nontender, Normal color, Normal ROM, Normal temperature General lower extremity: Normal inspection, Nontender, Normal color, Normal ROM, Normal temperature, Normal weight bearing. No: Peter's sign - Neurological Neuro grossly intact: Yes Cognition: Normal Orientation: AAOx4 [place] Coma Scale Eye Opening: Spontaneous [place] Coma Scale Verbal: Oriented [place] Coma Scale Motor: Obeys Commands [place] Coma Scale Total: 15 Speech: Normal Motor strength normal: LUE, RUE, LLE, RLE Sensory: Normal - Psychological Associated symptoms: Normal affect, Normal mood - Skin Skin Temperature: Warm Skin Moisture: Dry Skin Color: Normal Course - Re-evaluation Re-evalutation: 11/29/18 14:44 Laboratory studies showed hypokalemia with hypomagnesemia increase in the patient's renal function from time of discharge to creatinine 1.6 and the BUN elevated greater than 40. Patient had a slight leukocytosis but no fever did not think the irritation from the colostomy bags underlying infection at this time. Did discuss with the hospitalist team will readmit the patient for his hyperkalemia and further monitoring. EKG was performed showing no acute T wave changes - Vital Signs Vital signs: Temp Pulse Resp BP Pulse Ox 97.7 F 124 H 32 H 104/62 94 11/29/18 09:18 11/29/18 09:18 11/29/18 14:02 11/29/18 14:02 11/29/18 14:02 - Laboratory Result Diagrams: 11/29/18 10:22 11/29/18 10:22 Laboratory results interpreted by me: 11/29/18 11/29/18 10:22 10:22 WBC 12.9 H RBC 3.64 L Hgb 11.5 L Hct 35.0 L Seg Neutrophils % 82.5 H Lymphocytes % 7.4 L Absolute Neutrophils 10.7 H Potassium 5.8 H Chloride 110 H BUN 42 H Creatinine 1.67 H Est GFR ( Amer) 49 L Est GFR (Non-Af Amer) 40 L Calcium 10.6 H Magnesium 1.1 L* Discharge - Discharge Clinical Impression: Colostomy complication, Abdominal wall dermatitis, Hyperkalemia, Acute renal insufficiency, Hypomagnesemia, Debility, Hx of CABG Condition: Good Disposition: ADMITTED INPATIENT Admitting Provider: Mushtaq P[facility] Admitted: Telemetry
[2018-11-29] MEDS ORDERED: ACETAMINOPHEN 325 MG TABLET PO PRN (12:38)
[2018-11-29] MEDS ORDERED: NORMAL SALINE 1000 ML 1,000 ML IV PRN (14:49)
[2018-11-29] MEDS ORDERED: DEXTROSE 40% GEL 15 GM TUBE PO PRN ×2 (14:52)
[2018-11-29] MEDS ORDERED: INSULIN LISPRO 100 UNIT/ML 3 ML VIAL SUBCUT PRN (14:52)
[2018-11-29] MEDS ORDERED: DEXTROSE 50%-WATER 25 GM/50 ML DISP.SYRIN IV PRN ×2 (14:52)
[2018-11-29] MEDS ORDERED: GLUCAGON,HUMAN RECOMB 1 MG INJ IM PRN (14:52)
[2018-11-29] MEDS ORDERED: MAGNESIUM SULFATE 4 GM/100 ML RTUPB IV ONE (15:30)
--- NOTE | 2018-11-29 15:51 | PDOC H&P ---
History of Present Illness Admission Date/PCP: 11/29/18 12:28 Aliyah FLORES Patient complains of: LEAKING COLOSTOMY. CELLULUTUS. TUNNELED ABDOMINAL WOUND. History of Present Illness: RASHIDA MOTA is a 73 year old male who presented to [facility] ED for a leaking colostomy bag, cellulitis to RLQ and tunneled abdominal wound. Of note, the patient was recently admitted to [facility] 11/13/2018 for the same complaint. He was treated with antibiotics and IV fluids and sent home 11/25/2017. The patient reports that he was home for 4 days without any way to take care of his colostomy. He states the family member who normally takes care of his colostomy is unavailable (she is currently hospitalized). Patient admits that he is unable to care for himself and family member at the bedside states no one else is able to care for him. The patient states his stool has continuously been leaking around his colostomy site since his discharge 11/25/2018. He states that the GI contents leaking out of his colostomy bag are irritating the skin along his anterior abdominal wall. There is a tunneled abdominal wound midline to the stoma that is packed with sterile gauze. Stomach contents in stool have also leaked out around the tunneled wound. Upon presentation to the emergency department, the patient was tachycardic (HR 124), but was afebrile and normotensive. His laboratory studies revealed leukocytosis (WBC 12.9), hyperkalemia (K 5.8), TOYA (creatinine 1.6), and hypomagnesemia (MG 1.1). EKG shows NSR with a left fascicular block, no evidence of acute infarction or ischemia. Plan to admit to hospitalist service for dehydration, antibiotics and electrolyt e replacement. Plan to consult surgery for recommendations regarding wound management. Additionally, placement to a senior care facility where he can receive consistent wound care. Past Medical History Cardiac Medical History: Reports: Coronary Artery Disease, Hyperlipidema, Hypertension Pulmonary Medical History: Denies: Asthma, Chronic Obstructive Pulmonary Disease (COPD) Neurological Medical History: Reports: Seizures Denies: Migraine Endocrine Medical History: Reports: Diabetes Mellitus Type 2 Denies: Diabetes Mellitus Type 1, Hyperthyroidism, Hypothyroidism GI Medical History: Reports: Gastroesophageal Reflux Disease Denies: Cirrhosis, Hepatitis Musculoskeltal Medical History: Denies: Arthritis, Gout Skin Medical History: Denies: Eczema, Psoriasis Psychiatric Medical History: Denies: Depression Hematology: Denies: Anemia, Bleeding Tendencies Past Surgical History Past Surgical History: Reports: Cardiac Catheterization, Coronary Artery Bypass Graft, Coronary Stent, Herniorrhaphy - Ventral hernia repair, Other - laparotomy for perforated viscus 3 yrs ago due to chicken bone. Social History Information Source: Patient Lives with: Alone Smoking Status: Former Smoker Frequency of Alcohol Use: None Hx Recreational Drug Use: No Drugs: None Hx Prescription Drug Abuse: No - Advance Directive Resuscitation Status: Full Code Family History Family History: Hypertension Parental Family History Reviewed: Yes Children Family History Reviewed: Yes Sibling(s) Family History Reviewed.: Yes Medication/Allergy Home Medications: Metoprolol Succinate [Toprol Xl 25 mg Tab.sr] 25 mg PO DAILY 02/06/18 Omeprazole 20 mg PO DAILY 11/14/18 Oxybutynin Chloride [Ditropan Xl] 10 mg PO DAILY 11/14/18 Aspirin [Ecotrin 81 mg EC Tablet] 81 mg PO QHS tabec 11/25/18 Atorvastatin Calcium [Lipitor 40 mg Tablet] 40 mg PO QHS tablet 11/25/18 Cholecalciferol (Vitamin D3) [Vitamin D3 1000 Unit Tablet] 1,000 unit PO QHS tablet 11/25/18 Insulin Detemir [Levemir Insulin 300 Units/3 ml Insuln.pen] 25 unit SUBCUT BID 11/29/18 Sitagliptin Phosphate [Januvia 50 mg Tablet] 100 mg PO DAILY 11/29/18 Allergies/Adverse Reactions: Penicillins Allergy (Intermediate, Verified 11/29/18 09:05) Hives Review of Systems All systems: reviewed and no additional remarkable complaints except as stated Physical Exam Vital Signs: Temp Pulse Resp BP Pulse Ox 97.7 F 124 H 32 H 104/62 94 11/29/18 09:18 11/29/18 09:18 11/29/18 14:02 11/29/18 14:02 11/29/18 14:02 Intake & Output 11/28/18 11/29/18 11/30/18 06:59 06:59 06:59 Weight 96 kg General appearance: PRESENT: no acute distress Head exam: PRESENT: atraumatic Eye exam: PRESENT: conjunctiva pink, PERRLA Mouth exam: PRESENT: moist, tongue midline Neck exam: PRESENT: full ROM Respiratory exam: PRESENT: clear to auscultation tip, symmetrical, unlabored Cardiovascular exam: PRESENT: +S1, +S2 Pulses: PRESENT: normal radial pulses, normal dorsalis pedis pul GI/Abdominal exam: PRESENT: soft, tenderness, other - COLOSTOMY - DRAINING LIQUIDY GREEN STOOL Rectal exam: PRESENT: deferred Extremities exam: PRESENT: full ROM. ABSENT: pedal edema Musculoskeletal exam: PRESENT: ambulatory, full ROM, normal inspection Neurological exam: PRESENT: alert, awake, oriented to person, oriented to place, oriented to time, oriented to situation Psychiatric exam: PRESENT: appropriate affect Skin exam: PRESENT: other - LARGE AREA OF ERYTHEMA TO RLQ. TUNNELED WOUND AT THE MIDLINE OF THE ANTERIOR ABDOMEN Results Laboratory Results: 11/29/18 10:22 11/29/18 10:22 11/29/18 11/29/18 10:22 10:22 WBC 12.9 H RBC 3.64 L Hgb 11.5 L Hct 35.0 L MCV 96 MCH 31.7 MCHC 32.9 RDW 14.0 Plt Count 266 Seg Neutrophils % 82.5 H Lymphocytes % 7.4 L Monocytes % 6.6 Eosinophils % 2.8 Basophils % 0.7 Absolute Neutrophils 10.7 H Absolute Lymphocytes 1.0 Absolute Monocytes 0.8 Absolute Eosinophils 0.4 Absolute Basophils 0.1 Sodium 140.0 Potassium 5.8 H Chloride 110 H Carbon Dioxide 22 Anion Gap 8 BUN 42 H Creatinine 1.67 H Est GFR ( Amer) 49 L Est GFR (Non-Af Amer) 40 L Glucose 107 Calcium 10.6 H Magnesium 1.1 L* Status: Imported from PACS Assessment & Plan - Diagnosis (1) Acute renal insufficiency Is this a current diagnosis for this admission?: Yes Plan: Creatinine 1.67 Baseline is 0.8-1.0 ARF is likely prerenal and secondary to dehydration 1L IVF bolus in ED Plan for 2nd liter bolus followed by maintenance IVF until renal function returns to baseline (2) Cellulitis of right abdominal wall Is this a current diagnosis for this admission?: Yes Plan: Diffuse erythema to RLQ secondary to skin irritation from contents leaking from colostomy bag Previously treated with Rocephin during last hospitalization Currently treated with Flagyl and Cipro for abdominal wound Consulting ID for further antibiotic management (3) Colostomy complication Is this a current diagnosis for this admission?: Yes Plan: Significant leakage of stool from colostomy This has been a chronic problem for the patient since his surgery in Replace colostomy bag PRN Flagyl and Clindamycin for empiric coverage Plan to consult ID for antibiotic assistance Consulting [facility] tomorrow for recommendations regarding colostomy equipment (4) Chronic abdominal wound infection Qualifiers: Encounter type: initial encounter Qualified Code(s): S31.109A - Unspecified open wound of abdominal wall, unspecified quadrant without penetration into peritoneal cavity, initial encounter; L08.9 - Local infection of the skin and subcutaneous tissue, unspecified Is this a current diagnosis for this admission?: Yes Plan: Midline abdominal wall Wound appears tunneled, surrounding area is erythematous with small pustules surgery consulted, appreciate their expert opinion (5) Coronary artery disease Qualifiers: Coronary Disease-Associated Artery/Lesion type: unspecified vessel or lesion type [place] vs. transplanted heart: [place] heart Associated angina: angina presence unspecified Qualified Code(s): I25.10 - Atherosclerotic heart disease of [place] coronary artery without angina pectoris Is this a current diagnosis for this admission?: Yes Plan: PMH CAD Continue daily Aspirin and atorvastatin (6) Diabetes mellitus type 2 in obese Is this a current diagnosis for this admission?: Yes Plan: Resume Levemir Accu-Cheks AC at bedtime Humalog sliding scale insulin Home dose Januvia currently on hold (7) Hypomagnesemia Is this a current diagnosis for this admission?: Yes Plan: magnesium level 1.1 Most likely related to malabsorption stemming from chronic diarrhea Plan for magnesium replacement via IV Daily chemistries (8) Hypertension Qualifiers: Hypertension type: essential hypertension Qualified Code(s): I10 - Essential (primary) hypertension Is this a current diagnosis for this admission?: Yes Plan: PMH HTN Continue home dose Toprol XL - Time Time Spent: 30 to 50 Minutes Medications reviewed and adjusted accordingly: Yes Anticipated discharge: SNF - Inpatient Certification Based on my medical assessment, after consideration of the patient's comorbidities, presenting symptoms, or acuity I expect that the services needed warrant INPATIENT care.: Yes I certify that my determination is in accordance with my understanding of Medicare's requirements for reasonable and necessary INPATIENT services [42 CFR 412.3e].: Yes Medical Necessity: Risk of Complication if Not Cared For in Hospital - Plan Summary Plan Summary: antibiotics. iv hydration. surgery consult.
--- NOTE | 2018-11-29 16:22 | PDOC CONSULTATION ---
Consultation Consult Date: 11/29/18 Consult reason:: Leaking colostomy bag. History of Present Illness Admission Date/PCP: 11/29/18 12:28 Aliyah FLORES Patient complains of: burning pains on skin lateral to ileostomy. History of Present Illness: RASHIDA MOTA is a 73 year old male who initially had exploratory laparotomy foe a possible small bowel perforation dur to chicken bone in . Operative report read and no chicken bone was found. Patient had jejunal diverticulosis that was opened and closed. Patient apparently doing well until 02/09/18 when he was admiitted for an 8 cm stricture at the descending colon causing bowel obstruction. He was then transfered to [facility] on 02/12/18 where he apparently had ileostomy done. Not clear what was done on the colon stricture. He was admitted past several days and discharge to home. Patient's therapy aide got sick and still in the hospital. Meantime, patient,s colostomy has been leaking because of difficulty creating a sea. His surrounding skin is red and tender. Past Medical History Cardiac Medical History: Reports: Coronary Artery Disease, Hyperlipidema, Hypertension Pulmonary Medical History: Denies: Asthma, Chronic Obstructive Pulmonary Disease (COPD) Neurological Medical History: Reports: Seizures Denies: Migraine Endocrine Medical History: Reports: Diabetes Mellitus Type 2 Denies: Diabetes Mellitus Type 1, Hyperthyroidism, Hypothyroidism GI Medical History: Reports: Gastroesophageal Reflux Disease Denies: Cirrhosis, Hepatitis Musculoskeltal Medical History: Denies: Arthritis, Gout Skin Medical History: Denies: Eczema, Psoriasis Psychiatric Medical History: Denies: Depression Hematology: Denies: Anemia, Bleeding Tendencies Past Surgical History Past Surgical History: Reports: Cardiac Catheterization, Coronary Artery Bypass Graft, Coronary Stent, Herniorrhaphy - Ventral hernia repair, Other - laparotomy for perforated viscus 3 yrs ago due to chicken bone. Social History Lives with: Alone Smoking Status: Former Smoker Frequency of Alcohol Use: None Hx Recreational Drug Use: No Drugs: None Hx Prescription Drug Abuse: No - Advance Directive Resuscitation Status: Full Code Family History Family History: Hypertension Parental Family History Reviewed: Yes Children Family History Reviewed: No Sibling(s) Family History Reviewed.: No Medication/Allergy Home Medications: Metoprolol Succinate [Toprol Xl 25 mg Tab.sr] 25 mg PO DAILY 02/06/18 Omeprazole 20 mg PO DAILY 11/14/18 Oxybutynin Chloride [Ditropan Xl] 10 mg PO DAILY 11/14/18 Aspirin [Ecotrin 81 mg EC Tablet] 81 mg PO QHS tabec 11/25/18 Atorvastatin Calcium [Lipitor 40 mg Tablet] 40 mg PO QHS tablet 11/25/18 Cholecalciferol (Vitamin D3) [Vitamin D3 1000 Unit Tablet] 1,000 unit PO QHS tablet 11/25/18 Insulin Detemir [Levemir Insulin 300 Units/3 ml Insuln.pen] 25 unit SUBCUT BID 11/29/18 Sitagliptin Phosphate [Januvia 50 mg Tablet] 100 mg PO DAILY 11/29/18 Allergies/Adverse Reactions: Penicillins Allergy (Intermediate, Verified 11/29/18 09:05) Hives Review of Systems Constitutional: PRESENT: other - no fever/chills Ears: PRESENT: other - no visual/hearing changes Cardiovascular: PRESENT: other - no chest pains/cough Gastrointestinal: PRESENT: abdominal pain - burning pains along skin lateral to colostomy bag. Has a leak on the unsealed ostomy appliance over the ileostomy Genitourinary: PRESENT: other - no dysuria Integumentary: PRESENT: erythema - burning pains on skin lateral and around ileostomy Neurological: PRESENT: weakness Hematologic/Lymphatic: PRESENT: other - no easy bruising Physical Exam Vital Signs: Temp Pulse Resp BP Pulse Ox 97.7 F 124 H 32 H 104/62 94 11/29/18 09:18 11/29/18 09:18 11/29/18 14:02 11/29/18 14:02 11/29/18 14:02 Intake & Output 11/28/18 11/29/18 11/30/18 06:59 06:59 06:59 Weight 96 kg General appearance: PRESENT: mild distress Head exam: PRESENT: atraumatic Eye exam: PRESENT: conjunctival injection Mouth exam: PRESENT: moist Neck exam: PRESENT: full ROM Respiratory exam: PRESENT: clear to auscultation tip Cardiovascular exam: PRESENT: RRR Pulses: PRESENT: normal radial pulses Vascular exam: PRESENT: normal capillary refill GI/Abdominal exam: PRESENT: soft, other - erythema of slightly excoriated skin surroundin ileostomy and lateral areas Open midline incision about 10.5 cm x 3cm to subcu level about 1 cm. No gross discharge but have a small proximal tunnelling. Patient without tenderness at this area and more concerned about the skin burning due to excoriation from leak of bowel secretion on the appliance. There is mild cavitation around the ileostomy making a good seal with the appliance. Rectal exam: PRESENT: deferred Extremities exam: PRESENT: full ROM Musculoskeletal exam: PRESENT: ambulatory Neurological exam: PRESENT: alert, oriented to person, oriented to place, oriented to time, oriented to situation Psychiatric exam: PRESENT: appropriate affect Skin exam: PRESENT: rash - with erythema of slightly excoriated skin around colostomy, warm Results Laboratory Results: 11/29/18 10:22 11/29/18 10:22 11/29/18 11/29/18 10:22 10:22 WBC 12.9 H RBC 3.64 L Hgb 11.5 L Hct 35.0 L MCV 96 MCH 31.7 MCHC 32.9 RDW 14.0 Plt Count 266 Seg Neutrophils % 82.5 H Lymphocytes % 7.4 L Monocytes % 6.6 Eosinophils % 2.8 Basophils % 0.7 Absolute Neutrophils 10.7 H Absolute Lymphocytes 1.0 Absolute Monocytes 0.8 Absolute Eosinophils 0.4 Absolute Basophils 0.1 Sodium 140.0 Potassium 5.8 H Chloride 110 H Carbon Dioxide 22 Anion Gap 8 BUN 42 H Creatinine 1.67 H Est GFR ( Amer) 49 L Est GFR (Non-Af Amer) 40 L Glucose 107 Calcium 10.6 H Magnesium 1.1 L* Assessment & Plan - Diagnosis (1) skin excoriation around, lateral to osto Is this a current diagnosis for this admission?: Yes (2) Stricture of sigmoid colon Is this a current diagnosis for this admission?: Yes (3) Ventral hernia with bowel obstruction Is this a current diagnosis for this admission?: Yes (4) Diabetes mellitus type 2 in nonobese Is this a current diagnosis for this admission?: Yes - Time Time Spent: 30 to 50 Minutes - Inpatient Certification Medical Necessity: Significant Comorbidiites Make Outpatient Treatment Too Risky, Need Close Monitoring Due to Risk of Patient Decompensation, Need For IV Fluids, Risk of Complication if Not Cared For in Hospital - Plan Summary Plan Summary: I placed a well sealed ostomy appliance after wiping tincture of Benzoin over his skin around the ileostomy Continue wet to dry dressing over abdominal wound for now until excoriation resolved. May benefit from a Wound Vac to the abdominal wound. Need a good ostomy nurse to take care of the appliance. He has a cretaker who is sick in the hospital right now and nobody can take care of the ostomy 26/05. Suggest placement to Rehab facility for at least 2 weeks to heal the excoriation then possibly wound vac to abdominal incision wound. Patient is asking if the ileostomy can be sugically put back. I told him that this is best followed by the surgeon who operatted on him at [facility]. He is also obeses and tecnically may difficult to rehook back. Also unknown status of the descending colon stricture. Will be available to follow up if needed. Continue with wet to dry saline dressing over abdominal incision BID.
[2018-11-29] MEDS: METRONIDAZOLE 500 MG/NS RTU 500 MG/100 ML RTUPB IV SCH ×2 (18:11→23:39)
[2018-11-29] MEDS: INSULIN DETEMIR 100 UNIT/ML 3 ML PEN SUBCUT SCH (18:13)
[2018-11-29] MEDS: ASPIRIN 81 MG TABLET, ENT COATED PO SCH (21:45)
[2018-11-29] MEDS: CHOLECALCIFEROL (D3) 1,000 UNIT TABLET PO SCH (21:45)
[2018-11-29] MEDS: ATORVASTATIN CALCIUM 40 MG TABLET PO SCH (21:45)
[2018-11-29] MEDS: CLINDAMYCIN 600 MG/D5W RTU 600 MG/50 ML RTUPB IV SCH (21:46)
[2018-11-30] MEDS: CLINDAMYCIN 600 MG/D5W RTU 600 MG/50 ML RTUPB IV SCH ×2 (05:38→14:53)
[2018-11-30] MEDS: METRONIDAZOLE 500 MG/NS RTU 500 MG/100 ML RTUPB IV SCH ×3 (05:38→19:00)
[2018-11-30] MEDS: LANSOPRAZOLE 15 MG TAB.RAP.DR PO SCH (05:39)
[2018-11-30 06:48] LABS: ABSOLUTE BASOPHILS # (AUTO) 0.1 10^3/uL (0.0-0.2); ABSOLUTE EOSINOPHILS # (AUTO) 0.4 10^3/uL (0.0-0.6); ABSOLUTE LYMPHOCYTES (AUTO) 0.8 10^3/uL (0.5-4.7); ABSOLUTE MONOCYTES (AUTO) 0.7 10^3/uL (0.1-1.4); ABSOLUTE NEUT (AUTO) 5.9 10^3/uL (1.7-8.2); BASOPHILS % (AUTO) 0.7 % (0-2); EOSINOPHILS % (AUTO) 5.4 % (0-6); HEMATOCRIT 29.7 % (37.9-51.0); LYMPHOCYTES % (AUTO) 10.7 % (13-45); MEAN CORPUSCULAR HEMOGLOBIN 32.3 pg (27.0-33.4); MEAN CORPUSCULAR HGB CONC 33.7 g/dL (32.0-36.0); MEAN CORPUSCULAR VOLUME 96 fl (80-97); MONOCYTES % (AUTO) 8.7 % (3-13); PLATELET COUNT 228 10^3/uL (150-450); RED CELL DISTRIBUTION WIDTH 14.2 % (11.5-14.0); SEGMENTED NEUTROPHILS % (AUTO) 74.5 % (42-78); TOTAL CELLS COUNTED % (AUTO) 100 %; WHITE BLOOD COUNT 7.9 10^3/uL (4.0-10.5)
[2018-11-30 07:13] LABS: ANION GAP 10 (5-19); BLOOD UREA NITROGEN 34 mg/dL (7-20); CALCIUM 9.2 mg/dL (8.4-10.2); CARBON DIOXIDE 18 mmol/L (22-30); CHLORIDE 111 mmol/L (98-107); GLUCOSE 99 mg/dL (75-110); PHOSPHORUS 3.6 mg/dL (2.5-4.5); SODIUM 138.6 mmol/L (137-145)
--- NOTE | 2018-11-30 07:27 | EKG REPORT ---
SEVERITY:- ABNORMAL ECG - SINUS TACHYCARDIA LEFT ANTERIOR FASCICULAR BLOCK : Confirmed by: Julia Mojica MD 30-Nov-2018 07:27:03
[2018-11-30 07:30] LABS: POTASSIUM 4.4 mmol/L (3.6-5.0)
[2018-11-30] MEDS: ENOXAPARIN SODIUM INJ 30 MG/0.3 ML DISP.SYRIN SUBCUT SCH (10:30)
[2018-11-30] MEDS: METOPROLOL SUCCINATE 25 MG TAB.SR.24H PO SCH (10:36)
[2018-11-30] MEDS: INSULIN DETEMIR 100 UNIT/ML 3 ML PEN SUBCUT SCH ×2 (11:00→19:13)
[2018-11-30] MEDS ORDERED: MAGNESIUM SULFATE/D5W 1 GM/100 ML RTUPB IV ONE (16:00)
--- NOTE | 2018-11-30 17:08 | Progress Note ---
Provider Note Provider Note: ID Consult Note Asked by Mackenzie Gaines NP, to review patient's chart. Pt not seen or examined. MR Weston is a 73 year old man with PMH/PSH including bowel obstruction due to a colonic stricture that required ostomy creation. Antibiotics were given empirically about two weeks ago for the same complaint of nonpurulent area of erythema and tenderness about the ostomy site. However, he returned on 11/29/18 to the ED because his stool has been leaking again. He has had difficulty having a good seal and has had leaking from his ostomy bag. He was afebrile, normotensive and tachycardic when he presented. The surrounding skin is noted to have tenderness and erythema of the slightly excoriated skin around the ostomy; he also has an open midline incision with no gross discharge. His labs included mild leukocytosis, hyperkalemia, hypomagnesemia and elevated creatinine. He was suspected of prerenal TOYA. Surgery was consulted and placed a new ostomy appliance. Empirically clindamycin and Flagyl were started on suspicion of RLQ abdominal wall cellulitis about the ostomy site. Impression/Recommendations I am suspicious that the area of tenderness and erythema may be contact dermatitis and peristomal skin irritation from the ostomy output, rather than a true cellulitis. The patient was recently given antibiotics for the same problem without any sustained benefit. Suggest discontinuing antibiotics, continuing to investigate whether there is a way to improve appliance adhesion and seeking input from a adult health clinical nurse specialist regarding use of barrier films or powders to protect skin and manage leaks. Yang Pham MD PENDING S[facility] TO [facility] Infectious Diseases pager [phone]
--- NOTE | 2018-11-30 17:36 | PDOC PROGRESS REPORT ---
Subjective Progress Note for:: 11/30/18 Subjective:: RASHIDA MOTA is a 73 year old male who presented to [facility] ED for a leaking colostomy bag, cellulitis to RLQ and tunneled abdominal wound. Of note, the patient was recently admitted to [facility] 11/13/2018 for the same complaint. He was treated with antibiotics and IV fluids and sent home 11/25/2017. stool has continuously been leaking around his colostomy site since his discharge 11/25/2018. Upon assessment, the patient is resting comfortably in bed on room air. He complains of mild pain to his RLQ, specifically states his "skin is burning." He has no other complaints at this time. There is a tunneled abdominal wound midline to the stoma that is packed with sterile gauze. Stomach contents in stool have also leaked out around the tunneled wound. Surgery has been consulted, appreciate their expertise. Plan for possible wound vac placement. Reason For Visit: CELLULITIS Physical Exam Vital Signs: Temp Pulse Resp BP Pulse Ox 98.5 F 124 H 15 98/53 L 95 11/29/18 17:09 11/29/18 09:18 11/30/18 16:01 11/30/18 16:00 11/30/18 16:01 Intake & Output 11/29/18 11/30/18 12/01/18 06:59 06:59 06:59 Intake Total 2500 150 Balance 2500 150 Weight 96 kg General appearance: PRESENT: morbidly obese Head exam: PRESENT: atraumatic Eye exam: PRESENT: conjunctiva pink, PERRLA Mouth exam: PRESENT: moist Teeth exam: PRESENT: poor dentation Neck exam: PRESENT: full ROM Respiratory exam: PRESENT: clear to auscultation tip, symmetrical, unlabored Cardiovascular exam: PRESENT: +S1, +S2 Pulses: PRESENT: normal radial pulses, normal dorsalis pedis pul Vascular exam: PRESENT: normal capillary refill GI/Abdominal exam: PRESENT: soft, tenderness - AROUND COLOSTOMY, other - GREEN LIQUID STOOL DRAINING FROM COLOSTOMY Rectal exam: PRESENT: deferred Extremities exam: PRESENT: full ROM Musculoskeletal exam: PRESENT: ambulatory, full ROM Neurological exam: PRESENT: alert, awake, oriented to person, oriented to place, oriented to time, oriented to situation Psychiatric exam: PRESENT: appropriate affect Skin exam: PRESENT: dry, intact, normal color Results Laboratory Results: 11/30/18 06:38 11/30/18 06:38 11/30/18 11/30/18 06:38 06:38 WBC 7.9 RBC 3.10 L Hgb 10.0 L Hct 29.7 L MCV 96 MCH 32.3 MCHC 33.7 RDW 14.2 H Plt Count 228 Seg Neutrophils % 74.5 Lymphocytes % 10.7 L Monocytes % 8.7 Eosinophils % 5.4 Basophils % 0.7 Absolute Neutrophils 5.9 Absolute Lymphocytes 0.8 Absolute Monocytes 0.7 Absolute Eosinophils 0.4 Absolute Basophils 0.1 Sodium 138.6 Potassium 4.4 D Chloride 111 H Carbon Dioxide 18 L Anion Gap 10 BUN 34 H Creatinine 1.27 H Est GFR ( Amer) > 60 Est GFR (Non-Af Amer) 55 L Glucose 99 Calcium 9.2 Phosphorus 3.6 Magnesium 1.8 Status: Imported from PACS Assessment & Plan - Diagnosis (1) Acute renal insufficiency Is this a current diagnosis for this admission?: Yes Plan: Improving Creatinine 1.67->1.27 Baseline is 0.8-1.0 ARF is likely prerenal and secondary to dehydration 2L IVF bolus followed by maintenance IVF until renal function returns to baseline (2) Cellulitis of right abdominal wall Is this a current diagnosis for this admission?: Yes Plan: Diffuse erythema to RLQ secondary to skin irritation from contents leaking from colostomy bag Previously treated with Rocephin during last hospitalization Per ID recommendations, this is likely contact dermatitis and less likely cellulitis. Plan to discontinue previous antibiotics. (3) Colostomy complication Is this a current diagnosis for this admission?: Yes Plan: Significant leakage of stool from colostomy This has been a chronic problem for the patient since his surgery in Replace colostomy bag PRN Patient will require ostomy care in SNF/Acute rehab. No antibiotics warranted at this time (4) Chronic abdominal wound infection Qualifiers: Encounter type: initial encounter Qualified Code(s): S31.109A - Unspecified open wound of abdominal wall, unspecified quadrant without penetration into peritoneal cavity, initial encounter; L08.9 - Local infection of the skin and subcutaneous tissue, unspecified Is this a current diagnosis for this admission?: Yes Plan: Midline abdominal wall Wound appears tunneled, surrounding area is erythematous with small pustules surgery consulted, appreciate their expert opinion (5) Coronary artery disease Qualifiers: Coronary Disease-Associated Artery/Lesion type: unspecified vessel or lesion type [place] vs. transplanted heart: [place] heart Associated angina: angina presence unspecified Qualified Code(s): I25.10 - Atherosclerotic heart disease of [place] coronary artery without angina pectoris Is this a current diagnosis for this admission?: Yes Plan: PMH CAD Continue daily Aspirin and atorvastatin (6) Diabetes mellitus type 2 in obese Is this a current diagnosis for this admission?: Yes Plan: Resume Levemir Accu-Cheks AC at bedtime Humalog sliding scale insulin Home dose Januvia currently on hold (7) Hypomagnesemia Is this a current diagnosis for this admission?: Yes Plan: magnesium level 1.1-->1.8 Most likely related to malabsorption stemming from chronic diarrhea Plan for magnesium replacement via IV Daily chemistries (8) Hypertension Qualifiers: Hypertension type: essential hypertension Qualified Code(s): I10 - Essential (primary) hypertension Is this a current diagnosis for this admission?: Yes Plan: PMH HTN Continue home dose Toprol XL - Time Time Spent with patient: 15-24 minutes Medications reviewed and adjusted accordingly: Yes Anticipated discharge: Acute Rehab - Inpatient Certification Based on my medical assessment, after consideration of the patient's comorbidities, presenting symptoms, or acuity I expect that the services needed warrant INPATIENT care.: Yes I certify that my determination is in accordance with my understanding of Medicare's requirements for reasonable and necessary INPATIENT services [42 CFR 412.3e].: Yes Medical Necessity: Significant Comorbidiites Make Outpatient Treatment Too Risky, Risk of Complication if Not Cared For in Hospital - Plan Summary Plan Summary: AWAITING SURGERY RECOMMENDATIONS REGARDING WOUND VAC
[2018-11-30] MEDS: ASPIRIN 81 MG TABLET, ENT COATED PO SCH (21:20)
[2018-11-30] MEDS: ATORVASTATIN CALCIUM 40 MG TABLET PO SCH (21:20)
[2018-11-30] MEDS: CHOLECALCIFEROL (D3) 1,000 UNIT TABLET PO SCH (21:20)
[2018-12-01] MEDS: LANSOPRAZOLE 15 MG TAB.RAP.DR PO SCH (05:13)
[2018-12-01 05:28] LABS: ABSOLUTE BASOPHILS # (AUTO) 0.1 10^3/uL (0.0-0.2); ABSOLUTE EOSINOPHILS # (AUTO) 0.7 10^3/uL (0.0-0.6); ABSOLUTE LYMPHOCYTES (AUTO) 1.3 10^3/uL (0.5-4.7); ABSOLUTE MONOCYTES (AUTO) 0.8 10^3/uL (0.1-1.4); ABSOLUTE NEUT (AUTO) 4.2 10^3/uL (1.7-8.2); EOSINOPHILS % (AUTO) 9.9 % (0-6); HEMATOCRIT 29.2 % (37.9-51.0); HEMOGLOBIN 9.8 g/dL (13.5-17.0); LYMPHOCYTES % (AUTO) 18.1 % (13-45); MEAN CORPUSCULAR HEMOGLOBIN 32.2 pg (27.0-33.4); MEAN CORPUSCULAR HGB CONC 33.7 g/dL (32.0-36.0); MEAN CORPUSCULAR VOLUME 96 fl (80-97); MONOCYTES % (AUTO) 11.2 % (3-13); PLATELET COUNT 224 10^3/uL (150-450); RED BLOOD COUNT 3.06 10^6/uL (4.35-5.55); RED CELL DISTRIBUTION WIDTH 14.3 % (11.5-14.0); SEGMENTED NEUTROPHILS % (AUTO) 59.8 % (42-78); TOTAL CELLS COUNTED % (AUTO) 100 %
[2018-12-01 05:54] LABS: ANION GAP 9 (5-19); BLOOD UREA NITROGEN 32 mg/dL (7-20); CALCIUM 8.9 mg/dL (8.4-10.2); CARBON DIOXIDE 19 mmol/L (22-30); CHLORIDE 111 mmol/L (98-107); GLUCOSE 86 mg/dL (75-110); PHOSPHORUS 3.7 mg/dL (2.5-4.5); POTASSIUM 4.7 mmol/L (3.6-5.0)
[2018-12-01] MEDS: INSULIN DETEMIR 100 UNIT/ML 3 ML PEN SUBCUT SCH ×2 (09:39→17:37)
[2018-12-01] MEDS: METOPROLOL SUCCINATE 25 MG TAB.SR.24H PO SCH (09:44)
[2018-12-01] MEDS: ENOXAPARIN SODIUM INJ 30 MG/0.3 ML DISP.SYRIN SUBCUT SCH (09:45)
[2018-12-01] MEDS: INSULIN LISPRO 100 UNIT/ML 3 ML VIAL SUBCUT SCH ×3 (12:36→21:49)
--- NOTE | 2018-12-01 17:18 | PDOC PROGRESS REPORT ---
Subjective Progress Note for:: 12/01/18 Subjective:: RASHIDA MOTA is a 73 year old male who presented to [facility] ED for a leaking colostomy bag, cellulitis to RLQ and tunneled abdominal wound. Of note, the patient was recently admitted to [facility] 11/13/2018 for the same complaint. He was treated with antibiotics and IV fluids and sent home 11/25/2017. stool has continuously been leaking around his colostomy site since his discharge 11/25/2018. The patient was seen on morning rounds. He was found resting in bed comfortably on room air. He reports continued stinging/burning pain to the skin of his right lower abdomen. He does note that the appearance is improved and that the area of redness has decreased slightly since his admission. He denies fever, chills, chest pain, dyspnea, cough, intra-abdominal pain, na usea and vomiting. He is frustrated by the continued ostomy leaking, but otherwise has no new questions or concerns. Nursing asks assistance with ostomy site as multiple nurses and attempts at obtaining a seal have been made. Reason For Visit: CELLULITIS Physical Exam Vital Signs: Temp Pulse Resp BP Pulse Ox 97.8 F 76 18 100/54 L 97 12/01/18 11:14 12/01/18 13:43 12/01/18 11:14 12/01/18 11:14 12/01/18 11:14 Intake & Output 11/30/18 12/01/18 12/02/18 06:59 06:59 06:59 Intake Total 2500 1590 580 Output Total 900 475 Balance 2500 690 105 Weight 96 kg 96 kg General appearance: PRESENT: no acute distress, cooperative, obese, well-deve loped Head exam: PRESENT: atraumatic, normocephalic Eye exam: PRESENT: conjunctiva pink, EOMI, PERRLA. ABSENT: scleral icterus Mouth exam: PRESENT: moist, tongue midline Teeth exam: PRESENT: poor dentation Neck exam: ABSENT: carotid bruit, JVD, lymphadenopathy, thyromegaly Respiratory exam: PRESENT: clear to auscultation tip, symmetrical, unlabored. ABSENT: rales, rhonchi, wheezes Cardiovascular exam: PRESENT: RRR, +S1, +S2. ABSENT: diastolic murmur, rubs, systolic murmur Pulses: PRESENT: normal dorsalis pedis pul Vascular exam: PRESENT: normal capillary refill GI/Abdominal exam: PRESENT: normal bowel sounds, soft, tenderness - at ostomy s ite, other - Colostomy; green liquid stool leaking from ostomy seal. Midline surgical incision with wet-to-dry dressing in place. Right lower quadrant erythema/excoriation. ABSENT: distended, guarding, mass, organolmegaly, rebound Rectal exam: PRESENT: deferred Extremities exam: PRESENT: full ROM. ABSENT: calf tenderness, clubbing, pedal edema Neurological exam: PRESENT: alert, awake, oriented to person, oriented to place, oriented to time, oriented to situation, CN II-XII grossly intact. ABSENT: motor sensory deficit Psychiatric exam: PRESENT: appropriate affect, normal mood. ABSENT: homicidal ideation, suicidal ideation Skin exam: PRESENT: dry, intact, warm. ABSENT: cyanosis, rash Results Laboratory Results: 12/01/18 04:48 12/01/18 04:48 12/01/18 12/01/18 04:48 04:48 WBC 7.0 RBC 3.06 L Hgb 9.8 L Hct 29.2 L MCV 96 MCH 32.2 MCHC 33.7 RDW 14.3 H Plt Count 224 Seg Neutrophils % 59.8 Lymphocytes % 18.1 Monocytes % 11.2 Eosinophils % 9.9 H Basophils % 1.0 Absolute Neutrophils 4.2 Absolute Lymphocytes 1.3 Absolute Monocytes 0.8 Absolute Eosinophils 0.7 H Absolute Basophils 0.1 Sodium 139.0 Potassium 4.7 Chloride 111 H Carbon Dioxide 19 L Anion Gap 9 BUN 32 H Creatinine 1.35 H Est GFR ( Amer) > 60 Est GFR (Non-Af Amer) 52 L Glucose 86 Calcium 8.9 Phosphorus 3.7 Magnesium 1.7 Assessment & Plan - Diagnosis (1) Acute renal insufficiency Is this a current diagnosis for this admission?: Yes Plan: Improving Creatinine 1.67->1.27-> 1.35 Baseline is 0.8-1.0 ARF is likely prerenal and secondary to dehydration; also considering hypotension. Continue maintenance IV fluids. Holding metoprolol. Avoid nephrotoxic medications as able. Encourage p.o. intake. Daily chemistry. (2) Chronic abdominal wound infection Qualifiers: Encounter type: initial encounter Qualified Code(s): S31.109A - Unspecified open wound of abdominal wall, unspecified quadrant without penetration into peritoneal cavity, initial encounter; L08.9 - Local infection of the skin and subcutaneous tissue, unspecified Is this a current diagnosis for this admission?: Yes Plan: Midline abdominal wall Wound appears tunneled, surrounding area is erythematous with small pustules Surgery consulted, appreciate their expert opinion. Wound care per their recommendations; continue wet-to-dry dressings until surrounding excoriation is resolved so that wound VAC can be placed. (3) Colostomy complication Is this a current diagnosis for this admission?: Yes Plan: Significant leakage of stool from colostomy This has been a chronic problem for the patient since his surgery in [place] with the supply room; only options are the seal with snap on bag, paste, and powder. Followed up with nurse educators; will come to the bedside to attempt to assist with obtaining proper seal. If unsuccessful, will need to contact discharge planning to see if an alternate bag type can be obtained. May also need to attempt arrangements for a wound ostomy nurse to provide recommendations. Replace colostomy bag PRN Patient will require ostomy care in SNF/Acute rehab. No antibiotics warranted at this time (4) skin excoriation around, lateral to osto Is this a current diagnosis for this admission?: Yes Plan: Secondary to chronic stool leakage from ostomy site. Diffuse erythema to RLQ secondary to skin irritation from contents leaking from colostomy bag Previously treated with Rocephin during last hospitalization. Per ID recommendations, this is likely contact dermatitis and less likely cellulitis. IV antibiotics previously discontinued. Use barrier creams as needed. Ostomy care as above. (5) Coronary artery disease Qualifiers: Coronary Disease-Associated Artery/Lesion type: unspecified vessel or lesion type [place] vs. transplanted heart: [place] heart Associated angina: angina presence unspecified Qualified Code(s): I25.10 - Atherosclerotic heart disease of [place] coronary artery without angina pectoris Is this a current diagnosis for this admission?: Yes Plan: Continue antihypertensives, aspirin, and daily atorvastatin. Cardiac diet. (6) Diabetes mellitus type 2 in obese Is this a current diagnosis for this admission?: Yes Plan: Home dose Januvia currently on hold. Continue Levemir. Accu-Cheks before meals and at bedtime with Humalog for sliding scale coverage. Hypoglycemia protocol in place. (7) Hypertension Qualifiers: Hypertension type: essential hypertension Qualified Code(s): I10 - Essential (primary) hypertension Is this a current diagnosis for this admission?: Yes Plan: Blood pressures are actually low. 90/40-100/50 Continue IVF. No hx of a. fib, will hold metoprolol. Continue to monitor closely. Fall precautions. (8) Hypomagnesemia Is this a current diagnosis for this admission?: Yes Plan: Replete. Most likely related to malabsorption stemming from chronic diarrhea Will continue to monitor and replace as necessary. - Time Time Spent with patient: 25-34 minutes Medications reviewed and adjusted accordingly: Yes Anticipated discharge: SNF Within: when bed available
[2018-12-01] MEDS: NORMAL SALINE 1000 ML 1,000 ML IV PRN (18:35)
[2018-12-01] MEDS: CHOLECALCIFEROL (D3) 1,000 UNIT TABLET PO SCH (21:10)
[2018-12-01] MEDS: ATORVASTATIN CALCIUM 40 MG TABLET PO SCH (21:10)
[2018-12-01] MEDS: ASPIRIN 81 MG TABLET, ENT COATED PO SCH (21:10)
[2018-12-02] MEDS: LANSOPRAZOLE 15 MG TAB.RAP.DR PO SCH (05:12)
[2018-12-02 05:38] LABS: ABSOLUTE BASOPHILS # (AUTO) 0.1 10^3/uL (0.0-0.2); ABSOLUTE EOSINOPHILS # (AUTO) 0.6 10^3/uL (0.0-0.6); ABSOLUTE LYMPHOCYTES (AUTO) 1.7 10^3/uL (0.5-4.7); ABSOLUTE MONOCYTES (AUTO) 0.6 10^3/uL (0.1-1.4); ABSOLUTE NEUT (AUTO) 5.2 10^3/uL (1.7-8.2); BASOPHILS % (AUTO) 0.6 % (0-2); EOSINOPHILS % (AUTO) 7.4 % (0-6); HEMATOCRIT 28.3 % (37.9-51.0); HEMOGLOBIN 9.7 g/dL (13.5-17.0); LYMPHOCYTES % (AUTO) 20.6 % (13-45); MEAN CORPUSCULAR HEMOGLOBIN 32.8 pg (27.0-33.4); MEAN CORPUSCULAR HGB CONC 34.4 g/dL (32.0-36.0); MEAN CORPUSCULAR VOLUME 95 fl (80-97); MONOCYTES % (AUTO) 7.7 % (3-13); PLATELET COUNT 219 10^3/uL (150-450); RED BLOOD COUNT 2.97 10^6/uL (4.35-5.55); RED CELL DISTRIBUTION WIDTH 14.2 % (11.5-14.0); SEGMENTED NEUTROPHILS % (AUTO) 63.7 % (42-78); TOTAL CELLS COUNTED % (AUTO) 100 %; WHITE BLOOD COUNT 8.2 10^3/uL (4.0-10.5)
[2018-12-02 05:53] LABS: ANION GAP 8 (5-19); BLOOD UREA NITROGEN 29 mg/dL (7-20); CALCIUM 8.6 mg/dL (8.4-10.2); CARBON DIOXIDE 18 mmol/L (22-30); CHLORIDE 111 mmol/L (98-107); GLUCOSE 96 mg/dL (75-110); PHOSPHORUS 3.7 mg/dL (2.5-4.5); POTASSIUM 4.6 mmol/L (3.6-5.0); SODIUM 137.4 mmol/L (137-145)
[2018-12-02] MEDS: MAGNESIUM SULFATE/D5W 1 GM/100 ML RTUPB IV SCH ×3 (08:14→11:02)
[2018-12-02] MEDS: INSULIN LISPRO 100 UNIT/ML 3 ML VIAL SUBCUT SCH ×4 (08:17→22:12)
[2018-12-02] MEDS: INSULIN DETEMIR 100 UNIT/ML 3 ML PEN SUBCUT SCH ×2 (09:08→17:03)
[2018-12-02] MEDS ORDERED: MAGNESIUM SULFATE/D5W 1 GM/100 ML RTUPB IV SCH (09:30)
[2018-12-02] MEDS ORDERED: METOPROLOL SUCCINATE 25 MG TAB.SR.24H PO SCH (10:00)
[2018-12-02] MEDS: NORMAL SALINE 1000 ML 1,000 ML IV PRN ×2 (10:07→18:19)
[2018-12-02] MEDS: ENOXAPARIN SODIUM INJ 30 MG/0.3 ML DISP.SYRIN SUBCUT SCH (11:02)
--- NOTE | 2018-12-02 16:42 | PDOC PROGRESS REPORT ---
Subjective Progress Note for:: 12/02/18 Subjective:: RASHIDA MOTA is a 73 year old male who presented to [facility] ED for a leaking colostomy bag, cellulitis to RLQ and tunneled abdominal wound. Of note, the patient was recently admitted to [facility] 11/13/2018 for the same complaint. He was treated with antibiotics and IV fluids and sent home 11/25/2017. stool has continuously been leaking around his colostomy site since his discharge 11/25/2018. The patient was seen on afternoon rounds. He was found resting in bed comfo rtably on room air. He reports continued stinging/burning pain to the skin of his right lower abdomen; though feels the area has decreased in size. He is optimistic about his colostomy bag today; reports that the bag placed yesterday afternoon lasted nearly 20 hours. He states he is looking forward to [facility] for [facility] care. He denies fever, chills, chest pain, dyspnea, cough, intra-abdominal pain, nausea and vomiting. He has no new questions or concerns. Nursing has no concerns. Reason For Visit: CELLULITIS Physical Exam Vital Signs: Temp Pulse Resp BP Pulse Ox 97.2 F 80 20 108/54 L 96 12/02/18 15:42 12/02/18 15:42 12/02/18 15:42 12/02/18 15:42 12/02/18 15:42 Intake & Output 12/01/18 12/02/18 12/03/18 06:59 06:59 06:59 Intake Total 1590 1940 293 Output Total 900 1075 Balance 690 865 293 Weight 96 kg 96 kg General appearance: PRESENT: no acute distress, cooperative, obese, well- developed, well-nourished Head exam: PRESENT: atraumatic, normocephalic Eye exam: PRESENT: conjunctiva pink, EOMI, PERRLA. ABSENT: scleral icterus Mouth exam: PRESENT: moist, tongue midline Teeth exam: PRESENT: poor dentation Neck exam: ABSENT: carotid bruit, JVD, lymphadenopathy, thyromegaly Respiratory exam: PRESENT: clear to auscultation tip, symmetrical, unlabored. A BSENT: rales, rhonchi, wheezes Cardiovascular exam: PRESENT: RRR, +S1, +S2. ABSENT: diastolic murmur, rubs, systolic murmur Pulses: PRESENT: normal dorsalis pedis pul Vascular exam: PRESENT: normal capillary refill GI/Abdominal exam: PRESENT: normal bowel sounds, soft, tenderness - at ostomy site, other - Colostomy; [place] liquid stool leaking from ostomy seal. Midline surgical incision with wet-to-dry dressing in place. Right lower quadrant erythema/excoriation. ABSENT: distended, guarding, mass, organolmegaly, rebound Rectal exam: PRESENT: deferred Extremities exam: PRESENT: full ROM. ABSENT: calf tenderness, clubbing, pedal edema Neurological exam: PRESENT: alert, awake, oriented to person, oriented to place, oriented to time, oriented to situation, CN II-XII grossly intact. ABSENT: motor sensory deficit Psychiatric exam: PRESENT: appropriate affect, normal mood. ABSENT: homicidal ideation, suicidal ideation Skin exam: PRESENT: dry, erythema - Abdomen, warm. ABSENT: cyanosis, rash Results Laboratory Results: 12/02/18 03:51 12/02/18 03:51 12/02/18 12/02/18 03:51 03:51 WBC 8.2 RBC 2.97 L Hgb 9.7 L Hct 28.3 L MCV 95 MCH 32.8 MCHC 34.4 RDW 14.2 H Plt Count 219 Seg Neutrophils % 63.7 Lymphocytes % 20.6 Monocytes % 7.7 Eosinophils % 7.4 H Basophils % 0.6 Absolute Neutrophils 5.2 Absolute Lymphocytes 1.7 Absolute Monocytes 0.6 Absolute Eosinophils 0.6 Absolute Basophils 0.1 Sodium 137.4 Potassium 4.6 Chloride 111 H Carbon Dioxide 18 L Anion Gap 8 BUN 29 H Creatinine 1.27 H Est GFR ( Amer) > 60 Est GFR (Non-Af Amer) 55 L Glucose 96 Calcium 8.6 Phosphorus 3.7 Magnesium 1.2 L* Assessment & Plan - Diagnosis (1) Acute kidney injury Is this a current diagnosis for this admission?: Yes Plan: mproving Creatinine 1.67->1.27-> 1.35--> 1.27 Baseline is 0.8-1.0 ARF is likely prerenal and secondary to dehydration; also considering hypotension. Continue maintenance IV fluids. Holding metoprolol. Avoid nephrotoxic medications as able. Encourage p.o. intake. Daily chemistry. (2) Chronic abdominal wound infection Qualifiers: Encounter type: initial encounter Qualified Code(s): S31.109A - Unspecified open wound of abdominal wall, unspecified quadrant without penetration into peritoneal cavity, initial encounter; L08.9 - Local infection of the skin and subcutaneous tissue, unspecified Is this a current diagnosis for this admission?: Yes Plan: Midline abdominal wall Wound appears tunneled, surrounding area is erythematous with small pustules Surgery consulted, appreciate their expert opinion. Wound care per their recommendations; continue wet-to-dry dressings until surrounding excoriation is resolved so that wound VAC can be placed. Wound Care Clinic nurse to bedside for recommendations today; appreciate their assistance. (3) Colostomy complication Is this a current diagnosis for this admission?: Yes Plan: Continued leakage of stool from colostomy; improved bag adherence overnight. This has been a chronic problem for the patient since his surgery in Wound Care Clinic nurse and Nurse Educator to bedside for recommendations/assistance today; appreciate their assistance. Replace colostomy bag PRN Patient will require ostomy care in SNF/Acute rehab. No antibiotics warranted at this time (4) skin excoriation around, lateral to osto Is this a current diagnosis for this admission?: Yes Plan: Slight improvement noted today. Secondary to chronic stool leakage from ostomy site. Diffuse erythema to RLQ secondary to skin irritation from contents leaking from colostomy bag Previously treated with Rocephin during last hospitalization. Per ID recommendations, this is likely contact dermatitis and less likely cellulitis. IV antibiotics previously discontinued. Use barrier creams as needed. Ostomy care as above. (5) Coronary artery disease Qualifiers: Coronary Disease-Associated Artery/Lesion type: unspecified vessel or lesion type [place] vs. transplanted heart: [place] heart Associated angina: angina presence unspecified Qualified Code(s): I25.10 - Atherosclerotic heart disease of [place] coronary artery without angina pectoris Is this a current diagnosis for this admission?: Yes Plan: Continue antihypertensives, aspirin, and daily atorvastatin. Cardiac diet. (6) Diabetes mellitus type 2 in obese Is this a current diagnosis for this admission?: Yes Plan: Home dose Januvia currently on hold. Continue Levemir. Accu-Cheks before meals and at bedtime with Humalog for sliding scale coverage. Hypoglycemia protocol in place. (7) Hypertension Qualifiers: Hypertension type: essential hypertension Qualified Code(s): I10 - Essential (primary) hypertension Is this a current diagnosis for this admission?: Yes Plan: Blood pressures are actually low. 90/40-110/50 Continue IVF. No hx of a. fib, continue holding metoprolol. Continue to monitor closely. Fall precautions. (8) Hypomagnesemia Is this a current diagnosis for this admission?: Yes Plan: Replaced via IV today. Most likely related to malabsorption stemming from chronic diarrhea Will continue to monitor and replace as necessary. - Time Time Spent with patient: 15-24 minutes Medications reviewed and adjusted accordingly: Yes Anticipated discharge: SNF Within: when bed available
[2018-12-02] MEDS: ASPIRIN 81 MG TABLET, ENT COATED PO SCH (22:12)
[2018-12-02] MEDS: CHOLECALCIFEROL (D3) 1,000 UNIT TABLET PO SCH (22:12)
[2018-12-02] MEDS: ATORVASTATIN CALCIUM 40 MG TABLET PO SCH (22:12)
[2018-12-03] MEDS: NORMAL SALINE 1000 ML 1,000 ML IV PRN (02:20)
[2018-12-03] MEDS: LANSOPRAZOLE 15 MG TAB.RAP.DR PO SCH (05:42)
[2018-12-03 06:34] LABS: BLOOD UREA NITROGEN 20 mg/dL (7-20); CALCIUM 8.4 mg/dL (8.4-10.2); GLUCOSE 83 mg/dL (75-110); POTASSIUM 4.6 mmol/L (3.6-5.0)
[2018-12-03 06:39] LABS: ANION GAP 5 (5-19); CARBON DIOXIDE 22 mmol/L (22-30); CHLORIDE 113 mmol/L (98-107); SODIUM 140.4 mmol/L (137-145)
[2018-12-03] MEDS: INSULIN LISPRO 100 UNIT/ML 3 ML VIAL SUBCUT SCH ×4 (08:07→21:55)
[2018-12-03] MEDS: INSULIN DETEMIR 100 UNIT/ML 3 ML PEN SUBCUT SCH ×2 (09:21→17:52)
[2018-12-03] MEDS: ENOXAPARIN SODIUM INJ 30 MG/0.3 ML DISP.SYRIN SUBCUT SCH (09:24)
--- NOTE | 2018-12-03 17:48 | PDOC PROGRESS REPORT ---
Subjective Progress Note for:: 12/03/18 Subjective:: RASHIDA MOTA is a 73 year old male who presented [facility] for a leaking colostomy bag, cellulitis to RLQ and tunneled abdominal wound. Of note, the patient was recently [facility] for the same complaint. He was treated with antibiotics and IV fluids and sent home 11/25/2017. stool has continuously been leaking around his colostomy site since his discharge 11/25/2018. The patient was seen on morning rounds. He was found resting in the recliner comfortably on room air after having worked with physical therapy. He reports that he is pleased that he was able to ambulate with minimal assistance and a front wheel walker in the hallway today. He is also satisfied by the colostomy care; colostomy bag lasted nearly 24 hours and has not yet developed leaking. Surrounding skin is no longer irritating him and redness is decreased. He states he is looking forward [facility] care. He denies fever, chills, chest pain, dyspnea, cough, intra-abdominal pain, nausea and vomiting. He has no new questions or concerns. Nursing has no concerns. Reason For Visit: CELLULITIS Physical Exam Vital Signs: Temp Pulse Resp BP Pulse Ox 97.5 F 78 16 111/52 L 97 12/03/18 15:33 12/03/18 15:33 12/03/18 15:33 12/03/18 15:33 12/03/18 15:33 Intake & Output 12/02/18 12/03/18 12/04/18 06:59 06:59 06:59 Intake Total 1940 3860 1539 Output Total 1075 2850 500 Balance 865 1010 1039 Weight 96 kg 96 kg General appearance: PRESENT: no acute distress, cooperative, obese, well- developed, well-nourished Head exam: PRESENT: atraumatic, normocephalic Eye exam: PRESENT: conjunctiva pink, EOMI, PERRLA. ABSENT: scleral icterus Ear exam: PRESENT: normal external ear exam Mouth exam: PRESENT: moist, tongue midline Teeth exam: PRESENT: poor dentation Neck exam: ABSENT: carotid bruit, JVD, lymphadenopathy, thyromegaly Respiratory exam: PRESENT: clear to auscultation tip, symmetrical, unlabored. ABSENT: rales, rhonchi, wheezes Cardiovascular exam: PRESENT: RRR, +S1, +S2. ABSENT: diastolic murmur, rubs, systolic murmur Pulses: PRESENT: normal dorsalis pedis pul Vascular exam: PRESENT: normal capillary refill GI/Abdominal exam: PRESENT: normal bowel sounds, soft, other - Colostomy; [place] liquid stool draining in the back, no leakage. Midline surgical incision with wet-to-dry dressing in place. Right lower quadrant erythema/excoriation is greatly improved.. ABSENT: distended, guarding, mass, organolmegaly, rebound, tenderness Rectal exam: PRESENT: deferred Extremities exam: PRESENT: full ROM. ABSENT: calf tenderness, clubbing, pedal edema Neurological exam: PRESENT: alert, awake, oriented to person, oriented to place, oriented to time, oriented to situation, CN II-XII grossly intact. ABSENT: motor sensory deficit Psychiatric exam: PRESENT: appropriate affect, normal mood. ABSENT: homicidal ideation, suicidal ideation Skin exam: PRESENT: dry, intact, warm. ABSENT: cyanosis, rash Results Laboratory Results: 12/02/18 03:51 12/03/18 06:08 12/03/18 06:08 Sodium 140.4 Potassium 4.6 Chloride 113 H Carbon Dioxide 22 Anion Gap 5 BUN 20 Creatinine 1.01 Est GFR ( Amer) > 60 Est GFR (Non-Af Amer) > 60 Glucose 83 Calcium 8.4 Assessment & Plan - Diagnosis (1) Acute kidney injury Is this a current diagnosis for this admission?: Yes Plan: Resolved. Creatinine 1.67->1.27-> 1.35--> 1.27--> 1.01 Baseline is 0.8-1.0 ARF is likely prerenal and secondary to dehydration; also considering hypotension. IV fluids are discontinued. Holding metoprolol. Avoid nephrotoxic medications as able. Encourage p.o. intake. Daily chemistry. (2) Chronic abdominal wound infection Qualifiers: Encounter type: initial encounter Qualified Code(s): S31.109A - Unspecified open wound of abdominal wall, unspecified quadrant without penetration into peritoneal cavity, initial encounter; L08.9 - Local infection of the skin and subcutaneous tissue, unspecified Is this a current diagnosis for this admission?: Yes Plan: Midline abdominal wall; dressing in place. Surgery consulted, appreciate their expert opinion. Wound care per their recommendations; continue wet-to-dry dressings until surrounding excoriation is resolved so that wound VAC can be placed. Wound Care Clinic nurse to bedside for recommendations yesterday; appreciate their assistance. (3) Colostomy complication Is this a current diagnosis for this admission?: Yes Plan: Improved bag adherence; no leakage >24 hours. This has been a chronic problem for the patient since his surgery in W[facility] Care Clinic nurse and Nurse Educator to bedside for recommendations/assistance yesterday; appreciate their assistance. Replace colostomy bag PRN Patient will require ostomy care in SNF/Acute rehab. No antibiotics warranted at this time (4) skin excoriation around, lateral to osto Is this a current diagnosis for this admission?: Yes Plan: Significant improvement noted today. Secondary to chronic stool leakage from ostomy site. Diffuse erythema to RLQ secondary to skin irritation from contents leaking from colostomy bag Previously treated with Rocephin during last hospitalization. Per ID recommendations, this is likely contact dermatitis and less likely cellulitis. IV antibiotics previously discontinued. Use barrier creams as needed. Ostomy care as above. (5) Coronary artery disease Qualifiers: Coronary Disease-Associated Artery/Lesion type: unspecified vessel or lesion type [place] vs. transplanted heart: [place] heart Associated angina: angina p resence unspecified Qualified Code(s): I25.10 - Atherosclerotic heart disease of [place] coronary artery without angina pectoris Is this a current diagnosis for this admission?: Yes Plan: Continue antihypertensives, aspirin, and daily atorvastatin. Cardiac diet. (6) Diabetes mellitus type 2 in obese Is this a current diagnosis for this admission?: Yes Plan: Home dose Januvia currently on hold. Continue Levemir. Accu-Cheks before meals and at bedtime with Humalog for sliding scale coverage. Hypoglycemia protocol in place. (7) Hypertension Qualifiers: Hypertension type: essential hypertension Qualified Code(s): I10 - Essential (primary) hypertension Is this a current diagnosis for this admission?: Yes Plan: Blood pressures are actually low. 90/40-110/50 Continue IVF. No hx of a. fib, continue holding metoprolol. Continue to monitor closely. Fall precautions. (8) Hypomagnesemia Is this a current diagnosis for this admission?: Yes Plan: Replete. Most likely related to malabsorption stemming from chronic diarrhea Will continue to monitor and replace as necessary. - Time Time Spent with patient: Less than 15 minutes Medications reviewed and adjusted accordingly: Yes Anticipated discharge: SNF Within: when bed available
[2018-12-03] MEDS: ASPIRIN 81 MG TABLET, ENT COATED PO SCH (21:55)
[2018-12-03] MEDS: CHOLECALCIFEROL (D3) 1,000 UNIT TABLET PO SCH (21:55)
[2018-12-03] MEDS: ATORVASTATIN CALCIUM 40 MG TABLET PO SCH (21:55)
[2018-12-04] MEDS: LANSOPRAZOLE 15 MG TAB.RAP.DR PO SCH (05:23)
[2018-12-04 05:38] LABS: HEMATOCRIT 26.9 % (37.9-51.0); HEMOGLOBIN 9.3 g/dL (13.5-17.0); MEAN CORPUSCULAR HEMOGLOBIN 32.5 pg (27.0-33.4); MEAN CORPUSCULAR HGB CONC 34.6 g/dL (32.0-36.0); MEAN CORPUSCULAR VOLUME 94 fl (80-97); PLATELET COUNT 255 10^3/uL (150-450); RED BLOOD COUNT 2.86 10^6/uL (4.35-5.55); RED CELL DISTRIBUTION WIDTH 14.1 % (11.5-14.0); WHITE BLOOD COUNT 6.6 10^3/uL (4.0-10.5)
[2018-12-04 05:56] LABS: ANION GAP 6 (5-19); BLOOD UREA NITROGEN 18 mg/dL (7-20); CALCIUM 8.8 mg/dL (8.4-10.2); CARBON DIOXIDE 23 mmol/L (22-30); CHLORIDE 110 mmol/L (98-107); GLUCOSE 86 mg/dL (75-110); POTASSIUM 4.6 mmol/L (3.6-5.0); SODIUM 139.2 mmol/L (137-145)
[2018-12-04] MEDS: MAGNESIUM SULFATE/D5W 1 GM/100 ML RTUPB IV SCH ×3 (07:51→11:05)
[2018-12-04] MEDS: INSULIN LISPRO 100 UNIT/ML 3 ML VIAL SUBCUT SCH ×2 (09:37→11:52)
[2018-12-04] MEDS: INSULIN DETEMIR 100 UNIT/ML 3 ML PEN SUBCUT SCH (09:39)
[2018-12-04] MEDS: ENOXAPARIN SODIUM INJ 30 MG/0.3 ML DISP.SYRIN SUBCUT SCH (09:41)
[2018-12-04 12:15] VITALS: BP 100/53
--- NOTE | 2018-12-04 14:47 | PDOC TRANSFER SUMMARY ---
<YOSVANY SQUIRES - Last Filed: 12/04/18 14:34> General - Admit/Disc Date/PCP Admission Date/Primary Care Provider: 11/29/18 12:28 Aliyah FLORES Discharge Date: 12/04/18 - Discharge Diagnosis (1) Acute kidney injury Is this a current diagnosis for this admission?: Yes Summary: Resolved. Creatinine 1.67->1.27-> 1.35--> 1.27--> 1.01 Baseline is 0.8-1.0 ARF was likely prerenal and secondary to dehydration; also considering hypotension. Continue encouraging p.o. fluids. Recommend follow-up BMP in 5-7 days. (2) Chronic abdominal wound infection Is this a current diagnosis for this admission?: Yes Summary: Chronic midline abdominal wound from prior surgical procedure. Surgery was consulted; recommend continued wet-to-dry dressings 3 times daily. Follow-up with the [facility] in 1 week. (3) Colostomy complication Is this a current diagnosis for this admission?: Yes Summary: Resolved. Improved bag adherence; no leakage >48 hours. This has been a chronic problem for the patient since his surgery in Recommend follow-up with wound ostomy nurse. Replace colostomy bag as needed. Meticulous skin care. (4) skin excoriation around, lateral to osto Is this a current diagnosis for this admission?: Yes Summary: Resolved. Secondary to chronic stool leakage from ostomy site. Diffuse erythema to RLQ secondary to skin irritation from contents leaking from colostomy bag Per ID recommendations, this is likely contact dermatitis and less likely cellulitis; no indications for antibiotics. Use barrier creams as needed. Ostomy care as above. (5) Coronary artery disease Is this a current diagnosis for this admission?: Yes Summary: Continue aspirin and daily atorvastatin. Cardiac diet. (6) Diabetes mellitus type 2 in obese Is this a current diagnosis for this admission?: Yes Summary: Resume home dose Januvia. Continue home dose Levemir. Consistent carb diet with Accu-Cheks before meals and at bedtime with Humalog for sliding scale coverage. (7) Hypertension Is this a current diagnosis for this admission?: Yes Summary: Now normotensive without hypertensive medications. Cardiac diet. (8) Hypomagnesemia Is this a current diagnosis for this admission?: Yes Summary: Replete. Most likely related to malabsorption stemming from chronic diarrhea Now on magnesium oxide 400 mg twice daily; recommend follow-up magnesium level in 3-5 days to assess stability. - Additional Information Resuscitation Status: Full Code Discharge Diet: Cardiac, Diabetic Discharge Activity: Activity As Tolerated, Balance Activity w/Rest, Slowly Increase Activity, Supervised Activity Prescriptions: RX: Magnesium Oxide [Magox] 400 mg PO BID #60 tablet Home Medications: RX: Omeprazole 20 mg PO DAILY 11/14/18 RX: Oxybutynin Chloride [Ditropan Xl] 10 mg PO DAILY 11/14/18 RX: Aspirin [Ecotrin 81 mg EC Tablet] 81 mg PO QHS tabec 11/25/18 RX: Atorvastatin Calcium [Lipitor 40 mg Tablet] 40 mg PO QHS tablet 11/25/18 RX: Cholecalciferol (Vitamin D3) [Vitamin D3 1000 Unit Tablet] 1,000 unit PO QHS tablet 11/25/18 RX: Insulin Detemir [Levemir Insulin 100 units/mL] 25 unit SUBCUT BID 11/29/18 RX: Sitagliptin Phosphate [Januvia 50 mg Tablet] 100 mg PO DAILY 11/29/18 RX: Acetaminophen [Tylenol 325 mg Tablet] 650 mg PO Q4HP PRN tablet 12/04/18 RX: Insulin Lispro [Humalog Insulin (Lispro) 100 unit/mL] 0 - 12 unit SUBCUT ACHS unit 12/04/18 RX: Magnesium Oxide [Magox] 400 mg PO BID #60 tablet 12/04/18 History of Present Illness Admission Date/PCP: 11/29/18 12:28 Aliyah FLORES History of Present Illness: RASHIDA MOTA is a 73 year old male Hospital Course Hospital Course: Per H&P by Lupis Gaines NP: YAMILKA MOTA is a 73 year old male who presented to [facility] ED for a leaking colostomy bag, cellulitis to RLQ and tunneled abdominal wound. Of note, the patient was recently admitted to [facility] 11/13/2018 for the same complaint. He was treated with antibiotics and IV fluids and sent home 11/25/2017. The patient reports that he was home for [address] to take care of his colostomy. He states the family member who normally takes care of his colostomy is unavailable (she is currently hospitalized). Patient admits that he is unable to care for himself and family member at the bedside states no one else is able to care for him. The patient states his stool has continuously been leaking around his colostomy site since his discharge 11/25/2018. He states that the GI contents leaking out of his colostomy bag are irritating the skin along his anterior abdominal wall. There is a tunneled abdominal wound midline to the stoma that is packed with sterile gauze. Stomach contents in stool have also leaked out around the tunneled wound. Upon presentation to the emergency department, the patient was tachycardic (HR 124), but was afebrile and normotensive. His laboratory studies revealed leukocytosis (WBC 12.9), hyperkalemia (K 5.8), TOYA (creatinine 1.6), and hypomagnesemia (MG 1.1). EKG shows NSR with a left fascicular block, no evidence of acute infarction or ischemia. Plan to admit to hospitalist service for dehydration, antibiotics and electrolyte replacement. Plan to consult surgery for recommendations regarding wound management. Additionally, placement to a fdc facility where he can receive consistent wound care. Physical Exam Vital Signs: Temp Pulse Resp BP Pulse Ox 98.3 F 77 16 100/53 L 97 12/04/18 12:00 12/04/18 12:00 12/04/18 12:00 12/04/18 12:00 12/04/18 12:00 Intake & Output 12/03/18 12/04/18 12/05/18 06:59 06:59 06:59 Intake Total 3860 2591 795 Output Total 2850 1700 420 Balance 1010 891 375 Weight 96 kg 100.4 kg General appearance: PRESENT: no acute distress, cooperative, obese, well- developed, well-nourished Head exam: PRESENT: atraumatic, normocephalic Eye exam: PRESENT: conjunctiva pink, EOMI, PERRLA. ABSENT: scleral icterus Ear exam: PRESENT: normal external ear exam Mouth exam: PRESENT: moist, tongue midline Teeth exam: PRESENT: poor dentation Neck exam: ABSENT: carotid bruit, JVD, lymphadenopathy, thyromegaly Respiratory exam: PRESENT: clear to auscultation tip, symmetrical, unlabored. ABSENT: rales, rhonchi, wheezes Cardiovascular exam: PRESENT: RRR, +S1, +S2. ABSENT: diastolic murmur, rubs, systolic murmur Pulses: PRESENT: normal dorsalis pedis pul Vascular exam: PRESENT: normal capillary refill GI/Abdominal exam: PRESENT: normal bowel sounds, soft, other - Midline surgical incision with wet-to-dry dressing in place; no surrounding erythema. Colostomy; well-healed contact dermatitis to the right lower quadrant from previous draining stool.. ABSENT: distended, guarding, mass, organolmegaly, rebound, tenderness Rectal exam: PRESENT: deferred Extremities exam: PRESENT: full ROM. ABSENT: calf tenderness, clubbing, pedal edema Musculoskeletal exam: PRESENT: ambulatory - With front wheel walker and minimal assistance Neurological exam: PRESENT: alert, awake, oriented to person, oriented to place, oriented to time, oriented to situation, CN II-XII grossly intact. ABSENT: motor sensory deficit Psychiatric exam: PRESENT: appropriate affect, normal mood. ABSENT: homicidal ideation, suicidal ideation Skin exam: PRESENT: dry, intact, warm. ABSENT: cyanosis, rash Results Laboratory Results: 12/04/18 04:47 12/04/18 04:47 12/04/18 12/04/18 04:47 04:47 WBC 6.6 RBC 2.86 L Hgb 9.3 L Hct 26.9 L MCV 94 MCH 32.5 MCHC 34.6 RDW 14.1 H Plt Count 255 Sodium 139.2 Potassium 4.6 Chloride 110 H Carbon Dioxide 23 Anion Gap 6 BUN 18 Creatinine 1.00 Est GFR ( Amer) > 60 Est GFR (Non-Af Amer) > 60 Glucose 86 Calcium 8.8 Magnesium 1.2 L* Transfer Plan - Disposition Transfer Plan: Discharge to [facility] [place] for short-term care. - Time Spent with Patient Time spent with patient: Less than 30 Minutes Qualifiers - * PATIENT BEING DISCHARGED WITH ANY OF THE FOLLOWING DIAGNOSIS: No Plan Discharge Plan: Discharge to [facility]. Follow-up with the [facility] within 1 week; continue wet-to-dry dressings 3 times daily. Follow-up with primary care provider within 1 week of discharge from SNF. Recommend follow-up BMP and Magnesium level in 3-5 days. Time Spent: Less than 30 Minutes <ESTEFANIA VELAZQUEZ - Last Filed: 12/05/18 07:41> General - Admit/Disc Date/PCP Admission Date/Primary Care Provider: 11/29/18 12:28 Aliyah FLORES History of Present Illness Admission Date/PCP: 11/29/18 12:28 Aliyah FLORES History of Present Illness: RASHIDA MOTA is a 73 year old male Physical Exam Vital Signs: Temp Pulse Resp BP Pulse Ox 98.3 F 67 16 100/53 L 97 12/04/18 12:00 12/04/18 14:00 12/04/18 12:00 12/04/18 12:00 12/04/18 12:00 Intake & Output 12/04/18 12/05/18 12/06/18 06:59 06:59 06:59 Intake Total 2591 795 Output Total 1700 420 Balance 891 375 Weight 221 lb 5.506 oz Results Laboratory Results: 12/04/18 04:47 12/04/18 04:47 Plan Discharge Plan: i agree with the plan as it was presented to me- i did not see the patient myself
== END 2018-12-04 15:32 | DRG 394 ==
LOC: ER 09:04 → EH 12:28 → 5 11-30 18:48
PROVIDERS: ADMIT Family Medicine; ATTEND Family Medicine
DX: K94.00 Colostomy complication, unspecified (principal); N17.9 Acute kidney failure, unspecified; E87.5 Hyperkalemia; E86.0 Dehydration; E83.42 Hypomagnesemia; E66.01 Morbid (severe) obesity due to excess calories; I44.60 Unspecified fascicular block; E11.9 Type 2 diabetes mellitus without complications; K21.9 Gastro-esophageal reflux disease without esophagitis; S31.109A Unspecified open wound of abdominal wall, unspecified quadrant without penetration into peritoneal cavity, initial encounter; L08.9 Local infection of the skin and subcutaneous tissue, unspecified; I25.10 Atherosclerotic heart disease of native coronary artery without angina pectoris; I10 Essential (primary) hypertension; Z95.5 Presence of coronary angioplasty implant and graft; Z95.1 Presence of aortocoronary bypass graft; Z87.891 Personal history of nicotine dependence; Z79.82 Long term (current) use of aspirin; Z79.4 Long term (current) use of insulin; Z88.0 Allergy status to penicillin; Z68.30 Body mass index [BMI] 30.0-30.9, adult; Z82.49 Family history of ischemic heart disease and other diseases of the circulatory system
CPT/HCPCS: 36415; 80048; 82962; 83735; 84100; 85025; 85027; 93005; 93010; 99285; J1650; J1815; J3475; J7030

== ENCOUNTER 2019-01-12 07:52 | Day surgery (SDC) | payer MEDICARE, BC ==
[~2019-01-12 07:52] MED LIST changes: +BACITRACIN INJ 50,000 UNIT VIAL ONE; +BUPIVACAINE HCL 0.25 % INJ/PF (2.5 MG/1 ML) 30 ML VIAL ONE; +COLLAGENASE CLOSTRIDIUM HIST. OINT 30 GM ONE; -GLYCOPYRROLATE INJ 0.4 MG/2 ML VIAL ONE; +LIDOCAINE 0.5% INJ-PF (5 MG/ML) 50 ML SDV ONE; -NEOSTIGMINE METHYLSULFATE 10 MG/10 ML VIAL ONE; -ROCURONIUM BROMIDE INJ 50 MG/5 ML VIAL IV ONE; +SILVER SULFADIAZINE 1% CREAM 25 GM ONE; -SUCCINYLCHOLINE CHLORIDE INJ 200 MG/10 ML VIAL ONE
[2019-01-12 08:20] LABS: HEMATOCRIT 32.1 % (37.9-51.0); MEAN CORPUSCULAR HEMOGLOBIN 31.4 pg (27.0-33.4); MEAN CORPUSCULAR HGB CONC 34.1 g/dL (32.0-36.0); MEAN CORPUSCULAR VOLUME 92 fl (80-97); PLATELET COUNT 264 10^3/uL (150-450); RED CELL DISTRIBUTION WIDTH 13.8 % (11.5-14.0); WHITE BLOOD COUNT 8.4 10^3/uL (4.0-10.5)
[2019-01-12 08:45] LABS: ANION GAP 10 (5-19); BLOOD UREA NITROGEN 13 mg/dL (7-20); CALCIUM 9.6 mg/dL (8.4-10.2); CARBON DIOXIDE 26 mmol/L (22-30); CHLORIDE 104 mmol/L (98-107); GLUCOSE 89 mg/dL (75-110); POTASSIUM 4.4 mmol/L (3.6-5.0); SODIUM 140.3 mmol/L (137-145)
--- NOTE | 2019-01-12 09:40 | PDOC H&P ---
General Chief Complaint: This patient was brought into the electively, for debridement of his abdominal wall wound and unroofing of a tunnel. The latter has been significant in reducing the efficacy of wound care. - Current Medications/Allergies Home Medications: Omeprazole 20 mg PO DAILY 11/14/18 Oxybutynin Chloride [Ditropan Xl] 10 mg PO DAILY 11/14/18 Insulin Detemir [Levemir Insulin 100 units/mL] 25 unit SUBCUT BID 11/29/18 Sitagliptin Phosphate [Januvia 50 mg Tablet] 100 mg PO DAILY 11/29/18 Allergies/Adverse Reactions: Penicillins Allergy (Intermediate, Verified 01/11/19 11:22) Hives Past Medical History Cardiac Medical History: Reports: Coronary Artery Disease, Hyperlipidema, Hypertension Denies: Myocardial Infarction Pulmonary Medical History: Denies: Asthma, Bronchitis, Chronic Obstructive Pulmonary Disease (COPD), Pneumonia Neurological Medical History: Reports: Seizures Denies: Migraine Endocrine Medical History: Reports: Diabetes Mellitus Type 2 Denies: Diabetes Mellitus Type 1, Hyperthyroidism, Hypothyroidism GI Medical History: Reports: Gastroesophageal Reflux Disease Denies: Cirrhosis, Hepatitis Musculoskeltal Medical History: Denies: Arthritis, Gout Skin Medical History: Denies: Eczema, Psoriasis Psychiatric Medical History: Denies: Depression Hematology: Reports: Anemia Denies: Bleeding Tendencies Past Surgical History Past Surgical History: Reports: Cardiac Catheterization, Coronary Artery Bypass Graft, Coronary Stent, Herniorrhaphy - Ventral hernia repair, Other - laparotomy for perforated viscus 3 yrs ago due to chicken bone. Family History Family History: Hypertension Parental Family History Reviewed: No Children Family History Reviewed: No Sibling(s) Family History Reviewed.: No Social History Smoking Status: Former Smoker Frequency of Alcohol Use: None Hx Recreational Drug Use: No Drugs: None Hx Prescription Drug Abuse: No Physical Exam Vital Signs: Temp Pulse Resp BP Pulse Ox 98.0 F 67 18 144/82 H 100 01/12/19 08:00 01/12/19 08:00 01/12/19 08:00 01/12/19 08:00 01/12/19 08:00 Intake & Output 01/11/19 01/12/19 01/13/19 06:59 06:59 06:59 Intake Total 0 Balance 0 Weight 105.23 kg 105.23 kg Additional comments: Constitutional: Well-developed well-nourished gentleman, obese body habitus. No apparent acute distress. Eyes: Mucous membranes pink and moist, pupils equal and reactive to light. Conjunctiva normal. Cornea normal. ENT: Hearing grossly normal. External pinna normal to inspection. Tongue normal to inspection. Cardiac: Heart sounds 1 and 2 normal. Respiratory breath sounds are present bilaterally, normal. Normal respiratory effort. Skin: Pertinent for right upper quadrant colostomy and from midline open abdominal wound. Fascia apparently intact. Abdomen: Soft, nontender. Liver and spleen are not palpably enlarged. Bowel sounds are normal. Pertinent for right upper quadrant colostomy and from midline open abdominal wound. Fascia apparently intact. Psychiatric: Judgment, memory, insight seem normal. Mood is pleasant and appropriate. Extremities: Upper extremities show normal range of movement. Pulses present noted to the radial arteries. Capillary refill normal. No cyanosis noted. No muscle wasting noted. Impression/Plan Plan: This patient with a large open abdominal wound is being managed in the wound care clinic. Care is compromised by the presence of a large tunneled superiorly and some residual necrosis. The recommendation is for debridement and unroofing in the operating room under local anesthesia with sedation. The risks include infection, bleeding, heart, lung complications, injury to other structures. The patient is agreeable to proceeding and we plan to do this today under local anesthesia, should take about an hour.
[2019-01-12] MEDS ORDERED: FENTANYL CITRATE INJ/PF 100 MCG/2 ML AMPUL ONE (09:48)
[2019-01-12] MEDS ORDERED: MIDAZOLAM 2 MG/2 ML INJ ONE (09:48)
[2019-01-12] MEDS ORDERED: PROPOFOL INJ 200 MG/20 ML VIAL IV ONE (09:48)
[2019-01-12] MEDS ORDERED: DIPHENHYDRAMINE HCL 50 MG/ML VIAL IV PRN (10:07)
[2019-01-12] MEDS ORDERED: MEPERIDINE HCL/PF INJ 25 MG/1 ML DISP.SYRIN IV PRN (10:07)
[2019-01-12] MEDS ORDERED: MORPHINE SULFATE 10 MG/ML INJ IV PRN (10:07)
[2019-01-12] MEDS ORDERED: FENTANYL CITRATE INJ/PF 100 MCG/2 ML AMPUL IV PRN ×3 (10:07)
[2019-01-12] MEDS ORDERED: PROMETHAZINE HCL INJ 25 MG/1 ML VIAL IV PRN ×2 (10:07)
--- NOTE | 2019-01-12 10:58 | Discharge Summary ---
Discharge Summary (SDC) - Discharge Final Diagnosis: #1 chronic abdominal wall wound. 2. Diabetes mellitus type 2. 3. History of coronary artery disease. 4. Hypertension. Date of Surgery: 01/12/19 Discharge Date: 01/12/19 Condition: Fair Treatment or Instructions: Discharge home [after recovery per ASU criteria]. Diet , diabetic, as tolerated, when fully awake advance as tolerated. Activities within moderation encouraged. Follow up in wound clinic by appointment on Friday of week]. Call for appointment. Leave wounds [covered], [keep clean and dry, until office visit in 1 week]. Meds per med rec. Percocet. May shower [in 48 hrs], [try to keep operated area as dry as possible]. Referrals: ERIK CROCKETT PA-C [Primary Care Provider] - Discharge Diet: Other (Comments) - Diabetic. Respiratory Treatments at Home: Deep Breathing/Coughing Discharge Activity: Activity As Tolerated Report the Following to Your Physician Immediately: Shortness of Breath, Unusual Bleeding
--- NOTE | 2019-01-12 11:01 | Operative Report ---
Operative Report DATE OF SURGERY: 01/12/19 PREOPERATIVE DIAGNOSIS: #1 chronic abdominal wall wound. 2. Diabetes mellitus type 2. 3. History of coronary artery disease. 4. Hypertension. POSTOPERATIVE DIAGNOSIS: #1 chronic abdominal wall wound. 2. Diabetes mellitus type 2. 3. History of coronary artery disease. 4. Hypertension. OPERATION: Debridement of abdominal wall wound. Surgical, sharp, excisional. SURGEON: [facility] ADMINISTRATOR: None. ANESTHESIA: LMAC TISSUE REMOVED OR ALTERED: None viable, densely fibrosed skin, subcutaneous tissue. Measuring approximately 1.5 cm x 6 cm. Not sent for pathology. COMPLICATIONS: None. ESTIMATED BLOOD LOSS: 5 mL. INTRAOPERATIVE FINDINGS: Of a open wound in the upper midline abdomen. The superior aspect has tunneling into the deep subcutaneous tissue for a distance of about 6 cm. This was unroofed. The wound goes down to about fascia but it does not appear to go below fascia. The excised material was were densely fibrosed and nonhealing skin and subcutaneous tissue. The remaining tissues seem fairly normal, in healing process. PROCEDURE: PROCEDURE: The abdomen was prepared with [Betadine] and draped out with sterile linen. After the"universal time-out", in which it was confirmed that the patient [did receive antibiotic], the procedure commenced. The patient was appropriately anesthetized. The wound was probed. The wound was debrided of non viable tissue using cautery with removal of loose debris, as well. The wound was irrigated with [Peroxide] . The wound was now irrigated with saline and [Surgicel] placed within it, dressed with [Kerlix] and the procedure concluded.
--- NOTE | 2019-01-12 12:14 | EKG REPORT ---
SEVERITY:- ABNORMAL ECG - SINUS RHYTHM LAD, CONSIDER LEFT ANTERIOR FASCICULAR BLOCK : Confirmed by: Mario Clark MD 12-Jan-2019 12:13:57
[2019-01-12 13:01] VITALS: BP 149/79
== END 2019-01-12 12:30 | disposition home or self-care (01) ==
LOC: OROUT 07:52
PROVIDERS: ATTEND Surgery
DX: S31.109A Unspecified open wound of abdominal wall, unspecified quadrant without penetration into peritoneal cavity, initial encounter (principal); X58.XXXA Exposure to other specified factors, initial encounter; Y93.9 Activity, unspecified; I25.10 Atherosclerotic heart disease of native coronary artery without angina pectoris; I11.0 Hypertensive heart disease with heart failure; I50.9 Heart failure, unspecified; E11.9 Type 2 diabetes mellitus without complications; E66.3 Overweight; Z68.31 Body mass index [BMI] 31.0-31.9, adult; Z95.1 Presence of aortocoronary bypass graft; E78.00 Pure hypercholesterolemia, unspecified; I25.9 Chronic ischemic heart disease, unspecified; K46.0 Unspecified abdominal hernia with obstruction, without gangrene; Z88.0 Allergy status to penicillin; Z79.84 Long term (current) use of oral hypoglycemic drugs; Z87.891 Personal history of nicotine dependence; Z79.4 Long term (current) use of insulin; Z79.899 Other long term (current) drug therapy
CPT/HCPCS: 36415; 85027; 80048; 93005; 93010; 11042; J2250; J3490 ×2; J3010; J2704; 700

== ENCOUNTER → 2019-04-01 | Outpatient (CLI) | payer MEDICARE, BC ==
--- NOTE | 2019-04-01 15:40 | RADIOLOGY REPORT (SQ) ---
EXAM DESCRIPTION: CT ABD/PELVIS WITH IV ORAL COMPLETED DATE/TIME: 04/01/2019 9:27 am REASON FOR STUDY: K46.0 UNSPECIFIED ABDOMINAL HERNIA WITH OBSTRUCTION, WITHOUT GANGRENE K46.0 UNSP ABDOMINAL HERNIA WITH OBSTRUCTION, WITHOUT GANGRE COMPARISON: CT ABDOMEN PELVIS 02/06/2018, 12/24/2017, 10/13/2014 TECHNIQUE: CT scan of the abdomen and pelvis performed using helical scanning technique with dynamic intravenous contrast injection. Patient drank oral contrast. Images reviewed with lung, soft tissue , and bone windows. Reconstructed coronal and sagittal MPR images reviewed. Delayed images for evalua tion of the urinary system also acquired. All images stored on PACS. All CT scanners at this facility use dose modulation, iterative reconstruction, and/or weight based d osing when appropriate to reduce radiation dose to as low as reasonably achievable (ALARA). [facility]: Dose Right [facility]: CareDose [facility]: Dose Right [facility]: Teradose 4D [facility]: [employer] Software CONTRAST TYPE AND DOSE: contrast/concentration: Isovue 350.00 mg/ml; Total Contrast Delivered: 100.0 ml; Total Saline Delivered: 72.0 ml RENAL FUNCTION: Creatinine 1.1 RADIATION DOSE: CT Rad equipment meets quality standard of care and radiation dose reduction techniq ues were employed. CTDIvol: 23.3 - 23.4 mGy. DLP: 2527 mGy-cm.. LIMITATIONS: None. FINDINGS: Patient drank oral contrast, which is seen throughout the bowel in a nonobstructive patter n. Patient has had a prior total colectomy with a right lower quadrant ileostomy, widely patent. There is a right lower quadrant ileostomy. Contrast is seen in the ostomy bag without dilated small bowel loops worrisome for small bowel obstruction. However, there is extensive small bowel pneumatosis along loops adjacent to the anterior abdominal wa ll, best shown on coronal images 20-38 and axial images 57-63. Air dissects into the adjacent mesent roma and omental fat, and follows the distal small bowel loop ileostomy along the mesenteric fat thro ugh the ostomy defect in the abdominal wall. There is no superior mesenteric vein or portal vein air. Good contrast enhancement of the superior m esenteric artery proximally. These findings were discussed with Dr. Lemus. LOWER CHEST: Old sternotomy for CABG. Calcified aortic valve. Small hiatal hernia. Lung bases are clear LIVER: Normal size. No masses. No dilated ducts. SPLEEN: Normal size. No focal lesions. PANCREAS: No masses. No significant calcifications. No adjacent inflammation or peripancreatic fluid collections. Pancreatic duct not dilated. GALLBLADDER: No identified stones by CT criteria. No inflammatory changes to suggest cholecystitis. ADRENAL GLANDS: No significant masses or asymmetry. RIGHT KIDNEY AND URETER: No solid masses. 2 cm right upper pole and 3 cm right midpole renal cortica l cysts. No significant calcifications. No hydronephrosis or hydroureter. LEFT KIDNEY AND URETER: No solid masses. 10 cm left upper pole renal cortical cyst. No significant calcifications. No hydronephrosis or hydroureter. AORTA AND VESSELS: No aneurysm or dissection. There is moderate atherosclerotic calcification of the aorta and major branches without high-grade stenosis. Duplicated left renal artery, an anatomic agustin iant RETROPERITONEUM: No retroperitoneal adenopathy, hemorrhage or masses. BOWEL AND PERITONEAL CAVITY: As above APPENDIX: Surgically absent PELVIS: No mass. No free fluid. Normal bladder. ABDOMINAL WALL: No masses. No hernias. BONES: No significant or acute findings. OTHER: No other significant finding. IMPRESSION: Diffuse small bowel pneumatosis with air in the adjacent small bowel mesentery and oment um of uncertain clinical significance. Findings discussed with Dr. Narciso gardner. No CT evidence of bowel obstruction. Normal contrast enhancement of the superior mesenteric artery a nd vein. No ascites. TECHNICAL DOCUMENTATION: JOB ID: [id number] Quality ID # [id number]: Final reports with documentation of one or more dose reduction techniques (e.g., Au tomated exposure control, adjustment of the mA and/or kV according to patient size, use of iterative reconstruction technique) 2010 [employer]- All Rights Reserved Reading location - IP/workstation name: [email or web address]
== END ==
LOC: RAD 08:45
PROVIDERS: ATTEND Surgery
DX: K46.0 Unspecified abdominal hernia with obstruction, without gangrene (principal); R10.9 Unspecified abdominal pain; Z93.3 Colostomy status
CPT/HCPCS: 74177; 82565

== ENCOUNTER 2019-05-08 11:23 | Inpatient (IN) | payer MEDICARE, BC ==
[2019-05-08] MEDS ORDERED: NORMAL SALINE 500 ML IV ONE ×2 (11:46→14:10)
--- NOTE | 2019-05-08 12:22 | RADIOLOGY REPORT (SQ) ---
EXAM DESCRIPTION: CHEST SINGLE VIEW COMPLETED DATE/TIME: 05/08/2019 11:56 am REASON FOR STUDY: tachycardia COMPARISON: AP chest 11/13/2018, 10/20/2014 EXAM PARAMETERS: NUMBER OF VIEWS: One view. TECHNIQUE: Single frontal radiographic view of the chest acquired. RADIATION DOSE: NA LIMITATIONS: None. FINDINGS: LUNGS AND PLEURA: No opacities, masses or pneumothorax. No pleural effusion. MEDIASTINUM AND HILAR STRUCTURES: No masses. Contour normal. HEART AND VASCULAR STRUCTURES: Sternotomy for CABG. No cardiomegaly. BONES: No acute findings. HARDWARE: None in the chest. OTHER: No other significant finding. IMPRESSION: NO ACUTE RADIOGRAPHIC FINDING IN THE CHEST. TECHNICAL DOCUMENTATION: JOB ID: [id number] [employer]- All Rights Reserved Reading location - IP/workstation name: [email or web address]
[2019-05-08 12:23] LABS: VENOUS BLOOD BASE EXCESS -16.5 mmol/L; VENOUS BLOOD HCO3 11.5 mmol/L (20-32); VENOUS BLOOD PCO2 34.5 mmHg (35-63)
[2019-05-08 12:24] LABS: VENOUS BLOOD PH 7.14 (7.30-7.42)
[2019-05-08 12:32] LABS: ABSOLUTE LYMPHOCYTES (AUTO) 1.6 10^3/uL (0.5-4.7); ABSOLUTE MONOCYTES (AUTO) 0.7 10^3/uL (0.1-1.4); BASOPHILS % (AUTO) 0.2 % (0-2); HEMATOCRIT 47.3 % (37.9-51.0); HEMOGLOBIN 15.2 g/dL (13.5-17.0); MEAN CORPUSCULAR HEMOGLOBIN 28.1 pg (27.0-33.4); MEAN CORPUSCULAR HGB CONC 32.2 g/dL (32.0-36.0); MEAN CORPUSCULAR VOLUME 87 fl (80-97); MONOCYTES % (AUTO) 4.2 % (3-13); PLATELET COUNT 307 10^3/uL (150-450); RED BLOOD COUNT 5.43 10^6/uL (4.35-5.55); SEGMENTED NEUTROPHILS % (AUTO) 86.6 % (42-78); TOTAL CELLS COUNTED % (AUTO) 100 %; WHITE BLOOD COUNT 17.3 10^3/uL (4.0-10.5)
[2019-05-08 12:35] LABS: INTERNATIONAL RATION (INR) 1.17
[2019-05-08 12:37] LABS: APPEARANCE,URINE CLEAR; COLOR,URINE YELLOW
[2019-05-08 12:38] LABS: BILIRUBIN,URINE NEGATIVE (NEGATIVE); GLUCOSE, URINE NEGATIVE (NEGATIVE); KETONES,URINE NEGATIVE (NEGATIVE); LEUKOCYTE ESTERASE,URINE NEGATIVE (NEGATIVE); NITRITE,URINE NEGATIVE (NEGATIVE); PROTEIN,URINE 100 mg/dL (NEGATIVE); UROBILINOGEN,URINE NEGATIVE mg/dL (<2.0)
[2019-05-08 12:41] LABS: ALANINE AMINOTRANSFERASE 27 U/L (21-72); ALBUMIN 4.9 g/dL (3.5-5.0); ALKALINE PHOSPHATASE 118 U/L (38-126); ANION GAP 19 (5-19); ASPARTATE AMINO TRANSFERASE 18 U/L (17-59); BILIRUBIN,DIRECT 0.4 mg/dL (0.0-0.4); BILIRUBIN,TOTAL 0.7 mg/dL (0.2-1.3); BLOOD UREA NITROGEN 66 mg/dL (7-20); CALCIUM 10.8 mg/dL (8.4-10.2); CARBON DIOXIDE 11 mmol/L (22-30); CHLORIDE 107 mmol/L (98-107); GLUCOSE 172 mg/dL (75-110); SODIUM 136.5 mmol/L (137-145); TOTAL PROTEIN 9.7 g/dL (6.3-8.2)
[2019-05-08 12:43] LABS: POTASSIUM 6.2 mmol/L (3.6-5.0)
[2019-05-08] MEDS ORDERED: DEXTROSE 50%-WATER 25 GM/50 ML DISP.SYRIN IV ONE (14:09)
[2019-05-08] MEDS ORDERED: INSULIN REG, HUMAN 100 UNIT/ML 3 ML VIAL (PYX) IV ONE (14:09)
[2019-05-08] MEDS ORDERED: SODIUM POLYSTYRENE SULFONATE 15 GM/60 ML PO ONE (14:09)
--- NOTE | 2019-05-08 15:01 | ER Document Report ---
ED General - General Chief Complaint: Abnormal Lab Results Stated Complaint: ABNORMAL LABS Time Seen by Provider: 05/08/19 11:34 Primary Care Provider: FUENTES LARSEN MD [Primary Care Provider] - Follow up as needed TRAVEL OUTSIDE OF THE [place] IN LAST 30 DAYS: No - HPI Notes: Patient is a 73-year-old male with multiple medical issues who presents to the emergency department for evaluation. Evidently he had abnormal potassium. This was found yesterday. He was administered Kayexalate, sent in here for recheck. The patient states that he has had nausea and markedly increased ostomy output over the last week. He just feels malaise, weakness, and overall poorly. He denies any pain. - Related Data Allergies/Adverse Reactions: Penicillins Allergy (Intermediate, Verified 01/11/19 11:22) Hives Past Medical History - General Information source: Patient, [facility] Records - Social History Smoking Status: Former Smoker Family History: Hypertension Patient has suicidal ideation: No Patient has homicidal ideation: No - Past Medical History Cardiac Medical History: Reports: Hx Coronary Artery Disease, Hx Hyperc holesterolemia, Hx Hypertension Denies: Hx Heart Attack Pulmonary Medical History: Denies: Hx Asthma, Hx Bronchitis, Hx COPD, Hx Pneumonia Neurological Medical History: Reports: Hx Seizures. Denies: Hx Cerebrovascular Accident, Hx Migraine Endocrine Medical History: Reports: Hx Diabetes Mellitus Type 2. Denies: Hx Diabetes Mellitus Type 1, Hx Hyperthyroidism, Hx Hypothyroidism Renal/ Medical History: Denies: Hx Peritoneal Dialysis GI Medical History: Reports: Hx Gastroesophageal Reflux Disease. Denies: Hx Cirrhosis, Hx Hepatitis Musculoskeletal Medical History: Denies Hx Arthritis, Denies Hx Gout Skin Medical History: Denies Hx Eczema, Denies Hx Psoriasis Psychiatric Medical History: Denies: Hx Depression Infectious Medical History: Denies: Hx Hepatitis Past Surgical History: Reports: Hx Abdominal Surgery, Hx Cardiac Catheteriza tion, Hx Cardiac Surgery - 5 vessel, Hx Coronary Artery Bypass Graft, Hx Coronary Stent, Hx Herniorrhaphy - Ventral hernia repair, Other - laparotomy for perforated viscus 3 yrs ago due to chicken bone. - Immunizations Hx Diphtheria, Pertussis, Tetanus Vaccination: No Hx Pneumococcal Vaccination: 11/03/17 Review of Systems - Review of Systems Constitutional: See HPI EENT: No symptoms reported Cardiovascular: No symptoms reported Respiratory: No symptoms reported Gastrointestinal: See HPI Male Genitourinary: No symptoms reported Musculoskeletal: No symptoms reported Skin: No symptoms reported Neurological/Psychological: No symptoms reported Physical Exam - Vital signs Vitals: Resp BP Pulse Ox 17 152/92 H 95 05/08/19 11:30 05/08/19 11:30 05/08/19 11:30 - Notes Notes: This is a very pleasant 73-year-old male who appears his stated age in no acute distress. Vital signs reviewed, please refer to chart. Head is normocephalic, atraumatic. Pupils equal round, reactive to light. Neck is supple without meningismus. Heart is regular rate and rhythm. Lungs are clear to auscultation bilaterally. Abdomen is soft, nontender, normoactive bowel sounds throughout. Ostomy in right lower abdomen without surrounding erythema. He does have extensive scar tissue over the anterior abdominal wall without signs of erythema, dehiscence, or drainage. Extremities without cyanosis, clubbing. Posterior calves are nontender. Peripheral pulses are equal. Skin is warm and dry. Patient is awake, alert, neurological exam is nonfocal. Course - Re-evaluation Re-evalutation: 05/08/19 15:01 Patient presents to the emergency department for evaluation of abnormal labs. He is complaining of high output from his ostomy. His laboratory investigations reveal a significant acidosis, without ion gap. His creatinine is increased. He is hyperkalemic as well. Hyperkalemia is treated with insulin, glucose, Kayexalate. My suspicion is that this renal failure is secondary to dehydration. I did review this patient's medical history. He does have some aspect of heart failure. He had a recently performed echo, which was technically difficult. He was given a total of 1 L of normal saline here. His EKG does not show any signs consistent with hyperkalemia. The patient tolerated all of his treatments well. Patient will be admitted, accepted by Dr. Dominguez. - Vital Signs Vital signs: Temp Pulse Resp BP Pulse Ox 97.8 F 17 173/97 H 99 05/08/19 11:52 05/08/19 14:01 05/08/19 14:01 05/08/19 14:01 - Laboratory Result Diagrams: 05/08/19 11:30 05/08/19 11:30 Laboratory results interpreted by me: 05/08/19 05/08/19 05/08/19 11:30 11:30 11:55 WBC 17.3 H RDW 16.0 H Seg Neutrophils % 86.6 H Lymphocytes % 9.0 L Absolute Neutrophils 15.0 H VBG pH 7.14 L* VBG pCO2 34.5 L VBG HCO3 11.5 L Sodium 136.5 L Potassium 6.2 H* Carbon Dioxide 11 L BUN 66 H Creatinine 3.26 H Est GFR ( Amer) 23 L Est GFR (Non-Af Amer) 19 L Glucose 172 H Calcium 10.8 H Total Protein 9.7 H Urine Protein Urine Ascorbic Acid 05/08/19 11:55 WBC RDW Seg Neutrophils % Lymphocytes % Absolute Neutrophils VBG pH VBG pCO2 VBG HCO3 Sodium Potassium Carbon Dioxide BUN Creatinine Est GFR ( Amer) Est GFR (Non-Af Amer) Glucose Calcium Total Protein Urine Protein 100 H Urine Ascorbic Acid 40 H - EKG Interpretation by Me Additional EKG results interpreted by me: 05/08/19 15:07 Sinus mechanism with a rate of 14 bpm. Left axis deviation. Left anterior fascicular block. No acute ST changes concerning for ischemia or infarction. With the exception of rate, no significant change in compared to prior study of January 12, 2019 Discharge - Discharge Clinical Impression: Hyperkalemia, Non-anion gap metabolic acidosis, Acute kidney injury Condition: Stable Disposition: ADMITTED INPATIENT Admitting Provider: Angelica (Hospitalist) Unit Admitted: Telemetry Referrals: FUENTES LARSEN MD [Primary Care Provider] - Follow up as needed
[2019-05-08] MEDS ORDERED: ACETAMINOPHEN 325 MG TABLET PO PRN (15:20)
[2019-05-08] MEDS ORDERED: ONDANSETRON HCL INJ/PF 4 MG/2 ML SDV IV PRN (15:20)
[2019-05-08] MEDS ORDERED: TEMAZEPAM 15 MG CAPSULE PO PRN (15:20)
[2019-05-08] MEDS ORDERED: NORMAL SALINE 1000 ML 1,000 ML IV PRN (15:23)
[2019-05-08] MEDS ORDERED: DEXTROSE 40% GEL 15 GM TUBE PO PRN ×4 (15:35→18:55)
[2019-05-08] MEDS ORDERED: DEXTROSE 50%-WATER 25 GM/50 ML DISP.SYRIN IV PRN ×4 (15:35→18:55)
[2019-05-08] MEDS ORDERED: GLUCAGON,HUMAN RECOMB 1 MG INJ IM PRN ×2 (15:35→18:55)
--- NOTE | 2019-05-08 15:35 | PDOC H&P ---
History of Present Illness Admission Date/PCP: FUENTES LARSEN MD History of Present Illness: RASHIDA MOTA is a 73 year old male patient with past medical history of hypertension, hyperlipidemia, coronary artery disease status post coronary bypass graft and history of bowel perforation caused reportedly by chicken bone, brought from [facility] with chief complaint of abnormal lab. Patient found to have elevated potassium level for which she was given K ayexalate. When they checked his potassium after Kayexalate is still elevated and patient referred to ER for further evaluation and management. Patient endorses increased output from his ostomy. Denies fever, chills, palpitation, chest pain, cough, urinary complaints. Patient endorses nausea and vomiting. His blood work shows hyperkalemia with potassium 6.2 acute kidney injury with creatinine of 3.26 and leukocytosis with WBC count of 17.3. Patient given Kayexalate dextrose and insulin and referred to the hospitalist service for admission. Past Medical History Cardiac Medical History: Reports: Coronary Artery Disease, Hyperlipidema, Hypertension Denies: Myocardial Infarction Pulmonary Medical History: Denies: Asthma, Bronchitis, Chronic Obstructive Pulmonary Disease (COPD), Pneumonia Neurological Medical History: Reports: Seizures Denies: Migraine Endocrine Medical History: Reports: Diabetes Mellitus Type 2 Denies: Diabetes Mellitus Type 1, Hyperthyroidism, Hypothyroidism GI Medical History: Reports: Gastroesophageal Reflux Disease Denies: Cirrhosis, Hepatitis Musculoskeltal Medical History: Denies: Arthritis, Gout Skin Medical History: Denies: Eczema, Psoriasis Psychiatric Medical History: Denies: Depression Hematology: Reports: Anemia Denies: Bleeding Tendencies Past Surgical History Past Surgical History: Reports: Cardiac Catheterization, Coronary Artery Bypass Graft, Coronary Stent, Herniorrhaphy - Ventral hernia repair, Other - laparotomy for perforated viscus 3 yrs ago due to chicken bone. Social History Smoking Status: Former Smoker Frequency of Alcohol Use: None Hx Recreational Drug Use: No Drugs: None Hx Prescription Drug Abuse: No - Advance Directive Resuscitation Status: Full Code Family History Family History: CAD, Hypertension Parental Family History Reviewed: Yes Children Family History Reviewed: Yes Sibling(s) Family History Reviewed.: Yes Medication/Allergy Home Medications: Omeprazole 20 mg PO DAILY 11/14/18 Oxybutynin Chloride [Ditropan Xl] 10 mg PO DAILY 11/14/18 Aspirin [Ecotrin 81 mg EC Tablet] 81 mg PO QHS tabec 11/25/18 Atorvastatin Calcium [Lipitor 40 mg Tablet] 40 mg PO QHS tablet 11/25/18 Cholecalciferol (Vitamin D3) [Vitamin D3 1000 Unit Tablet] 1,000 unit PO QHS tablet 11/25/18 Insulin Detemir [Levemir Insulin 100 units/mL Insulin Pen] 25 unit SUBCUT BID 11/29/18 Sitagliptin Phosphate [Januvia 50 mg Tablet] 100 mg PO DAILY 11/29/18 Acetaminophen [Tylenol 325 mg Tablet] 650 mg PO Q4HP PRN tablet 12/04/18 Insulin Lispro [Humalog Insulin (Lispro) 100 unit/mL] 0 - 12 unit SUBCUT ACHS unit 12/04/18 Magnesium Oxide [Magox] 400 mg PO BID #60 tablet 12/04/18 Allergies/Adverse Reactions: Penicillins Allergy (Intermediate, Verified 01/11/19 11:22) Hives Review of Systems Constitutional: ABSENT: chills, fever(s), headache(s), weight gain, weight loss Eyes: ABSENT: visual disturbances Ears: ABSENT: hearing changes Cardiovascular: ABSENT: chest pain, dyspnea on exertion, edema, orthropnea, palpitations Respiratory: ABSENT: cough, hemoptysis Gastrointestinal: PRESENT: nausea, vomiting, other - Increased ostomy output Genitourinary: ABSENT: dysuria, hematuria Musculoskeletal: ABSENT: joint swelling Integumentary: ABSENT: rash, wounds Neurological: ABSENT: abnormal gait, abnormal speech, confusion, dizziness, focal weakness, syncope Psychiatric: ABSENT: anxiety, depression, homidical ideation, suicidal ideation Endocrine: ABSENT: cold intolerance, heat intolerance, polydipsia, polyuria Hematologic/Lymphatic: ABSENT: easy bleeding, easy bruising Physical Exam Vital Signs: Temp Pulse Resp BP Pulse Ox 97.8 F 17 173/97 H 99 05/08/19 11:52 05/08/19 14:01 05/08/19 14:01 05/08/19 14:01 Intake & Output 05/07/19 05/08/19 05/09/19 06:59 06:59 06:59 Intake Total 500 Balance 500 Weight 100 kg General appearance: PRESENT: no acute distress Head exam: PRESENT: atraumatic Teeth exam: PRESENT: edentulous Neck exam: ABSENT: carotid bruit, JVD, lymphadenopathy, thyromegaly Respiratory exam: PRESENT: clear to auscultation tip. ABSENT: rales, rhonchi, wheezes Cardiovascular exam: PRESENT: RRR. ABSENT: diastolic murmur, rubs, systolic murmur GI/Abdominal exam: PRESENT: other - Functional ostomy Neurological exam: PRESENT: alert, awake, oriented to person, oriented to place, oriented to time, oriented to situation, CN II-XII grossly intact. ABSENT: motor sensory deficit Results Laboratory Results: 05/08/19 11:30 05/08/19 11:30 05/08/19 05/08/19 05/08/19 11:30 11:30 11:55 WBC 17.3 H RBC 5.43 Hgb 15.2 Hct 47.3 MCV 87 MCH 28.1 MCHC 32.2 RDW 16.0 H Plt Count 307 Seg Neutrophils % 86.6 H Lymphocytes % 9.0 L Monocytes % 4.2 Eosinophils % 0.0 Basophils % 0.2 Absolute Neutrophils 15.0 H Absolute Lymphocytes 1.6 Absolute Monocytes 0.7 Absolute Eosinophils 0.0 Absolute Basophils 0.0 VBG pH VBG pCO2 VBG HCO3 VBG Base Excess Sodium 136.5 L Potassium 6.2 H* Chloride 107 Carbon Dioxide 11 L Anion Gap 19 BUN 66 H Creatinine 3.26 H Est GFR ( Amer) 23 L Est GFR (Non-Af Amer) 19 L Glucose 172 H Lactic Acid 1.7 Calcium 10.8 H Total Bilirubin 0.7 AST 18 ALT 27 Alkaline Phosphatase 118 Total Protein 9.7 H Albumin 4.9 Urine Color Urine Appearance Urine pH Ur Specific [place] Urine Protein Urine Glucose (UA) Urine Ketones Urine Blood Urine Nitrite Ur Leukocyte Esterase Urine WBC (Auto) Urine RBC (Auto) 05/08/19 05/08/19 11:55 11:55 WBC RBC Hgb Hct MCV MCH MCHC RDW Plt Count Seg Neutrophils % Lymphocytes % Monocytes % Eosinophils % Basophils % Absolute Neutrophils Absolute Lymphocytes Absolute Monocytes Absolute Eosinophils Absolute Basophils VBG pH 7.14 L* VBG pCO2 34.5 L VBG HCO3 11.5 L VBG Base Excess -16.5 Sodium Potassium Chloride Carbon Dioxide Anion Gap BUN Creatinine Est GFR ( Amer) Est GFR (Non-Af Amer) Glucose Lactic Acid Calcium Total Bilirubin AST ALT Alkaline Phosphatase Total Protein Albumin Urine Color YELLOW Urine Appearance CLEAR Urine pH 6.0 Ur Specific [place] 1.020 Urine Protein 100 H Urine Glucose (UA) NEGATIVE Urine Ketones NEGATIVE Urine Blood NEGATIVE Urine Nitrite NEGATIVE Ur Leukocyte Esterase NEGATIVE Urine WBC (Auto) 3 Urine RBC (Auto) 1 05/08/19 11:30 Troponin I 0.015 Impressions: Chest X-Ray 05/08/19 11:45 IMPRESSION: NO ACUTE RADIOGRAPHIC FINDING IN THE CHEST. Assessment and Plan - Diagnosis (1) Hyperkalemia Is this a current diagnosis for this admission?: Yes Plan: Patient is already given Kayexalate, dextrose and insulin. I will repeat his BNP level and act accordingly (2) Acute kidney injury Is this a current diagnosis for this admission?: Yes Plan: Was probably due to dehydration. We will gently hydrate him and check his BMP in a.m. (3) Leukocytosis Is this a current diagnosis for this admission?: Yes Plan: We will monitor his CBC. (4) Coronary artery disease Is this a current diagnosis for this admission?: Yes Plan: No anginal symptoms (5) Hypertension Qualifiers: Hypertension type: essential hypertension Qualified Code(s): I10 - Essential (primary) hypertension Is this a current diagnosis for this admission?: Yes Plan: Continue home medication (6) Hyperlipidemia Qualifiers: Hyperlipidemia type: unspecified Qualified Code(s): E78.5 - Hyperlipidemia, unspecified Is this a current diagnosis for this admission?: Yes Plan: Continue home medication (7) Type 2 diabetes mellitus Is this a current diagnosis for this admission?: Yes Plan: I will hold his sitagliptin and start him on sliding scale. - Inpatient Certification Medical Necessity: Need Close Monitoring Due to Risk of Patient Decompensation, Need For IV Fluids, Need For Continuous Telemetry Monitoring
[2019-05-08] MEDS: INSULIN LISPRO 100 UNIT/ML 3 ML VIAL SUBCUT SCH ×2 (17:27→22:48)
[2019-05-08 17:39] LABS: ARTERIAL BLOOD H2CO3 0.81 mmol/L (1.05-1.35); ARTERIAL BLOOD HCO3 10.3 mmol/L (20-24); ARTERIAL BLOOD O2 SATURATION 96.1 % (94-98); ARTERIAL BLOOD PCO2 26.8 mmHg (35-45); ARTERIAL BLOOD PO2 96.9 mmHg (80-100); ARTERIAL BLOOD TOTAL CO2 11.2 mmol/L (23-27)
[2019-05-08 17:40] LABS: ARTERIAL BLOOD FIO2 ROOM AIR
[2019-05-08] MEDS ORDERED: DIPHENOXYLATE HCL/ATROP SULF 2.5-0.025 MG TABLET ONE (17:56)
[2019-05-08] MEDS: DIPHENOXYLATE HCL/ATROP SULF 2.5-0.025 MG TABLET PO SCH (18:00)
[2019-05-08] MEDS ORDERED: NORMAL SALINE 100 ML with INSULIN REGULAR, HUMAN 100 UNIT IV PRN ×2 (18:55)
[2019-05-08] MEDS ORDERED: DEXTROSE 5%-1/2 NORMAL SALINE 1,000 ML IV PRN (18:55)
--- NOTE | 2019-05-08 19:20 | EKG REPORT ---
SEVERITY:- ABNORMAL ECG - SINUS TACHYCARDIA LEFT ANTERIOR FASCICULAR BLOCK CONSIDER ANTEROSEPTAL INFARCT : Confirmed by: Penny Howard 08-May-2019 19:20:23
[2019-05-08 20:49] LABS: ANION GAP 15 (5-19); BLOOD UREA NITROGEN 68 mg/dL (7-20); CALCIUM 9.9 mg/dL (8.4-10.2); CARBON DIOXIDE 12 mmol/L (22-30); CHLORIDE 110 mmol/L (98-107); GLUCOSE 123 mg/dL (75-110); POTASSIUM 5.8 mmol/L (3.6-5.0); SODIUM 136.8 mmol/L (137-145)
[2019-05-08] MEDS: NORMAL SALINE 1000 ML 1,000 ML IV PRN (21:30)
[2019-05-08] MEDS: FAMOTIDINE 20 MG TABLET PO SCH (22:25)
[2019-05-08] MEDS: HEPARIN SOD (PORCINE) 5,000 UNIT/ML 1 ML SYRINGE SUBCUT SCH (22:32)
[2019-05-09 00:44] LABS: ANION GAP 12 (5-19); BLOOD UREA NITROGEN 65 mg/dL (7-20); CALCIUM 9.5 mg/dL (8.4-10.2); CARBON DIOXIDE 12 mmol/L (22-30); CHLORIDE 112 mmol/L (98-107); GLUCOSE 122 mg/dL (75-110); POTASSIUM 5.5 mmol/L (3.6-5.0); SODIUM 136.2 mmol/L (137-145)
[2019-05-09] MEDS: NORMAL SALINE 1000 ML 1,000 ML IV PRN (01:01)
[2019-05-09] MEDS: HEPARIN SOD (PORCINE) 5,000 UNIT/ML 1 ML SYRINGE SUBCUT SCH ×3 (05:07→21:54)
[2019-05-09] MEDS: PANTOPRAZOLE SODIUM 40 MG TABLET.DR PO SCH (05:08)
[2019-05-09 05:51] LABS: ABSOLUTE BASOPHILS # (AUTO) 0.1 10^3/uL (0.0-0.2); ABSOLUTE EOSINOPHILS # (AUTO) 0.1 10^3/uL (0.0-0.6); ABSOLUTE LYMPHOCYTES (AUTO) 2.3 10^3/uL (0.5-4.7); ABSOLUTE MONOCYTES (AUTO) 0.8 10^3/uL (0.1-1.4); ABSOLUTE NEUT (AUTO) 6.3 10^3/uL (1.7-8.2); BASOPHILS % (AUTO) 0.7 % (0-2); EOSINOPHILS % (AUTO) 1.2 % (0-6); HEMATOCRIT 38.5 % (37.9-51.0); LYMPHOCYTES % (AUTO) 24.3 % (13-45); MEAN CORPUSCULAR HEMOGLOBIN 28.5 pg (27.0-33.4); MEAN CORPUSCULAR HGB CONC 32.8 g/dL (32.0-36.0); MEAN CORPUSCULAR VOLUME 87 fl (80-97); MONOCYTES % (AUTO) 8.6 % (3-13); PLATELET COUNT 205 10^3/uL (150-450); RED BLOOD COUNT 4.44 10^6/uL (4.35-5.55); SEGMENTED NEUTROPHILS % (AUTO) 65.2 % (42-78); TOTAL CELLS COUNTED % (AUTO) 100 %; WHITE BLOOD COUNT 9.6 10^3/uL (4.0-10.5)
[2019-05-09 05:59] LABS: HEMOGLOBIN 12.6 g/dL (13.5-17.0)
[2019-05-09 06:13] LABS: ANION GAP 12 (5-19); BLOOD UREA NITROGEN 62 mg/dL (7-20); CALCIUM 9.2 mg/dL (8.4-10.2); CARBON DIOXIDE 13 mmol/L (22-30); CHLORIDE 113 mmol/L (98-107); GLUCOSE 109 mg/dL (75-110); POTASSIUM 5.1 mmol/L (3.6-5.0); SODIUM 138.2 mmol/L (137-145)
[2019-05-09] MEDS: INSULIN LISPRO 100 UNIT/ML 3 ML VIAL SUBCUT SCH ×4 (07:30→21:52)
[2019-05-09] MEDS: FAMOTIDINE 20 MG TABLET PO SCH ×2 (10:53→21:54)
[2019-05-09] MEDS: FERROUS SULFATE 325 MG TABLET PO SCH (10:53)
[2019-05-09] MEDS: ASPIRIN 81 MG TABLET, CHEWABLE PO SCH (10:53)
[2019-05-09] MEDS: ASCORBIC ACID 500 MG TABLET PO SCH (10:53)
[2019-05-09] MEDS: DIPHENOXYLATE HCL/ATROP SULF 2.5-0.025 MG TABLET PO SCH (10:53)
[2019-05-09] MEDS: MAGNESIUM OXIDE 400 MG TABLET PO SCH (10:53)
--- NOTE | 2019-05-09 11:01 | PDOC PROGRESS REPORT ---
Subjective Progress Note for:: 05/09/19 Subjective:: RASHIDA MOTA is a 73 year old male patient with past medical history of hypertension, hyperlipidemia, coronary artery disease status post coronary bypass graft and history of bowel perforation caused reportedly by chicken bone, brought from [facility] with chief complaint of abnormal lab. Patient found to have elevated potassium level for which she was given Kayexalate. When they checked his potassium after Kayexalate is still elevated and patient referred to ER for further evaluation and management. Patient endorses increased output from his ostomy. Denies fever, chills, palpitation, chest pain, cough, urinary complaints. Patient endorses nausea and vomiting. His blood work shows hyperkalemia with potassium 6.2 acute kidney injury with creatinine of 3.26 and leukocytosis with WBC count of 17.3. Patient given Kayexalate dextrose and insulin and referred to the hospitalist service for admission. 05/09/2019: Patient seen and examined while he is resting in bed comfortably. He reports he feels much better than yesterday. I reviewed his lab and I reconciled his home medications. Yesterday his kidney function was depressed evidenced by a creatinine of 3.26 today her his creatinine is 1.85. His hyperkalemia also resolved his potassium was 6.2 today 5.1. The high output volume from his colostomy also is decreasing. I will continue the current management. Reason For Visit: HYPERKALEMIA,ACUTE KIDNEY INJURY Physical Exam Vital Signs: Temp Pulse Resp BP Pulse Ox 97.9 F 94 20 121/67 100 05/09/19 07:20 05/09/19 07:20 05/09/19 07:20 05/09/19 07:20 05/09/19 07:20 Intake & Output 05/08/19 05/09/19 05/10/19 06:59 06:59 06:59 Intake Total 4029 Output Total 700 Balance 3329 Weight 98.7 kg General appearance: PRESENT: no acute distress Head exam: PRESENT: atraumatic Eye exam: PRESENT: conjunctiva pink Mouth exam: PRESENT: moist Neck exam: ABSENT: carotid bruit, JVD, lymphadenopathy, thyromegaly Respiratory exam: PRESENT: clear to auscultation tip. ABSENT: rales, rhonchi, wheezes Cardiovascular exam: PRESENT: RRR. ABSENT: diastolic murmur, rubs, systolic murmur GI/Abdominal exam: PRESENT: normal bowel sounds, soft. ABSENT: distended, guarding, mass, organolmegaly, rebound, tenderness Neurological exam: PRESENT: alert, awake, oriented to person, oriented to time, oriented to situation Results Laboratory Results: 05/09/19 05:02 05/09/19 05:02 05/08/19 05/08/19 05/08/19 11:30 11:30 11:55 WBC 17.3 H RBC 5.43 Hgb 15.2 Hct 47.3 MCV 87 MCH 28.1 MCHC 32.2 RDW 16.0 H Plt Count 307 Seg Neutrophils % 86.6 H Lymphocytes % 9.0 L Monocytes % 4.2 Eosinophils % 0.0 Basophils % 0.2 Absolute Neutrophils 15.0 H Absolute Lymphocytes 1.6 Absolute Monocytes 0.7 Absolute Eosinophils 0.0 Absolute Basophils 0.0 Carbonic Acid HCO3/H2CO3 Ratio ABG pH ABG pCO2 ABG pO2 ABG HCO3 ABG O2 Saturation ABG Base Excess VBG pH VBG pCO2 VBG HCO3 VBG Base Excess FiO2 Sodium 136.5 L Potassium 6.2 H* Chloride 107 Carbon Dioxide 11 L Anion Gap 19 BUN 66 H Creatinine 3.26 H Est GFR ( Amer) 23 L Est GFR (Non-Af Amer) 19 L Glucose 172 H Serum Osmolality Lactic Acid 1.7 Calcium 10.8 H Total Bilirubin 0.7 AST 18 ALT 27 Alkaline Phosphatase 118 Total Protein 9.7 H Albumin 4.9 Urine Color Urine Appearance Urine pH Ur Specific [place] Urine Protein Urine Glucose (UA) Urine Ketones Urine Blood Urine Nitrite Ur Leukocyte Esterase Urine WBC (Auto) Urine RBC (Auto) 05/08/19 05/08/19 05/08/19 11:55 11:55 17:20 WBC RBC Hgb Hct MCV MCH MCHC RDW Plt Count Seg Neutrophils % Lymphocytes % Monocytes % Eosinophils % Basophils % Absolute Neutrophils Absolute Lymphocytes Absolute Monocytes Absolute Eosinophils Absolute Basophils Carbonic Acid 0.81 L HCO3/H2CO3 Ratio 12:1 ABG pH 7.20 L* ABG pCO2 26.8 L ABG pO2 96.9 ABG HCO3 10.3 L ABG O2 Saturation 96.1 ABG Base Excess -16.0 VBG pH 7.14 L* VBG pCO2 34.5 L VBG HCO3 11.5 L VBG Base Excess -16.5 FiO2 ROOM AIR Sodium Potassium Chloride Carbon Dioxide Anion Gap BUN Creatinine Est GFR ( Amer) Est GFR (Non-Af Amer) Glucose Serum Osmolality Lactic Acid Calcium Total Bilirubin AST ALT Alkaline Phosphatase Total Protein Albumin Urine Color YELLOW Urine Appearance CLEAR Urine pH 6.0 Ur Specific [place] 1.020 Urine Protein 100 H Urine Glucose (UA) NEGATIVE Urine Ketones NEGATIVE Urine Blood NEGATIVE Urine Nitrite NEGATIVE Ur Leukocyte Esterase NEGATIVE Urine WBC (Auto) 3 Urine RBC (Auto) 1 05/08/19 05/08/19 05/09/19 20:17 20:17 00:18 WBC RBC Hgb Hct MCV MCH MCHC RDW Plt Count Seg Neutrophils % Lymphocytes % Monocytes % Eosinophils % Basophils % Absolute Neutrophils Absolute Lymphocytes Absolute Monocytes Absolute Eosinophils Absolute Basophils Carbonic Acid HCO3/H2CO3 Ratio ABG pH ABG pCO2 ABG pO2 ABG HCO3 ABG O2 Saturation ABG Base Excess VBG pH VBG pCO2 VBG HCO3 VBG Base Excess FiO2 Sodium 136.8 L 136.2 L Potassium 5.8 H 5.5 H Chloride 110 H 112 H Carbon Dioxide 12 L 12 L Anion Gap 15 12 BUN 68 H 65 H Creatinine 2.50 H 2.25 H Est GFR ( Amer) 31 L 35 L Est GFR (Non-Af Amer) 25 L 29 L Glucose 123 H 122 H Serum Osmolality 305 H Lactic Acid Calcium 9.9 9.5 Total Bilirubin AST ALT Alkaline Phosphatase Total Protein Albumin Urine Color Urine Appearance Urine pH Ur Specific [place] Urine Protein Urine Glucose (UA) Urine Ketones Urine Blood Urine Nitrite Ur Leukocyte Esterase Urine WBC (Auto) Urine RBC (Auto) 05/09/19 05/09/19 05:02 05:02 WBC 9.6 RBC 4.44 Hgb 12.6 L D Hct 38.5 MCV 87 MCH 28.5 MCHC 32.8 RDW 16.0 H Plt Count 205 Seg Neutrophils % 65.2 Lymphocytes % 24.3 Monocytes % 8.6 Eosinophils % 1.2 Basophils % 0.7 Absolute Neutrophils 6.3 Absolute Lymphocytes 2.3 Absolute Monocytes 0.8 Absolute Eosinophils 0.1 Absolute Basophils 0.1 Carbonic Acid HCO3/H2CO3 Ratio ABG pH ABG pCO2 ABG pO2 ABG HCO3 ABG O2 Saturation ABG Base Excess VBG pH VBG pCO2 VBG HCO3 VBG Base Excess FiO2 Sodium 138.2 Potassium 5.1 H Chloride 113 H Carbon Dioxide 13 L Anion Gap 12 BUN 62 H Creatinine 1.85 H Est GFR ( Amer) 43 L Est GFR (Non-Af Amer) 36 L Glucose 109 Serum Osmolality Lactic Acid Calcium 9.2 Total Bilirubin AST ALT Alkaline Phosphatase Total Protein Albumin Urine Color Urine Appearance Urine pH Ur Specific [place] Urine Protein Urine Glucose (UA) Urine Ketones Urine Blood Urine Nitrite Ur Leukocyte Esterase Urine WBC (Auto) Urine RBC (Auto) 05/08/19 11:30 Troponin I 0.015 Impressions: Chest X-Ray 05/08/19 11:45 IMPRESSION: NO ACUTE RADIOGRAPHIC FINDING IN THE CHEST. Assessment and Plan - Diagnosis (1) Hyperkalemia Is this a current diagnosis for this admission?: Yes Plan: Has be resolving potassium trended down from 6.2 to 1.85. (2) Acute kidney injury Is this a current diagnosis for this admission?: Yes Plan: Was probably due to dehydration. We will gently hydrate him and check his BMP in a.m. 05/09/2019: His kidney function has been improving steadily his creatinine was yesterday 3.26 today to 1.85. (3) Leukocytosis Is this a current diagnosis for this admission?: Yes Plan: Has resolved (4) Coronary artery disease Is this a current diagnosis for this admission?: Yes Plan: No anginal symptoms (5) Hypertension Qualifiers: Hypertension type: essential hypertension Qualified Code(s): I10 - Essential (primary) hypertension Is this a current diagnosis for this admission?: Yes Plan: Continue home medication (6) Hyperlipidemia Qualifiers: Hyperlipidemia type: unspecified Qualified Code(s): E78.5 - Hyperlipidemia, unspecified Is this a current diagnosis for this admission?: Yes Plan: Continue home medication (7) Type 2 diabetes mellitus Is this a current diagnosis for this admission?: Yes Plan: I will hold his sitagliptin and start him on sliding scale.
[2019-05-09] MEDS: ATORVASTATIN CALCIUM 40 MG TABLET PO SCH (21:54)
[2019-05-09] MEDS: CHOLECALCIFEROL (D3) 1,000 UNIT (25 MCG) TABLET PO SCH (21:54)
--- NOTE | 2019-05-09 23:55 | EKG REPORT ---
SEVERITY:- ABNORMAL ECG - SINUS RHYTHM ATRIAL PREMATURE COMPLEX LEFT ANTERIOR FASCICULAR BLOCK : Confirmed by: Penny Howard 09-May-2019 23:54:46
[2019-05-10] MEDS: PANTOPRAZOLE SODIUM 40 MG TABLET.DR PO SCH (05:12)
[2019-05-10] MEDS: HEPARIN SOD (PORCINE) 5,000 UNIT/ML 1 ML SYRINGE SUBCUT SCH ×3 (05:13→22:28)
[2019-05-10 06:33] LABS: ANION GAP 14 (5-19); BLOOD UREA NITROGEN 66 mg/dL (7-20); CALCIUM 10.2 mg/dL (8.4-10.2); CARBON DIOXIDE 11 mmol/L (22-30); CHLORIDE 111 mmol/L (98-107); GLUCOSE 124 mg/dL (75-110); POTASSIUM 5.5 mmol/L (3.6-5.0); SODIUM 136.3 mmol/L (137-145)
[2019-05-10] MEDS: INSULIN LISPRO 100 UNIT/ML 3 ML VIAL SUBCUT SCH ×4 (07:57→22:28)
[2019-05-10] MEDS ORDERED: SODIUM POLYSTYRENE SULFONATE 15 GM/60 ML PO ONE (08:30)
[2019-05-10] MEDS: DIPHENOXYLATE HCL/ATROP SULF 2.5-0.025 MG TABLET PO SCH (09:11)
[2019-05-10] MEDS: FERROUS SULFATE 325 MG TABLET PO SCH (09:11)
[2019-05-10] MEDS: FAMOTIDINE 20 MG TABLET PO SCH ×2 (09:11→22:28)
[2019-05-10] MEDS: ASCORBIC ACID 500 MG TABLET PO SCH (09:11)
[2019-05-10] MEDS: MAGNESIUM OXIDE 400 MG TABLET PO SCH (09:11)
[2019-05-10] MEDS: ASPIRIN 81 MG TABLET, CHEWABLE PO SCH (09:11)
--- NOTE | 2019-05-10 11:32 | PDOC PROGRESS REPORT ---
Subjective Progress Note for:: 05/10/19 Subjective:: RASHIDA MOTA is a 73 year old male patient with past medical history of hypertension, hyperlipidemia, coronary artery disease status post coronary bypass graft and history of bowel perforation caused reportedly by chicken bone, brought from [facility] with chief complaint of abnormal lab. Patient found to have elevated potassium level for which she was given Kayexalate. When they checked his potassium after Kayexalate is still elevated and patient referred to ER for further evaluation and management. Patient endorses increased output from his ostomy. Denies fever, chills, palpitation, chest pain, cough, urinary complaints. Patient endorses nausea and vomiting. His blood work shows hyperkalemia with potassium 6.2 acute kidney injury with creatinine of 3.26 and leukocytosis with WBC count of 17.3. Patient given Kayexalate dextrose and insulin and referred to the hospitalist service for admission. 05/09/2019: Patient seen and examined while he is resting in bed comfortably. He reports he feels much better than yesterday. I reviewed his lab and I reconciled his home medications. Yesterday his kidney function was depressed evidenced by a creatinine of 3.26 today her his creatinine is 1.85. His hyperkalemia also resolved his potassium was 6.2 today 5.1. The high output volume from his colostomy also is decreasing. I will continue the current management. 05/10/2019: Patient seen while resting in bed comfortably. He is eating well. He does not have any nausea vomiting or fever. I reviewed his medications and his labs. His labs shows improvement in his creatinine level but his potassium jumped from 5.1-5.5. Patient is given Kayexalate and will check his BMP in a.m. Reason For Visit: HYPERKALEMIA,ACUTE KIDNEY INJURY Physical Exam Vital Signs: Temp Pulse Resp BP Pulse Ox 97.7 F 82 20 119/69 99 05/10/19 03:37 05/10/19 03:37 05/10/19 03:37 05/10/19 03:37 05/10/19 03:37 Intake & Output 05/09/19 05/10/19 05/11/19 06:59 06:59 06:59 Intake Total 4029 1200 560 Output Total 700 5795 350 Balance 3329 -4595 210 Weight 98.7 kg 97.8 kg General appearance: PRESENT: no acute distress Head exam: PRESENT: atraumatic Mouth exam: PRESENT: moist Neck exam: ABSENT: carotid bruit, JVD, lymphadenopathy, thyromegaly Respiratory exam: PRESENT: clear to auscultation tip. ABSENT: rales, rhonchi, wheezes Cardiovascular exam: PRESENT: RRR. ABSENT: diastolic murmur, rubs, systolic murmur GI/Abdominal exam: PRESENT: normal bowel sounds, soft. ABSENT: distended, guarding, mass, organolmegaly, rebound, tenderness Neurological exam: PRESENT: alert, awake, oriented to person, oriented to place, oriented to time, oriented to situation Results Laboratory Results: 05/09/19 05:02 05/10/19 05:55 05/10/19 05:55 Sodium 136.3 L Potassium 5.5 H Chloride 111 H Carbon Dioxide 11 L Anion Gap 14 BUN 66 H Creatinine 1.60 H Est GFR ( Amer) 51 L Est GFR (Non-Af Amer) 42 L Glucose 124 H Calcium 10.2 05/08/19 11:30 Troponin I 0.015 Impressions: Chest X-Ray 05/08/19 11:45 IMPRESSION: NO ACUTE RADIOGRAPHIC FINDING IN THE CHEST. Assessment and Plan - Diagnosis (1) Hyperkalemia Is this a current diagnosis for this admission?: Yes Plan: Improving (2) Acute kidney injury Is this a current diagnosis for this admission?: Yes Plan: Was probably due to dehydration. We will gently hydrate him and check his BMP in a.m. 05/09/2019: His kidney function has been improving steadily his creatinine was yesterday 3.26 today to 1.85. (3) Leukocytosis Is this a current diagnosis for this admission?: Yes Plan: Has resolved (4) Coronary artery disease Is this a current diagnosis for this admission?: Yes Plan: No anginal symptoms (5) Hypertension Qualifiers: Hypertension type: essential hypertension Qualified Code(s): I10 - Essential (primary) hypertension Is this a current diagnosis for this admission?: Yes Plan: Continue home medication (6) Hyperlipidemia Qualifiers: Hyperlipidemia type: unspecified Qualified Code(s): E78.5 - Hyperlipidemia, unspecified Is this a current diagnosis for this admission?: Yes Plan: Continue home medication (7) Type 2 diabetes mellitus Is this a current diagnosis for this admission?: Yes
[2019-05-10] MEDS: NORMAL SALINE 1000 ML 1,000 ML IV PRN (16:17)
[2019-05-10] MEDS: ATORVASTATIN CALCIUM 40 MG TABLET PO SCH (22:28)
[2019-05-10] MEDS: CHOLECALCIFEROL (D3) 1,000 UNIT (25 MCG) TABLET PO SCH (22:28)
[2019-05-11] MEDS: NORMAL SALINE 1000 ML 1,000 ML IV PRN ×3 (00:33→17:31)
[2019-05-11] MEDS: HEPARIN SOD (PORCINE) 5,000 UNIT/ML 1 ML SYRINGE SUBCUT SCH ×3 (05:39→22:07)
[2019-05-11] MEDS: PANTOPRAZOLE SODIUM 40 MG TABLET.DR PO SCH (05:39)
[2019-05-11 06:09] LABS: ANION GAP 11 (5-19); BLOOD UREA NITROGEN 61 mg/dL (7-20); CALCIUM 9.3 mg/dL (8.4-10.2); CARBON DIOXIDE 15 mmol/L (22-30); CHLORIDE 111 mmol/L (98-107); GLUCOSE 124 mg/dL (75-110); POTASSIUM 4.9 mmol/L (3.6-5.0)
[2019-05-11] MEDS: INSULIN LISPRO 100 UNIT/ML 3 ML VIAL SUBCUT SCH ×4 (08:19→22:08)
[2019-05-11] MEDS: ASPIRIN 81 MG TABLET, CHEWABLE PO SCH (09:17)
[2019-05-11] MEDS: ASCORBIC ACID 500 MG TABLET PO SCH (09:17)
[2019-05-11] MEDS: DIPHENOXYLATE HCL/ATROP SULF 2.5-0.025 MG TABLET PO SCH (09:18)
[2019-05-11] MEDS: FERROUS SULFATE 325 MG TABLET PO SCH (09:18)
[2019-05-11] MEDS: FAMOTIDINE 20 MG TABLET PO SCH ×2 (09:18→22:07)
[2019-05-11] MEDS: MAGNESIUM OXIDE 400 MG TABLET PO SCH (09:18)
[2019-05-11 20:52] LABS: ANION GAP 10 (5-19); BLOOD UREA NITROGEN 53 mg/dL (7-20); CALCIUM 9.1 mg/dL (8.4-10.2); CARBON DIOXIDE 18 mmol/L (22-30); CHLORIDE 109 mmol/L (98-107); GLUCOSE 124 mg/dL (75-110); POTASSIUM 5.1 mmol/L (3.6-5.0); SODIUM 136.9 mmol/L (137-145)
[2019-05-11] MEDS: MAGNESIUM SULFATE/D5W 1 GM/100 ML RTUPB IV SCH ×2 (21:58→23:04)
[2019-05-11] MEDS: CHOLECALCIFEROL (D3) 1,000 UNIT (25 MCG) TABLET PO SCH (22:07)
[2019-05-11] MEDS: ATORVASTATIN CALCIUM 40 MG TABLET PO SCH (22:07)
[2019-05-12] MEDS: NORMAL SALINE 1000 ML 1,000 ML IV PRN (03:31)
[2019-05-12] MEDS: PANTOPRAZOLE SODIUM 40 MG TABLET.DR PO SCH (05:46)
[2019-05-12] MEDS: HEPARIN SOD (PORCINE) 5,000 UNIT/ML 1 ML SYRINGE SUBCUT SCH ×2 (05:46→14:03)
[2019-05-12] MEDS: INSULIN LISPRO 100 UNIT/ML 3 ML VIAL SUBCUT SCH ×2 (09:34→12:52)
[2019-05-12] MEDS: FERROUS SULFATE 325 MG TABLET PO SCH (09:37)
[2019-05-12] MEDS: ASPIRIN 81 MG TABLET, CHEWABLE PO SCH (09:37)
[2019-05-12] MEDS: MAGNESIUM OXIDE 400 MG TABLET PO SCH (09:37)
[2019-05-12] MEDS: DIPHENOXYLATE HCL/ATROP SULF 2.5-0.025 MG TABLET PO SCH (09:37)
[2019-05-12] MEDS: ASCORBIC ACID 500 MG TABLET PO SCH (09:37)
[2019-05-12] MEDS: FAMOTIDINE 20 MG TABLET PO SCH (09:37)
[2019-05-12 14:06] VITALS: BP 158/87
--- NOTE | 2019-05-12 15:16 | PDOC PROGRESS REPORT ---
Subjective Progress Note for:: 05/11/19 Subjective:: Resting comfortably. No acute complaints Reason For Visit: HYPERKALEMIA,ACUTE KIDNEY INJURY Physical Exam Vital Signs: Temp Pulse Resp BP Pulse Ox 97.5 F 79 18 127/78 H 100 05/11/19 15:03 05/11/19 15:03 05/11/19 15:03 05/11/19 15:03 05/11/19 15:03 Intake & Output 05/10/19 05/11/19 05/12/19 06:59 06:59 06:59 Intake Total 1200 2600 1480 Output Total 5795 3800 Balance -4595 -1200 1480 Weight 97.8 kg 98.2 kg General appearance: PRESENT: no acute distress, cooperative, well-developed Head exam: PRESENT: atraumatic, normocephalic Mouth exam: PRESENT: moist, tongue midline Respiratory exam: PRESENT: clear to auscultation tip - Bilaterally anteriorly, symmetrical, unlabored. ABSENT: accessory muscle use, rales, rhonchi, tachyp suraj, wheezes Cardiovascular exam: PRESENT: RRR, +S1, +S2 GI/Abdominal exam: PRESENT: normal bowel sounds, soft, tenderness - Slight tenderness around the ostomy area, other - Ostomy right abdomen. Dark fecal material present.. ABSENT: distended Rectal exam: PRESENT: deferred Extremities exam: ABSENT: pedal edema Neurological exam: PRESENT: alert, awake, oriented to person, oriented to place, oriented to time, oriented to situation Psychiatric exam: PRESENT: appropriate affect, normal mood. ABSENT: agitated, anxious Focused psych exam: ABSENT: delusional, restlessness Skin exam: PRESENT: other - Still with dressing over a portion of the abdominal incision. I did not take the dressing down. Results Laboratory Results: 05/09/19 05:02 05/11/19 05:11 05/11/19 05:11 Sodium 137.0 Potassium 4.9 Chloride 111 H Carbon Dioxide 15 L Anion Gap 11 BUN 61 H Creatinine 1.43 H Est GFR ( Amer) 58 L Est GFR (Non-Af Amer) 48 L Glucose 124 H Calcium 9.3 05/08/19 11:55 Clean Catch Midstream Urine Culture - Final Mixed Urogenital Jenny 05/08/19 11:30 Troponin I 0.015 Impressions: Chest X-Ray 05/08/19 11:45 IMPRESSION: NO ACUTE RADIOGRAPHIC FINDING IN THE CHEST. Assessment and Plan - Diagnosis (1) Acute kidney injury Is this a current diagnosis for this admission?: Yes Plan: The BUN is elevated but this is chronic for this patient. Reviewing 2019 blood work shows consistent elevation in this range. His serum creatinine is back in the normal range with a GFR greater than 60. (2) Hyperkalemia Is this a current diagnosis for this admission?: Yes Plan: Hyperkalemia secondary to the acute kidney injury. The potassium is greatly improved and with his renal function returning to normal should remain in the normal range. (3) Leukocytosis Qualifiers: Leukocytosis type: unspecified Qualified Code(s): D72.829 - Elevated white blood cell count, unspecified Is this a current diagnosis for this admission?: Yes Plan: On admission the patient's white blood cell count was 17,000. With aggressive h ydration it is back in the normal range. (4) Coronary artery disease Qualifiers: Coronary Disease-Associated Artery/Lesion type: unspecified vessel or lesion type Associated angina: without angina Is this a current diagnosis for this admission?: Yes Plan: The patient has not had any cardiac symptoms. We will continue his current medication regimen. (5) Hypertension Qualifiers: Hypertension type: essential hypertension Qualified Code(s): I10 - Essential (primary) hypertension Is this a current diagnosis for this admission?: Yes Plan: His renal function is returned to normal will resume his home medication regimen. (6) Hyperlipidemia Qualifiers: Hyperlipidemia type: unspecified Qualified Code(s): E78.5 - Hyperlipidemia, unspecified Is this a current diagnosis for this admission?: Yes Plan: Continue atorvastatin. (7) Type 2 diabetes mellitus Qualifiers: Diabetes mellitus retirement insulin use: without terminal press operator use Proliferative retinopathy type: unspecified Is this a current diagnosis for this admission?: Yes Plan: We will continue the patient's sliding scale. As his renal function is improved consider resuming his Actos. Continue cardiac/diabetic diet. - Time Time Spent with patient: 15-24 minutes Medications reviewed and adjusted accordingly: Yes Anticipated discharge: Home Within: within 48 hours
--- NOTE | 2019-05-12 16:46 | PDOC DISCHARGE SUMMARY ---
General - Admit/Disc Date/PCP Admission Date/Primary Care Provider: 05/08/19 15:38 FUENTES LARSEN MD Discharge Date: 05/12/19 - Discharge Diagnosis (1) Acute kidney injury Is this a current diagnosis for this admission?: Yes Summary: The patient was suffering from nausea and vomiting with increased ostomy output. This created an acute kidney injury with associated hyperkalemia. With aggressive fluids the patient's renal function has returned to normal with a GFR greater than 60 and normal serum creatinine. His BUN is chronically elevated as reflected in review of the patient's blood work through 2018. Continue to monitor renal function as an outpatient. (2) Hyperkalemia Is this a current diagnosis for this admission?: Yes Summary: Secondary to acute kidney injury as noted above. Hyperkalemia resolved. Should improve as the patient's diet improves. (3) Leukocytosis Is this a current diagnosis for this admission?: Yes Summary: Increased white blood cell count was due to the physiologic stress of the patient's nausea, vomiting and diarrhea with associated acute kidney injury. With aggressive fluids his white blood cell count normalized quickly. (4) Coronary artery disease Is this a current diagnosis for this admission?: Yes Summary: History of bypass surgery. No acute coronary symptoms noted during this admission. (5) Hypertension Is this a current diagnosis for this admission?: Yes Summary: Previous regimen continued. (6) Hyperlipidemia Is this a current diagnosis for this admission?: Yes Summary: Previous regimen continued. (7) Type 2 diabetes mellitus Is this a current diagnosis for this admission?: Yes Summary: With his acute kidney injury the patient was placed on insulin sliding scale with Accu-Cheks before meals and at bedtime. He will return to his previous regimen at discharge. (8) Colostomy status Is this a current diagnosis for this admission?: Yes Summary: The patient has had several surgeries. He currently has a colostomy and has been in [facility] and rehab for several months I believe. It is my understanding that he was uncomfortable discharging to home due to lack of competence with ostomy care. He received ongoing education during this admission. He has become fairly proficient and he will have home health at discharge to continue education. - Additional Information Resuscitation Status: Full Code Discharge Diet: Cardiac, Diabetic Discharge Activity: Activity As Tolerated Prescriptions: Diphenoxylate HCl/Atrop Sulf [Lomotil 2.5 mg Tablet] 1 tab PO DAILY 30 Days #30 tablet Home Medications: Acetaminophen [Tylenol] 650 mg PO Q4HP PRN 05/08/19 Ascorbic Acid [Vitamin C 500 mg Tablet] 500 mg PO DAILY 05/08/19 Aspirin [Children's Aspirin] 81 mg PO DAILY 05/08/19 Atorvastatin Calcium [Lipitor 40 mg Tablet] 40 mg PO QHS 05/08/19 Cholecalciferol (Vitamin D3) [Vitamin D3 1000 Unit Tablet] 1,000 unit PO QHS 05/08/19 Ferrous Sulfate [Feosol] 325 mg PO DAILY 05/08/19 Magnesium Oxide 400 mg PO DAILY 05/08/19 Multivitamin [Multivitamins] 1 each PO DAILY 05/08/19 Omeprazole 20 mg PO DAILY 05/08/19 Oxybutynin Chloride [Oxybutynin Chloride ER] 10 mg PO DAILY 05/08/19 Propylene Glycol/Peg 400/Pf [Systane Ultra 0.4-0.3% Eye Drp] 2 each OP TID 05/08/19 Sitagliptin Phosphate [Januvia 50 mg Tablet] 100 mg PO DAILY 05/08/19 Acetaminophen [Tylenol 325 mg Tablet] 650 mg PO Q4HP PRN tablet 05/12/19 Diphenoxylate HCl/Atrop Sulf [Lomotil 2.5 mg Tablet] 1 tab PO DAILY 30 Days #30 tablet 05/12/19 History of Present Illness Patient complains of: Nausea, vomiting and increased ostomy output. History of Present Illness: RASHIDA MOTA is a 73 year old male who was transferred from [facility] or abnormal lab work. It is consistent with his nausea, vomiting and high output ostomy volumes. This undoubtedly induced his acute kidney injury and hyperkalemia. With aggressive fluids he in fact improved significantly. His GFR is back to normal. He is finally comfortable with caring for his ostomy and therefore will discharge home rather than go back to [facility]. He will have home health to continue education for his ostomy as well as physical therapy. He still has a small open area on the abdominal incision. He will return to the wound care clinic and resume his care at that facility. We will also have him see his primary care provider in the next 7 to 10 days. Hospital Course Hospital Course: See above Physical Exam Vital Signs: Temp Pulse Resp BP Pulse Ox 97.3 F 62 16 158/87 H 100 05/12/19 14:03 05/12/19 14:03 05/12/19 14:03 05/12/19 14:03 05/12/19 14:03 Intake & Output 05/11/19 05/12/19 05/13/19 06:59 06:59 06:59 Intake Total 2600 4070 Output Total 3800 1945 Balance -1200 2125 Weight 98.2 kg 101.6 kg General appearance: PRESENT: no acute distress, well-developed Respiratory exam: PRESENT: clear to auscultation tip, symmetrical, unlabored. ABSENT: chest wall tenderness, rales, rhonchi, tachypnea, wheezes Cardiovascular exam: PRESENT: RRR, +S1, +S2 GI/Abdominal exam: PRESENT: normal bowel sounds, soft, tenderness - In the peristomal area, other - The ostomy bag has liquid brown stool. The stoma is p ink and healthy-appearing.. ABSENT: distended Rectal exam: PRESENT: other - Functioning ostomy on the right side of the abdomen. Liquid brown stool present in the ostomy bag. Extremities exam: ABSENT: calf tenderness, pedal edema Musculoskeletal exam: PRESENT: ambulatory, normal inspection Neurological exam: PRESENT: alert, awake, oriented to person, oriented to place, oriented to time, oriented to situation, CN II-XII grossly intact Psychiatric exam: PRESENT: appropriate affect, normal mood. ABSENT: agitated, anxious Focused psych exam: ABSENT: delusional, restlessness Skin exam: PRESENT: other - There is a simple gauze dressing over the distal portion of the midline incision. This is the area that is yet to heal. I did not take the dressing down today. Results Laboratory Results: 05/09/19 05:02 05/11/19 20:18 05/11/19 20:18 Sodium 136.9 L Potassium 5.1 H Chloride 109 H Carbon Dioxide 18 L Anion Gap 10 BUN 53 H Creatinine 1.11 Est GFR ( Amer) > 60 Est GFR (Non-Af Amer) > 60 Glucose 124 H Calcium 9.1 Magnesium 1.3 L 05/08/19 11:55 Clean Catch Midstream Urine Culture - Final Mixed Urogenital Jenny 05/08/19 11:30 Troponin I 0.015 Impressions: Chest X-Ray 05/08/19 11:45 IMPRESSION: NO ACUTE RADIOGRAPHIC FINDING IN THE CHEST. Qualifiers - * PATIENT BEING DISCHARGED WITH ANY OF THE FOLLOWING DIAGNOSIS: No Acute Heart Failure - Is this a Heart Failure Patient?: No Plan Discharge Plan: Discharge home with home health. Follow-up with wound clinic and primary care provider. Time Spent: Greater than 30 Minutes
== END 2019-05-12 14:40 | disposition home health service (06) | DRG 683 ==
LOC: ER 11:23 → EH 15:38 → 3W 05-09 00:04
PROVIDERS: ADMIT Internal Medicine; ATTEND Internal Medicine
DX: N17.9 Acute kidney failure, unspecified (principal); E87.2 Acidosis; E87.5 Hyperkalemia; I10 Essential (primary) hypertension; E11.8 Type 2 diabetes mellitus with unspecified complications; E86.0 Dehydration; E78.00 Pure hypercholesterolemia, unspecified; I25.10 Atherosclerotic heart disease of native coronary artery without angina pectoris; R56.9 Unspecified convulsions; D72.829 Elevated white blood cell count, unspecified; K21.9 Gastro-esophageal reflux disease without esophagitis; Z95.1 Presence of aortocoronary bypass graft; Z95.5 Presence of coronary angioplasty implant and graft; Z79.84 Long term (current) use of oral hypoglycemic drugs; Z79.82 Long term (current) use of aspirin; Z79.4 Long term (current) use of insulin; Z79.899 Other long term (current) drug therapy; Z93.3 Colostomy status
CPT/HCPCS: 36415; 36600; 71045; 80048; 80053; 81001; 82803; 82962; 83605; 83735; 83930; 84484; 85025; 85610; 87040; 87086; 93005; 93010; 96361; 96374; 99285; J1644; J1815; J3475; J3490; J7030; J7040

== ENCOUNTER 2019-05-21 16:56 | Emergency (ER) | payer MEDICARE, BC ==
[2019-05-21 17:13] VITALS: BP 122/70
--- NOTE | 2019-05-21 17:48 | ER Document Report ---
HPI - HPI Time Seen by Provider: 05/21/19 17:02 Pain Level: 0 Notes: Patient presents to the emergency department with complaints of leaking colostomy bag. Patient reports he was discharged home from the hospital yesterday. He states that his colostomy bag is leaking. He states his home health nurse was supposed to come today to establish his initial visit however due to a scheduling conflict she was unable unable to come till Friday. Patient reports he has no supplies for his colostomy bag. Denies any fevers, nausea, vomiting. - REPRODUCTIVE Reproductive: DENIES: : Past Medical History - General Information source: Patient - Social History Smoking Status: Never Smoker Frequency of alcohol use: None Drug Abuse: None Family History: CAD, Hypertension - Past Medical History Cardiac Medical History: Reports: Hx Coronary Artery Disease, Hx Hypercholesterolemia, Hx Hypertension Denies: Hx Heart Attack Pulmonary Medical History: Denies: Hx Asthma, Hx Bronchitis, Hx COPD, Hx Pneumonia Neurological Medical History: Reports: Hx Seizures. Denies: Hx Cerebrovascular Accident, Hx Migraine Endocrine Medical History: Reports: Hx Diabetes Mellitus Type 2. Denies: Hx Diabetes Mellitus Type 1, Hx Hyperthyroidism, Hx Hypothyroidism Renal/ Medical History: Denies: Hx Peritoneal Dialysis GI Medical History: Reports: Hx Gastroesophageal Reflux Disease. Denies: Hx Cirrhosis, Hx Hepatitis Musculoskeletal Medical History: Denies Hx Arthritis, Denies Hx Gout Skin Medical History: Denies Hx Eczema, Denies Hx Psoriasis Psychiatric Medical History: Reports: Hx Depression Infectious Medical History: Denies: Hx Hepatitis Past Surgical History: Reports: Hx Abdominal Surgery, Hx Cardiac Catheterization, Hx Cardiac Surgery - 5 vessel, Hx Coronary Artery Bypass Graft, Hx Coronary Stent, Hx Herniorrhaphy - Ventral hernia repair, Other - laparotomy for perforated viscus 3 yrs ago due to chicken bone. - Immunizations Hx Diphtheria, Pertussis, Tetanus Vaccination: No Hx Pneumococcal Vaccination: 11/03/17 Vertical Provider Document - CONSTITUTIONAL Notes: PHYSICAL EXAMINATION: GENERAL: Well-appearing, well-nourished and in no acute distress. HEAD: Atraumatic, normocephalic. EYES: Pupils equal round extraocular movements intact, conjunctiva are normal. ENT: Nares patent NECK: Normal range of motion LUNGS: No respiratory distress Abdomen: Colostomy noted to the left lower quadrant, excoriations of the skin around it. Midline abdominal incision with erythema and exudates. Musculoskeletal: Normal range of motion NEUROLOGICAL: Normal speech, normal gait. PSYCH: Normal mood, normal affect. SKIN: See above. - INFECTION CONTROL TRAVEL OUTSIDE OF THE [place] IN LAST 30 DAYS: No Course - Re-evaluation Re-evalutation: Patient cleaned up in colostomy bag changed by nursing staff. Patient will be started on antibiotic as he does appear to have mild cellulitis around the colostomy site perhaps from the leaking over the last 24 hours. Patient given supplies to get him by until Friday when the home health nurse comes. - Vital Signs Vital signs: Temp Pulse Resp BP Pulse Ox 98.0 F 79 20 122/70 97 05/21/19 17:04 05/21/19 17:04 05/21/19 17:04 05/21/19 17:04 05/21/19 17:04 Discharge - Discharge Clinical Impression: Colostomy leaking Condition: Stable Disposition: HOME, SELF-CARE Additional Instructions: Your colostomy bag was changed today. You were given some supplies to help get you through until home health comes to see you. Please return to the emergency department for any new or worsening symptoms. Prescriptions: Doxycycline Hyclate 100 mg PO BID #14 capsule Referrals: FUENTES LARSEN MD [Primary Care Provider] - Follow up as needed
== END 2019-05-21 18:05 | disposition home or self-care (01) ==
LOC: ER 16:56
DX: K94.03 Colostomy malfunction (principal); Y83.3 Surgical operation with formation of external stoma as the cause of abnormal reaction of the patient, or of later complication, without mention of misadventure at the time of the procedure; S30.811A Abrasion of abdominal wall, initial encounter; X58.XXXA Exposure to other specified factors, initial encounter; I25.10 Atherosclerotic heart disease of native coronary artery without angina pectoris; I10 Essential (primary) hypertension; E11.9 Type 2 diabetes mellitus without complications; Z95.5 Presence of coronary angioplasty implant and graft; Z95.1 Presence of aortocoronary bypass graft
CPT/HCPCS: 99283

== ENCOUNTER 2020-04-11 13:47 | Emergency (ER) | payer MEDICARE, BC ==
--- NOTE | 2020-04-11 14:28 | ER Document Report ---
ED Medical Screen (RME) - General Chief Complaint: Neck Pain >24hrs old Stated Complaint: NECK PAIN Time Seen by Provider: 04/11/20 14:22 Mode of Arrival: Wheelchair Information source: Patient Notes: 74-year-old male presented to ED for complaint in his neck upper back lower back right shoulder and right elbow. He states he is in the worst pain he is ever had. 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 He is alert oriented respirations regular and unlabored speaking in full sentences. He does not live alone on disability. He is a former smoker but does not drink or use any drugs. I have greeted and performed a rapid initial assessment of this patient. A comprehensive ED assessment and evaluation of the patient, analysis of test results and completion of medical decision making process will be conducted by an additional ED providers. TRAVEL OUTSIDE OF THE [place] IN LAST 30 DAYS: No - Related Data Allergies/Adverse Reactions: Penicillins Allergy (Intermediate, Verified 05/28/19 07:59) Hives Past Medical History - Past Medical History Cardiac Medical History: Reports: Hx Coronary Artery Disease, Hx Heart Attack, Hx Hypercholesterolemia, Hx Hypertension Pulmonary Medical History: Denies: Hx Asthma, Hx Bronchitis, Hx COPD, Hx Pneumonia Neurological Medical History: Reports: Hx Seizures. Denies: Hx Cerebrovascular Accident, Hx Migraine Endocrine Medical History: Reports: Hx Diabetes Mellitus Type 2. Denies: Hx Diabetes Mellitus Type 1, Hx Hyperthyroidism, Hx Hypothyroidism Renal/ Medical History: Denies: Hx Peritoneal Dialysis GI Medical History: Reports: Hx Gastroesophageal Reflux Disease. Denies: Hx Cirrhosis, Hx Hepatitis Musculoskeltal Medical History: Denies Hx Arthritis, Denies Hx Gout Skin Medical History: Denies Hx Eczema, Denies Hx Psoriasis Psychiatric Medical History: Reports: Hx Depression - a little bit, situational Infectious Medical History: Denies: Hx Hepatitis Past Surgical History: Reports: Hx Abdominal Surgery, Hx Cardiac Catheterization, Hx Cardiac Surgery - 5 vessel, Hx Coronary Artery Bypass Graft, Hx Coronary Stent, Hx Herniorrhaphy - Ventral hernia repair, Hx Ileostomy - during 3rd operation 2 years ago at [facility], Other - laparotomy for perforated viscus 3 yrs ago due to chicken bone. - Immunizations Hx Diphtheria, Pertussis, Tetanus Vaccination: No Physical Exam - Vital signs Vitals: Temp Pulse Resp BP Pulse Ox 98.2 F 78 16 134/85 H 96 04/11/20 13:55 04/11/20 13:55 04/11/20 13:55 04/11/20 13:55 04/11/20 13:55 Course - Vital Signs Vital signs: Temp Pulse Resp BP Pulse Ox 98.2 F 78 16 134/85 H 96 04/11/20 13:55 04/11/20 13:55 04/11/20 13:55 04/11/20 13:55 04/11/20 13:55
--- NOTE | 2020-04-11 15:40 | RADIOLOGY REPORT (SQ) ---
EXAM DESCRIPTION: SPINE ENTIRE AP/LAT IMAGES COMPLETED DATE/TIME: 04/11/2020 2:19 pm REASON FOR STUDY: Pain after painting too much. Pain down the entire spine. COMPARISON: None. NUMBER OF VIEWS: Two views TECHNIQUE: Standing AP and lateral exam of the thoracolumbar spine. LIMITATIONS: None. FINDINGS: Spondylosis with small marginal osteophytes at the endplates of all vertebral bodies most prominent in the lumbar spine. Bony structures intact. No congenital anomalies. Normal alignment. No significant curvature. There is facet arthropathy particularly in the lower lumbar spine. No sig nificant neural foraminal stenosis. IMPRESSION: Mild spondylosis and facet arthropathy. No acute fracture or dislocation. TECHNICAL DOCUMENTATION: JOB ID: [id number] 2010 [employer]- All Rights Reserved Reading location - IP/workstation name: [email or web address]
--- NOTE | 2020-04-11 15:40 | RADIOLOGY REPORT (SQ) ---
EXAM DESCRIPTION: ELBOW LEFT OVER 2 VIEWS IMAGES COMPLETED DATE/TIME: 04/11/2020 2:19 pm REASON FOR STUDY: Pain after painting too much COMPARISON: None. NUMBER OF VIEWS: Four views. TECHNIQUE: AP, lateral, and both oblique radiographic images acquired of the left elbow. LIMITATIONS: None. FINDINGS: MINERALIZATION: Normal. BONES: No acute fracture or dislocation. No worrisome bone lesions. JOINT: No effusion. SOFT TISSUES: No soft tissue swelling. No foreign body. OTHER: No other significant finding. IMPRESSION: NEGATIVE STUDY OF THE LEFT ELBOW. NO RADIOGRAPHIC EVIDENCE OF ACUTE INJURY. TECHNICAL DOCUMENTATION: JOB ID: [id number] 2010 [employer]- All Rights Reserved Reading location - IP/workstation name: [email or web address]
--- NOTE | 2020-04-11 15:42 | RADIOLOGY REPORT (SQ) ---
EXAM DESCRIPTION: SHOULDER RIGHT 2 OR MORE VIEWS IMAGES COMPLETED DATE/TIME: 04/11/2020 2:19 pm REASON FOR STUDY: Pain after painting too much COMPARISON: None. NUMBER OF VIEWS: Three views. TECHNIQUE: Internal rotation, external rotation, and Y view images acquired of the right shoulder. LIMITATIONS: None. FINDINGS: MINERALIZATION: Osteopenia. BONES: No acute fracture. No worrisome bone lesions. Normal contour of the humeral head. The gleno id is intact. Clavicle and acromion are intact. JOINTS: Normal glenohumeral joint space alignment. Normal appearance of the acromioclavicular joint. There is intra-articular calcification at the expected location of the rotator cuff, consistent wit h calcific tendinosis. VISUALIZED LUNGS AND RIBS: No pneumothorax. No rib fracture. SOFT TISSUES: No radiopaque foreign body. OTHER: No other significant finding. IMPRESSION: 1. No acute fracture or dislocation of the right shoulder. 2. Calcific tendinosis in the rotator cuff. TECHNICAL DOCUMENTATION: JOB ID: [id number] 2010 [employer]- All Rights Reserved Reading location - IP/workstation name: [email or web address]
[2020-04-11] MEDS ORDERED: METHYLPREDNISOLONE 4 MG TABLET PO ONE (16:28)
[2020-04-11] MEDS ORDERED: NAPROXEN 250 MG TABLET PO ONE (16:30)
--- NOTE | 2020-04-11 16:35 | ER Document Report ---
ED General - General Chief Complaint: Neck Injury Stated Complaint: NECK PAIN Time Seen by Provider: 04/11/20 14:22 Primary Care Provider: FRANCISCA FINK MD [ACTIVE STAFF] - Follow up as needed Mode of Arrival: Wheelchair Information source: Patient TRAVEL OUTSIDE OF THE [place] IN LAST 30 DAYS: No - HPI Onset: Yesterday Onset/Duration: Gradual Quality of pain: Cramping, Throbbing Severity: Severe Pain Level: 4 Associated symptoms: None Exacerbated by: Movement - of neck, right shoulder, left elbow Relieved by: Remaining still Similar symptoms previously: No Recently seen / treated by doctor: No Notes: 74 year old male with a history of Arthritis, CAD, HTN, HLD, DM, GERD, per forated viscous from chicken bone s/p colostomy here in the ER for pain in his neck, right shoulder and left elbow for the last 2 days which became much worse this morning. 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 The patient tried using a heating pad last night without much relief. The patient has not tried any over the counter medications for the pain. - Related Data Allergies/Adverse Reactions: Penicillins Allergy (Intermediate, Verified 05/28/19 07:59) Hives Past Medical History - General Information source: Patient - Social History Smoking Status: Former Smoker Chew tobacco use (# tins/day): No Frequency of alcohol use: None Drug Abuse: None Family History: CAD, Hypertension Patient has homicidal ideation: No - Past Medical History Cardiac Medical History: Reports: Hx Coronary Artery Disease, Hx Heart Attack, Hx Hypercholesterolemia, Hx Hypertension Pulmonary Medical History: Denies: Hx Asthma, Hx Bronchitis, Hx COPD, Hx Pneumonia Neurological Medical History: Reports: Hx Seizures. Denies: Hx Cerebrovascular Accident, Hx Migraine Endocrine Medical History: Reports: Hx Diabetes Mellitus Type 2. Denies: Hx Diabetes Mellitus Type 1, Hx Hyperthyroidism, Hx Hypothyroidism Renal/ Medical History: Denies: Hx Peritoneal Dialysis GI Medical History: Reports: Hx Gastroesophageal Reflux Disease. Denies: Hx Cirrhosis, Hx Hepatitis Musculoskeletal Medical History: Denies Hx Arthritis, Denies Hx Gout Skin Medical History: Denies Hx Eczema, Denies Hx Psoriasis Psychiatric Medical History: Reports: Hx Depression - a little bit, situational Infectious Medical History: Denies: Hx Hepatitis Past Surgical History: Reports: Hx Abdominal Surgery, Hx Cardiac Catheterization, Hx Cardiac Surgery - 5 vessel, Hx Coronary Artery Bypass Graft, Hx Coronary Stent, Hx Herniorrhaphy - Ventral hernia repair, Hx Ileostomy - during 3rd operation 2 years ago at [place], Other - laparotomy for perforated viscus 3 yrs ago due to chicken bone. - Immunizations Hx Diphtheria, Pertussis, Tetanus Vaccination: No Hx Pneumococcal Vaccination: 11/03/17 Review of Systems - Review of Systems Constitutional: No symptoms reported EENT: No symptoms reported Cardiovascular: No symptoms reported Respiratory: No symptoms reported Gastrointestinal: No symptoms reported Genitourinary: No symptoms reported Male Genitourinary: No symptoms reported Musculoskeletal: Joint pain - right shoulder and left elbow, Neck pain Skin: No symptoms reported Hematologic/Lymphatic: No symptoms reported Neurological/Psychological: No symptoms reported -: Yes All other systems reviewed and negative Physical Exam - Vital signs Vitals: Temp Pulse Resp BP Pulse Ox 98.2 F 78 16 134/85 H 96 04/11/20 13:55 04/11/20 13:55 04/11/20 13:55 04/11/20 13:55 04/11/20 13:55 - Notes Notes: GENERAL: Well-appearing, well-nourished and in no acute distress. HEAD: Atraumatic, normocephalic. EYES: Pupils equal round and reactive to light, extraocular movements intact, sclera anicteric, conjunctiva are normal. ENT: External ears normal, nares patent, oropharynx clear without exudates. Moist mucous membranes. NECK: Midline cervical spine tenderness without step offs. Normal range of motion, supple without lymphadenopathy or JVD. LUNGS: Breath sounds clear to auscultation bilaterally and equal. No wheezes rales or rhonchi. HEART: Regular rate and rhythm without murmurs, rubs or gallops. ABDOMEN: Soft, nontender, normoactive bowel sounds. No guarding, no rebound. No masses appreciated. EXTREMITIES: Right shoulder tender to palpation. Mild pain with movement of right shoulder. Mild pain with movement of left elbow. No joint effusions noted. Normal range of motion in nonaffected joints. No pitting or edema. No clubbing or cyanosis. NEUROLOGICAL: Cranial nerves II through XII grossly intact. Normal speech, normal gait. PSYCH: Normal mood, normal affect. SKIN: Warm, Dry, normal turgor, no rashes or lesions noted. Course - Re-evaluation Re-evalutation: 04/11/20 16:50 The patient has pain in his right shoulder, left elbow and neck after painting for several days straight. The patient had no direct trauma to his affected yuliet nful areas. Imaging shows the patient has arthritis of his neck, shoulder, and elbow along with calcified tendinitis of his right shoulder. Patient given Medrol PO, Naproxen, and Tramadol in the ER. Patient DCed with a script for Tramadol and told to use Tylenol, NSAIDs, and heating pads. Will refer patient to Orthopedics. - Vital Signs Vital signs: Temp Pulse Resp BP Pulse Ox 98.2 F 78 16 134/85 H 96 04/11/20 14:23 04/11/20 13:55 04/11/20 13:55 04/11/20 13:55 04/11/20 13:55 - Diagnostic Test Radiology reviewed: Image reviewed, Reports reviewed Discharge - Discharge Clinical Impression: Cervical arthritis Tendinitis of shoulder Qualifiers: Laterality: right Qualified Code(s): M75.81 - Other shoulder lesions, right shoulder Sprain of elbow, left Qualifiers: Encounter type: initial encounter Qualified Code(s): S53.402A - Unspecified sprain of left elbow, initial encounter Condition: Stable Disposition: HOME, SELF-CARE Instructions: Neck Injury (Cervical Strain) ([facility]), Tendonitis ([facility]), Tennis Elbow (Lateral Epicondylitis) ([facility]) Additional Instructions: Use over the counter Tylenol and Motrin for pain. Use the prescribed Tramadol for pain not well controlled. Also try using a heating pad. Follow up with an Orthopedic Surgeon such as Dr. Fink if your neck, shoulder, and elbow pains persist. Prescriptions: Tramadol HCl [Ultram 50 mg Tablet] 50 mg PO Q8HP PRN #12 tab PRN Reason: Referrals: FRANCISCA FINK MD [ACTIVE STAFF] - Follow up as needed
[2020-04-11] MEDS ORDERED: TRAMADOL HCL 50 MG TABLET PO ONE (16:41)
[2020-04-11 17:01] VITALS: BP 142/80
== END 2020-04-11 16:51 | disposition home or self-care (01) ==
LOC: ER 13:47
DX: M47.812 Spondylosis without myelopathy or radiculopathy, cervical region (principal); M75.31 Calcific tendinitis of right shoulder; M19.029 Primary osteoarthritis, unspecified elbow; M19.019 Primary osteoarthritis, unspecified shoulder; S53.402A Unspecified sprain of left elbow, initial encounter; X58.XXXA Exposure to other specified factors, initial encounter; I25.10 Atherosclerotic heart disease of native coronary artery without angina pectoris; I10 Essential (primary) hypertension; E11.9 Type 2 diabetes mellitus without complications; Z87.891 Personal history of nicotine dependence; Z88.0 Allergy status to penicillin
CPT/HCPCS: 99283; 73080; 72082; 73030; A9270 ×3; J7509

== ENCOUNTER 2020-08-06 05:15 | Inpatient (IN) | payer MEDICARE, BC ==
[2020-08-06] MEDS ORDERED: NORMAL SALINE IV ONE (05:30)
[2020-08-06] MEDS ORDERED: LEVOFLOXACIN 750 MG/D5W RTU 750 MG/150 ML RTUPB IV ONE (05:30)
--- NOTE | 2020-08-06 05:39 | ER Document Report ---
ED General - General TRAVEL OUTSIDE OF THE [place] IN LAST 30 DAYS: No - HPI Associated symptoms: Other - See HPI Exacerbated by: Other - See HPI Relieved by: Other - See HPI <STEVEN BUSCH IV - Last Filed: 08/06/20 05:49> <STREETJOSE Alfie - Last Filed: 08/06/20 13:24> - General Chief Complaint: Diarrhea Stated Complaint: WEAKNESS - HPI Context: This is a 74-year-old male that presents by EMS for evaluation of weakness x2 days. Patient reportedly has not felt well for the past few days and states that he has had a lot of cramping in his legs. Per EMS, patient sister reported that patient's appetite has been decreased. Patient also reports that he fell backwards and landed onto his back. Patient is complaining of pain in his thoracic and lumbar regions. Patient describes the pain as aching and rates it as a 3 out of 5. Patient states that movement makes his symptoms worse and laying still slightly alleviates his symptoms. Patient also states that he has "no energy." EMS call came in as a "sepsis call". Patient reportedly had a lactate of 6.3 per EMS and had O2 sats as low as 74%. Currently the patient is alert and oriented x3 and appears to be in no acute distress. (STEVEN BUSCH IV) - Related Data Allergies/Adverse Reactions: Penicillins Allergy (Intermediate, Verified 05/28/19 07:59) Hives Past Medical History - General Information source: Patient, Relative, Emergency Med Personnel - Social History Smoking Status: Unknown if Ever Smoked Chew tobacco use (# tins/day): No Frequency of alcohol use: None Drug Abuse: None Family History: Reviewed & Not Pertinent, CAD, Hypertension Patient has homicidal ideation: No - Past Medical History Cardiac Medical History: Reports: Hx Coronary Artery Disease, Hx Heart Attack, Hx Hypercholesterolemia, Hx Hypertension Pulmonary Medical History: Denies: Hx Asthma, Hx Bronchitis, Hx COPD, Hx Pneumonia Neurological Medical History: Reports: Hx Seizures. Denies: Hx Cerebrovascular Accident, Hx Migraine Endocrine Medical History: Reports: Hx Diabetes Mellitus Type 2. Denies: Hx Diabetes Mellitus Type 1, Hx Hyperthyroidism, Hx Hypothyroidism Renal/ Medical History: Denies: Hx Peritoneal Dialysis GI Medical History: Reports: Hx Gastroesophageal Reflux Disease. Denies: Hx Cirrhosis, Hx Hepatitis Musculoskeletal Medical History: Denies Hx Arthritis, Denies Hx Gout Skin Medical History: Denies Hx Eczema, Denies Hx Psoriasis Psychiatric Medical History: Reports: Hx Depression - a little bit, situational Infectious Medical History: Denies: Hx Hepatitis Past Surgical History: Reports: Hx Abdominal Surgery, Hx Cardiac Catheteri zation, Hx Cardiac Surgery - 5 vessel, Hx Coronary Artery Bypass Graft, Hx Coronary Stent, Hx Herniorrhaphy - Ventral hernia repair, Hx Ileostomy - during 3rd operation 2 years ago at [place], Other - laparotomy for perforated viscus 3 yrs ago due to chicken bone. - Immunizations Hx Diphtheria, Pertussis, Tetanus Vaccination: No Hx Pneumococcal Vaccination: 11/03/17 <STEVEN BUSCH IV - Last Filed: 08/06/20 05:49> Review of Systems - Review of Systems Constitutional: Weakness EENT: No symptoms reported Cardiovascular: No symptoms reported Respiratory: No symptoms reported Gastrointestinal: No symptoms reported Genitourinary: No symptoms reported Male Genitourinary: No symptoms reported Musculoskeletal: Back pain, Other - Muscle cramps Skin: No symptoms reported Hematologic/Lymphatic: No symptoms reported Neurological/Psychological: No symptoms reported -: Yes All other systems reviewed and negative <STEVEN BUSCH IV - Last Filed: 08/06/20 05:49> Physical Exam <STEVEN BUSCH IV - Last Filed: 08/06/20 05:49> - Vital signs Vitals: Temp 99.5 F 08/06/20 05:15 - Notes Notes: CONSTITUTIONAL Patient is in no acute distress at this time. He is alert and oriented x3. Patient is talking and answering questions. HEAD [Atraumatic, Normocephalic.] EYES [Eyes are normal to inspection, No discharge from eyes, Extraocular muscles intact, Sclera are normal, Conjunctiva are normal.] ENT Lips are chapped, mucous membranes appear dry. NECK [Normal ROM, No jugular venous distention, No meningeal signs, no carotid bruit.] RESPIRATORY CHEST [Chest is nontender, Breath sounds normal, No respiratory distress.] CARDIOVASCULAR [Tachycardia, No murmurs, Normal S1 S2, No rub, No gallop.] ABDOMEN [Abdomen is nontender, No pulsatile masses, No other masses, Bowel sounds normal, No distension, No peritoneal signs, No hernias. Well-healed surgical scars are present. Ileostomy bag is present] UPPER EXTREMITY [Inspection normal, No cyanosis, No clubbing, No edema, 2+ radial pulses.] LOWER EXTREMITY [Inspection normal, No cyanosis, No clubbing, No edema, No calf tenderness, 2+ femoral pulses.] NEURO [No focal motor deficits, No focal sensory deficits, Speech normal.] SKIN [Skin is warm, Skin is dry, Skin is normal color.] PSYCHIATRIC [Normal affect. ] (STEVEN BUSCH NATASHA) Course <STEVEN BUSCH IV - Last Filed: 08/06/20 05:49> - Laboratory Result Diagrams: 08/06/20 05:30 08/06/20 11:20 - Diagnostic Test Radiology reviewed: Image reviewed, Reports reviewed - Consults danilo reevesist Time consulted: 13:15 - will admit patient to hospital. Consulted provider: will come to ER <JOSE STREET - Last Filed: 08/06/20 13:24> - Re-evaluation Re-evalutation: 08/06/20 08:09 Dr. johnson's signed out patient to md for further evaluation and management and treatment. (JOSE STREET) - Vital Signs Vital signs: Temp Pulse Resp BP Pulse Ox 99.5 F 17 122/67 100 08/06/20 05:15 08/06/20 13:01 08/06/20 13:01 08/06/20 13:01 - Laboratory Laboratory results interpreted by me: 08/06/20 08/06/20 08/06/20 05:28 05:30 05:30 RBC 5.56 H Hgb 17.3 H RDW 14.3 H VBG pCO2 VBG HCO3 Sodium 132.3 L Chloride 84 L Carbon Dioxide 15 L Anion Gap 33 H BUN 55 H Creatinine 6.94 H Est GFR ( Amer) 9 L Est GFR (MDRD) Non-Af 8 L Glucose 184 H Lactic Acid 6.9 H Calcium 11.2 H Total Bilirubin 1.8 H Direct Bilirubin 0.6 H AST 135 H ALT 63 H Creatine Kinase Total Protein 9.5 H Albumin 5.2 H 08/06/20 08/06/20 08/06/20 05:30 05:30 11:20 RBC Hgb RDW VBG pCO2 30.9 L VBG HCO3 15.8 L Sodium 134.3 L Chloride 94 L Carbon Dioxide 17 L Anion Gap 23 H BUN 58 H Creatinine 6.02 H Est GFR ( Amer) 11 L Est GFR (MDRD) Non-Af 9 L Glucose 135 H Lactic Acid Calcium Total Bilirubin Direct Bilirubin AST ALT Creatine Kinase 8246 H 6340 H Total Protein Albumin - Diagnostic Test Radiology results interpreted by me: 08/06/20 08:[address] 08/06/20 06:14 IMPRESSION: No acute intracranial findings. Cervical Spine CT 08/06/20 06:15 IMPRESSION: No acute fracture or subluxation. Chest CT 08/06/20 06:16 IMPRESSION: No definite acute process. Abdomen/Pelvis CT 08/06/20 06:18 IMPRESSION: No definite acute process. (JOSE STREET) - EKG Interpretation by Me Additional EKG results interpreted by me: 08/06/20 05:44 EKG obtained on 08/06/2020 at 0537 hrs. was interpreted by this MD. Findings: Sinus tachycardia, rate 110, normal axis, W[place] interval appears to be within normal limits P waves are present for the QRS complex, there are no obvious patterns of ST segment elevation or depression present to suggest acute myocardial ischemia or infarction. When compared with prior EKG from 05/28/2019, previous EKG is bradycardic but the overall morphology is otherwise grossly similar. Impression sinus tachycardia with nonspecific ST segments. (STEVEN BUSCH IV) Discharge <STEVEN BUSCH IV - Last Filed: 08/06/20 05:49> - Discharge Admitting Provider: Irma (Hospitalist) Unit Admitted: Telemetry <JOSE STREET - Last Filed: 08/06/20 13:24> - Discharge Clinical Impression: Acute kidney failure, Dehydration, Elevated CPK, Lactic acidosis, Colostomy status Condition: Fair Disposition: ADMITTED INPATIENT
[2020-08-06 05:58] LABS: VENOUS BLOOD BASE EXCESS -8.5 mmol/L; VENOUS BLOOD HCO3 15.8 mmol/L (20-32); VENOUS BLOOD PCO2 30.9 mmHg (35-63); VENOUS BLOOD PH 7.33 (7.30-7.42)
[2020-08-06 06:08] LABS: ABSOLUTE LYMPHOCYTES (AUTO) 1.4 10^3/uL (0.5-4.7); ABSOLUTE MONOCYTES (AUTO) 0.7 10^3/uL (0.1-1.4); ABSOLUTE NEUT (AUTO) 4.7 10^3/uL (1.7-8.2); BASOPHILS % (AUTO) 0.4 % (0-2); HEMATOCRIT 49.7 % (37.9-51.0); HEMOGLOBIN 17.3 g/dL (13.5-17.0); LYMPHOCYTES % (AUTO) 20.8 % (13-45); MEAN CORPUSCULAR HEMOGLOBIN 31.1 pg (27.0-33.4); MEAN CORPUSCULAR HGB CONC 34.8 g/dL (32.0-36.0); MEAN CORPUSCULAR VOLUME 89 fl (80-97); MONOCYTES % (AUTO) 10.4 % (3-13); PLATELET COUNT 193 10^3/uL (150-450); RED BLOOD COUNT 5.56 10^6/uL (4.35-5.55); RED CELL DISTRIBUTION WIDTH 14.3 % (11.5-14.0); SEGMENTED NEUTROPHILS % (AUTO) 68.4 % (42-78); TOTAL CELLS COUNTED % (AUTO) 100 %; WHITE BLOOD COUNT 6.9 10^3/uL (4.0-10.5)
[2020-08-06 06:10] LABS: INTERNATIONAL RATION (INR) 1.04; PROTHROMBIN TIME 13.8 SEC (11.4-15.4)
[2020-08-06 06:20] LABS: ALBUMIN 5.2 g/dL (3.5-5.0); ALKALINE PHOSPHATASE 110 U/L (38-126); ASPARTATE AMINO TRANSFERASE 135 U/L (17-59); BILIRUBIN,DIRECT 0.6 mg/dL (0.0-0.4); BILIRUBIN,TOTAL 1.8 mg/dL (0.2-1.3); BLOOD UREA NITROGEN 55 mg/dL (7-20); CALCIUM 11.2 mg/dL (8.4-10.2); GLUCOSE 184 mg/dL (75-110); POTASSIUM 4.5 mmol/L (3.6-5.0); TOTAL PROTEIN 9.5 g/dL (6.3-8.2)
[2020-08-06 06:26] LABS: CARBON DIOXIDE 15 mmol/L (22-30); CHLORIDE 84 mmol/L (98-107)
[2020-08-06 06:27] LABS: ANION GAP 33 (5-19)
--- NOTE | 2020-08-06 07:36 | RADIOLOGY REPORT (SQ) ---
CLINICAL HISTORY: traumatic fall COMPARISON: None. TECHNIQUE: CT CERVICAL SPINE WITHOUT IV CONTRAST on 08/06/2020 6:15 AM CDT This exam was performed according to our departmental dose-optimization program, which includes automated exposure control, adjustment of the mA and/or kV according to patient size and/or use of iterative reconstruction technique. FINDINGS: There is no acute fracture. Vertebral body heights are preserved. Alignment is anatomic. There is mild to moderate diffuse facet arthritis. There is moderate narrowing of the C5-6 and C6-7 discs. Soft tissues are unremarkable. IMPRESSION: No acute fracture or subluxation.
--- NOTE | 2020-08-06 07:37 | RADIOLOGY REPORT (SQ) ---
CLINICAL HISTORY: fall COMPARISON: None. TECHNIQUE: CT HEAD WITHOUT IV CONTRAST on 08/06/2020 6:14 AM CDT This exam was performed according to our departmental dose-optimization program, which includes automated exposure control, adjustment of the mA and/or kV according to patient size and/or use of iterative reconstruction technique. FINDINGS: There is no acute hemorrhage, mass effect or midline shift. Bui-white differentiation is preserved. There is no hydrocephalus. There is no significant volume loss for age. The calvarium is intact. Orbits and globes are unremarkable. The paranasal sinuses are clear. Mastoid air cells are clear. IMPRESSION: No acute intracranial findings.
--- NOTE | 2020-08-06 07:41 | RADIOLOGY REPORT (SQ) ---
CLINICAL HISTORY: traumatic fall COMPARISON: None. TECHNIQUE: CT CHEST WITHOUT IV CONTRAST, CT ABDOMEN PELVIS WITHOUT IV CONTRAST on 08/06/2020 6:16 AM CDT This exam was performed according to our departmental dose-optimization program, which includes automated exposure control, adjustment of the mA and/or kV according to patient size and/or use of iterative reconstruction technique. FINDINGS: Chest: The heart is normal in size. Sternotomy and CABG were performed. There is no pericardial effusion. Intrathoracic lymph nodes are not enlarged. There is no pleural effusion, pleural thickening or pneumothorax. Central airways are patent. Lungs are clear with no consolidation, mass or interstitial lung disease. Abdomen: The liver is normal in appearance. There is no biliary dilatation. Gallbladder is decompressed. The pancreas and spleen are normal in appearance. Adrenal glands are normal. There is a mid pole right renal cyst measuring 2.7 cm. Upper pole left renal cyst measures 9.5 cm. Abdominal aorta is normal in course and caliber without aneurysm. There is no free air. There is no retroperitoneal adenopathy. Pelvis: There is right lower quadrant ostomy with small bowel containing parastomal hernia. There is no bowel obstruction. Subtotal colectomy was performed. Urinary bladder is unremarkable. There is no free fluid. Skeleton: There are no acute osseous findings. No suspicious bony lesions. IMPRESSION: No definite acute process.
--- NOTE | 2020-08-06 08:52 | EKG REPORT ---
SEVERITY:- ABNORMAL ECG - SINUS TACHYCARDIA PROBABLE LEFT ATRIAL ABNORMALITY LEFT ANTERIOR FASCICULAR BLOCK CONSIDER ANTEROSEPTAL INFARCT : Confirmed by: Mario Clark MD 06-Aug-2020 08:51:48
[2020-08-06] MEDS ORDERED: NORMAL SALINE 1000 ML 1,000 ML IV ONE ×2 (10:58→13:13)
[2020-08-06 11:57] LABS: BLOOD UREA NITROGEN 58 mg/dL (7-20); CALCIUM 9.4 mg/dL (8.4-10.2); CARBON DIOXIDE 17 mmol/L (22-30); GLUCOSE 135 mg/dL (75-110); POTASSIUM 4.2 mmol/L (3.6-5.0)
[2020-08-06 12:03] LABS: ANION GAP 23 (5-19); CHLORIDE 94 mmol/L (98-107)
[2020-08-06 12:18] LABS: CREATINE KINASE 6340 U/L (55-170)
[2020-08-06] MEDS ORDERED: ACETAMINOPHEN 325 MG TABLET PO PRN (15:11)
[2020-08-06] MEDS ORDERED: DEXTROSE 40% GEL 15 GM TUBE PO PRN ×2 (15:31)
[2020-08-06] MEDS ORDERED: GLUCAGON,HUMAN RECOMB 1 MG INJ IM PRN (15:31)
[2020-08-06] MEDS ORDERED: DEXTROSE 50%-WATER 25 GM/50 ML DISP.SYRIN IV PRN ×2 (15:31)
[2020-08-06] MEDS ORDERED: MORPHINE SULFATE 10 MG/ML INJ IV PRN (16:06)
--- NOTE | 2020-08-06 16:06 | PDOC H&P ---
History of Present Illness Admission Date/PCP: 08/06/20 13:31 Patient complains of: Fever with weakness History of Present Illness: RASHIDA MOTA is a 74 year old male who has been feeling poorly for the last 3 to 4 days. He reports having fevers. Has had increased ostomy output with decreased appetite and poor fluid intake. He reports falling at some point but he eventually was able to get up. His sister was concerned and came to assess him. He initially did not want to go to the hospital but when he saw that he was not improving he agreed. In the hospital he was never hypotensive. He was tachycardic. His serum creatinine was normal in May 2019 as well as his BUN. At this time his BUN is 58 with a creatinine of is 6.02. His initial lactic acid was 6.9 but with aggressive fluids he is down to 1.2. Total bilirubin is elevated at 1.8 with el evated transaminases and an initial creatinine kinase of 8246. He is on nasal cannula oxygen maintaining saturations in the mid to high 90% range. He still feels extremely weak. He has already been given a dose of levofloxacin with blood cultures having been drawn prior. 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 As he states "everything empties into this bag ". His sister is at the bedside. He has received adequate boluses of IV fluids with a correction of the lactic acid while still in the emergency department. We will continue IV fluids and monitor his renal function as well as electrolytes. He is diabetic and so he will need Accu-Cheks and fingersticks and he does have a history of coronary disease with bypass surgery in the past. He has had multiple operations on his abdomen hence resulting in the ostomy. Past Medical History Cardiac Medical History: Reports: Coronary Artery Disease, Myocardial Infarction, Hyperlipidema, Hypertension Pulmonary Medical History: Reports: Respiratory Failure Denies: Asthma, Bronchitis, Chronic Obstructive Pulmonary Disease (COPD), Pneumonia Neurological Medical History: Reports: Seizures Denies: Migraine Endocrine Medical History: Reports: Diabetes Mellitus Type 2 Denies: Diabetes Mellitus Type 1, Hyperthyroidism, Hypothyroidism Renal/ Medical History: Denies: End Stage Renal Disease GI Medical History: Reports: Gastroesophageal Reflux Disease Denies: Cirrhosis, Hepatitis Musculoskeltal Medical History: Denies: Arthritis, Gout Skin Medical History: Denies: Eczema, Psoriasis Psychiatric Medical History: Reports: Depression Hematology: Reports: Anemia Denies: Bleeding Tendencies Past Surgical History Past Surgical History: Reports: Cardiac Catheterization, Coronary Artery Bypass Graft, Coronary Stent, Herniorrhaphy - Ventral hernia repair, Ileostomy - during 3rd operation 2 years ago at [place], Other - laparotomy for perforated viscus 3 yrs ago due to chicken bone. Social History Information Source: Patient, [facility] Records Lives with: Alone Smoking Status: Former Smoker Electronic Cigarette use?: No Frequency of Alcohol Use: None Hx Recreational Drug Use: No Drugs: None Hx Prescription Drug Abuse: No - Advance Directive Resuscitation Status: Full Code Family History Family History: CAD, Hypertension Parental Family History Reviewed: Yes Children Family History Reviewed: Yes Sibling(s) Family History Reviewed.: Yes Medication/Allergy Home Medications: Atorvastatin Calcium [Lipitor 40 mg Tablet] 40 mg PO QHS 08/06/20 Magnesium Oxide [Magnesium] 250 mg PO DAILY 08/06/20 Multivit-Min/Folic/Vit K/Lycop [One Daily Men's 50 Plus D3 Tab] 1 each PO DAILY 08/06/20 Omeprazole 20 mg PO DAILY 08/06/20 Sitagliptin Phosphate [Januvia 50 mg Tablet] 100 mg PO DAILY 08/06/20 Allergies/Adverse Reactions: Penicillins Allergy (Intermediate, Verified 05/28/19 07:59) Hives Review of Systems All systems: reviewed and no additional remarkable complaints except as stated Constitutional: PRESENT: anorexia, fever(s), other - Diaphoresis Nose, Mouth, and Throat: PRESENT: other - Extremely dry mouth Respiratory: PRESENT: dyspnea Gastrointestinal: PRESENT: abdominal pain, diarrhea, other - High volume il eostomy output Integumentary: PRESENT: diaphoresis Neurological: PRESENT: frequent falls Physical Exam Vital Signs: Temp Pulse Resp BP Pulse Ox 97.9 F 103 H 16 111/76 93 08/06/20 15:02 08/06/20 15:02 08/06/20 15:02 08/06/20 15:02 08/06/20 15:02 Intake & Output 08/05/20 08/06/20 08/07/20 06:59 06:59 06:59 Intake Total 4360 Output Total 700 Balance 3660 Weight 106.9 kg 104.3 kg General appearance: PRESENT: cooperative, well-developed, other - Patient in moderate distress Head exam: PRESENT: atraumatic, normocephalic Eye exam: PRESENT: conjunctival injection, conjunctiva pink, scleral icterus Ear exam: PRESENT: normal external ear exam. ABSENT: bleeding, drainage Mouth exam: PRESENT: dry mucosa, tongue midline Teeth exam: PRESENT: poor dentation Neck exam: ABSENT: carotid bruit, JVD, lymphadenopathy, tenderness Respiratory exam: PRESENT: clear to auscultation tip, symmetrical, unlabored. ABSENT: accessory muscle use, rales, rhonchi, tachypnea, wheezes Cardiovascular exam: PRESENT: +S1, +S2, tachycardia. ABSENT: bradycardia, diastolic murmur, irregular rhythm, systolic murmur GI/Abdominal exam: PRESENT: hyperactive bowel sounds, soft, other - Multiple scars from repeated surgeries. Ostomy right side.. ABSENT: guarding Rectal exam: PRESENT: deferred Extremities exam: ABSENT: joint swelling, pedal edema, +1 edema Musculoskeletal exam: PRESENT: normal inspection. ABSENT: ambulatory - Very weak, deformity, dislocation Neurological exam: PRESENT: alert, awake, oriented to person, oriented to place, oriented to time, oriented to situation, CN II-XII grossly intact, motor sensory deficit. ABSENT: altered Psychiatric exam: PRESENT: flat affect. ABSENT: agitated, anxious Focused psych exam: ABSENT: delusional, paranoid, restlessness Skin exam: PRESENT: dry, warm, other - Facial flushing. ABSENT: rash Results Laboratory Results: 08/06/20 05:30 08/06/20 11:20 08/06/20 08/06/20 08/06/20 05:28 05:30 05:30 WBC 6.9 RBC 5.56 H Hgb 17.3 H Hct 49.7 MCV 89 MCH 31.1 MCHC 34.8 RDW 14.3 H Plt Count 193 Seg Neutrophils % 68.4 VBG pH VBG pCO2 VBG HCO3 VBG Base Excess Sodium 132.3 L Potassium 4.5 Chloride 84 L Carbon Dioxide 15 L Anion Gap 33 H BUN 55 H Creatinine 6.94 H Est GFR ( Amer) 9 L Glucose 184 H Lactic Acid 6.9 H Calcium 11.2 H Total Bilirubin 1.8 H AST 135 H Alkaline Phosphatase 110 Total Protein 9.5 H Albumin 5.2 H 08/06/20 08/06/20 08/06/20 05:30 09:00 11:20 WBC RBC Hgb Hct MCV MCH MCHC RDW Plt Count Seg Neutrophils % VBG pH 7.33 VBG pCO2 30.9 L VBG HCO3 15.8 L VBG Base Excess -8.5 Sodium 134.3 L Potassium 4.2 Chloride 94 L Carbon Dioxide 17 L Anion Gap 23 H BUN 58 H Creatinine 6.02 H Est GFR ( Amer) 11 L Glucose 135 H Lactic Acid 2.1 Calcium 9.4 Total Bilirubin AST Alkaline Phosphatase Total Protein Albumin 08/06/20 11:20 WBC RBC Hgb Hct MCV MCH MCHC RDW Plt Count Seg Neutrophils % VBG pH VBG pCO2 VBG HCO3 VBG Base Excess Sodium Potassium Chloride Carbon Dioxide Anion Gap BUN Creatinine Est GFR ( Amer) Glucose Lactic Acid 1.2 Calcium Total Bilirubin AST Alkaline Phosphatase Total Protein Albumin 08/06/20 08/06/20 05:30 11:20 Creatine Kinase 8246 H 6340 H Impressions: Head CT 08/06/20 06:14 IMPRESSION: No acute intracranial findings. Cervical Spine CT 08/06/20 06:15 IMPRESSION: No acute fracture or subluxation. Chest CT 08/06/20 06:16 IMPRESSION: No definite acute process. Abdomen/Pelvis CT 08/06/20 06:18 IMPRESSION: No definite acute process. Assessment and Plan - Diagnosis (1) Sepsis Qualifiers: Sepsis type: sepsis due to unspecified organism Sepsis acute organ dysfunction status: with acute organ dysfunction Severe sepsis acute organ dysfunction type: acute renal failure Acute renal failure type: with acute tubular necrosis Severe sepsis shock status: without septic shock Qualified Code(s): A41.9 - Sepsis, unspecified organism; R65.20 - Severe sepsis without septic shock; N17.0 - Acute kidney failure with tubular necrosis Is this a current diagnosis for this admission?: Yes Plan: 08/06/2020-patient qualifies for the diagnosis of sepsis based on the acute liver and acute kidney injuries. He was not hypotensive nor was he hypothermic. At this encounter I did not appreciate any altered mental status. He is profoundly weak. He has had problems with his small bowel and ostomy in the past but he is exhibiting high volume output. The ostomy bag had green-colored liquid in it during this encounter and output was brisk. He received aggressive IV fluids in the emergency department. His lactic acid corrected from 6.9 down to 1.2. BUN and creatinine were not significantly improved. The patient will be admitted to [facility]. It was felt that he required Covid-19 testing and so he will be in the [facility] designated location. Precautions will be taken until his COVID test returns. (2) Acute kidney failure Qualifiers: Acute renal failure type: with acute tubular necrosis Qualified Code(s): N17.0 - Acute kidney failure with tubular necrosis Is this a current diagnosis for this admission?: Yes Plan: 08/06/2020-secondary to sepsis. Blood cultures are pending. Urine culture but not be meaningful as his ileostomy and ureteral diversion empty into the same bag. We will continue aggressive IV fluids and monitor serum chemistries as well as track intake and output. If there is no improvement we will obtain nephrology consult. (3) Rhabdomyolysis Qualifiers: Rhabdomyolysis type: traumatic Is this a current diagnosis for this admission?: Yes Plan: 08/06/2020-the patient reports having a fall at home. It is unknown how long he was down. Creatinine kinase on admission was 8246. With IV fluids in the emergency department it decreased to 6340. Continue IV fluids and check creat inine kinase levels daily. (4) Hyperglycemia due to type 2 diabetes mellitus Qualifiers: Diabetes mellitus termite inspector insulin use: without custodial use Qualified Code(s): E11.65 - Type 2 diabetes mellitus with hyperglycemia Is this a current diagnosis for this admission?: Yes Plan: 08/06/2020-the patient uses Jardiance at home. At this time we will use Accu- Cheks before meals and at bedtime with sliding scale coverage with Humalog. (5) Hyperbilirubinemia Is this a current diagnosis for this admission?: Yes Plan: 08/06/2020-bilirubin on admission was 1.8. This is most likely secondary to the sepsis. We will monitor the bilirubin but it should improve with IV fluids. (6) Elevated liver transaminase level Is this a current diagnosis for this admission?: Yes Plan: Transaminases are elevated with an AST of 135 and an ALT of 63. Will monitor closely. It has not affected coagulation as his INR was normal. (7) CAD (coronary artery disease) Qualifiers: Coronary Disease-Associated Artery/Lesion type: unspecified vessel or lesion type [place] vs. transplanted heart: [place] heart Associated angina: angina presence unspecified Qualified Code(s): I25.10 - Atherosclerotic heart disease of [place] coronary artery without angina pectoris Is this a current diagnosis for this admission?: Yes Plan: 08/06/2020-history of coronary artery disease. Asymptomatic at this time. Will monitor closely considering his primary critical illness. - Time Time Spent with patient: 35 or more minutes Medications reviewed and adjusted accordingly: Yes Anticipated Discharge Disposition: Shelter Facility Anticipated Discharge Timeframe: Unknown - Inpatient Certification Based on my medical assessment, after consideration of the patient's comorbidities, presenting symptoms, or acuity I expect that the services needed warrant INPATIENT care.: Yes I certify that my determination is in accordance with my understanding of Medicare's requirements for reasonable and necessary INPATIENT services [42 CFR 412.3e].: Yes Medical Necessity: Need Close Monitoring Due to Risk of Patient Decompensation, Need For IV Fluids, Need For Continuous Telemetry Monitoring, Need for Pain Control, Need for IV Antibiotics Post Hospital Care: D/C or Transfer Summary
[2020-08-06] MEDS ORDERED: VANCOMYCIN HCL 500 MG in DEXTROSE 5%-WATER 100 ML IV ONE (16:30)
[2020-08-06] MEDS: INSULIN LISPRO 100 UNIT/ML 3 ML VIAL SUBCUT SCH ×2 (16:36→22:39)
[2020-08-06 18:59] LABS: APPEARANCE,URINE SLIGHTLY-CLOUDY; BILIRUBIN,URINE NEGATIVE (NEGATIVE); COLOR,URINE AMBER; GLUCOSE, URINE NEGATIVE (NEGATIVE); KETONES,URINE NEGATIVE (NEGATIVE); PROTEIN,URINE 100 mg/dL (NEGATIVE); URINE SPECIFIC GRAVITY 1.021; UROBILINOGEN,URINE NEGATIVE mg/dL (<2.0)
[2020-08-06] MEDS: ATORVASTATIN CALCIUM 40 MG TABLET PO SCH (22:25)
[2020-08-07 00:24] LABS: ALBUMIN 4.3 g/dL (3.5-5.0); BLOOD UREA NITROGEN 64 mg/dL (7-20); CALCIUM 9.2 mg/dL (8.4-10.2); GLUCOSE 170 mg/dL (75-110); PHOSPHORUS 4.8 mg/dL (2.5-4.5); POTASSIUM 3.8 mmol/L (3.6-5.0)
[2020-08-07 00:29] LABS: CARBON DIOXIDE 15 mmol/L (22-30); CHLORIDE 93 mmol/L (98-107)
[2020-08-07 00:56] LABS: ANION GAP 25 (5-19); CREATINE KINASE 4055 U/L (55-170)
[2020-08-07] MEDS: PANTOPRAZOLE SODIUM 40 MG TABLET.DR PO SCH (05:17)
[2020-08-07 06:40] LABS: ABSOLUTE LYMPHOCYTES (AUTO) 0.9 10^3/uL (0.5-4.7); ABSOLUTE MONOCYTES (AUTO) 0.7 10^3/uL (0.1-1.4); ABSOLUTE NEUT (AUTO) 5.4 10^3/uL (1.7-8.2); BASOPHILS % (AUTO) 0.3 % (0-2); EOSINOPHILS % (AUTO) 0.2 % (0-6); HEMOGLOBIN 15.5 g/dL (13.5-17.0); LYMPHOCYTES % (AUTO) 12.8 % (13-45); MEAN CORPUSCULAR HEMOGLOBIN 30.8 pg (27.0-33.4); MEAN CORPUSCULAR HGB CONC 35.1 g/dL (32.0-36.0); MEAN CORPUSCULAR VOLUME 88 fl (80-97); MONOCYTES % (AUTO) 9.9 % (3-13); PLATELET COUNT 168 10^3/uL (150-450); RED BLOOD COUNT 5.02 10^6/uL (4.35-5.55); RED CELL DISTRIBUTION WIDTH 14.2 % (11.5-14.0); SEGMENTED NEUTROPHILS % (AUTO) 76.8 % (42-78); TOTAL CELLS COUNTED % (AUTO) 100 %
[2020-08-07 07:09] LABS: ALBUMIN 4.4 g/dL (3.5-5.0); ALKALINE PHOSPHATASE 88 U/L (38-126); ASPARTATE AMINO TRANSFERASE 85 U/L (17-59); BILIRUBIN,DIRECT 0.3 mg/dL (0.0-0.4); BILIRUBIN,TOTAL 1.2 mg/dL (0.2-1.3); BLOOD UREA NITROGEN 69 mg/dL (7-20); CALCIUM 9.7 mg/dL (8.4-10.2); GLUCOSE 150 mg/dL (75-110); POTASSIUM 4.2 mmol/L (3.6-5.0)
[2020-08-07 07:14] LABS: CARBON DIOXIDE 18 mmol/L (22-30); CHLORIDE 88 mmol/L (98-107)
[2020-08-07 07:24] LABS: CREATINE KINASE 2324 U/L (55-170)
[2020-08-07 07:39] LABS: ANION GAP 25 (5-19)
[2020-08-07] MEDS ORDERED: INFLUENZA QUAD (6MOS+) 2020-21 VAC 0.5 ML SYR IM ONE (08:00)
[2020-08-07] MEDS: PRENATAL VITAMIN W DHA CAPSULE PO SCH (09:06)
[2020-08-07] MEDS: MAGNESIUM OXIDE 400 MG TABLET PO SCH (09:06)
[2020-08-07] MEDS: INSULIN LISPRO 100 UNIT/ML 3 ML VIAL SUBCUT SCH ×4 (09:07→22:25)
[2020-08-07] MEDS ORDERED: [UNRECOGNIZED DRUG - OTHER] PO SCH (10:00)
[2020-08-07] MEDS ORDERED: CEFEPIME HCL 0.5 GM in DEXTROSE 5%-WATER 25 ML IV SCH (10:00)
[2020-08-07] MEDS ORDERED: VIT K PO SCH (10:00)
[2020-08-07] MEDS ORDERED: MULTIVIT MIN PO SCH (10:00)
[2020-08-07] MEDS ORDERED: LYCOP PO SCH (10:00)
[2020-08-07] MEDS ORDERED: FOLIC PO SCH (10:00)
[2020-08-07] MEDS ORDERED: (PENDING PHARMACY ID) (Magnesium Oxide [Magnesium] 250 MG) PO SCH (10:00)
[2020-08-07] MEDS: CEFEPIME HCL 0.5 GM in NORMAL SALINE 25 ML IV SCH (10:50)
[2020-08-07] MEDS: RINGERS SOLUTION,LACTATED 1,000 ML IV PRN ×3 (11:30→22:56)
--- NOTE | 2020-08-07 11:50 | PDOC PROGRESS REPORT ---
Subjective Progress Note for:: 08/07/20 Subjective:: The patient tested negative for COVID. He has moved out of the [facility] area and is now on [address] He actually made urine yesterday. I try to get greater detail on his urine output over the last 6 months but he is not able to provide significant detail. I have requested laboratory studies from his primary care provider office for the last 9 to 12 months. Reason For Visit: SEPSIS/ RHABDOMYOLYSIS/ ACUTE KIDNEY INJURY Physical Exam Vital Signs: Temp Pulse Resp BP Pulse Ox 97.5 F 117 H 16 111/77 98 08/07/20 10:00 08/07/20 08:04 08/07/20 08:04 08/07/20 08:04 08/07/20 08:04 Intake & Output 08/06/20 08/07/20 08/08/20 06:59 06:59 06:59 Intake Total 7040 100 Output Total 4550 Balance 2490 100 Weight 106.9 kg 103.7 kg General appearance: PRESENT: cooperative, mild distress, well-developed Head exam: PRESENT: atraumatic, normocephalic Eye exam: PRESENT: conjunctiva pink. ABSENT: scleral icterus Ear exam: PRESENT: normal external ear exam. ABSENT: bleeding, drainage Mouth exam: PRESENT: dry mucosa, tongue midline Teeth exam: PRESENT: poor dentation Neck exam: ABSENT: carotid bruit, JVD, lymphadenopathy, tenderness Respiratory exam: PRESENT: symmetrical, unlabored. ABSENT: tachypnea, wheezes Cardiovascular exam: PRESENT: +S1, +S2, tachycardia. ABSENT: bradycardia, diastolic murmur, irregular rhythm, systolic murmur GI/Abdominal exam: PRESENT: normal bowel sounds, soft, other - Small (less than 1 cm) mary in the skin under the ileostomy wafer.. ABSENT: guarding, tenderness Rectal exam: PRESENT: deferred Gentrourinary exam: ABSENT: indwelling catheter Extremities exam: ABSENT: pedal edema Musculoskeletal exam: PRESENT: normal inspection Neurological exam: PRESENT: alert, awake, oriented to person, oriented to place, oriented to time, oriented to situation, CN II-XII grossly intact. ABSENT: altered Psychiatric exam: PRESENT: flat affect. ABSENT: agitated, anxious Focused psych exam: ABSENT: delusional, paranoid, restlessness Skin exam: PRESENT: dry, warm. ABSENT: rash Results Laboratory Results: 08/07/20 05:54 08/07/20 05:54 08/06/20 08/06/20 08/06/20 11:20 11:20 18:00 WBC RBC Hgb Hct MCV MCH MCHC RDW Plt Count Seg Neutrophils % Sodium 134.3 L Potassium 4.2 Chloride 94 L Carbon Dioxide 17 L Anion Gap 23 H BUN 58 H Creatinine 6.02 H Est GFR ( Amer) 11 L Glucose 135 H Lactic Acid 1.2 Calcium 9.4 Phosphorus Magnesium Total Bilirubin AST Alkaline Phosphatase Total Protein Albumin Urine Color DAVID Urine Appearance SLIGHTLY-CLOUDY Urine pH 5.0 Ur Specific Miracle 1.021 Urine Protein 100 H Urine Glucose (UA) NEGATIVE Urine Ketones NEGATIVE Urine Blood LARGE H Urine RBC (Auto) 1 08/06/20 08/07/20 08/07/20 23:54 05:54 05:54 WBC 7.0 RBC 5.02 Hgb 15.5 Hct 44.0 MCV 88 MCH 30.8 MCHC 35.1 RDW 14.2 H Plt Count 168 Seg Neutrophils % 76.8 Sodium 132.5 L 130.8 L Potassium 3.8 4.2 Chloride 93 L 88 L Carbon Dioxide 15 L 18 L Anion Gap 25 H 25 H BUN 64 H 69 H Creatinine 5.07 H 4.74 H Est GFR ( Amer) 14 L 15 L Glucose 170 H 150 H Lactic Acid Calcium 9.2 9.7 Phosphorus 4.8 H Magnesium 1.5 L 1.8 Total Bilirubin 1.2 AST 85 H Alkaline Phosphatase 88 Total Protein 8.0 Albumin 4.3 4.4 Urine Color Urine Appearance Urine pH Ur Specific Miracle Urine Protein Urine Glucose (UA) Urine Ketones Urine Blood Urine RBC (Auto) 08/06/20 05:30 Blood Blood Culture (PCR) - Final Staphylococcus Species 08/06/20 05:30 Blood Blood Culture (PCR) - Final Staphylococcus Species 08/06/20 08/06/20 08/06/20 05:30 11:20 23:54 Creatine Kinase 8246 H 6340 H 4055 H 08/07/20 05:54 Creatine Kinase 2324 H Impressions: Head CT 08/06/20 06:14 IMPRESSION: No acute intracranial findings. Cervical Spine CT 08/06/20 06:15 IMPRESSION: No acute fracture or subluxation. Chest CT 08/06/20 06:16 IMPRESSION: No definite acute process. Abdomen/Pelvis CT 08/06/20 06:18 IMPRESSION: No definite acute process. Assessment and Plan - Diagnosis (1) Sepsis Qualifiers: Sepsis type: sepsis due to unspecified organism Sepsis acute organ dysfunction status: with acute organ dysfunction Severe sepsis acute organ dysfunction type: acute renal failure Acute renal failure type: with acute tubular necrosis Severe sepsis shock status: without septic shock Qualified Code(s): A41.9 - Sepsis, unspecified organism; R65.20 - Severe sepsis without septic shock; N17.0 - Acute kidney failure with tubular necrosis Is this a current diagnosis for this admission?: Yes Plan: 08/06/2020-patient qualifies for the diagnosis of sepsis based on the acute liver and acute kidney injuries. He was not hypotensive nor was he hypothermic. At this encounter I did not appreciate any altered mental status. He is profoundly weak. He has had problems with his small bowel and ostomy in the past but he is exhibiting high volume output. The ostomy bag had green-colored liquid in it during this encounter and output was brisk. He received aggressive IV fluids in the emergency department. His lactic acid corrected from 6.9 down to 1.2. BUN and creatinine were not significantly improved. The patient will be admitted to [facility]. It was felt that he required Covid-19 testing and so he will be in the [facility] designated location. Precautions will be taken until his COVID test returns. 08/07/2020-sepsis resolved. Been is now normal. Serum creatinine is improving. Both sets of blood cultures positive for coagulase-negative staph. Will request sensitivity testing as they were drawn from 2 separate sites. Urine culture is pending. Continue cefepime at this time. (2) Acute kidney failure Qualifiers: Acute renal failure type: with acute tubular necrosis Qualified Code(s): N17.0 - Acute kidney failure with tubular necrosis Is this a current diagnosis for this admission?: Yes Plan: 08/06/2020-secondary to sepsis. Blood cultures are pending. Urine culture but not be meaningful as his ileostomy and ureteral diversion empty into the same bag. We will continue aggressive IV fluids and monitor serum chemistries as well as track intake and output. If there is no improvement we will obtain nephrology consult. 08/07/2020-responding to aggressive IV fluids. Serum creatinine is down to 4.74. BUN is still elevated. Continue fluids and monitor renal function. We will try and get blood work from his primary care provider to see if this is completely acute or acute on chronic. (3) Rhabdomyolysis Qualifiers: Rhabdomyolysis type: traumatic Is this a current diagnosis for this admission?: Yes Plan: 08/06/2020-the patient reports having a fall at home. It is unknown how long he was down. Creatinine kinase on admission was 8246. With IV fluids in the emergency department it decreased to 6340. Continue IV fluids and check creatinine kinase levels daily. 08/07/2020-creatinine kinase is down to 2324 from 4055. Continue IV fluids and monitor serum creatinine level (4) Hyperglycemia due to type 2 diabetes mellitus Qualifiers: Diabetes mellitus prison insulin use: without roasterman use Qualified Code(s): E11.65 - Type 2 diabetes mellitus with hyperglycemia Is this a current diagnosis for this admission?: Yes Plan: 08/06/2020-the patient uses Jardiance at home. At this time we will use Accu- Cheks before meals and at bedtime with sliding scale coverage with Humalog. 08/07/2020-continue Accu-Cheks and sliding scale at this time. (5) Hyperbilirubinemia Is this a current diagnosis for this admission?: Yes Plan: 08/06/2020-bilirubin on admission was 1.8. This is most likely secondary to the sepsis. We will monitor the bilirubin but it should improve with IV fluids. 08/07/2020-resolved (6) Elevated liver transaminase level Is this a current diagnosis for this admission?: Yes Plan: Transaminases are elevated with an AST of 135 and an ALT of 63. Will monitor closely. It has not affected coagulation as his INR was normal. 08/07/2020-ALT has normalized and AST is improved. Recheck enzymes tomorrow. (7) CAD (coronary artery disease) Qualifiers: Coronary Disease-Associated Artery/Lesion type: unspecified vessel or lesion type [place] vs. transplanted heart: [place] heart Associated angina: angina presence unspecified Qualified Code(s): I25.10 - Atherosclerotic heart disease of [place] coronary artery without angina pectoris Is this a current diagnosis for this admission?: Yes Plan: 08/06/2020-history of coronary artery disease. Asymptomatic at this time. Will monitor closely considering his primary critical illness. 08/07/2020-no symptoms of acute coronary syndrome. - Time Time Spent with patient: 15-24 minutes Medications reviewed and adjusted accordingly: Yes Anticipated Discharge Disposition: Home with Home Health Anticipated Discharge Timeframe: Unknown
--- NOTE | 2020-08-07 16:36 | RADIOLOGY REPORT (SQ) ---
EXAM DESCRIPTION: PICC INSERTION IMAGES COMPLETED DATE/TIME: 08/07/2020 10:36 am REASON FOR STUDY: Need consistent access for sepsis. COMPARISON: None. FLUOROSCOPY TIME: 37 seconds 1 images saved to PACS. TECHNIQUE: Fluoroscopic and ultrasound guided PICC placement. LIMITATIONS: None. PROCEDURE: After written consent and assessment were obtained, the patient was brought into the fluo roscopy room and placed supine on the table. Ultrasound evaluation of potential access sites were per formed. After successfully identifying a patent left upper arm basilic vein, the left arm was prepped and draped in a sterile fashion along with the ultrasound probe. The entry site was anesthetized wit h 1% lidocaine. A 21 gauge 7 cm needle was advanced through the skin and into the basilic vein under live ultrasound guidance. An ultrasound image was saved to PACS confirming access site. A .018 guid e wire was then inserted through the needle and into the venous system. The needle was then removed a nd an 11 blade scalpel was used to make a 1cm skin incision. A 5 fr peel-away sheath was advanced ov er the wire and into the venous system. A measurement was then made using the existing wire and live fluoroscopic guidance. The wire was then removed and trimmed. The PICC was advanced through the peel- away sheath and into the venous system. The peel-away sheath was removed and the catheter was adhered to the patients arm with a stat lock. The catheter was then aspirated and flushed and a sterile band age was placed over the access site. A fluoroscopic spot image was saved to PACS confirming the cath eter tip within the SVC. IMPRESSION: SUCCESSFUL PLACEMENT OF A 5 FR DUAL LUMEN 50 CM PICC IN THE LEFT BASILIC VEIN. COMMENT: Patient medication list reviewed: Yes- Quality ID# 130:Eligible professional attests to doc umenting in the medical record they obtained, updated, or reviewed the patient's current medications. . Quality ID 145: Final reports for procedures using fluoroscopy that document radiation exposure niko marielena, or exposure time and number of fluorographic images (if radiation exposure indices are not avail able) Quality ID #76: The patient was prepped and draped using maximum sterile barrier technique including cap, mask, sterile gown, sterile gloves, a large sterile sheet, hand hygiene, and 2% Chlorhexidine fo r cutaneous antisepsis. When ultrasound is used, sterile ultrasound techniques are followed requiring sterile gel and sterile probes. TECHNICAL DOCUMENTATION: JOB ID: [id number] 2010 [employer]- All Rights Reserved rev-03/20 Reading location - IP/workstation name: [id number]
[2020-08-07] MEDS: ATORVASTATIN CALCIUM 40 MG TABLET PO SCH (22:25)
[2020-08-08] MEDS: RINGERS SOLUTION,LACTATED 1,000 ML IV PRN ×2 (04:43→10:41)
[2020-08-08] MEDS: PANTOPRAZOLE SODIUM 40 MG TABLET.DR PO SCH (05:11)
[2020-08-08 06:04] LABS: ABSOLUTE EOSINOPHILS # (AUTO) 0.1 10^3/uL (0.0-0.6); ABSOLUTE LYMPHOCYTES (AUTO) 0.9 10^3/uL (0.5-4.7); ABSOLUTE MONOCYTES (AUTO) 0.8 10^3/uL (0.1-1.4); ABSOLUTE NEUT (AUTO) 3.5 10^3/uL (1.7-8.2); BASOPHILS % (AUTO) 0.4 % (0-2); EOSINOPHILS % (AUTO) 1.7 % (0-6); HEMATOCRIT 40.6 % (37.9-51.0); HEMOGLOBIN 14.2 g/dL (13.5-17.0); LYMPHOCYTES % (AUTO) 16.9 % (13-45); MEAN CORPUSCULAR HEMOGLOBIN 30.9 pg (27.0-33.4); MEAN CORPUSCULAR HGB CONC 34.9 g/dL (32.0-36.0); MEAN CORPUSCULAR VOLUME 88 fl (80-97); MONOCYTES % (AUTO) 14.6 % (3-13); PLATELET COUNT 182 10^3/uL (150-450); RED BLOOD COUNT 4.59 10^6/uL (4.35-5.55); RED CELL DISTRIBUTION WIDTH 14.4 % (11.5-14.0); SEGMENTED NEUTROPHILS % (AUTO) 66.4 % (42-78); TOTAL CELLS COUNTED % (AUTO) 100 %; WHITE BLOOD COUNT 5.3 10^3/uL (4.0-10.5)
[2020-08-08 06:45] LABS: ALBUMIN 3.8 g/dL (3.5-5.0); ALKALINE PHOSPHATASE 79 U/L (38-126); ASPARTATE AMINO TRANSFERASE 59 U/L (17-59); BILIRUBIN,DIRECT 0.3 mg/dL (0.0-0.4); BILIRUBIN,TOTAL 1.1 mg/dL (0.2-1.3); BLOOD UREA NITROGEN 83 mg/dL (7-20); CALCIUM 9.2 mg/dL (8.4-10.2); CREATINE KINASE 921 U/L (55-170); GLUCOSE 142 mg/dL (75-110); POTASSIUM 4.2 mmol/L (3.6-5.0); TOTAL PROTEIN 7.1 g/dL (6.3-8.2)
[2020-08-08 06:51] LABS: ANION GAP 19 (5-19); CARBON DIOXIDE 22 mmol/L (22-30); CHLORIDE 89 mmol/L (98-107)
[2020-08-08] MEDS: INSULIN LISPRO 100 UNIT/ML 3 ML VIAL SUBCUT SCH ×4 (08:42→21:34)
[2020-08-08] MEDS: CEFEPIME HCL 0.5 GM in NORMAL SALINE 25 ML IV SCH (09:04)
[2020-08-08] MEDS: PRENATAL VITAMIN W DHA CAPSULE PO SCH (09:05)
[2020-08-08] MEDS: MAGNESIUM OXIDE 400 MG TABLET PO SCH (09:05)
[2020-08-08] MEDS: ONDANSETRON HCL INJ/PF 4 MG/2 ML SDV IV PRN (10:40)
--- NOTE | 2020-08-08 13:29 | Progress Note ---
Provider Note Provider Note: ID Note- I reviewed the patient's chart, including H&P, progress notes, and Microbiology and Lab data. This is a very complicated case. The coagulase-negative Staph in the blood is likely a skin contaminant. I did not see anything in the chart that suggests that this organism should be considered a pathogen. If the working diagnosis is sepsis, then would cover with broad-spectrum antibiotics, but I do not think that vancomycin is necessary in this patient. Please contact me if there are questions. Antelmo Gonzalez MD Pager: [phone]
--- NOTE | 2020-08-08 19:26 | PDOC PROGRESS REPORT ---
Subjective Progress Note for:: 08/08/20 Subjective:: Patient was seen on morning rounds. He is found resting in bed, comfortably, on room air. He is alert and oriented x4, though a poor historian. 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 He tells me that lately this is been well managed and he has no skin complaints. He is very pleased to report that his urine frequency and volume seems to be increased; correctly presumed that this means his renal function is improving. He otherwise denies fever, chills, chest pain, palpitations, dyspnea, orthopnea, abdominal pain, nausea vomiting or diarrhea. He has no questions or concerns at this time. No concerns per nursing. Reason For Visit: SEPSIS/ RHABDOMYOLYSIS/ ACUTE KIDNEY INJURY Physical Exam Vital Signs: Temp Pulse Resp BP Pulse Ox 97.3 F 96 16 131/63 H 97 08/08/20 08:44 08/08/20 14:00 08/08/20 08:01 08/08/20 08:01 08/08/20 08:01 Intake & Output 08/07/20 08/08/20 08/09/20 06:59 06:59 06:59 Intake Total 7040 3897 1336 Output Total 4550 3100 750 Balance 2490 797 586 Weight 103.7 kg 103.8 kg General appearance: PRESENT: no acute distress, cooperative, well-developed, well-nourished - overweight Head exam: PRESENT: atraumatic, normocephalic Eye exam: PRESENT: conjunctiva pink, EOMI, PERRLA. ABSENT: scleral icterus Mouth exam: PRESENT: moist, tongue midline Teeth exam: PRESENT: poor dentation Respiratory exam: PRESENT: clear to auscultation tip, symmetrical, unlabored, other - room air. ABSENT: rales, rhonchi, wheezes Cardiovascular exam: PRESENT: RRR. ABSENT: diastolic murmur, rubs, systolic murmur Pulses: PRESENT: normal dorsalis pedis pul Vascular exam: PRESENT: normal capillary refill GI/Abdominal exam: PRESENT: normal bowel sounds, soft, other - ostomy; large area exposed to watery stools. No clear erythema. Can't identify the small, shallow, lac noted previously. "looks good" per patient. ABSENT: distended, guarding, mass, organolmegaly, rebound, tenderness Extremities exam: PRESENT: full ROM. ABSENT: calf tenderness, clubbing, pedal edema Neurological exam: PRESENT: alert, awake, oriented to person, oriented to place, oriented to time, oriented to situation, CN II-XII grossly intact. ABSENT: motor sensory deficit Psychiatric exam: PRESENT: appropriate affect, normal mood. ABSENT: homicidal ideation, suicidal ideation Skin exam: PRESENT: dry, warm. ABSENT: cyanosis, rash Results Laboratory Results: 08/08/20 05:18 08/08/20 05:18 08/08/20 08/08/20 05:18 05:18 WBC 5.3 RBC 4.59 Hgb 14.2 Hct 40.6 MCV 88 MCH 30.9 MCHC 34.9 RDW 14.4 H Plt Count 182 Seg Neutrophils % 66.4 Sodium 129.6 L Potassium 4.2 Chloride 89 L Carbon Dioxide 22 Anion Gap 19 BUN 83 H Creatinine 3.83 H Est GFR ( Amer) 19 L Glucose 142 H Calcium 9.2 Magnesium 1.7 Total Bilirubin 1.1 AST 59 Alkaline Phosphatase 79 Total Protein 7.1 Albumin 3.8 08/06/20 05:30 Blood Blood Culture (PCR) - Final Staphylococcus Species 08/06/20 05:30 Blood Blood Culture (PCR) - Final Staphylococcus Species 08/06/20 18:00 Clean Catch Midstream Urine Culture - Final 5,000 col/ml 08/06/20 08/06/20 08/06/20 05:30 11:20 23:54 Creatine Kinase 8246 H 6340 H 4055 H 08/07/20 08/08/20 05:54 05:18 Creatine Kinase 2324 H 921 H Impressions: Head CT 08/06/20 06:14 IMPRESSION: No acute intracranial findings. Cervical Spine CT 08/06/20 06:15 IMPRESSION: No acute fracture or subluxation. Chest CT 08/06/20 06:16 IMPRESSION: No definite acute process. Abdomen/Pelvis CT 08/06/20 06:18 IMPRESSION: No definite acute process. PICC Line Insertion 08/07/20 08:00 IMPRESSION: SUCCESSFUL PLACEMENT OF A 5 FR DUAL LUMEN 50 CM PICC IN THE LEFT BASILIC VEIN. Assessment and Plan - Diagnosis (1) Bacteremia due to Staphylococcus Is this a current diagnosis for this admission?: Yes Plan: Blood cultures (4 4 bottles) revealed Staphylococcus. Repeat cultures pending. Full skin assessment done today; no clear source of infection. Patient does have a large area surrounding his ostomy that is regularly exposed to watery stools. Patient tells me that his ostomy site actually appears to be good today. Previous provider did note a small shallow laceration measuring less valdez n 1 cm at the ostomy site; this could potentially be a source for infection, however, I would have expected the bacterium to be more GI related (gram- negative rather than staph). Patient does note mild back discomfort related to a fall several days prior to his admission; no midline tenderness or discomfort noted on palpation. ID consulted; have reviewed Dr. Gonzalez's note. Will continue Cefepime; day # 3 Of note; patient already has PICC line in place. If he remains persistently bacteremic, will need to remove. (2) Rhabdomyolysis Qualifiers: Rhabdomyolysis type: traumatic Is this a current diagnosis for this admission?: Yes Plan: Patient reports having a fall at home. It is unknown how long he was down. Creatinine kinase on admission was 8246. Continues to trend down; 8246-> 921 Continue IVF Encourage p.o. fluids. Physical therapy is consulted. (3) Acute kidney failure Qualifiers: Acute renal failure type: with acute tubular necrosis Qualified Code(s): N17.0 - Acute kidney failure with tubular necrosis Is this a current diagnosis for this admission?: Yes Plan: Secondary to sepsis and rhabdomyolysis. Improved; Cr 6.94-> 3.83 Abdominal/pelvic CT was negative for acute findings. We will continue IV fluids. Cultures and antibiotics as above. Avoid nephrotoxic medications as able. Renally dosed where appropriate. Trend chemistries. We will hold on nephrology consultation so long as patient continues to improve. (4) CAD (coronary artery disease) Is this a current diagnosis for this admission?: Yes Plan: History of coronary artery disease. Asymptomatic at this time. Monitored on telemetry. Continue home dose statin. (5) Hyperglycemia due to type 2 diabetes mellitus Qualifiers: Diabetes mellitus vermin exterminator insulin use: without detention use Qualified Code(s): E11.65 - Type 2 diabetes mellitus with hyperglycemia Is this a current diagnosis for this admission?: Yes Plan: Holding oral medications while admitted. Patient is placed on a consistent carb diet. Accu-Cheks before meals and at bedtime with Humalog for sliding scale coverage. Hypoglycemia protocol in place. Registered dietitian parent educator consulted. (6) Sepsis Qualifiers: Sepsis type: sepsis due to unspecified organism Sepsis acute organ dysfunction status: with acute organ dysfunction Severe sepsis acute organ dysfunction type: acute renal failure Acute renal failure type: with acute tubular necrosis Severe sepsis shock status: without septic shock Qualified Code(s): A41.9 - Sepsis, unspecified organism; R65.20 - Severe sepsis without septic shock; N17.0 - Acute kidney failure with tubular necrosis Is this a current diagnosis for this admission?: Yes Plan: Improved; Vital signs remained stable. WBC is normal. LFTs have returned to normal. Renal function is improved. Sepsis, present on admission, secondary to Staphylococcus bacteremia, evidenced by acute renal failure and elevated transaminases. Cultures and antibiotics as above (7) Elevated liver transaminase level Is this a current diagnosis for this admission?: Yes Plan: Resolved; likely 2/2 sepsis (8) Hyperbilirubinemia Is this a current diagnosis for this admission?: Yes Plan: Resolved; secondary to the sepsis. - Time Time Spent with patient: 35 or more minutes Medications reviewed and adjusted accordingly: Yes Anticipated Discharge Disposition: Home with Home Health Anticipated Discharge Timeframe: undetermined
[2020-08-08] MEDS: NORMAL SALINE 1000 ML 1,000 ML IV PRN (20:25)
[2020-08-08] MEDS: ATORVASTATIN CALCIUM 40 MG TABLET PO SCH (21:32)
[2020-08-09] MEDS: NORMAL SALINE 1000 ML 1,000 ML IV PRN ×3 (05:37→22:02)
[2020-08-09] MEDS: PANTOPRAZOLE SODIUM 40 MG TABLET.DR PO SCH (05:37)
[2020-08-09 06:28] LABS: HEMOGLOBIN 13.2 g/dL (13.5-17.0); MEAN CORPUSCULAR HEMOGLOBIN 30.7 pg (27.0-33.4); MEAN CORPUSCULAR HGB CONC 34.7 g/dL (32.0-36.0); MEAN CORPUSCULAR VOLUME 89 fl (80-97); PLATELET COUNT 154 10^3/uL (150-450); RED BLOOD COUNT 4.28 10^6/uL (4.35-5.55); RED CELL DISTRIBUTION WIDTH 14.5 % (11.5-14.0); WHITE BLOOD COUNT 4.9 10^3/uL (4.0-10.5)
[2020-08-09 06:45] LABS: ALBUMIN 3.6 g/dL (3.5-5.0); ALKALINE PHOSPHATASE 75 U/L (38-126); ANION GAP 18 (5-19); ASPARTATE AMINO TRANSFERASE 46 U/L (17-59); BILIRUBIN,DIRECT 0.4 mg/dL (0.0-0.4); BILIRUBIN,TOTAL 0.9 mg/dL (0.2-1.3); BLOOD UREA NITROGEN 95 mg/dL (7-20); CALCIUM 8.5 mg/dL (8.4-10.2); CARBON DIOXIDE 19 mmol/L (22-30); CHLORIDE 94 mmol/L (98-107); CREATINE KINASE 524 U/L (55-170); GLUCOSE 123 mg/dL (75-110); POTASSIUM 4.3 mmol/L (3.6-5.0); TOTAL PROTEIN 6.8 g/dL (6.3-8.2)
[2020-08-09 06:59] LABS: ABSOLUTE LYMPHOCYTES# (MANUAL) 1.1 10^3/uL (0.5-4.7); ABSOLUTE MONOCYTES # (MANUAL) 0.6 10^3/uL (0.1-1.4); BASOPHILS % (MANUAL) 0 % (0-2); EOSINOPHILS % (MANUAL) 1 % (0-6); LYMPHOCYTES % (MANUAL) 20 % (13-45); METAMYELOCYTES % (MANUAL) 1 % (0-1); MONOCYTES % (MANUAL) 12 % (3-13); PLATELET COMMENT ADEQUATE; SEGMENTED NEUTROPHILS % (MAN) 63 % (42-78); TOTAL CELLS COUNTED 100
[2020-08-09 07:00] LABS: PLATELET LARGE PRESENT; POIKILOCYTOSIS 1+; TEAR DROP CELLS 1+
[2020-08-09] MEDS: INSULIN LISPRO 100 UNIT/ML 3 ML VIAL SUBCUT SCH ×4 (08:43→22:03)
[2020-08-09] MEDS: MAGNESIUM OXIDE 400 MG TABLET PO SCH (11:48)
[2020-08-09] MEDS: PRENATAL VITAMIN W DHA CAPSULE PO SCH (11:49)
[2020-08-09] MEDS: CEFEPIME HCL 0.5 GM in NORMAL SALINE 25 ML IV SCH (11:49)
[2020-08-09] MEDS: NORMAL SALINE 10 ML SDV (SCHEDULED) IV SCH ×2 (11:52→22:05)
[2020-08-09] MEDS: LOPERAMIDE HCL 2 MG CAPSULE PO PRN ×2 (12:28→22:03)
[2020-08-09] MEDS: ONDANSETRON HCL INJ/PF 4 MG/2 ML SDV IV PRN (13:43)
--- NOTE | 2020-08-09 17:33 | PDOC PROGRESS REPORT ---
Subjective Progress Note for:: 08/09/20 Subjective:: Patient was seen on morning rounds. He is found resting in bed, comfortably, on room air. He is alert and oriented x4, though a poor historian. He states that he is feeling well today other than some mild nausea. He denies emesis. Reports good appetite. He tells me that he is looking forward to discharge to home. We discussed potential need for continued IV antibiotics, although, full evaluation has not been completed to determine the length of therapy. He does advised that he may be able to have family members assist with home infusion therapy. He tells me that he has previous experience with home IV antibiotics. He otherwise denies fever, chills, chest pain, palpitations, dyspnea, orthopnea, abdominal pain, vomiting or diarrhea. He has no other questions or concerns at this time. No concerns per nursing. Reason For Visit: SEPSIS/ RHABDOMYOLYSIS/ ACUTE KIDNEY INJURY Physical Exam Vital Signs: Temp Pulse Resp BP Pulse Ox 97.7 F 86 19 118/64 96 08/09/20 08:20 08/09/20 08:20 08/09/20 03:38 08/09/20 08:20 08/09/20 08:20 Intake & Output 08/08/20 08/09/20 08/10/20 06:59 06:59 06:59 Intake Total 3897 3272 1000 Output Total 3100 3340 Balance 797 -68 1000 Weight 103.8 kg 108 kg General appearance: PRESENT: no acute distress, cooperative, obese, well- developed, well-nourished Head exam: PRESENT: atraumatic, normocephalic Eye exam: PRESENT: conjunctiva pink, EOMI, PERRLA. ABSENT: scleral icterus Mouth exam: PRESENT: moist, tongue midline Teeth exam: PRESENT: poor dentation Respiratory exam: PRESENT: clear to auscultation tip, symmetrical, unlabored. ABSENT: rales, rhonchi, wheezes Cardiovascular exam: PRESENT: RRR, +S1, +S2. ABSENT: diastolic murmur, rubs, systolic murmur Vascular exam: PRESENT: normal capillary refill GI/Abdominal exam: PRESENT: normal bowel sounds, soft, other - ostomy; large area exposed to watery stools. No erythema or skin break down noted.. ABSENT: distended, guarding, mass, organolmegaly, rebound, tenderness Rectal exam: PRESENT: deferred Extremities exam: PRESENT: full ROM. ABSENT: calf tenderness, clubbing, pedal edema Neurological exam: PRESENT: alert, awake, oriented to person, oriented to place, oriented to time, oriented to situation, CN II-XII grossly intact. ABSENT: motor sensory deficit Psychiatric exam: PRESENT: appropriate affect, normal mood. ABSENT: homicidal ideation, suicidal ideation Skin exam: PRESENT: dry, intact, warm. ABSENT: cyanosis, rash Results Laboratory Results: 08/09/20 05:22 08/09/20 05:22 08/09/20 08/09/20 05:22 05:22 WBC 4.9 RBC 4.28 L Hgb 13.2 L Hct 38.0 MCV 89 MCH 30.7 MCHC 34.7 RDW 14.5 H Plt Count 154 Seg Neutrophils % Not Reportable Sodium 130.7 L Potassium 4.3 Chloride 94 L Carbon Dioxide 19 L Anion Gap 18 BUN 95 H Creatinine 3.98 H Est GFR ( Amer) 18 L Glucose 123 H Calcium 8.5 Magnesium 1.7 Total Bilirubin 0.9 AST 46 Alkaline Phosphatase 75 Total Protein 6.8 Albumin 3.6 08/06/20 05:30 Blood Blood Culture (PCR) - Final Staphylococcus Species 08/06/20 05:30 Blood Blood Culture (PCR) - Final Staphylococcus Species 08/06/20 08/06/20 08/06/20 05:30 11:20 23:54 Creatine Kinase 8246 H 6340 H 4055 H 08/07/20 08/08/20 08/09/20 05:54 05:18 05:22 Creatine Kinase 2324 H 921 H 524 H Impressions: Head CT 08/06/20 06:14 IMPRESSION: No acute intracranial findings. Cervical Spine CT 08/06/20 06:15 IMPRESSION: No acute fracture or subluxation. Chest CT 08/06/20 06:16 IMPRESSION: No definite acute process. Abdomen/Pelvis CT 08/06/20 06:18 IMPRESSION: No definite acute process. PICC Line Insertion 08/07/20 08:00 IMPRESSION: SUCCESSFUL PLACEMENT OF A 5 FR DUAL LUMEN 50 CM PICC IN THE LEFT BASILIC VEIN. Assessment and Plan - Diagnosis (1) Bacteremia due to Staphylococcus Is this a current diagnosis for this admission?: Yes Plan: Blood cultures (3/4 bottles) revealed Staphylococcus. Repeat cultures (08/09/20) pending. Full skin assessment done yesterday; no clear source of infection. Patient does have a large area surrounding his ostomy that is regularly exposed to watery stools. Patient tells me that his ostomy site actually appears to be in good condition. Previous provider did note a small shallow laceration measuring less than 1 cm at the ostomy site; this could potentially be a source for infection, however, I would have expected the bacterium to be more GI related (gram- negative rather than staph). I was not able to locate the lac. Patient does note mild back discomfort related to a fall several days prior; no midline tenderness or discomfort noted on palpation. ID consulted; have reviewed Dr. Gonzalez's note. Will continue Cefepime; day # 4 Of note; patient already has PICC line in place. If he remains persistently bacteremic, will need to remove. Echocardiogram pending; if negative for endocarditis, patient may be candidate for short 14 day course. (2) Rhabdomyolysis Qualifiers: Rhabdomyolysis type: traumatic Is this a current diagnosis for this admission?: Yes Plan: Patient reports having a fall at home. It is unknown how long he was down. Creatinine kinase on admission was 8246. Continues to trend down; 8246-> 921-> 524 Continue IVF Encourage p.o. fluids. Physical therapy is consulted. (3) Acute kidney failure Qualifiers: Acute renal failure type: with acute tubular necrosis Qualified Code(s): N17.0 - Acute kidney failure with tubular necrosis Is this a current diagnosis for this admission?: Yes Plan: Secondary to sepsis and rhabdomyolysis. Improved; Cr 6.94-> 3.83-> 3.98 Abdominal/pelvic CT was negative for acute findings. We will continue IV fluids. Cultures and antibiotics as above. Avoid nephrotoxic medications as able. Renally dosed where appropriate. Nephrology is consulted; appreciate their evaluation and recommendations. Trend chemistries. (4) CAD (coronary artery disease) Is this a current diagnosis for this admission?: Yes Plan: History of coronary artery disease. Asymptomatic at this time. Monitored on telemetry. Continue home dose statin. (5) Hyperglycemia due to type 2 diabetes mellitus Qualifiers: Diabetes mellitus skilled nursing insulin use: without long line teamster use Qualified Co de(s): E11.65 - Type 2 diabetes mellitus with hyperglycemia Is this a current diagnosis for this admission?: Yes Plan: Holding oral medications while admitted. Patient is placed on a consistent carb diet. Accu-Cheks before meals and at bedtime with Humalog for sliding scale coverage. Hypoglycemia protocol in place. Registered dietitian real property evaluator consulted. (6) Sepsis Qualifiers: Sepsis type: sepsis due to unspecified organism Sepsis acute organ dysfunction status: with acute organ dysfunction Severe sepsis acute organ dysfunction type: acute renal failure Acute renal failure type: with acute tubular necrosis Severe sepsis shock status: without septic shock Qualified Code(s): A41.9 - Sepsis, unspecified organism; R65.20 - Severe sepsis without septic shock; N17.0 - Acute kidney failure with tubular necrosis Is this a current diagnosis for this admission?: Yes Plan: Resolved. Vital signs remained stable. WBC is normal. LFTs have returned to normal. Renal function is improved. Sepsis, present on admission, secondary to Staphylococcus bacteremia, evidenced by acute renal failure and elevated transaminases. Cultures and antibiotics as above (7) Elevated liver transaminase level Is this a current diagnosis for this admission?: Yes Plan: Resolved; likely 2/2 sepsis (8) Hyperbilirubinemia Is this a current diagnosis for this admission?: Yes Plan: Resolved; secondary to the sepsis. - Time Time Spent with patient: 25-34 minutes Medications reviewed and adjusted accordingly: Yes Anticipated Discharge Disposition: Home with Home Health Anticipated Discharge Timeframe: undetermined
--- NOTE | 2020-08-09 21:24 | PDOC CONSULTATION ---
Consultation Consult Date: 08/09/20 Provider Consulted: Ivanna MCKEE Consult reason:: TOYA History of Present Illness Admission Date/PCP: 08/06/20 13:31 History of Present Illness: RASHIDA MOTA is a 75 year old male with PMH of HTN, DM2, CAD with bypass surgery, and ostomy related to perforation injury. He came to the ER after 3 to 4 days of not feeling right. Over those few days he has had a high out put ostomy, decreased appetite and fluid intake. He became weak enough that he fell and was not able to get back up. Eventually his sister came and convinced him to go to the ER. In the ER he had a full body scan with the CT machine with no acute findings. His labs did show a creatinine of 6.02 with a bun of 58. Lactic acid was 6.9, elevated liver enzymes, creatinine kinase of 8,246. BP was normal but he was found to be hypoxic when off O2. Blood cultures were drawn and eventually showed staph. He was started on fluids, start on O2, levofloxicin and eventually cefepime. lactic acid trended down to 1.2. Creatinine trended down to 3.8 only to increase to 3.98 with a bun of 95. He continues to have high output from his ostomy but claims he is feeling better. He denies chest pain, SOB, N/V/D/C. Denies any prior history of CKD. Unfortunately with history he does not seem to be the most accurate. Past Medical History Cardiac Medical History: Reports: Coronary Artery Disease, Hyperlipidemia, Myocardial Infarction Pulmonary Medical History: Reports: Respiratory Failure Denies: Asthma, Bronchitis, Chronic Obstructive Pulmonary Disease (COPD), Pneumonia Neurological Medical History: Reports: Seizures Denies: Migraine Endocrine Medical History: Reports: Diabetes Mellitus Type 2 Denies: Diabetes Mellitus Type 1, Hyperthyroidism, Hypothyroidism Renal/ Medical History: Denies: End Stage Renal Disease, Hematuria GI Medical History: Reports: Gastroesophageal Reflux Disease Denies: Cirrhosis, Hepatitis Musculoskeltal Medical History: Denies: Arthritis, Gout Skin Medical History: Denies: Eczema, Psoriasis Psychiatric Medical History: Reports: Depression Past Surgical History Past Surgical History: Reports: Cardiac Catheterization, Coronary Artery Bypass Graft, Coronary Stent, Herniorrhaphy - Ventral hernia repair, Ileostomy - during 3rd operation 2 years ago at [facility], Other - laparotomy for perforated viscus 3 yrs ago due to chicken bone. Social History Lives with: Alone Smoking Status: Former Smoker Electronic Cigarette use?: No Frequency of Alcohol Use: None Hx Recreational Drug Use: No Drugs: None Hx Prescription Drug Abuse: No - Advance Directive Resuscitation Status: Full Code Family History Parental Family History Reviewed: Yes Children Family History Reviewed: Unknown Sibling(s) Family History Reviewed.: Unknown Medication/Allergy Home Medications: Atorvastatin Calcium [Lipitor 40 mg Tablet] 40 mg PO QHS 08/06/20 Magnesium Oxide [Magnesium] 250 mg PO DAILY 08/06/20 Multivit-Min/Folic/Vit K/Lycop [One Daily Men's 50 Plus D3 Tab] 1 each PO DAILY 08/06/20 Omeprazole 20 mg PO DAILY 08/06/20 Sitagliptin Phosphate [Januvia 50 mg Tablet] 100 mg PO DAILY 08/06/20 Allergies/Adverse Reactions: Penicillins Allergy (Intermediate, Verified 05/28/19 07:59) Hives Review of Systems Constitutional: PRESENT: fatigue, weakness. ABSENT: chills, fever(s), headache(s) Eyes: ABSENT: visual disturbances Nose, Mouth, and Throat: ABSENT: headache(s) Cardiovascular: ABSENT: chest pain, dyspnea on exertion, edema, orthropnea, palpitations Respiratory: ABSENT: cough, dyspnea, sputum Gastrointestinal: PRESENT: diarrhea, nausea. ABSENT: abdominal pain, constipation, vomiting Genitourinary: ABSENT: difficulty urinating, dysuria, hematuria, nocturia Neurological: ABSENT: dizziness, focal weakness, weakness Physical Exam Vital Signs: Temp Pulse Resp BP Pulse Ox 97.9 F 79 16 116/62 96 08/09/20 16:23 08/09/20 16:23 08/09/20 16:23 08/09/20 16:23 08/09/20 16:23 Intake & Output 08/08/20 08/09/20 08/10/20 06:59 06:59 06:59 Intake Total 5066 3752 1951 Output Total 8325 2610 5002 Balance 797 -68 -509 Weight 103.8 kg 108 kg General appearance: PRESENT: no acute distress, well-developed, well-nourished Mouth exam: PRESENT: dry mucosa, neck supple. ABSENT: moist Neck exam: ABSENT: JVD, tracheal deviation Respiratory exam: PRESENT: clear to auscultation tip. ABSENT: crackles, rales, rhonchi, wheezes Cardiovascular exam: PRESENT: +S1, +S2 GI/Abdominal exam: PRESENT: soft. ABSENT: tenderness Extremities exam: ABSENT: pedal edema, +1 edema, +2 edema Neurological exam: PRESENT: alert, awake, oriented to person, oriented to place, oriented to time, oriented to situation Skin exam: PRESENT: dry, intact, warm Results Laboratory Results: 08/09/20 05:22 08/09/20 05:22 08/09/20 08/09/20 05:22 05:22 WBC 4.9 RBC 4.28 L Hgb 13.2 L Hct 38.0 MCV 89 MCH 30.7 MCHC 34.7 RDW 14.5 H Plt Count 154 Seg Neutrophils % Not Reportable Sodium 130.7 L Potassium 4.3 Chloride 94 L Carbon Dioxide 19 L Anion Gap 18 BUN 95 H Creatinine 3.98 H Est GFR ( Amer) 18 L Glucose 123 H Calcium 8.5 Magnesium 1.7 Total Bilirubin 0.9 AST 46 Alkaline Phosphatase 75 Total Protein 6.8 Albumin 3.6 08/06/20 05:30 Blood Blood Culture (PCR) - Final Staphylococcus Species 08/06/20 08/06/20 08/06/20 05:30 11:20 23:54 Creatine Kinase 8246 H 6340 H 4055 H 08/07/20 08/08/20 08/09/20 05:54 05:18 05:22 Creatine Kinase 2324 H 921 H 524 H Impressions: Head CT 08/06/20 06:14 IMPRESSION: No acute intracranial findings. Cervical Spine CT 08/06/20 06:15 IMPRESSION: No acute fracture or subluxation. Chest CT 08/06/20 06:16 IMPRESSION: No definite acute process. Abdomen/Pelvis CT 08/06/20 06:18 IMPRESSION: No definite acute process. PICC Line Insertion 08/07/20 08:00 IMPRESSION: SUCCESSFUL PLACEMENT OF A 5 FR DUAL LUMEN 50 CM PICC IN THE LEFT BASILIC VEIN. Assessment & Plan - Diagnosis (1) Acute kidney failure Qualifiers: Acute renal failure type: with acute tubular necrosis Qualified Code(s): N17.0 - Acute kidney failure with tubular necrosis Is this a current diagnosis for this admission?: Yes Plan: nonolguric, looks to be from dehydration from his high output ostomy output. Does not look to be obstructive nephropathy judging by the abdominal scan. Continue with normal saline at 125mL an hour. Will look to start him on imodium to help decrease the output of watery stool. Follow up with labs tomorrow. (2) Dehydration Plan: continue on normal saline and start imodium (3) Diarrhea Qualifiers: Diarrhea type: presumed infectious Qualified Code(s): R19.7 - Diarrhea, unspecified Plan: starting on imodium will look up underlining cause (4) Bacteremia due to Staphylococcus Is this a current diagnosis for this admission?: Yes Plan: currently on cefepime with no source. Being worked by hospitalist services. (5) Colostomy status Plan: starting on imodium to help decrease the output (6) Elevated liver transaminase level Is this a current diagnosis for this admission?: Yes Plan: improving with fluids (7) Hyperglycemia due to type 2 diabetes mellitus Qualifiers: Diabetes mellitus termite control representative insulin use: without termite control representative use Qualified Code(s): E11.65 - Type 2 diabetes mellitus with hyperglycemia Is this a current diagnosis for this admission?: Yes Plan: improving (8) Lactic acidosis Plan: resolved (9) Rhabdomyolysis Qualifiers: Rhabdomyolysis type: traumatic Is this a current diagnosis for this admission?: Yes Plan: related to time that he spent on the ground. Currently improved (10) Sepsis Qualifiers: Sepsis type: sepsis due to unspecified organism Sepsis acute organ dysfunction status: with acute organ dysfunction Severe sepsis acute organ dysfunction type: acute renal failure Acute renal failure type: with acute tubular necrosis Severe sepsis shock status: without septic shock Qualified Code(s): A41.9 - Sepsis, unspecified organism; R65.20 - Severe sepsis without septic shock; N17.0 - Acute kidney failure with tubular necrosis Is this a current diagnosis for this admission?: Yes Plan: per hospitalist services (11) HTN (hypertension), benign Plan: controlled (12) Metabolic acidosis Plan: starting on sodium bicarb
[2020-08-09] MEDS: SODIUM BICARBONATE 650 MG TABLET PO SCH (22:03)
[2020-08-09] MEDS: ATORVASTATIN CALCIUM 40 MG TABLET PO SCH (22:03)
[2020-08-10] MEDS: PANTOPRAZOLE SODIUM 40 MG TABLET.DR PO SCH (05:04)
[2020-08-10 05:56] LABS: ANION GAP 15 (5-19); BLOOD UREA NITROGEN 105 mg/dL (7-20); CALCIUM 8.6 mg/dL (8.4-10.2); CARBON DIOXIDE 15 mmol/L (22-30); CHLORIDE 103 mmol/L (98-107); GLUCOSE 117 mg/dL (75-110)
[2020-08-10] MEDS: NORMAL SALINE 1000 ML 1,000 ML IV PRN ×3 (05:57→17:26)
[2020-08-10] MEDS: INSULIN LISPRO 100 UNIT/ML 3 ML VIAL SUBCUT SCH ×4 (08:21→21:37)
[2020-08-10] MEDS ORDERED: CEFEPIME 1 GM/D5W RTU 1 GM/50 ML RTUPB IV SCH (10:00)
[2020-08-10] MEDS: SODIUM BICARBONATE 650 MG TABLET PO SCH ×2 (10:19→21:38)
[2020-08-10] MEDS: PRENATAL VITAMIN W DHA CAPSULE PO SCH (10:19)
[2020-08-10] MEDS: MAGNESIUM OXIDE 400 MG TABLET PO SCH (10:19)
[2020-08-10] MEDS: NORMAL SALINE 10 ML SDV (SCHEDULED) IV SCH ×2 (10:20→21:51)
--- NOTE | 2020-08-10 13:20 | XCELERA REPORT ---
[address] [address] Transthoracic Echocardiogram Report Name: RASHIDA MOTA Age: 75 yrs Gender: Male : 1945 Patient Status: Inpatient Patient Location: [address] [place], [place] [id number] Study Date: 08/09/2020 07:03 PM Height: 70 in Weight: 238 lb BSA: 2.2 m2 Procedure: A complete two-dimensional transthoracic echocardiogram was performed (2D, M-mode, spectral and color flow Doppler). The study was technically limited with all images being suboptimal in quality. The subcostal views were difficult to obtain and are suboptimal in quality. Reason For Study: staph bacteremia; ? endocarditis Ordering Physician: YOSVANY SQUIRES Performed By: Lucero Jones Interpretation Summary The left ventricle is grossly normal size. Left ventricular systolic function is normal. The Ejection Fraction estimate is 55-60%. Doppler measurements suggest impaired left ventricular relaxation, which is associated with grade I/IV or mild diastolic dysfunction. Regional wall motion abnormalities cannot be excluded due to limited visualization. Trace to mild MR, trace to mild TR, mild PI. Surface echocardiograms have low sensitivity and specificity for valvular vegetations and, although there is no clear evidence of valvular vegetations or significant valvular regurgitaion in the current study, this is a technically limited echocardiogram and small vegetations will be missed. Recommend transesophageal echocardiogram if clinically indicated. MMode/2D Measurements & Calculations RVDd: 3.4 cm LVIDd: 5.7 cm FS: 25.3 % Ao root diam: 3.6 cm IVSd: 1.3 cm LVIDs: 4.2 cm EDV(Teich): Ao root area: 158.5 ml LVPWd: 0.95 cm 10.3 cm2 ESV(Teich): LA dimension: 3.9 cm 80.4 ml EF(Teich): 49.3 % LVLd ap4: 6.5 cm SV(MOD-sp4): EDV(MOD-sp4): 61.0 ml 110.0 ml LVLs ap4: 5.6 cm ESV(MOD-sp4): 49.0 ml EF(MOD-sp4): 55.5 % Doppler Measurements & Calculations MV E max contreras: MV P1/2t max contreras: Ao V2 max: LV V1 max P.2 cm/sec 52.6 cm/sec 110.5 cm/sec 2.9 mmHg MV A max contreras: MV P1/2t: 125.2 msec Ao max P.9 mmHg LV V1 max: 82.6 cm/sec 85.4 cm/sec MVA(P1/2t): 1.8 cm2 MV E/A: 0.69 MV dec slope: 123.0 cm/sec2 MV dec time: 0.32 sec PA V2 max: PI end-d contreras: MV P1/2t-pr_phl: 138.2 cm/sec 118.1 cm/sec 125.2 msec PA max P.6 mmHg Left Ventricle The left ventricle is grossly normal size. Left ventricular systolic function is normal. The Ejection Fraction estimate is 55-60%. Doppler measurements suggest impaired left ventricular relaxation, which is associated with grade I/IV or mild diastolic dysfunction. Regional wall motion abnormalities cannot be excluded due to limited visualization. Right Ventricle The right ventricle is normal in size, thickness and function. The right ventricular systolic function is normal. Atria The right atrium is normal. The left atrial size is normal. Mitral Valve The mitral valve is grossly normal. There is no evidence of mitral valve prolapse. There is no mitral valve stenosis. There is a trace to mild amount of mitral regurgitation. Aortic Valve The aortic valve is mildly calcified. There is no aortic valve stenosis. No aortic regurgitation is present. Tricuspid Valve The tricuspid valve is not well visualized, but is grossly normal. There is no tricuspid valve prolapse. There is no tricuspid stenosis. There is a trace to mild amount of tricuspid regurgitation. Pulmonic Valve The pulmonic valve is not well seen, but is grossly normal. There is no vegetation on the pulmonic valve. There is no pulmonic valvular stenosis. There is a mild amount of pulmonic regurgitation. Effusions There is no pericardial effusion. There is no pleural effusion. : YOSVANY SQUIRES Antonio
--- NOTE | 2020-08-10 15:01 | PDOC PROGRESS REPORT ---
Subjective Progress Note for:: 08/10/20 Subjective:: Patient was seen today laying in his bed. At the time he was laying almost completely flat. He denied any SOB when in that position. He denied chest pain, n/v/d/c. His ostomy continues to have severely high output. Denies any s/s of uremia Reason For Visit: SEPSIS/ RHABDOMYOLYSIS/ ACUTE KIDNEY INJURY Physical Exam Vital Signs: Temp Pulse Resp BP Pulse Ox 97.3 F 73 20 119/64 94 08/10/20 08:53 08/10/20 14:00 08/10/20 08:05 08/10/20 08:05 08/10/20 08:05 Intake & Output 08/09/20 08/10/20 08/11/20 06:59 06:59 06:59 Intake Total 3272 3941 1026 Output Total 3340 5010 500 Balance -68 -1069 526 Weight 108 kg 109.3 kg General appearance: PRESENT: no acute distress, well-developed, well-nourished Mouth exam: PRESENT: dry mucosa, neck supple Neck exam: ABSENT: JVD, tracheal deviation Respiratory exam: PRESENT: clear to auscultation tip. ABSENT: crackles, rales, rhonchi, wheezes Cardiovascular exam: PRESENT: +S1, +S2 GI/Abdominal exam: PRESENT: soft. ABSENT: tenderness Extremities exam: ABSENT: pedal edema, +1 edema, +2 edema Musculoskeletal exam: PRESENT: normal inspection. ABSENT: tenderness Neurological exam: PRESENT: alert, awake, oriented to person, oriented to place, oriented to time, oriented to situation Skin exam: PRESENT: dry, intact, warm Results Laboratory Results: 08/09/20 05:22 08/10/20 05:00 08/10/20 05:00 Sodium 132.9 L Potassium 5.0 Chloride 103 Carbon Dioxide 15 L Anion Gap 15 BUN 105 H Creatinine 4.51 H Est GFR ( Amer) 15 L Glucose 117 H Calcium 8.6 08/06/20 05:30 Blood Blood Culture (PCR) - Final Staphylococcus Species 08/06/20 05:30 Blood Blood Culture - Final Staphylococcus Hominis 08/06/20 05:30 Blood Blood Culture (PCR) - Final Staphylococcus Species 08/06/20 05:30 Blood Blood Culture - Final Staphylococcus Lugdunensis Staphylococcus Hominis 10/02/2008/06/20 08/06/20 05:30 11:20 23:54 Creatine Kinase 8246 H 6340 H 4055 H 08/07/20 08/08/20 08/09/20 05:54 05:18 05:22 Creatine Kinase 2324 H 921 H 524 H Impressions: Head CT 08/06/20 06:14 IMPRESSION: No acute intracranial findings. Cervical Spine CT 08/06/20 06:15 IMPRESSION: No acute fracture or subluxation. Chest CT 08/06/20 06:16 IMPRESSION: No definite acute process. Abdomen/Pelvis CT 08/06/20 06:18 IMPRESSION: No definite acute process. PICC Line Insertion 08/07/20 08:00 IMPRESSION: SUCCESSFUL PLACEMENT OF A 5 FR DUAL LUMEN 50 CM PICC IN THE LEFT BASILIC VEIN. Assessment & Plan - Diagnosis (1) Acute kidney failure Qualifiers: Acute renal failure type: with acute tubular necrosis Qualified Code(s): N17.0 - Acute kidney failure with tubular necrosis Is this a current diagnosis for this admission?: Yes Plan: nonolguric, looks to be from dehydration from his high output ostomy. Does not look to be obstructive nephropathy judging by the abdominal scan. Increasing normal saline at 150mL an hour. Unfortunately no imodium was give, discussed with his nurse about giving to help decrease the output of watery stools. Will also look to try and find underlining cause for sudden increase in ostomy out put. (2) Dehydration Plan: Increase normal saline to 150mL/hour and start imodium. Will look for cause of increase in output. (3) Diarrhea Qualifiers: Diarrhea type: presumed infectious Qualified Code(s): R19.7 - Diarrhea, uns pecified Plan: getting some labs to find underlining cause (4) Bacteremia due to Staphylococcus Is this a current diagnosis for this admission?: Yes Plan: currently on cefepime with no source. Being worked by hospitalist services. (6) Elevated liver transaminase level Is this a current diagnosis for this admission?: Yes Plan: improving with fluids (7) Hyperglycemia due to type 2 diabetes mellitus Qualifiers: Diabetes mellitus jail insulin use: without roasterman use Qualified Code(s): E11.65 - Type 2 diabetes mellitus with hyperglycemia Is this a current diagnosis for this admission?: Yes Plan: improving (8) Lactic acidosis Plan: resolved (9) Rhabdomyolysis Qualifiers: Rhabdomyolysis type: traumatic Is this a current diagnosis for this admission?: Yes Plan: related to time that he spent on the ground. Currently improved (10) Sepsis Qualifiers: Sepsis type: sepsis due to unspecified organism Sepsis acute organ dysfunction status: with acute organ dysfunction Severe sepsis acute organ dysfunction type: acute renal failure Acute renal failure type: with acute tubular necrosis Severe sepsis shock status: without septic shock Qualified Code(s): A41.9 - Sepsis, unspecified organism; R65.20 - Severe sepsis without septic shock; N17.0 - Acute kidney failure with tubular necrosis Is this a current diagnosis for this admission?: Yes Plan: per hospitalist services (11) HTN (hypertension), benign Plan: controlled
[2020-08-10 15:36] LABS: C DIFFICILE GDH NEGATIVE (NEGATIVE)
[2020-08-10] MEDS: LOPERAMIDE HCL 2 MG CAPSULE PO PRN (17:21)
--- NOTE | 2020-08-10 17:55 | PDOC PROGRESS REPORT ---
Subjective Progress Note for:: 08/10/20 Subjective:: Patient was seen on morning rounds. He is found resting in bed, comfortably, on room air. He is A&Ox4. He states that he is feeling well today other than some mild nausea; states he has had chronic nausea for several years. He denies emesis. Reports good appetite. He denies fever, chills, chest pain, palpitations, dyspnea, orthopnea, abdominal pain, vomiting or diarrhea. No appreciable decrease in stool output with Imodium use yesterday. He has no questions or concerns at this time. No concerns per nursing. Reason For Visit: SEPSIS/ RHABDOMYOLYSIS/ ACUTE KIDNEY INJURY Physical Exam Vital Signs: Temp Pulse Resp BP Pulse Ox 97.3 F 73 20 119/64 94 08/10/20 08:53 08/10/20 14:00 08/10/20 08:05 08/10/20 08:05 08/10/20 08:05 Intake & Output 08/09/20 08/10/20 08/11/20 06:59 06:59 06:59 Intake Total 3272 3941 1704 Output Total 3340 5010 500 Balance -68 -1069 1204 Weight 108 kg 109.3 kg General appearance: PRESENT: no acute distress, cooperative, obese, well- developed, well-nourished Head exam: PRESENT: atraumatic, normocephalic Eye exam: PRESENT: conjunctiva pink, EOMI, PERRLA. ABSENT: scleral icterus Mouth exam: PRESENT: moist, tongue midline Teeth exam: PRESENT: poor dentation Respiratory exam: PRESENT: clear to auscultation tip, symmetrical, unlabored, other - room air. ABSENT: rales, rhonchi, wheezes Cardiovascular exam: PRESENT: RRR. ABSENT: diastolic murmur, rubs, systolic murmur Vascular exam: PRESENT: normal capillary refill GI/Abdominal exam: PRESENT: normal bowel sounds, soft, other - No erythema or skin break down noted to ostomy site; continued high output of watery stoos. ABSENT: distended, guarding, mass, organolmegaly, rebound, tenderness Extremities exam: PRESENT: full ROM. ABSENT: calf tenderness, clubbing, pedal edema Musculoskeletal exam: PRESENT: ambulatory Neurological exam: PRESENT: alert, awake, oriented to person, oriented to place, oriented to time, oriented to situation, CN II-XII grossly intact. ABSENT: motor sensory deficit Psychiatric exam: PRESENT: appropriate affect, normal mood. ABSENT: homicidal ideation, suicidal ideation Skin exam: PRESENT: dry, intact, warm. ABSENT: cyanosis, rash Results Laboratory Results: 08/09/20 05:22 08/10/20 05:00 08/10/20 05:00 Sodium 132.9 L Potassium 5.0 Chloride 103 Carbon Dioxide 15 L Anion Gap 15 BUN 105 H Creatinine 4.51 H Est GFR ( Amer) 15 L Glucose 117 H Calcium 8.6 08/06/20 05:30 Blood Blood Culture (PCR) - Final Staphylococcus Species 08/06/20 05:30 Blood Blood Culture - Final Staphylococcus Hominis 08/06/20 05:30 Blood Blood Culture (PCR) - Final Staphylococcus Species 08/06/20 05:30 Blood Blood Culture - Final Staphylococcus Lugdunensis Staphylococcus Hominis 08/06/20 08/06/20 08/06/20 05:30 11:20 23:54 Creatine Kinase 8246 H 6340 H 4055 H 08/07/20 08/08/20 08/09/20 05:54 05:18 05:22 Creatine Kinase 2324 H 921 H 524 H Impressions: Head CT 08/06/20 06:14 IMPRESSION: No acute intracranial findings. Cervical Spine CT 08/06/20 06:15 IMPRESSION: No acute fracture or subluxation. Chest CT 08/06/20 06:16 IMPRESSION: No definite acute process. Abdomen/Pelvis CT 08/06/20 06:18 IMPRESSION: No definite acute process. PICC Line Insertion 08/07/20 08:00 IMPRESSION: SUCCESSFUL PLACEMENT OF A 5 FR DUAL LUMEN 50 CM PICC IN THE LEFT BASILIC VEIN. Assessment and Plan - Diagnosis (1) Bacteremia due to Staphylococcus Is this a current diagnosis for this admission?: Yes Plan: High suspicion that the blood cultures are contaminants. Blood cultures (3/4 bottles) revealed 3 different species. 1 set noted to have S. lugdunensis and S. hominis (resistent to Clinda). 1 bottle from second set grew S. hominis (sensitive to Clinda). Repeat cultures (08/09/20) negative at 24 hrs. Full skin assessment done yesterday; no clear source of infection. Patient does have a large area surrounding his ostomy that is regularly exposed to watery stools. Patient tells me that his ostomy site actually appears to be in good condition. Previous provider did note a small shallow laceration measuring less than 1 cm at the ostomy site; this could potentially be a source for infection, however, I would have expected the bacterium to be more GI related (gram- negative rather than staph). I was not able to locate the lac. Patient does note mild back discomfort related to a fall several days prior; no midline tenderness or discomfort noted on palpation. ID consulted; have reviewed Dr. Gonzalez's note. Will continue Cefepime; day # 5 Of note; patient already has PICC line in place. If he remains persistently bacteremic, will need to remove. Echocardiogram is negative for endocarditis. Have asked pharmacy to reach out to ID again; if they concur that his cultures are more consistent w/ contaminant, patient will not require any further antibiotic therapy. (2) Rhabdomyolysis Qualifiers: Rhabdomyolysis type: traumatic Is this a current diagnosis for this admission?: Yes Plan: Patient reports having a fall at home. It is unknown how long he was down. Creatinine kinase on admission was 8246. Continues to trend down; 8246-> 921-> 524 Continue IVF Encourage p.o. fluids. Physical therapy is consulted. (3) Acute kidney failure Qualifiers: Acute renal failure type: with acute tubular necrosis Qualified Code(s): N17.0 - Acute kidney failure with tubular necrosis Is this a current diagnosis for this admission?: Yes Plan: Secondary to sepsis and rhabdomyolysis. Improved; Cr 6.94-> 3.83-> 3.98-> 4.51 Abdominal/pelvic CT was negative for acute findings. Nephrology is consulted; appreciate their evaluation and recommendations. IVF have been increased per Nephrology Cultures and antibiotics as above. Avoid nephrotoxic medications as able. Renally dosed where appropriate. Nephrology is consulted; appreciate their evaluation and recommendations. Trend chemistries. (4) CAD (coronary artery disease) Is this a current diagnosis for this admission?: Yes Plan: History of coronary artery disease. Asymptomatic at this time. Monitored on telemetry. Continue home dose statin. (5) Hyperglycemia due to type 2 diabetes mellitus Qualifiers: Diabetes mellitus longterm insulin use: without longterm use Qualified Code(s): E11.65 - Type 2 diabetes mellitus with hyperglycemia Is this a current diagnosis for this admission?: Yes Plan: Holding oral medications while admitted. Patient is placed on a consistent carb diet. Accu-Cheks before meals and at bedtime with Humalog for sliding scale coverage. Hypoglycemia protocol in place. Registered dietitian informatics educator consulted. (6) Sepsis Qualifiers: Sepsis type: sepsis due to unspecified organism Sepsis acute organ dysfunction status: with acute organ dysfunction Severe sepsis acute organ dysfunction type: acute renal failure Acute renal failure type: with acute tubular necrosis Severe sepsis shock status: without septic shock Qualified Code(s): A41.9 - Sepsis, unspecified organism; R65.20 - Severe sepsis without septic shock; N17.0 - Acute kidney failure with tubular necrosis Is this a current diagnosis for this admission?: Yes Plan: Resolved. Vital signs remained stable. WBC is normal. LFTs have returned to normal. Renal function is improved. Sepsis, present on admission, secondary to Staphylococcus bacteremia, evidenced by acute renal failure and elevated transaminases. Cultures and antibiotics as above (7) Elevated liver transaminase level Is this a current diagnosis for this admission?: Yes Plan: Resolved; likely 2/2 sepsis (8) Hyperbilirubinemia Is this a current diagnosis for this admission?: Yes Plan: Resolved; secondary to the sepsis. - Time Time Spent with patient: 25-34 minutes Medications reviewed and adjusted accordingly: Yes Anticipated Discharge Disposition: Home, Self Care Anticipated Discharge Timeframe: undetermined; pending improved renal function
--- NOTE | 2020-08-10 20:22 | Progress Note ---
Provider Note Provider Note: [facility] ID Telephone consultation brief follow up note Asked by Pharmacy to review case. Patient is not seen or examined. Reviewed provider notes, vitals, imaging reports, recent labs. Per most recent provider note, the patient reports feeling well with no complaints of fever, chills, CP, SOB, abdominal pain, vomiting or diarrhea. He had blood cultures performed initially when he presented that have had various coagulase negative staphylococci - Staph hominis that is resistant to clindamycin in one set but susceptible to it in the other set (suggesting that these are not the same isolate) and Staphylococcus lugdunensis also. He was admitted after being found down at home, after feeling unwell for 3-4 days with increase in ostomy output and poor fluid intake, but since admission has not had fevers, was found to have no clear source of infection on exam, has no cardiac murmur auscultated. A TTE did not show any clear evidence of valvular vegetations or significant valvular regurgitation. His rhabdomyolysis improved and TOYA is improving. Impression/Recommendations I agree with the assessment that the Staph species found in the blood cultures drawn on admission most likely reflect contamination rather than true bacteremia. Staphylococcus lugdunensis differs from other coagulase negative Staph species in terms of increased virulence and potential to cause disease similar to Staph aureus, but it does not appear that this is the case here. The clinical context suggests otherwise and evaluation for a clear focus of infection with this organism has been unrevealing. The presence of concomitant coagulase negative staph species of low virulence (different Staph hominis isolates) suggests contamination with skin carlos, and there is some increased difficulty in drawing blood cultures emergently on a patient who is elderly, obese, and may have also volume down, having been found down at home. The patient also does not have other risk factors that might predispose to a coagulase-negative staphylococcal endovascular infection, such as a prosthetic valve or ICD/PPM that I can glean based on chart review. Based on the available information, there does not appear to be an indication to continue any treatment based on the blood culture results above; the growth of the different coagulase negative staph species from the blood cultures does not appear to be clinically significant. Yang Pham MD [facility] pager [phone]
[2020-08-10] MEDS: ATORVASTATIN CALCIUM 40 MG TABLET PO SCH (21:38)
[2020-08-11] MEDS: NORMAL SALINE 1000 ML 1,000 ML IV PRN (02:00)
[2020-08-11] MEDS: PANTOPRAZOLE SODIUM 40 MG TABLET.DR PO SCH (06:00)
[2020-08-11 06:39] LABS: ANION GAP 16 (5-19); BLOOD UREA NITROGEN 112 mg/dL (7-20); CALCIUM 8.5 mg/dL (8.4-10.2); CARBON DIOXIDE 15 mmol/L (22-30); CHLORIDE 104 mmol/L (98-107); GLUCOSE 130 mg/dL (75-110); POTASSIUM 5.2 mmol/L (3.6-5.0)
[2020-08-11] MEDS: MAGNESIUM OXIDE 400 MG TABLET PO SCH (09:38)
[2020-08-11] MEDS: INSULIN LISPRO 100 UNIT/ML 3 ML VIAL SUBCUT SCH ×4 (09:38→22:48)
[2020-08-11] MEDS: NORMAL SALINE 10 ML SDV (SCHEDULED) IV SCH ×2 (09:38→22:09)
[2020-08-11] MEDS: PRENATAL VITAMIN W DHA CAPSULE PO SCH (09:38)
[2020-08-11] MEDS: DEXTROSE 5%-WATER 1000 ML 1,000 ML with SODIUM BICARBONATE 150 MEQ IV PRN ×4 (10:47→17:56)
[2020-08-11] MEDS: SODIUM BICARBONATE 650 MG TABLET PO SCH ×2 (11:45→17:56)
--- NOTE | 2020-08-11 12:46 | PDOC PROGRESS REPORT ---
Subjective Progress Note for:: 08/11/20 Reason For Visit: Patient seen today. He denies any specifically new complaints of any abdominal pain chest pain or shortness of breath. Still continues to have high output ileostomy though it looks more formed today. His Clostridium differential test result came back as negative. Labs and medications were reviewed. He continues to get p.o. magnesium which I think I would stop given the fact that it could help him have persistent diarrhea and convert that to IV magnesium and monitor that on a daily basis. His urine output has been increased which is encouraging. No acute indications for renal replacements. Physical Exam Vital Signs: Temp Pulse Resp BP Pulse Ox 97.1 F 81 19 124/61 98 08/11/20 08:40 08/11/20 07:00 08/11/20 03:30 08/11/20 03:30 08/11/20 03:30 Intake & Output 08/10/20 08/11/20 08/12/20 06:59 06:59 06:59 Intake Total 3941 4064 1480 Output Total 5010 3750 900 Balance -1069 314 580 Weight 109.3 kg 108.6 kg General appearance: PRESENT: no acute distress Respiratory exam: PRESENT: clear to auscultation tip, decreased breath sounds. ABSENT: crackles Cardiovascular exam: PRESENT: +S1, +S2 GI/Abdominal exam: PRESENT: normal bowel sounds, soft. ABSENT: organomegaly, tenderness Extremities exam: ABSENT: pedal edema Neurological exam: PRESENT: alert, awake, oriented to person, oriented to place Psychiatric exam: PRESENT: appropriate affect Results Laboratory Results: 08/09/20 05:22 08/11/20 05:40 08/11/20 05:40 Sodium 135.3 L Potassium 5.2 H Chloride 104 Carbon Dioxide 15 L Anion Gap 16 BUN 112 H Creatinine 5.03 H Est GFR ( Amer) 14 L Glucose 130 H Calcium 8.5 08/06/20 05:30 Blood Blood Culture (PCR) - Final Staphylococcus Species 08/06/20 05:30 Blood Blood Culture - Final Staphylococcus Hominis 08/06/20 05:30 Blood Blood Culture (PCR) - Final Staphylococcus Species 08/06/20 05:30 Blood Blood Culture - Final Staphylococcus Lugdunensis Staphylococcus Hominis 08/06/20 08/06/20 08/06/20 05:30 11:20 23:54 Creatine Kinase 8246 H 6340 H 4055 H 08/07/20 08/08/20 08/09/20 05:54 05:18 05:22 Creatine Kinase 2324 H 921 H 524 H Impressions: Head CT 08/06/20 06:14 IMPRESSION: No acute intracranial findings. Cervical Spine CT 08/06/20 06:15 IMPRESSION: No acute fracture or subluxation. Chest CT 08/06/20 06:16 IMPRESSION: No definite acute process. Abdomen/Pelvis CT 08/06/20 06:18 IMPRESSION: No definite acute process. PICC Line Insertion 08/07/20 08:00 IMPRESSION: SUCCESSFUL PLACEMENT OF A 5 FR DUAL LUMEN 50 CM PICC IN THE LEFT BASILIC VEIN. Assessment & Plan - Diagnosis (1) Acute kidney failure Qualifiers: Acute renal failure type: with acute tubular necrosis Qualified Code(s): N17.0 - Acute kidney failure with tubular necrosis Is this a current diagnosis for this admission?: Yes Plan: Unsure of baseline creatinine. His last creatinine that we have on record is from 2019 when it was normal. Is quite likely that this patient is got TOYA secondary to severe dehydration based on his increasing high output ileostomy which is which was worse 2 weeks prior to his admission. He also mentions decreased urinary output but seems to have really improved over the last few days. Creatinines/renal numbers are still dynamic. I would continue to keep him in a positive balance to see if he can make meaningful renal recovery. He still has got acidosis which will be replaced IV.No acute indications for renal replacements currently. I am off as of tomorrow and there are no nephrology coverage over the weekend and Dr. Cano will be taking over on Friday. (2) Colostomy status Plan: See how he responds to decreasing high transit time.C. difficile is negative. (4) Hyperglycemia due to type 2 diabetes mellitus Qualifiers: Diabetes mellitus adjunct faculty for medical terminology insulin use: without prison use Qualified Code(s): E11.65 - Type 2 diabetes mellitus with hyperglycemia Is this a current diagnosis for this admission?: Yes Plan: Advised tight blood sugar control. Being managed by hospitalist. (5) Metabolic acidosis Plan: Combined gap/non-gap acidosis. Continue IV replacements till he reaches reasonable levels before converting to p.o. (6) HTN (hypertension) Qualifiers: Hypertension type: essential hypertension Qualified Code(s): I10 - Essential (primary) hypertension Plan: Stable.
[2020-08-11] MEDS: MAGNESIUM SULFATE/D5W 1 GM/100 ML RTUPB IV SCH (13:44)
--- NOTE | 2020-08-11 14:22 | PDOC PROGRESS REPORT ---
Subjective Progress Note for:: 08/11/20 Subjective:: Patient was seen on morning rounds. He is found resting in bed, comfortably, on room air. He is A&Ox4. He states that he is feeling well today. Denies nasuea and emesis. Reports good appetite. He denies fever, chills, chest pain, palpitations, dyspnea, orthopnea, abdominal pain, vomiting or diarrhea. No appreciable decrease in stool output with Imodium use. He has no questions or concerns at this time. No concerns per nursing. Reason For Visit: SEPSIS/ RHABDOMYOLYSIS/ ACUTE KIDNEY INJURY Physical Exam Vital Signs: Temp Pulse Resp BP Pulse Ox 97.1 F 66 19 124/61 98 08/11/20 08:40 08/11/20 14:00 08/11/20 03:30 08/11/20 03:30 08/11/20 03:30 Intake & Output 08/10/20 08/11/20 08/12/20 06:59 06:59 06:59 Intake Total 3941 4064 1480 Output Total 5010 3750 900 Balance -1069 314 580 Weight 109.3 kg 108.6 kg General appearance: PRESENT: no acute distress, cooperative, obese, well- developed, well-nourished Head exam: PRESENT: atraumatic, normocephalic Eye exam: PRESENT: conjunctiva pink, EOMI, PERRLA. ABSENT: scleral icterus Mouth exam: PRESENT: moist, tongue midline Teeth exam: PRESENT: poor dentation Respiratory exam: PRESENT: clear to auscultation tip, symmetrical, unlabored, other - room air. ABSENT: rales, rhonchi, wheezes Cardiovascular exam: PRESENT: RRR. ABSENT: diastolic murmur, rubs, systolic murmur Vascular exam: PRESENT: normal capillary refill GI/Abdominal exam: PRESENT: normal bowel sounds, soft, other - Ostomy; high output of watery stools. ABSENT: distended, guarding, mass, organolmegaly, rebound, tenderness Extremities exam: PRESENT: full ROM. ABSENT: calf tenderness, clubbing, pedal edema Musculoskeletal exam: PRESENT: ambulatory Neurological exam: PRESENT: alert, awake, oriented to person, oriented to place, oriented to time, oriented to situation, CN II-XII grossly intact. ABSENT: motor sensory deficit Psychiatric exam: PRESENT: appropriate affect, normal mood. ABSENT: homicidal ideation, suicidal ideation Skin exam: PRESENT: dry, intact, warm. ABSENT: cyanosis, rash Results Laboratory Results: 08/09/20 05:22 08/11/20 05:40 08/11/20 05:40 Sodium 135.3 L Potassium 5.2 H Chloride 104 Carbon Dioxide 15 L Anion Gap 16 BUN 112 H Creatinine 5.03 H Est GFR ( Amer) 14 L Glucose 130 H Calcium 8.5 08/06/20 05:30 Blood Blood Culture (PCR) - Final Staphylococcus Species 08/06/20 05:30 Blood Blood Culture - Final Staphylococcus Hominis 08/06/20 05:30 Blood Blood Culture (PCR) - Final Staphylococcus Species 08/06/20 05:30 Blood Blood Culture - Final Staphylococcus Lugdunensis Staphylococcus Hominis 08/06/20 08/06/20 08/06/20 05:30 11:20 23:54 Creatine Kinase 8246 H 6340 H 4055 H 08/07/20 08/08/20 08/09/20 05:54 05:18 05:22 Creatine Kinase 2324 H 921 H 524 H Impressions: Head CT 08/06/20 06:14 IMPRESSION: No acute intracranial findings. Cervical Spine CT 08/06/20 06:15 IMPRESSION: No acute fracture or subluxation. Chest CT 08/06/20 06:16 IMPRESSION: No definite acute process. Abdomen/Pelvis CT 08/06/20 06:18 IMPRESSION: No definite acute process. PICC Line Insertion 08/07/20 08:00 IMPRESSION: SUCCESSFUL PLACEMENT OF A 5 FR DUAL LUMEN 50 CM PICC IN THE LEFT BASILIC VEIN. Assessment and Plan - Diagnosis (1) Acute kidney failure Qualifiers: Acute renal failure type: with acute tubular necrosis Qualified Code(s): N17.0 - Acute kidney failure with tubular necrosis Is this a current diagnosis for this admission?: Yes Plan: Secondary to sepsis and rhabdomyolysis. Initial improvement, now worsened. Cr 6.94-> 3.83-> 3.98-> 4.51-> 5.03 Abdominal/pelvic CT was negative for acute findings. Nephrology is consulted; appreciate their evaluation and recommendations. Continue IVF Cultures and antibiotics as below Avoid nephrotoxic medications as able. Renally dosed where appropriate. Nephrology is consulted; appreciate their evaluation and recommendations. Trend chemistries. (2) Rhabdomyolysis Qualifiers: Rhabdomyolysis type: traumatic Is this a current diagnosis for this admission?: Yes Plan: Patient reports having a fall at home. It is unknown how long he was down. Creatinine kinase on admission was 8246. Continues to trend down; 8246-> 921-> 524 Continue IVF Encourage p.o. fluids. Physical therapy is consulted. (3) CAD (coronary artery disease) Is this a current diagnosis for this admission?: Yes Plan: History of coronary artery disease. Asymptomatic at this time. Monitored on telemetry. Continue home dose statin. (4) Hyperglycemia due to type 2 diabetes mellitus Qualifiers: Diabetes mellitus correction insulin use: without termite exterminator helper use Qualified Code(s): E11.65 - Type 2 diabetes mellitus with hyperglycemia Is this a current diagnosis for this admission?: Yes Plan: Holding oral medications while admitted. Patient is placed on a consistent carb diet. Accu-Cheks before meals and at bedtime with Humalog for sliding scale coverage. Hypoglycemia protocol in place. Registered dietitian nurse informatics educator consulted. (5) Elevated liver transaminase level Is this a current diagnosis for this admission?: Yes Plan: Resolved; likely 2/2 sepsis (6) Hyperbilirubinemia Is this a current diagnosis for this admission?: Yes Plan: Resolved; secondary to the sepsis. (7) Bacteremia due to Staphylococcus Is this a current diagnosis for this admission?: Yes Plan: Ruled out as contaminants Blood cultures (3/4 bottles) revealed 3 different species. 1 set noted to have S. lugdunensis and S. hominis (resistent to Clinda). 1 bottle from second set grew S. hominis (sensitive to Clinda). Repeat cultures (08/09/20) negative at 24 hrs. Full skin assessment done yesterday; no clear source of infection. Patient does have a large area surrounding his ostomy that is regularly exposed to watery stools. Patient tells me that his ostomy site actually appears to be in good condition. Previous provider did note a small shallow laceration measuring less than 1 cm at the ostomy site; this could potentially be a source for infection, however, I would have expected the bacterium to be more GI related (gram- negative rather than staph). I was not able to locate the lac. Patient does note mild back discomfort related to a fall several days prior; no midline tenderness or discomfort noted on palpation. ID consulted; have reviewed Dr. Gonzalez's and Dr. Pham's notes. Cefepime is discontinued; received 6-day course. Echocardiogram is negative for endocarditis. (8) Sepsis Qualifiers: Sepsis type: sepsis due to unspecified organism Sepsis acute organ dysfunction status: with acute organ dysfunction Severe sepsis acute organ dysfunction type: acute renal failure Acute renal failure type: with acute tubular necrosis Severe sepsis shock status: without septic shock Qualified Code(s): A41.9 - Sepsis, unspecified organism; R65.20 - Severe sepsis without septic shock; N17.0 - Acute kidney failure with tubular necrosis Is this a current diagnosis for this admission?: Yes Plan: Resolved. Vital signs remained stable. WBC is normal. LFTs have returned to normal. Renal function is improved. Sepsis, present on admission, secondary to Staphylococcus bacteremia, evidenced by acute renal failure and elevated transaminases. Cultures and antibiotics as above - Time Time Spent with patient: 25-34 minutes Medications reviewed and adjusted accordingly: Yes Anticipated Discharge Disposition: Home with Home Health Anticipated Discharge Timeframe: undetermined
[2020-08-11] MEDS: ATORVASTATIN CALCIUM 40 MG TABLET PO SCH (22:09)
[2020-08-12] MEDS: PANTOPRAZOLE SODIUM 40 MG TABLET.DR PO SCH (05:08)
[2020-08-12 05:15] LABS: ANION GAP 15 (5-19); BLOOD UREA NITROGEN 115 mg/dL (7-20); CALCIUM 7.7 mg/dL (8.4-10.2); CARBON DIOXIDE 19 mmol/L (22-30); CHLORIDE 101 mmol/L (98-107); CREATINE KINASE 81 U/L (55-170); GLUCOSE 131 mg/dL (75-110)
[2020-08-12 05:24] LABS: POTASSIUM 4.2 mmol/L (3.6-5.0)
[2020-08-12] MEDS: INSULIN LISPRO 100 UNIT/ML 3 ML VIAL SUBCUT SCH ×4 (07:29→22:51)
[2020-08-12] MEDS: SODIUM BICARBONATE 650 MG TABLET PO SCH ×3 (07:30→17:18)
[2020-08-12] MEDS: NORMAL SALINE 10 ML SDV (SCHEDULED) IV SCH ×2 (09:21→22:53)
[2020-08-12] MEDS: PRENATAL VITAMIN W DHA CAPSULE PO SCH (09:21)
[2020-08-12] MEDS: MAGNESIUM SULFATE/D5W 1 GM/100 ML RTUPB IV SCH (09:21)
[2020-08-12] MEDS ORDERED: MAGNESIUM SULFATE INJ 8 MEQ/2 ML IV SCH (10:00)
--- NOTE | 2020-08-12 11:25 | PDOC PROGRESS REPORT ---
Subjective Progress Note for:: 08/12/20 Subjective:: Patient was seen on morning rounds. He is found resting in bed, comfortably, on room air. He is A&Ox4. He states that he is feeling well today. Slight nasuea today, no emesis. Reports good appetite. Thinks that his stools may be less watery this morning. He denies fever, chills, chest pain, palpitations, dyspnea, orthopnea, abdominal pain, vomiting or diarrhea. He has no questions or concerns at this time. No concerns per nursing. Reason For Visit: SEPSIS/ RHABDOMYOLYSIS/ ACUTE KIDNEY INJURY Physical Exam Vital Signs: Temp Pulse Resp BP Pulse Ox 98.0 F 66 18 117/56 L 96 08/12/20 08:13 08/12/20 07:28 08/12/20 07:28 08/12/20 07:28 08/12/20 07:28 Intake & Output 08/11/20 08/12/20 08/13/20 06:59 06:59 06:59 Intake Total 4064 4993 100 Output Total 3750 3525 Balance 314 1468 100 Weight 108.6 kg 106.8 kg General appearance: PRESENT: no acute distress, cooperative, obese, well- developed, well-nourished Head exam: PRESENT: atraumatic, normocephalic Eye exam: PRESENT: conjunctiva pink, EOMI, PERRLA. ABSENT: scleral icterus Mouth exam: PRESENT: moist, tongue midline Teeth exam: PRESENT: poor dentation Respiratory exam: PRESENT: clear to auscultation tip, symmetrical, unlabored, other - room air. ABSENT: rales, rhonchi, wheezes Cardiovascular exam: PRESENT: RRR. ABSENT: diastolic murmur, rubs, systolic murmur Vascular exam: PRESENT: normal capillary refill GI/Abdominal exam: PRESENT: normal bowel sounds, soft, other - Ostomy; semi- formed stool.. ABSENT: distended, guarding, mass, organolmegaly, rebound, tenderness Rectal exam: PRESENT: deferred Extremities exam: PRESENT: full ROM. ABSENT: calf tenderness, clubbing, pedal edema Musculoskeletal exam: PRESENT: ambulatory Neurological exam: PRESENT: alert, awake, oriented to person, oriented to place, oriented to time, oriented to situation, CN II-XII grossly intact. ABSENT: motor sensory deficit Psychiatric exam: PRESENT: appropriate affect, normal mood. ABSENT: homicidal ideation, suicidal ideation Skin exam: PRESENT: dry, intact, warm. ABSENT: cyanosis, rash Results Laboratory Results: 08/09/20 05:22 08/12/20 04:35 08/12/20 08/12/20 08/12/20 04:35 04:35 04:35 Sodium 135.4 L Potassium 4.2 D Chloride 101 Carbon Dioxide 19 L Anion Gap 15 BUN 115 H Creatinine 5.10 H Est GFR ( Amer) 13 L Glucose 131 H Calcium 7.7 L Magnesium 1.4 L PTH Intact 483.8 H 08/06/20 08/06/20 08/06/20 05:30 11:20 23:54 Creatine Kinase 8246 H 6340 H 4055 H 08/07/20 08/08/20 08/09/20 05:54 05:18 05:22 Creatine Kinase 2324 H 921 H 524 H 08/12/20 04:35 Creatine Kinase 81 Impressions: Head CT 08/06/20 06:14 IMPRESSION: No acute intracranial findings. Cervical Spine CT 08/06/20 06:15 IMPRESSION: No acute fracture or subluxation. Chest CT 08/06/20 06:16 IMPRESSION: No definite acute process. Abdomen/Pelvis CT 08/06/20 06:18 IMPRESSION: No definite acute process. PICC Line Insertion 08/07/20 08:00 IMPRESSION: SUCCESSFUL PLACEMENT OF A 5 FR DUAL LUMEN 50 CM PICC IN THE LEFT BASILIC VEIN. Assessment and Plan - Diagnosis (1) Acute kidney failure Qualifiers: Acute renal failure type: with acute tubular necrosis Qualified Code(s): N17.0 - Acute kidney failure with tubular necrosis Is this a current diagnosis for this admission?: Yes Plan: Secondary to sepsis and rhabdomyolysis. Initial improvement, now worsened. Cr 6.94-> 3.83-> 3.98-> 4.51-> 5.03-> 5.10 Abdominal/pelvic CT was negative for acute findings. Nephrology is consulted; appreciate their evaluation and recommendations. Continue IVF Cultures and antibiotics as below Avoid nephrotoxic medications as able. Renally dosed where appropriate. Nephrology is consulted; appreciate their evaluation and recommendations. Trend chemistries. (2) Metabolic acidosis Is this a current diagnosis for this admission?: Yes Plan: Secondary to #1 Nephrology is consulted IV and PO Bicarb replacement Follow chemistries. (3) Rhabdomyolysis Qualifiers: Rhabdomyolysis type: traumatic Is this a current diagnosis for this admission?: Yes Plan: Resolved. Ck 8246-> 921-> 524-> 81 Patient reports having a fall at home. It is unknown how long he was down. Encourage p.o. fluids. Physical therapy is consulted. (4) CAD (coronary artery disease) Is this a current diagnosis for this admission?: Yes Plan: History of coronary artery disease. Asymptomatic at this time. Monitored on telemetry. Continue home dose statin. (5) Hyperglycemia due to type 2 diabetes mellitus Qualifiers: Diabetes mellitus termite treater helper insulin use: without termite treater helper use Qualified Code(s): E11.65 - Type 2 diabetes mellitus with hyperglycemia Is this a current diagnosis for this admission?: Yes Plan: Holding oral medications while admitted. Patient is placed on a consistent carb diet. Accu-Cheks before meals and at bedtime with Humalog for sliding scale coverage. Hypoglycemia protocol in place. Registered dietitian clinical unit educator consulted. (6) Elevated liver transaminase level Is this a current diagnosis for this admission?: Yes Plan: Resolved; likely 2/2 sepsis (7) Hyperbilirubinemia Is this a current diagnosis for this admission?: Yes Plan: Resolved; secondary to the sepsis. (8) Bacteremia due to Staphylococcus Is this a current diagnosis for this admission?: Yes Plan: Ruled out as contaminants Blood cultures (3/4 bottles) revealed 3 different species. 1 set noted to have S. lugdunensis and S. hominis (resistent to Clinda). 1 bottle from second set grew S. hominis (sensitive to Clinda). Repeat cultures (08/09/20) negative at 24 hrs. Full skin assessment done yesterday; no clear source of infection. Patient does have a large area surrounding his ostomy that is regularly exposed to watery stools. Patient tells me that his ostomy site actually appears to be in good condition. Previous provider did note a small shallow laceration measuring less than 1 cm at the ostomy site; this could potentially be a source for infection, however, I would have expected the bacterium to be more GI related (gram- negative rather than staph). I was not able to locate the lac. Patient does note mild back discomfort related to a fall several days prior; no midline tenderness or discomfort noted on palpation. ID consulted; have reviewed Dr. Gonzalez's and Dr. Pham's notes. Cefepime is discontinued; received 6-day course. Echocardiogram is negative for endocarditis. (9) Sepsis Qualifiers: Sepsis type: sepsis due to unspecified organism Sepsis acute organ dysfunction status: with acute organ dysfunction Severe sepsis acute organ dysfunction type: acute renal failure Acute renal failure type: with acute tubular necrosis Severe sepsis shock status: without septic shock Qualified Code(s): A41.9 - Sepsis, unspecified organism; R65.20 - Severe sepsis without septic shock; N17.0 - Acute kidney failure with tubular necrosis Is this a current diagnosis for this admission?: Yes Plan: Resolved. Vital signs remained stable. WBC is normal. LFTs have returned to normal. Renal function is improved. Sepsis, present on admission, secondary to Staphylococcus bacteremia, evidenced by acute renal failure and elevated transaminases. Cultures and antibiotics as above (10) Hypomagnesemia Is this a current diagnosis for this admission?: Yes Plan: IV magnesium Periodic magnesium levels. - Time Time Spent with patient: 25-34 minutes Medications reviewed and adjusted accordingly: Yes Anticipated Discharge Disposition: Home with Home Health Anticipated Discharge Timeframe: >72 hrs
[2020-08-12] MEDS: DEXTROSE 5%-WATER 1000 ML 1,000 ML with SODIUM BICARBONATE 50 MEQ IV PRN ×2 (13:59)
[2020-08-12] MEDS ORDERED: DIPHENHYDRAMINE HCL 25 MG CAPSULE PO ONE (14:35)
[2020-08-12] MEDS: ATORVASTATIN CALCIUM 40 MG TABLET PO SCH (22:52)
[2020-08-13] MEDS: DEXTROSE 5%-WATER 1000 ML 1,000 ML with SODIUM BICARBONATE 50 MEQ IV PRN ×4 (03:30→13:47)
[2020-08-13 03:52] LABS: ANION GAP 14 (5-19); BLOOD UREA NITROGEN 115 mg/dL (7-20); CARBON DIOXIDE 22 mmol/L (22-30); CHLORIDE 100 mmol/L (98-107); GLUCOSE 159 mg/dL (75-110); POTASSIUM 4.4 mmol/L (3.6-5.0)
[2020-08-13] MEDS: PANTOPRAZOLE SODIUM 40 MG TABLET.DR PO SCH (05:25)
[2020-08-13] MEDS: INSULIN LISPRO 100 UNIT/ML 3 ML VIAL SUBCUT SCH ×4 (07:36→22:42)
[2020-08-13] MEDS: SODIUM BICARBONATE 650 MG TABLET PO SCH ×3 (07:40→15:52)
[2020-08-13] MEDS: PRENATAL VITAMIN W DHA CAPSULE PO SCH (09:05)
[2020-08-13] MEDS: MAGNESIUM SULFATE/D5W 1 GM/100 ML RTUPB IV SCH (09:06)
[2020-08-13] MEDS: NORMAL SALINE 10 ML SDV (SCHEDULED) IV SCH ×2 (09:06→22:50)
--- NOTE | 2020-08-13 16:50 | PDOC PROGRESS REPORT ---
Subjective Progress Note for:: 08/13/20 Subjective:: Patient was seen on morning rounds. He is found resting in bed, comfortably, on room air. He is A&Ox4. He states that he is feeling well today. No nasuea today, no emesis. Reports good appetite. Confirms that his stools are improving; increased bulk/less watery/less volume. He denies fever, chills, chest pain, palpitations, dyspnea, orthopnea, abdominal pain, vomiting or diarrhea. He has no questions or concerns at this time. Pleased to hear renal function has improved some; hopeful to d/c home soon. No concerns per nursing. Reason For Visit: SEPSIS/ RHABDOMYOLYSIS/ ACUTE KIDNEY INJURY Physical Exam Vital Signs: Temp Pulse Resp BP Pulse Ox 98.7 F 61 17 120/68 98 08/13/20 11:44 08/13/20 15:21 08/13/20 15:21 08/13/20 15:21 08/13/20 15:21 Intake & Output 08/12/20 08/13/20 08/14/20 06:59 06:59 06:59 Intake Total 4993 1100 1231 Output Total 3525 2850 600 Balance 1468 -1750 631 Weight 106.8 kg 109.9 kg General appearance: PRESENT: no acute distress, cooperative, obese, well- developed, well-nourished Head exam: PRESENT: atraumatic, normocephalic Eye exam: PRESENT: conjunctiva pink, EOMI, PERRLA. ABSENT: scleral icterus Mouth exam: PRESENT: moist, tongue midline Teeth exam: PRESENT: poor dentation Respiratory exam: PRESENT: clear to auscultation tip, symmetrical, unlabored, other - room air. ABSENT: rales, rhonchi, wheezes Cardiovascular exam: PRESENT: RRR, +S1, +S2. ABSENT: diastolic murmur, rubs, systolic murmur Vascular exam: PRESENT: normal capillary refill GI/Abdominal exam: PRESENT: normal bowel sounds, soft, other - Ostomy; soft stools. ABSENT: distended, guarding, mass, organolmegaly, rebound, tenderness Rectal exam: PRESENT: deferred Extremities exam: PRESENT: full ROM. ABSENT: calf tenderness, clubbing, pedal edema Musculoskeletal exam: PRESENT: ambulatory Neurological exam: PRESENT: alert, awake, oriented to person, oriented to place, oriented to time, oriented to situation, CN II-XII grossly intact. ABSENT: motor sensory deficit Psychiatric exam: PRESENT: appropriate affect, normal mood. ABSENT: homicidal ideation, suicidal ideation Skin exam: PRESENT: dry, intact, warm. ABSENT: cyanosis, rash Results Laboratory Results: 08/09/20 05:22 08/13/20 03:25 08/13/20 03:25 Sodium 135.9 L Potassium 4.4 Chloride 100 Carbon Dioxide 22 Anion Gap 14 BUN 115 H Creatinine 4.89 H Est GFR ( Amer) 14 L Glucose 159 H Calcium 8.0 L Magnesium 1.8 08/06/20 08/06/20 08/06/20 05:30 11:20 23:54 Creatine Kinase 8246 H 6340 H 4055 H 08/07/20 08/08/20 08/09/20 05:54 05:18 05:22 Creatine Kinase 2324 H 921 H 524 H 08/12/20 04:35 Creatine Kinase 81 Impressions: Head CT 08/06/20 06:14 IMPRESSION: No acute intracranial findings. Cervical Spine CT 08/06/20 06:15 IMPRESSION: No acute fracture or subluxation. Chest CT 08/06/20 06:16 IMPRESSION: No definite acute process. Abdomen/Pelvis CT 08/06/20 06:18 IMPRESSION: No definite acute process. PICC Line Insertion 08/07/20 08:00 IMPRESSION: SUCCESSFUL PLACEMENT OF A 5 FR DUAL LUMEN 50 CM PICC IN THE LEFT BASILIC VEIN. Assessment and Plan - Diagnosis (1) Acute kidney failure Qualifiers: Acute renal failure type: with acute tubular necrosis Qualified Code(s): N17.0 - Acute kidney failure with tubular necrosis Is this a current diagnosis for this admission?: Yes Plan: Secondary to sepsis and rhabdomyolysis. IVariable; slight improvement today. Cr 6.94-> 3.83-> 3.98-> 4.51-> 5.03-> 5.10- > 4.89 Improved urine output; ~2.8 L yesterday Abdominal/pelvic CT was negative for acute findings. Nephrology is consulted; appreciate their evaluation and recommendations. Continue IVF Cultures and antibiotics as below Avoid nephrotoxic medications as able. Renally dosed where appropriate. Nephrology is consulted; appreciate their evaluation and recommendations. Trend chemistries. (2) Metabolic acidosis Is this a current diagnosis for this admission?: Yes Plan: Resolved Secondary to #1 Nephrology is consulted Receiving IV and PO Bicarb replacement Follow chemistries. (3) CAD (coronary artery disease) Is this a current diagnosis for this admission?: Yes Plan: History of coronary artery disease. Asymptomatic at this time. Monitored on telemetry. Continue home dose statin. (4) Hyperglycemia due to type 2 diabetes mellitus Qualifiers: Diabetes mellitus long term care social worker insulin use: without long term care social worker use Qualified Code(s): E11.65 - Type 2 diabetes mellitus with hyperglycemia Is this a current diagnosis for this admission?: Yes Plan: Holding oral medications while admitted. Patient is placed on a consistent carb diet. Accu-Cheks before meals and at bedtime with Humalog for sliding scale coverage. Hypoglycemia protocol in place. Registered dietitian sign maintenance consulted. (5) Hypomagnesemia Is this a current diagnosis for this admission?: Yes Plan: IV magnesium Periodic magnesium levels. (6) Hyperbilirubinemia Is this a current diagnosis for this admission?: Yes Plan: Resolved; secondary to the sepsis. (7) Elevated liver transaminase level Is this a current diagnosis for this admission?: Yes Plan: Resolved; likely 2/2 sepsis (8) Sepsis Qualifiers: Sepsis type: sepsis due to unspecified organism Sepsis acute organ dysfunction status: with acute organ dysfunction Severe sepsis acute organ dysfunction type: acute renal failure Acute renal failure type: with acute tubular necrosis Severe sepsis shock status: without septic shock Qualified Code(s): A41.9 - Sepsis, unspecified organism; R65.20 - Severe sepsis without septic shock; N17.0 - Acute kidney failure with tubular necrosis Is this a current diagnosis for this admission?: Yes Plan: Resolved. Vital signs remained stable. WBC is normal. LFTs have returned to normal. Renal function is improved. Sepsis, present on admission, secondary to Staphylococcus bacteremia, evidenced by acute renal failure and elevated transaminases. Cultures and antibiotics as above (9) Bacteremia due to Staphylococcus Is this a current diagnosis for this admission?: Yes Plan: Ruled out as contaminants Blood cultures (3/4 bottles) revealed 3 different species. 1 set noted to have S. lugdunensis and S. hominis (resistent to Clinda). 1 bottle from second set grew S. hominis (sensitive to Clinda). Repeat cultures (08/09/20) negative at 24 hrs. Full skin assessment done yesterday; no clear source of infection. Patient does have a large area surrounding his ostomy that is regularly exposed to watery stools. Patient tells me that his ostomy site actually appears to be in good condition. Previous provider did note a small shallow laceration measuring less than 1 cm at the ostomy site; this could potentially be a source for infection, however, I would have expected the bacterium to be more GI related (gram- negative rather than staph). I was not able to locate the lac. Patient does note mild back discomfort related to a fall several days prior; no midline tenderness or discomfort noted on palpation. ID consulted; have reviewed Dr. Gonzalez's and Dr. Pham's notes. Cefepime is discontinued; received 6-day course. Echocardiogram is negative for endocarditis. (10) Rhabdomyolysis Qualifiers: Rhabdomyolysis type: traumatic Is this a current diagnosis for this admission?: Yes Plan: Resolved. Ck 8246-> 921-> 524-> 81 Patient reports having a fall at home. It is unknown how long he was down. Encourage p.o. fluids. Physical therapy is consulted. - Time Time Spent with patient: 25-34 minutes Medications reviewed and adjusted accordingly: Yes Anticipated Discharge Disposition: Home with Home Health Anticipated Discharge Timeframe: pending Nephrology clearance
[2020-08-13] MEDS: ATORVASTATIN CALCIUM 40 MG TABLET PO SCH (22:49)
[2020-08-14] MEDS: PANTOPRAZOLE SODIUM 40 MG TABLET.DR PO SCH (06:02)
[2020-08-14] MEDS: NORMAL SALINE 10 ML SDV (AFTER EACH USE) IV PRN (06:04)
[2020-08-14 07:28] LABS: ANION GAP 13 (5-19); BLOOD UREA NITROGEN 105 mg/dL (7-20); CALCIUM 8.1 mg/dL (8.4-10.2); CARBON DIOXIDE 23 mmol/L (22-30); CHLORIDE 99 mmol/L (98-107); GLUCOSE 118 mg/dL (75-110); POTASSIUM 4.5 mmol/L (3.6-5.0)
[2020-08-14] MEDS: SODIUM BICARBONATE 650 MG TABLET PO SCH ×3 (09:21→17:01)
[2020-08-14] MEDS: MAGNESIUM SULFATE/D5W 1 GM/100 ML RTUPB IV SCH (09:21)
[2020-08-14] MEDS: PRENATAL VITAMIN W DHA CAPSULE PO SCH (09:21)
[2020-08-14] MEDS: NORMAL SALINE 10 ML SDV (SCHEDULED) IV SCH ×2 (09:22→21:38)
[2020-08-14] MEDS: INSULIN LISPRO 100 UNIT/ML 3 ML VIAL SUBCUT SCH ×4 (10:11→21:37)
[2020-08-14] MEDS: ONDANSETRON HCL INJ/PF 4 MG/2 ML SDV IV PRN (17:33)
--- NOTE | 2020-08-14 19:12 | PDOC PROGRESS REPORT ---
Subjective Progress Note for:: 08/14/20 Subjective:: Patient was seen on morning rounds. He is found resting in bed, comfortably, on room air. He is A&Ox4. He states that he is feeling well today. No nasuea today, no emesis. Reports good appetite. Confirms that his stools are improving; increased bulk/less watery/less volume. Hopeful to d/c home soon; pleased to hear his renal function has improved further. He denies fever, chills, chest pain, palpitations, dyspnea, orthopnea, abdominal pain, vomiting or diarrhea. He has no questions or concerns at this time. No concerns per nursing. Reason For Visit: SEPSIS/ RHABDOMYOLYSIS/ ACUTE KIDNEY INJURY Physical Exam Vital Signs: Temp Pulse Resp BP Pulse Ox 97.4 F 66 16 138/64 H 98 08/14/20 15:06 08/14/20 15:06 08/14/20 15:06 08/14/20 15:06 08/14/20 15:06 Intake & Output 08/13/20 08/14/20 08/15/20 06:59 06:59 06:59 Intake Total 1100 1910 1270 Output Total 2850 2690 1900 Balance -1718 -726 -877 Weight 109.9 kg 108.5 kg 108.5 kg General appearance: PRESENT: no acute distress, cooperative, obese, well- developed, well-nourished Head exam: PRESENT: atraumatic, normocephalic Eye exam: PRESENT: conjunctiva pink, EOMI, PERRLA. ABSENT: scleral icterus Mouth exam: PRESENT: moist, tongue midline Respiratory exam: PRESENT: clear to auscultation tip, symmetrical, unlabored, other - room air. ABSENT: rales, rhonchi, wheezes Cardiovascular exam: PRESENT: RRR. ABSENT: diastolic murmur, rubs, systolic murmur Vascular exam: PRESENT: normal capillary refill GI/Abdominal exam: PRESENT: normal bowel sounds, soft, other - Ostomy; soft stools. ABSENT: distended, guarding, mass, organolmegaly, rebound, tenderness Rectal exam: PRESENT: deferred Extremities exam: PRESENT: full ROM. ABSENT: calf tenderness, clubbing, pedal edema Musculoskeletal exam: PRESENT: ambulatory Neurological exam: PRESENT: alert, awake, oriented to person, oriented to place, oriented to time, oriented to situation, CN II-XII grossly intact. ABSENT: motor sensory deficit Psychiatric exam: PRESENT: appropriate affect, normal mood. ABSENT: homicidal ideation, suicidal ideation Skin exam: PRESENT: dry, intact, warm. ABSENT: cyanosis, rash Results Laboratory Results: 08/09/20 05:22 08/14/20 06:05 08/14/20 06:05 Sodium 135.2 L Potassium 4.5 Chloride 99 Carbon Dioxide 23 Anion Gap 13 BUN 105 H Creatinine 4.21 H Est GFR ( Amer) 17 L Glucose 118 H Calcium 8.1 L 08/09/20 05:20 Blood Blood Culture - Final NO GROWTH IN 5 DAYS 08/09/20 05:22 Blood Blood Culture - Final NO GROWTH IN 5 DAYS 08/06/20 08/06/20 08/06/20 05:30 11:20 23:54 Creatine Kinase 8246 H 6340 H 4055 H 08/07/20 08/08/20 08/09/20 05:54 05:18 05:22 Creatine Kinase 2324 H 921 H 524 H 08/12/20 04:35 Creatine Kinase 81 Impressions: Head CT 08/06/20 06:14 IMPRESSION: No acute intracranial findings. Cervical Spine CT 08/06/20 06:15 IMPRESSION: No acute fracture or subluxation. Chest CT 08/06/20 06:16 IMPRESSION: No definite acute process. Abdomen/Pelvis CT 08/06/20 06:18 IMPRESSION: No definite acute process. PICC Line Insertion 08/07/20 08:00 IMPRESSION: SUCCESSFUL PLACEMENT OF A 5 FR DUAL LUMEN 50 CM PICC IN THE LEFT BASILIC VEIN. Assessment and Plan - Diagnosis (1) Acute kidney failure Qualifiers: Acute renal failure type: with acute tubular necrosis Qualified Code(s): N17.0 - Acute kidney failure with tubular necrosis Is this a current diagnosis for this admission?: Yes Plan: Continues to improve. Cr 6.94-> 3.83-> 3.98-> 4.51-> 5.03-> 5.10-> 4.89-> 4.21 Secondary to sepsis and rhabdomyolysis. Improved urine output; ~2.6 L yesterday Abdominal/pelvic CT was negative for acute findings. Nephrology is consulted; appreciate their evaluation and recommendations. Continue IVF Cultures and antibiotics as below Avoid nephrotoxic medications as able. Renally dosed where appropriate. Nephrology is consulted; appreciate their evaluation and recommendations. Trend chemistries. (2) Metabolic acidosis Is this a current diagnosis for this admission?: Yes Plan: Resolved Secondary to #1 Nephrology is consulted Receivied IV bicarb; now on PO only Follow chemistries. (3) CAD (coronary artery disease) Is this a current diagnosis for this admission?: Yes Plan: History of coronary artery disease. Asymptomatic at this time. Monitored on telemetry. Continue home dose statin. (4) Hyperglycemia due to type 2 diabetes mellitus Qualifiers: Diabetes mellitus fpc insulin use: without fpc use Qualified Code(s): E11.65 - Type 2 diabetes mellitus with hyperglycemia Is this a current diagnosis for this admission?: Yes Plan: Holding oral medications while admitted. Patient is placed on a consistent carb diet. Accu-Cheks before meals and at bedtime with Humalog for sliding scale coverage. Hypoglycemia protocol in place. Registered dietitian ux designer consulted. (5) Hypomagnesemia Is this a current diagnosis for this admission?: Yes Plan: IV magnesium Periodic magnesium levels. (6) Hyperbilirubinemia Is this a current diagnosis for this admission?: Yes Plan: Resolved; secondary to the sepsis. (7) Elevated liver transaminase level Is this a current diagnosis for this admission?: Yes Plan: Resolved; likely 2/2 sepsis (8) Sepsis Qualifiers: Sepsis type: sepsis due to unspecified organism Sepsis acute organ dy sfunction status: with acute organ dysfunction Severe sepsis acute organ dysfunction type: acute renal failure Acute renal failure type: with acute tubular necrosis Severe sepsis shock status: without septic shock Qualified Code(s): A41.9 - Sepsis, unspecified organism; R65.20 - Severe sepsis without septic shock; N17.0 - Acute kidney failure with tubular necrosis Is this a current diagnosis for this admission?: Yes Plan: Resolved. Vital signs remained stable. WBC is normal. LFTs have returned to normal. Renal function is improved. Sepsis, present on admission, secondary to Staphylococcus bacteremia, evidenced by acute renal failure and elevated transaminases. Cultures and antibiotics as above (9) Bacteremia due to Staphylococcus Is this a current diagnosis for this admission?: Yes Plan: Ruled out as contaminants Blood cultures (3/4 bottles) revealed 3 different species. 1 set noted to have S. lugdunensis and S. hominis (resistent to Clinda). 1 bottle from second set grew S. hominis (sensitive to Clinda). Repeat cultures (08/09/20) negative at 24 hrs. Full skin assessment done yesterday; no clear source of infection. Patient does have a large area surrounding his ostomy that is regularly exposed to watery stools. Patient tells me that his ostomy site actually appears to be in good condition. Previous provider did note a small shallow laceration measuring less than 1 cm at the ostomy site; this could potentially be a source for infection, however, I would have expected the bacterium to be more GI related (gram- negative rather than staph). I was not able to locate the lac. Patient does note mild back discomfort related to a fall several days prior; no midline tenderness or discomfort noted on palpation. ID consulted; have reviewed Dr. Gonzalez's and Dr. Pham's notes. Cefepime is discontinued; received 6-day course. Echocardiogram is negative for endocarditis. (10) Rhabdomyolysis Qualifiers: Rhabdomyolysis type: traumatic Is this a current diagnosis for this admission?: Yes Plan: Resolved. Ck 8246-> 921-> 524-> 81 Patient reports having a fall at home. It is unknown how long he was down. Encourage p.o. fluids. Physical therapy is consulted. - Time Time Spent with patient: 25-34 minutes Medications reviewed and adjusted accordingly: Yes Anticipated Discharge Disposition: Home with Home Health Anticipated Discharge Timeframe: within 72 hours - pending renal function
[2020-08-14] MEDS: ATORVASTATIN CALCIUM 40 MG TABLET PO SCH (21:38)
--- NOTE | 2020-08-14 23:45 | PDOC PROGRESS REPORT ---
Subjective Progress Note for:: 08/14/20 Subjective:: Patient is a 75-year-old gentleman who came in with dehydration, acute kidney injury and diarrhea with high output from his ileostomy. Found to have anemia treated with 6-day course of cefepime. His CPK was also elevated and is now improved. Patient is feeling better. He states that he is eating better and drinking fluids orally as much as he can. He has been on IV fluids which was discontinued yesterday. He said he has a little bit of nausea this morning but denies any vomiting. He denies any abdominal pain. He is passing adequate amount of urine. His stool output seems to be decreasing. Review of medical records from his primary care provider showed that on May 13, 2020 he had a BUN of 20 and creatinine of 1.3; in August 17, 2019 and a BUN of 21 with creatinine 1.07 and on May 21, 2019 had a BUN of 21 with creatinine of 0.97. 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 Interestingly her sister at bedside has a pelvic kidney and another sister with horseshoe kidney and his father has 2 kidneys on one side. Reason For Visit: SEPSIS/ RHABDOMYOLYSIS/ ACUTE KIDNEY INJURY Physical Exam Vital Signs: Temp Pulse Resp BP Pulse Ox 97.3 F 68 16 135/69 H 94 08/14/20 11:18 08/14/20 11:18 08/14/20 11:18 08/14/20 11:18 08/14/20 11:18 Intake & Output 08/13/20 08/14/20 08/15/20 06:59 06:59 06:59 Intake Total 1100 1910 Output Total 2850 2690 950 Balance -1750 -780 -950 Weight 109.9 kg 108.5 kg Exam: General appearance: PRESENT: no acute distress, cooperative, well-developed, well-nourished Head exam: PRESENT: atraumatic, normocephalic Eye exam: PRESENT: conjunctiva pink, PERRLA. ABSENT: scleral icterus Neck exam: ABSENT: JVD Respiratory exam: PRESENT: Normal breath sounds. ABSENT: crackles, rales, rhonchi, unlabored, wheezes Cardiovascular exam: PRESENT: Regular rate rhythm -+S1, +S2. ABSENT: diastolic murmur, systolic murmur GI/Abdominal exam: PRESENT: normal bowel sounds, soft. Ileostomy in the right lower quadrant ABSENT: guarding, mass, tenderness Extremities exam: ABSENT: No edema Neurological exam: PRESENT: alert, awake, oriented to person, place and time. Skin exam: PRESENT: dry, warm, Cardiovascular exam: PRESENT: +S1, +S2 GI/Abdominal exam: PRESENT: normal bowel sounds, soft. ABSENT: organomegaly, tenderness Results Laboratory Results: 08/09/20 05:22 08/14/20 06:05 08/14/20 06:05 Sodium 135.2 L Potassium 4.5 Chloride 99 Carbon Dioxide 23 Anion Gap 13 BUN 105 H Creatinine 4.21 H Est GFR ( Amer) 17 L Glucose 118 H Calcium 8.1 L 08/09/20 05:20 Blood Blood Culture - Final NO GROWTH IN 5 DAYS 08/09/20 05:22 Blood Blood Culture - Final NO GROWTH IN 5 DAYS 08/06/20 08/06/20 08/06/20 05:30 11:20 23:54 Creatine Kinase 8246 H 6340 H 4055 H 08/07/20 08/08/20 08/09/20 05:54 05:18 05:22 Creatine Kinase 2324 H 921 H 524 H 08/12/20 04:35 Creatine Kinase 81 Impressions: Head CT 08/06/20 06:14 IMPRESSION: No acute intracranial findings. Cervical Spine CT 08/06/20 06:15 IMPRESSION: No acute fracture or subluxation. Chest CT 08/06/20 06:16 IMPRESSION: No definite acute process. Abdomen/Pelvis CT 08/06/20 06:18 IMPRESSION: No definite acute process. PICC Line Insertion 08/07/20 08:00 IMPRESSION: SUCCESSFUL PLACEMENT OF A 5 FR DUAL LUMEN 50 CM PICC IN THE LEFT BASILIC VEIN. Assessment & Plan - Diagnosis (1) Acute kidney injury Is this a current diagnosis for this admission?: Yes Plan: Secondary to excess and acute prerenal azotemia due to dehydration with high output ileostomy/diarrhea. Baseline creatinine around 0.9-1.3. Patient is currently nonoliguric. Kidney function appears to be slowly improving. Patient appears to be able to keep up with fluid intake orally. Continue same rogelio gement for now. (2) Bacteremia due to Staphylococcus Is this a current diagnosis for this admission?: Yes Plan: Treated with cefepime. (3) Dehydration Is this a current diagnosis for this admission?: Yes Plan: Improving. (4) Rhabdomyolysis Qualifiers: Rhabdomyolysis type: traumatic Is this a current diagnosis for this admission?: Yes Plan: Resolved. (5) Diarrhea Qualifiers: Diarrhea type: presumed infectious Qualified Code(s): R19.7 - Diarrhea, unspecified Is this a current diagnosis for this admission?: Yes Plan: Improved. (6) Hypomagnesemia Is this a current diagnosis for this admission?: Yes Plan: On replacement. (7) Metabolic acidosis Is this a current diagnosis for this admission?: Yes Plan: On sodium bicarbonate. (8) Type 2 diabetes mellitus Qualifiers: Diabetes mellitus group home insulin use: without group home use Proli ferative retinopathy type: unspecified Is this a current diagnosis for this admission?: Yes (9) HTN (hypertension) Qualifiers: Hypertension type: essential hypertension Qualified Code(s): I10 - Essential (primary) hypertension Is this a current diagnosis for this admission?: Yes
[2020-08-15] MEDS: PANTOPRAZOLE SODIUM 40 MG TABLET.DR PO SCH (05:52)
[2020-08-15] MEDS: NORMAL SALINE 10 ML SDV (AFTER EACH USE) IV PRN (05:53)
[2020-08-15 06:38] LABS: ANION GAP 13 (5-19); BLOOD UREA NITROGEN 103 mg/dL (7-20); CALCIUM 8.5 mg/dL (8.4-10.2); CARBON DIOXIDE 23 mmol/L (22-30); CHLORIDE 99 mmol/L (98-107); GLUCOSE 133 mg/dL (75-110); POTASSIUM 4.4 mmol/L (3.6-5.0)
[2020-08-15] MEDS: INSULIN LISPRO 100 UNIT/ML 3 ML VIAL SUBCUT SCH ×4 (08:48→21:44)
[2020-08-15] MEDS: MAGNESIUM SULFATE/D5W 1 GM/100 ML RTUPB IV SCH (09:11)
[2020-08-15] MEDS: SODIUM BICARBONATE 650 MG TABLET PO SCH ×3 (09:11→17:40)
[2020-08-15] MEDS: NORMAL SALINE 10 ML SDV (SCHEDULED) IV SCH ×2 (09:12→21:44)
[2020-08-15] MEDS: PRENATAL VITAMIN W DHA CAPSULE PO SCH (09:12)
--- NOTE | 2020-08-15 12:40 | PDOC PROGRESS REPORT ---
Subjective Progress Note for:: 08/15/20 Subjective:: Patient was seen laying in his bed at the time of examination. He has not complaints today. His ostomy output looks to have decreased significantly. He claims to have had increased urine output since yesterday. He denies SOB or noticing any increase swelling Reason For Visit: SEPSIS/ RHABDOMYOLYSIS/ ACUTE KIDNEY INJURY Physical Exam Vital Signs: Temp Pulse Resp BP Pulse Ox 97.4 F 73 21 H 136/79 H 96 08/15/20 08:22 08/15/20 08:22 08/15/20 08:22 08/15/20 08:22 08/15/20 08:22 Intake & Output 08/14/20 08/15/20 08/16/20 06:59 06:59 06:59 Intake Total 1910 2120 100 Output Total 2690 3110 Balance -780 -990 100 Weight 108.5 kg 107.2 kg General appearance: PRESENT: no acute distress, well-developed, well-nourished Mouth exam: PRESENT: dry mucosa, neck supple Neck exam: ABSENT: JVD, tracheal deviation Respiratory exam: PRESENT: clear to auscultation tip. ABSENT: accessory muscle use Cardiovascular exam: PRESENT: +S1, +S2 GI/Abdominal exam: PRESENT: normal bowel sounds, soft. ABSENT: organomegaly, tenderness Extremities exam: ABSENT: pedal edema, tenderness, +1 edema, +2 edema Musculoskeletal exam: PRESENT: normal inspection. ABSENT: tenderness Neurological exam: PRESENT: alert, awake, oriented to person, oriented to place, oriented to time, oriented to situation Skin exam: PRESENT: dry, intact, warm Results Laboratory Results: 08/09/20 05:22 08/15/20 05:45 08/15/20 05:45 Sodium 135.3 L Potassium 4.4 Chloride 99 Carbon Dioxide 23 Anion Gap 13 BUN 103 H Creatinine 3.99 H Est GFR ( Amer) 18 L Glucose 133 H Calcium 8.5 08/06/20 08/06/20 08/06/20 05:30 11:20 23:54 Creatine Kinase 8246 H 6340 H 4055 H 08/07/20 08/08/20 08/09/20 05:54 05:18 05:22 Creatine Kinase 2324 H 921 H 524 H 08/12/20 04:35 Creatine Kinase 81 Impressions: Head CT 08/06/20 06:14 IMPRESSION: No acute intracranial findings. Cervical Spine CT 08/06/20 06:15 IMPRESSION: No acute fracture or subluxation. Chest CT 08/06/20 06:16 IMPRESSION: No definite acute process. Abdomen/Pelvis CT 08/06/20 06:18 IMPRESSION: No definite acute process. PICC Line Insertion 08/07/20 08:00 IMPRESSION: SUCCESSFUL PLACEMENT OF A 5 FR DUAL LUMEN 50 CM PICC IN THE LEFT BASILIC VEIN. Assessment & Plan - Diagnosis (1) Acute kidney failure Qualifiers: Acute renal failure type: with acute tubular necrosis Qualified Code(s): N17.0 - Acute kidney failure with tubular necrosis Is this a current diagnosis for this admission?: Yes Plan: Looks to be heading in the right direction now that his ostomy bag has less output. Continue with current medications and follow up with labs tomorrow. (2) Dehydration Is this a current diagnosis for this admission?: Yes Plan: continue on IV fluids, ostomy looks to be having less fluid output (3) Diarrhea Qualifiers: Diarrhea type: presumed infectious Qualified Code(s): R19.7 - Diarrhea, unspecified Is this a current diagnosis for this admission?: Yes Plan: improving at this time (4) Bacteremia due to Staphylococcus Is this a current diagnosis for this admission?: Yes Plan: resolved (5) Colostomy status Plan: output looks to have increased (6) Elevated liver transaminase level Is this a current diagnosis for this admission?: Yes Plan: resolved (7) Hyperglycemia due to type 2 diabetes mellitus Qualifiers: Diabetes mellitus longterm insulin use: without longterm use Qualified Code(s): E11.65 - Type 2 diabetes mellitus with hyperglycemia Is this a current diagnosis for this admission?: Yes (8) Lactic acidosis Plan: resolved (9) Rhabdomyolysis Qualifiers: Rhabdomyolysis type: traumatic Is this a current diagnosis for this admission?: Yes Plan: resolved (10) Sepsis Qualifiers: Sepsis type: sepsis due to unspecified organism Sepsis acute organ dysfunction status: with acute organ dysfunction Severe sepsis acute organ dysfunction type: acute renal failure Acute renal failure type: with acute tubular necrosis Severe sepsis shock status: without septic shock Qualified Code(s): A41.9 - Sepsis, unspecified organism; R65.20 - Severe sepsis without septic shock; N17.0 - Acute kidney failure with tubular necrosis Is this a current diagnosis for this admission?: Yes Plan: resolved (11) HTN (hypertension), benign Plan: controlled (12) Metabolic acidosis Is this a current diagnosis for this admission?: Yes Plan: resolved
[2020-08-15] MEDS: RINGERS SOLUTION,LACTATED 1,000 ML IV PRN ×2 (19:00→22:59)
--- NOTE | 2020-08-15 21:06 | PDOC PROGRESS REPORT ---
Subjective Progress Note for:: 08/15/20 Subjective:: RASHIDA MOTA is a 74 year old male who has been feeling poorly for the last 3 to 4 days. He reports having fevers. Has had increased ostomy output with decreased appetite and poor fluid intake. He reports falling at some point but he eventually was able to get up. His sister was concerned and came to assess him. He initially did not want to go to the hospital but when he saw that he was not improving he agreed. In the hospital he was never hypotensive. He was tachycardic. His serum creatinine was normal in May 2019 as well as his BUN. At this time his BUN is 58 with a creatinine of is 6.02. His initial lactic acid was 6.9 but with aggressive fluids he is down to 1.2. Total bilirubin is elevated at 1.8 with elevated transaminases and an initial creatinine kinase of 8246. He is on nasal cannula oxygen maintaining saturations in the mid to high 90% range. He still feels extremely weak. He has already been given a dose of levofloxacin with b lood cultures having been drawn prior. 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 As he states "everything empties into this bag ". His sister is at the bedside. He has received adequate boluses of IV fluids with a correction of the lactic acid while still in the emergency department. We will continue IV fluids and monitor his renal function as well as electrolytes. He is diabetic and so he will need Accu-Cheks and fingersticks and he does have a history of coronary disease with bypass surgery in the past. He has had multiple operations on his abdomen hence resulting in the ostomy. He has been receiving IV fluids for his TOYA and rhabdomyolisis. Nephro following.Ostomy output has lessened/ 08/15/20 D10 hospital stay. He was seen and examined at bedside. He feels ove rall better, denies any chest pain, SOB, no abdominal pain, nausea/vomiting. Ostomy output has decreased significantly. He is afebrile with improved appetite. Reason For Visit: SEPSIS/ RHABDOMYOLYSIS/ ACUTE KIDNEY INJURY Physical Exam Vital Signs: Temp Pulse Resp BP Pulse Ox 97.6 F 70 20 129/74 H 97 08/15/20 11:39 08/15/20 11:39 08/15/20 11:39 08/15/20 11:39 08/15/20 11:39 Intake & Output 08/14/20 08/15/20 08/16/20 06:59 06:59 06:59 Intake Total 1910 2120 100 Output Total 2690 3110 Balance -780 -990 100 Weight 108.5 kg 107.2 kg General appearance: PRESENT: no acute distress, cooperative Head exam: PRESENT: atraumatic, normocephalic Eye exam: PRESENT: EOMI, PERRLA Mouth exam: PRESENT: moist Neck exam: PRESENT: full ROM Respiratory exam: PRESENT: clear to auscultation tip, symmetrical, unlabored. ABSENT: rales Cardiovascular exam: PRESENT: RRR, +S1, +S2 Pulses: PRESENT: +2 pedal pulses bilateral GI/Abdominal exam: PRESENT: normal bowel sounds, soft, other - ostomy output soft, not watery. ABSENT: rebound, tenderness Extremities exam: PRESENT: full ROM Musculoskeletal exam: PRESENT: full ROM Neurological exam: PRESENT: altered, awake, oriented to person, oriented to place, oriented to time Skin exam: PRESENT: normal color Results Laboratory Results: 08/09/20 05:22 08/15/20 05:45 08/15/20 05:45 Sodium 135.3 L Potassium 4.4 Chloride 99 Carbon Dioxide 23 Anion Gap 13 BUN 103 H Creatinine 3.99 H Est GFR ( Amer) 18 L Glucose 133 H Calcium 8.5 08/06/20 08/06/20 08/06/20 05:30 11:20 23:54 Creatine Kinase 8246 H 6340 H 4055 H 08/07/20 08/08/20 08/09/20 05:54 05:18 05:22 Creatine Kinase 2324 H 921 H 524 H 08/12/20 04:35 Creatine Kinase 81 Impressions: Head CT 08/06/20 06:14 IMPRESSION: No acute intracranial findings. Cervical Spine CT 08/06/20 06:15 IMPRESSION: No acute fracture or subluxation. Chest CT 08/06/20 06:16 IMPRESSION: No definite acute process. Abdomen/Pelvis CT 08/06/20 06:18 IMPRESSION: No definite acute process. PICC Line Insertion 08/07/20 08:00 IMPRESSION: SUCCESSFUL PLACEMENT OF A 5 FR DUAL LUMEN 50 CM PICC IN THE LEFT BASILIC VEIN. Assessment and Plan - Diagnosis (1) Acute kidney failure Qualifiers: Acute renal failure type: with acute tubular necrosis Qualified Code(s): N17.0 - Acute kidney failure with tubular necrosis Is this a current diagnosis for this admission?: Yes Plan: Continues to improve. Cr 6.94-> 3.83-> 3.98-> 4.51-> 5.03-> 5.10-> 4.89-> 4.21>3.99 Secondary to sepsis and rhabdomyolysis. UO 3.1L Abdominal/pelvic CT was negative for acute findings. Nephrology is consulted; appreciate their evaluation and recommendations. Continue IVF Cultures and antibiotics as below Avoid nephrotoxic medications as able. Renally dosed where appropriate. Nephrology is consulted; appreciate their evaluation and recommendations. Trend chemistries. (2) Metabolic acidosis Is this a current diagnosis for this admission?: Yes Plan: Resolved Secondary to #1 Nephrology is consulted Receivied IV bicarb; now on PO only Follow chemistries. (3) Rhabdomyolysis Qualifiers: Rhabdomyolysis type: traumatic Is this a current diagnosis for this admission?: Yes Plan: Resolved. Ck 8246-> 921-> 524-> 81 Patient reports having a fall at home. It is unknown how long he was down. continue IV fluids. Encourage p.o. fluids. Physical therapy is consulted. (4) CAD (coronary artery disease) Is this a current diagnosis for this admission?: Yes Plan: History of coronary artery disease. Asymptomatic at this time. Monitored on telemetry. Continue home dose statin. 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 - continue sliding scale - accucheck - hypoglycemia protocol (6) Bacteremia due to Staphylococcus Is this a current diagnosis for this admission?: Yes Plan: Ruled out as contaminants Blood cultures (3/4 bottles) revealed 3 different species. 1 set noted to have S. lugdunensis and S. hominis (resistent to Clinda). 1 bottle from second set grew S. hominis (sensitive to Clinda). Repeat cultures (08/09/20) negative at 24 hrs. Full skin assessment done yesterday; no clear source of infection. Patient does have a large area surrounding his ostomy that is regularly exposed to watery stools. Patient tells me that his ostomy site actually appears to be in good condition. Previous provider did note a small shallow laceration measuring less than 1 cm at the ostomy site; this could potentially be a source for infection, however, I would have expected the bacterium to be more GI related (gram- negative rather than staph). I was not able to locate the lac. Patient does note mild back discomfort related to a fall several days prior; no midline tenderness or discomfort noted on palpation. ID consulted; have reviewed Dr. Gonzalez's and Dr. Pham's notes. Cefepime is discontinued; received 6-day course. Echocardiogram is negative for endocarditis. Repeat blood culture negative (7) Sepsis Qualifiers: Sepsis type: sepsis due to unspecified organism Sepsis acute organ dysfunction status: with acute organ dysfunction Severe sepsis acute organ dysfunction type: acute renal failure Acute renal failure type: with acute tubular necrosis Severe sepsis shock status: without septic shock Qualified Code(s): A41.9 - Sepsis, unspecified organism; R65.20 - Severe sepsis without septic shock; N17.0 - Acute kidney failure with tubular necrosis Is this a current diagnosis for this admission?: Yes Plan: Resolved. Vital signs remained stable. WBC is normal. LFTs have returned to normal. Renal function is improved. Sepsis, present on admission, secondary to Staphylococcus bacteremia, evidenced by acute renal failure and elevated transaminases. (8) Hyperbilirubinemia Is this a current diagnosis for this admission?: Yes Plan: Resolved; secondary to the sepsis. (9) Hypomagnesemia Is this a current diagnosis for this admission?: Yes - Time Time Spent with patient: 25-34 minutes Anticipated Discharge Disposition: Home, Self Care Anticipated Discharge Timeframe: within 48 hours
[2020-08-15] MEDS: ATORVASTATIN CALCIUM 40 MG TABLET PO SCH (21:44)
[2020-08-16] MEDS: PANTOPRAZOLE SODIUM 40 MG TABLET.DR PO SCH (06:00)
[2020-08-16 07:08] LABS: ANION GAP 13 (5-19); BLOOD UREA NITROGEN 99 mg/dL (7-20); CALCIUM 8.6 mg/dL (8.4-10.2); CARBON DIOXIDE 24 mmol/L (22-30); CHLORIDE 101 mmol/L (98-107); GLUCOSE 114 mg/dL (75-110); POTASSIUM 4.9 mmol/L (3.6-5.0)
[2020-08-16] MEDS: SODIUM BICARBONATE 650 MG TABLET PO SCH ×2 (08:32→12:38)
[2020-08-16] MEDS: INSULIN LISPRO 100 UNIT/ML 3 ML VIAL SUBCUT SCH ×2 (08:32→12:37)
[2020-08-16] MEDS: RINGERS SOLUTION,LACTATED 1,000 ML IV PRN (08:34)
[2020-08-16] MEDS: MAGNESIUM SULFATE/D5W 1 GM/100 ML RTUPB IV SCH (10:16)
[2020-08-16] MEDS: PRENATAL VITAMIN W DHA CAPSULE PO SCH (10:16)
[2020-08-16] MEDS: NORMAL SALINE 10 ML SDV (SCHEDULED) IV SCH (10:17)
[2020-08-16 11:26] VITALS: BP 111/76
--- NOTE | 2020-08-16 12:42 | PDOC PROGRESS REPORT ---
Subjective Progress Note for:: 08/16/20 Subjective:: Patient claims to be doing well. Stool output has significantly decreased. He is currently ready to go home. Urine output and creatinine continue to improve. Reason For Visit: SEPSIS/ RHABDOMYOLYSIS/ ACUTE KIDNEY INJURY Physical Exam Vital Signs: Temp Pulse Resp BP Pulse Ox 97.3 F 74 20 111/76 98 08/16/20 11:23 08/16/20 11:23 08/16/20 11:23 08/16/20 11:23 08/16/20 11:23 Intake & Output 08/15/20 08/16/20 08/17/20 06:59 06:59 06:59 Intake Total 2120 1830 Output Total 3110 1700 Balance -990 130 Weight 107.2 kg 108.1 kg General appearance: PRESENT: no acute distress, well-developed, well-nourished Mouth exam: PRESENT: moist, neck supple Neck exam: ABSENT: JVD, tracheal deviation Respiratory exam: PRESENT: clear to auscultation tip. ABSENT: crackles, rales, rhonchi, wheezes Cardiovascular exam: PRESENT: +S1, +S2 GI/Abdominal exam: PRESENT: normal bowel sounds, soft. ABSENT: organomegaly, tenderness Extremities exam: ABSENT: +1 edema, +2 edema Neurological exam: PRESENT: alert, awake, oriented to person, oriented to place, oriented to time, oriented to situation Skin exam: PRESENT: dry, intact, warm Results Laboratory Results: 08/09/20 05:22 08/16/20 06:12 08/16/20 06:12 Sodium 137.7 Potassium 4.9 Chloride 101 Carbon Dioxide 24 Anion Gap 13 BUN 99 H Creatinine 2.81 H Est GFR ( Amer) 27 L Glucose 114 H Calcium 8.6 08/06/20 08/06/20 08/06/20 05:30 11:20 23:54 Creatine Kinase 8246 H 6340 H 4055 H 08/07/20 08/08/20 08/09/20 05:54 05:18 05:22 Creatine Kinase 2324 H 921 H 524 H 08/12/20 04:35 Creatine Kinase 81 Impressions: Head CT 08/06/20 06:14 IMPRESSION: No acute intracranial findings. Cervical Spine CT 08/06/20 06:15 IMPRESSION: No acute fracture or subluxation. Chest CT 08/06/20 06:16 IMPRESSION: No definite acute process. Abdomen/Pelvis CT 08/06/20 06:18 IMPRESSION: No definite acute process. PICC Line Insertion 08/07/20 08:00 IMPRESSION: SUCCESSFUL PLACEMENT OF A 5 FR DUAL LUMEN 50 CM PICC IN THE LEFT BASILIC VEIN. Assessment & Plan - Diagnosis (1) Acute kidney failure Qualifiers: Acute renal failure type: with acute tubular necrosis Qualified Code(s): N17.0 - Acute kidney failure with tubular necrosis Is this a current diagnosis for this admission?: Yes Plan: Looks to be heading in the right direction now that his ostomy bag has less output. Continue with current medications, if discharged he needs to continue on the imodium and follow up with labs in 10 days with my office. 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: without fdc use Qualified Code(s): E11.65 - Type 2 diabetes mellitus with hyperglycemia Is this a current diagnosis for this admission?: Yes Plan: improving (8) Lactic acidosis Plan: resolved (9) Rhabdomyolysis Qualifiers: Rhabdomyolysis type: traumatic Is this a current diagnosis for this admission?: Yes Plan: resolved (10) Sepsis Qualifiers: Sepsis type: sepsis due to unspecified organism Sepsis acute organ dysfunction status: with acute organ dysfunction Severe sepsis acute organ dysfunction type: acute renal failure Acute renal failure type: with acute tubular necrosis Severe sepsis shock status: without septic shock Qualified Code(s): A41.9 - Sepsis, unspecified organism; R65.20 - Severe sepsis without septic shock; N17.0 - Acute kidney failure with tubular necrosis Is this a current diagnosis for this admission?: Yes (11) HTN (hypertension), benign Plan: controlled (12) Metabolic acidosis Is this a current diagnosis for this admission?: Yes Plan: resolved
--- NOTE | 2020-08-17 06:57 | PDOC DISCHARGE SUMMARY ---
Impression - Admit/DC Date/PCP Admission Date/Primary Care Provider: 08/06/20 13:31 Discharge Date: 08/16/20 - Discharge Diagnosis (1) Acute kidney failure Is this a current diagnosis for this admission?: Yes (2) Metabolic acidosis Is this a current diagnosis for this admission?: Yes (3) Rhabdomyolysis Is this a current diagnosis for this admission?: Yes (4) CAD (coronary artery disease) Is this a current diagnosis for this admission?: Yes (5) Hyperglycemia due to type 2 diabetes mellitus Is this a current diagnosis for this admission?: Yes (6) Bacteremia due to Staphylococcus Is this a current diagnosis for this admission?: Yes (7) Sepsis Is this a current diagnosis for this admission?: Yes (8) Hyperbilirubinemia Is this a current diagnosis for this admission?: Yes (9) Hypomagnesemia Is this a current diagnosis for this admission?: Yes - Additional Information Resuscitation Status: Full Code Discharge Diet: As Tolerated Discharge Activity: Activity As Tolerated Referrals: SHIRLEY HORTON MD [ACTIVE STAFF] - PROSPER WILEY DO [NO LOCAL MD] - 08/16/20 (08/16 @1057 No answer at provider's office. A message was left for office to call patient with a follow up appt. date/time) Prescriptions: Loperamide HCl [Imodium 2 mg Capsule] 2 mg PO Q6HP PRN 4 Days #20 capsule PRN Reason: Atorvastatin Calcium [Lipitor 40 mg Tablet] 40 mg PO QHS 30 Days #30 tablet Sodium Bicarbonate [Sodium Bicarbonate 650 mg Tablet] 1,300 mg PO AC 7 Days #21 tablet Home Medications: Magnesium Oxide [Magnesium] 250 mg PO DAILY 08/06/20 Multivit-Min/Folic/Vit K/Lycop [One Daily Men's 50 Plus D3 Tab] 1 each PO DAILY 08/06/20 Omeprazole 20 mg PO DAILY 08/06/20 Sitagliptin Phosphate [Januvia 50 mg Tablet] 100 mg PO DAILY 08/06/20 Atorvastatin Calcium [Lipitor 40 mg Tablet] 40 mg PO QHS 30 Days #30 tablet 08/16/20 Loperamide HCl [Imodium 2 mg Capsule] 2 mg PO Q6HP PRN 4 Days #20 capsule 08/16/20 Sodium Bicarbonate [Sodium Bicarbonate 650 mg Tablet] 1,300 mg PO AC 7 Days #21 tablet 08/16/20 History of Present Illiness History of Present Illness: RASHIDA MOTA is a 75 year old male, who has been feeling poorly for the last 3 to 4 days. He reports having fevers. Has had increased ostomy output with decreased appetite and poor fluid intake. He reports falling at some point but he eventually was able to get up. His sister was concerned and came to assess him. He initially did not want to go to the hospital but when he saw that he was not improving he agreed. In the hospital he was never hypotensive. He was tachycardic. His serum creatinine was normal in May 2019 as well as his BUN. At this time his BUN is 58 with a creatinine of is 6.02. His initial lactic acid was 6.9 but with aggressive fluids he is down to 1.2. Total bilirubin is elevated at 1.8 with elevated transaminases and an initial creatinine kinase of 8246. He is on nasal cannula oxygen maintaining saturations in the mid to high 90% range. He still feels extremely weak. He has already been given a dose of levofloxacin with blood cultures having been drawn prior. 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 As he states "everything empties into this bag ". His sister is at the bedside. He has received adequate boluses of IV fluids with a correction of the lactic acid while still in the emergency department. We will continue IV fluids and monitor his renal function as well as electrolytes. He is diabetic and so he will need Accu-Cheks and fingersticks and he does have a history of coronary disease with bypass surgery in the past. He has had multiple operations on his abdomen hence resulting in the ostomy Hospital Course Hospital Course: The patient was started on IV fluids for TOYA and rhabdomyolysis. Nephrology was consulted. He was started on cefepime as well. On the 3rd hospital stay, blood cultures grew Staph lugdunensis, staph hominis on 2 bottles. ID was consulted. TTE was ordered which did not show any sign of endocarditis. He was continued on IV fluids because of TOYA and high ostomy output. Per ID rec, staph growth likely a contaminant and does not require any prolonged treatment. C.diff test came back negative. On the 5th hospital stay, CK trended down to 524. He was started on imodium for high ostomy output. Ostomy output decreased significantly and creatinine eventually trended down to 2.81 from 6.94 and he was eventually discharged on the 10th hospital stay. Physical Exam Vital Signs: Temp Pulse Resp BP Pulse Ox 97.3 F 74 20 111/76 98 08/16/20 11:23 08/16/20 11:23 08/16/20 11:23 08/16/20 11:23 08/16/20 11:23 Intake & Output 08/15/20 08/16/20 08/17/20 06:59 06:59 06:59 Intake Total 2120 1830 Output Total 3110 1700 Balance -990 130 Weight 107.2 kg 108.1 kg General appearance: PRESENT: no acute distress, cooperative Head exam: PRESENT: atraumatic, normocephalic Eye exam: PRESENT: EOMI, PERRLA Mouth exam: PRESENT: moist Neck exam: PRESENT: full ROM Respiratory exam: PRESENT: clear to auscultation tip, symmetrical, unlabored. ABSENT: rales Cardiovascular exam: PRESENT: RRR, +S1, +S2 Pulses: PRESENT: +2 pedal pulses bilateral GI/Abdominal exam: PRESENT: normal bowel sounds, soft, other - +ve ostomy right abdomen. ABSENT: rebound, tenderness Extremities exam: PRESENT: full ROM Musculoskeletal exam: PRESENT: full ROM Neurological exam: PRESENT: alert, awake, oriented to person, oriented to place, oriented to time, oriented to situation Psychiatric exam: PRESENT: normal mood Skin exam: PRESENT: normal color Results Laboratory Results: WBC 4.9 10^3/uL (4.0-10.5) 08/09/20 05:22 RBC 4.28 10^6/uL (4.35-5.55) L 08/09/20 05:22 Hgb 13.2 g/dL (13.5-17.0) L 08/09/20 05:22 Hct 38.0 % (37.9-51.0) 08/09/20 05:22 MCV 89 fl (80-97) 08/09/20 05:22 MCH 30.7 pg (27.0-33.4) 08/09/20 05:22 MCHC 34.7 g/dL (32.0-36.0) 08/09/20 05:22 RDW 14.5 % (11.5-14.0) H 08/09/20 05:22 Plt Count 154 10^3/uL (150-450) 08/09/20 05:22 Lymph % (Auto) Not Reportable 08/09/20 05:22 [place] % (Auto) Not Reportable 08/09/20 05:22 Eos % (Auto) Not Reportable 08/09/20 05:22 Baso % (Auto) Not Reportable 08/09/20 05:22 Absolute Neuts (auto) Not Reportable 08/09/20 05:22 Absolute Lymphs (auto) Not Reportable 08/09/20 05:22 Absolute Monos (auto) Not Reportable 08/09/20 05:22 Absolute Eos (auto) Not Reportable 08/09/20 05:22 Absolute Basos (auto) Not Reportable 08/09/20 05:22 Total Counted 100 08/09/20 05:22 Seg Neutrophils % Not Reportable 08/09/20 05:22 Seg Neuts % (Manual) 63 % (42-78) 08/09/20 05:22 Lymphocytes % (Manual) 20 % (13-45) 08/09/20 05:22 Atypical Lymphs % 3 % (0) 08/09/20 05:22 Monocytes % (Manual) 12 % (3-13) 08/09/20 05:22 Eosinophils % (Manual) 1 % (0-6) 08/09/20 05:22 Basophils % (Manual) 0 % (0-2) 08/09/20 05:22 Metamyelocytes % 1 % (0-1) 08/09/20 05:22 Abs Neuts (Manual) 3.1 10^3/uL (1.7-8.2) 08/09/20 05:22 Abs Lymphs (Manual) 1.1 10^3/uL (0.5-4.7) 08/09/20 05:22 Abs Monocytes (Manual) 0.6 10^3/uL (0.1-1.4) 08/09/20 05:22 Absolute Eos (Manual) 0.0 10^3/uL (0.0-0.6) 08/09/20 05:22 Abs Basophils (Manual) 0.0 10^3/uL (0.0-0.2) 08/09/20 05:22 Large Platelets PRESENT 08/09/20 05:22 Platelet Comment ADEQUATE 08/09/20 05:22 Poikilocytosis 1+ 08/09/20 05:22 Tear Drop Cells 1+ 08/09/20 05:22 PT 13.8 SEC (11.4-15.4) 08/06/20 05:35 INR 1.04 08/06/20 05:35 INR (Anticoag Therapy) Cancelled 08/06/20 05:30 VBG pH 7.33 (7.30-7.42) 08/06/20 05:30 VBG pCO2 30.9 mmHg (35-63) L 08/06/20 05:30 VBG HCO3 15.8 mmol/L (20-32) L 08/06/20 05:30 VBG Base Excess -8.5 mmol/L 08/06/20 05:30 Sodium 137.7 mmol/L (137-145) 08/16/20 06:12 Potassium 4.9 mmol/L (3.6-5.0) 08/16/20 06:12 Chloride 101 mmol/L (98-107) 08/16/20 06:12 Carbon Dioxide 24 mmol/L (22-30) 08/16/20 06:12 Anion Gap 13 (5-19) 08/16/20 06:12 BUN 99 mg/dL (7-20) H 08/16/20 06:12 Creatinine 2.81 mg/dL (0.52-1.25) H 08/16/20 06:12 Est GFR ( Amer) 27 (>60) L 08/16/20 06:12 Est GFR (MDRD) Non-Af 22 (>60) L 08/16/20 06:12 Glucose 114 mg/dL (75-110) H 08/16/20 06:12 POC Glucose 112 mg/dL (70-110) H 08/16/20 06:36 Lactic Acid 1.2 mmol/L (0.7-2.1) 08/06/20 11:20 Calcium 8.6 mg/dL (8.4-10.2) 08/16/20 06:12 Phosphorus 4.8 mg/dL (2.5-4.5) H 08/06/20 23:54 Magnesium 1.8 mg/dL (1.6-2.3) 08/13/20 03:25 Total Bilirubin 0.9 mg/dL (0.2-1.3) 08/09/20 05:22 Direct Bilirubin 0.4 mg/dL (0.0-0.4) 08/09/20 05:22 Neonat Total Bilirubin Not Reportable 08/09/20 05:22 Neonat Direct Bilirubin Not Reportable 08/09/20 05:22 Neonat Indirect Bili Not Reportable 08/09/20 05:22 AST 46 U/L (17-59) 08/09/20 05:22 ALT 31 U/L (<50) 08/09/20 05:22 Alkaline Phosphatase 75 U/L (38-126) 08/09/20 05:22 Creatine Kinase 81 U/L (55-170) 08/12/20 04:35 Total Protein 6.8 g/dL (6.3-8.2) 08/09/20 05:22 Albumin 3.6 g/dL (3.5-5.0) 08/09/20 05:22 PTH Intact 483.8 pg/mL (10.0-65.0) H 08/12/20 04:35 Urine Color DAVID 08/06/20 18:00 Urine Appearance SLIGHTLY-CLOUDY 08/06/20 18:00 Urine pH 5.0 (5.0-9.0) 08/06/20 18:00 Ur Specific [place] 1.021 08/06/20 18:00 Urine Protein 100 mg/dL (NEGATIVE) H 08/06/20 18:00 Urine Glucose (UA) NEGATIVE mg/dL (NEGATIVE) 08/06/20 18:00 Urine Ketones NEGATIVE mg/dL (NEGATIVE) 08/06/20 18:00 Urine Blood LARGE (NEGATIVE) H 08/06/20 18:00 Urine Nitrite (Reflex) NEGATIVE (NEGATIVE) 08/06/20 18:00 Urine Bilirubin NEGATIVE (NEGATIVE) 08/06/20 18:00 Urine Urobilinogen NEGATIVE mg/dL (<2.0) 08/06/20 18:00 Leukocyte Esterase Rfl NEGATIVE (NEGATIVE) 08/06/20 18:00 Urine RBC (Auto) 1 /HPF 08/06/20 18:00 Urine WBC (Reflex) 2 /HPF 08/06/20 18:00 Squamous Epi Cells Auto <1 /HPF 08/06/20 18:00 Urine Mucus (Auto) RARE /LPF 08/06/20 18:00 Urine Ascorbic Acid NEGATIVE (NEGATIVE) 08/06/20 18:00 Stl C. Difficile GDH Ag NEGATIVE (NEGATIVE) 08/10/20 10:15 Stl C.difficile Tox A&B NEGATIVE (NEGATIVE) 08/10/20 10:15 COVID-19 Source See comment 08/06/20 06:35 COVID-19 ([facility]YSON) Not Detected (Not Detect) 08/06/20 06:35 Impressions: Head CT 08/06/20 06:14 IMPRESSION: No acute intracranial findings. Cervical Spine CT 08/06/20 06:15 IMPRESSION: No acute fracture or subluxation. Chest CT 08/06/20 06:16 IMPRESSION: No definite acute process. Abdomen/Pelvis CT 08/06/20 06:18 IMPRESSION: No definite acute process. PICC Line Insertion 08/07/20 08:00 IMPRESSION: SUCCESSFUL PLACEMENT OF A 5 FR DUAL LUMEN 50 CM PICC IN THE LEFT BASILIC VEIN. Plan Health Concerns: Acute Kidney Injury - resolved with IV fluids. He was discharged with a Crea 0f 2.8 from 6.9 on admission High Ostomy Output -C diff negative. resolved with imodium Plan of Treatment: continue increased water intake at home follow up with PCP Time Spent: Less than 30 Minutes Stroke Is this a Stroke Patient?: No Acute Heart Failure Is this a Heart Failure Patient?: No
== END 2020-08-16 12:38 | disposition home or self-care (01) | DRG 871 ==
LOC: ER 05:15 → EH 13:31 → 3N 14:58 → 3W 08-07 10:26 → 4S 08-11 18:21
PROVIDERS: ADMIT Hospitalist; ATTEND Internal Medicine
PROC: 02HV33Z Insertion of Infusion Device into Superior Vena Cava, Percutaneous Approach (ICD-10-PCS; principal; 2020-08-07)
PROC: B518ZZA Fluoroscopy of Superior Vena Cava, Guidance (ICD-10-PCS; 2020-08-07)
PROC: B548ZZA Ultrasonography of Superior Vena Cava, Guidance (ICD-10-PCS; 2020-08-07)
DX: A41.9 Sepsis, unspecified organism (principal); N17.0 Acute kidney failure with tubular necrosis; M62.82 Rhabdomyolysis; E87.2 Acidosis; R65.20 Severe sepsis without septic shock; I25.10 Atherosclerotic heart disease of native coronary artery without angina pectoris; E80.6 Other disorders of bilirubin metabolism; I10 Essential (primary) hypertension; E11.65 Type 2 diabetes mellitus with hyperglycemia; E78.00 Pure hypercholesterolemia, unspecified; E83.42 Hypomagnesemia; K21.9 Gastro-esophageal reflux disease without esophagitis; R19.7 Diarrhea, unspecified; E86.0 Dehydration; I25.2 Old myocardial infarction; Z20.828 Contact with and (suspected) exposure to other viral communicable diseases; Z95.1 Presence of aortocoronary bypass graft; Z95.5 Presence of coronary angioplasty implant and graft; Z93.2 Ileostomy status
CPT/HCPCS: 36415; 36573; 70450; 71250; 72125; 74176; 80048; 80053; 80069; 81001; 82550; 82803; 82962; 83605; 83735; 83970; 85025; 85610; 87040; 87077; 87086; 87150; 87186; 87324; 87449; 87635; 93005; 93010; 93306; 96361; 96365; 96366; 99285; C9803; J0692; J1642; J1815; J1956; J2405; J3370; J3475; J3490; J7030; J7050; J7060; J7120